=== PATIENT | male | born 1940 | race Caucasian/White ===

== ENCOUNTER → 2016-12-10 | Outpatient (CLI) | payer MEDICARE ==
[~2016-12-10] MED LIST: ALLO300T2 PO; ASPI-983 PO; ATOR20TA66; ATOR40TA70 PO; ATOR80TA76 PO; CHOL10007 PO; LISI-556 PO; NITR0.4T SL; Nitroglycerin SL; OMEG-160 PO; OMG1KC PO; PANT40TA3 PO; TICA90TA PO; UBID100C44 PO
--- OUTSIDE RECORDS SUMMARY | 2016-12-10 14:51 | XMS REPORT | Continuity of Care Document ---
Author Author [facility] Organization [facility] Address Unknown Phone Unavailable Care Team Providers [employer] Name Role Phone JESUS OCHOA DO PCP Insurance Providers Payer Name Policy Number Subscriber Name Relationship [facility] [id number] Luisito Agudelo 16 Self / Same As Patient Advance Directives Directive Response Recorded Date/Time Advance Directives Yes 06/13/16 9:15am Health Care Power of Registry Np No 06/13/16 9:15am Organ Donor No 06/13/16 9:15am Resuscitation Status Full Code 06/13/16 9:15am Chief Complaint and Reason for Visit Chief Complaint CHEST PAIN Reason for Visit Chest pain Hypertensive urgency ST segment changes on electrocardiogram Problems Active Problems Medical Problem Onset Date Status Chest pain Unknown Acute Hypertensive urgency Unknown Acute ST segment changes on electrocardiogram Unknown Acute Medications Current Home Medications Medication Dose Units Route Directions Days/Qty Instructions Start Date Allopurinol 300 Mg 90 06/13/16 Ticagrelor 90 Mg 90 Mg Oral Twice A Day 180 06/15/16 Atorvastatin Calcium 80 Mg 80 Mg Oral Bedtime 30 06/15/16 [place] 3 Polyunsat Fatty Acids 1,000 Mg 1,000 Mg Oral Twice A Day With Meals 100 06/15/16 [Nitroglycerin] 0.4 Mg 0.4 Mg Sublingual As Needed as needed for Chest Pain 30 06/15/16 Aspirin 81 Mg 81 Mg Oral Daily 90 06/15/16 Pantoprazole Sodium 40 Mg 40 Mg Oral Daily@0700 30 06/15/16 Past Home Medications Medication Directions Ordered Status Atorvastatin Calcium 20 Mg Tablet, 06/13/16 Discontinued Social History Social History Problem Response Recorded Date/Time Alcohol Use Occasionally Uses 06/13/2016 9:15am Recreational Drug Use No 06/13/2016 9:15am Recent Foreign Travel No 06/13/2016 9:15am Recent Infectious Disease Exposure No 06/13/2016 9:15am Hospitalization with Isolation Denies 06/15/2016 10:52am Smoking Status Former Smoker 06/13/2016 9:15am Type Used Cigarettes 06/15/2016 10:52am Recent Hopitalizations No 06/13/2016 9:15am Query Response Start Date Stop Date Smoking Status Former Smoker Hospital Discharge Instructions Patient Instructions Physician Instructions Follow Up/Plan Appointment with Dr Dominique's office in 1-2 hours CARDIAC CATH DISCHARGE INSTRUCTIONS *Hold Metformin for 48 hours post heart cath. ACTIVITY * Go Home directly and rest. * Limit activity of the leg (or wrist if it was used) for 7 days including aerobics, swimming, jogging, bicycling, etc. * Restrict stair-climbing for 7 days if possible, if not, climb up with your non-cath leg, then bring together on the same step. * Avoid lifting, pushing, pulling or excessive movement of the affected extremity for 7 days. * Customary sexual activity may be resumed after 2 days-use caution not to use a position that strains or causes pain to the affected extremity. * No driving for 24 hours. * NO SMOKING. * Avoid straining for bowel movements for 7 days. * Gentle walking on level ground is allowed. * Returning to work will depend on the type of procedure and the results. Your doctor will discuss this with you. CALL YOUR DOCTOR FOR ANY OF THE FOLLOWING: *If bleeding from the puncture site occurs- Apply gentle pressure to site with clean cloth and call your doctor or EMS. * If a knot or lump forms under the skin, increases in size, or causes pain. * If bruising appears to be worsening or moving further down your leg instead of disappearing. * Temperature above 101 F. CARE OF YOUR GROIN INCISION; * Bruising or purple discoloration of the skin near the puncture site is common. * You may shower only, no bathtub bathing for 5 days. Be careful to avoid slipping as your leg may feel stiff. * If a closure device was used on your femoral artery, please see the attached guide regarding care of the device and your leg. * REMOVE the dressing from your groin the next day after your procedure in the shower. CARE OF YOUR WRIST INCISION; * Bruising or purple discoloration of the skin near the puncture site is common. * You may shower. * DO NOT submerge wrist. * Remove dressing in 24 hours. Plan of Care Discharge Date 06/15/16 10:33am Disposition 01 HOME, SELF-CARE Instructions/Education Provided CARDIAC CATH DISCHARGE INSTRUC Prescriptions See Medication Section Additional Instructions/Education follow up appointment with dr dominique june 26 at 1:40 pm Care Plan and Goals See Discharge Instructions Section Functional Status Query Response Date Recorded Patient Orientation Person Place Time Situation June 15, 2016 10:52am Comprehension Ability Understands Concepts June 14, 2016 9:00pm Allergies, Adverse Reactions, Alerts Allergen Type Severity Reaction Status Last Updated Rosuvastatin Adverse Reaction Mild HOME MED=LIPITOR Active 06/13/16 Immunizations No immunization records. Vital Signs Acute Vital Signs Vital Response Date/Time Temperature (Fahrenheit) 98.6 degrees F (97.6 - 99.5) 06/15/2016 10:06am Temperature (Calculated Celsius) 36.06778 degrees C (36.4 - 37.5) 06/15/2016 8:00am Temperature Source Tympanic 06/15/2016 10:06am Pulse Rate (adult) 63 bpm (60 - 90) 06/15/2016 10:06am Respiratory Rate 16 bpm (12 - 24) 06/15/2016 10:06am O2 Sat by Pulse Oximetry 98 % (88 - 100) 06/15/2016 10:06am Blood Pressure 134/81 mm Hg 06/15/2016 10:06am Blood Pressure Mean 92 mm Hg 06/15/2016 8:00am Pain Numeric Pain Scale 0-No Pain 06/15/2016 10:06am Pain Intensity 0 06/13/2016 7:54am Height (Feet) 5 feet 06/13/2016 9:15am Height (Inches) 9.00 inches 06/13/2016 9:15am Height (Calculated Centimeters) 175.638704 cm 06/13/2016 9:15am Weight (Pounds) 198 pounds 06/15/2016 6:00am Weight (Ounces) 0.0 oz 06/13/2016 9:15am Weight (Calculated Grams) 76258.290 gm 06/15/2016 6:00am Weight (Calculated Kilograms) 89.331269 kilograms 06/15/2016 6:00am Calculated BMI 29.5 06/13/2016 9:15am Capillary Refill Capillary Refill Less Than 3 Seconds 06/14/2016 7:46pm Results Laboratory Results Test Name Result Units Flags Reference Collection Date/Time Result Date/ Time Comments White Blood Count 8.9 10^3/uL 4.3-11.0 06/15/2016 4:25am 06/15/2016 5: 03am Red Blood Count 4.03 10^6/uL L 4.35-5.85 06/15/2016 4:25am 06/15/2016 5: 03am Hemoglobin 12.5 G/DL L 13.3-17.7 06/15/2016 4:25am 06/15/2016 5:03am Hematocrit 36 % L 40-54 06/15/2016 4:25am 06/15/2016 5:03am Mean Corpuscular Volume 90 FL 80-99 06/15/2016 4:25am 06/15/2016 5: 03am Mean Corpuscular Hemoglobin 31 PG 25-34 06/15/2016 4:25am 06/15/2016 5: 03am Mean Corpuscular Hemoglobin Concent 35 G/DL 32-36 06/15/2016 4:25am 03/2016 5:03am Red Cell Distribution Width 13.8 % 10.0-14.5 06/15/2016 4:25am 2015 5:03am Platelet Count 181 10^3/uL 130-400 06/15/2016 4:25am 06/15/2016 5:03am Mean Platelet Volume 10.6 FL H 7.4-10.4 06/15/2016 4:25am 06/15/2016 5: 03am Neutrophils (%) (Auto) 59 % 42-75 06/13/2016 6:05am 06/13/2016 6:25am Lymphocytes (%) (Auto) 23 % 12-44 06/13/2016 6:05am 06/13/2016 6:25am Monocytes (%) (Auto) 11 % 0-12 06/13/2016 6:05am 06/13/2016 6:25am Eosinophils (%) (Auto) 6 % 0-10 06/13/2016 6:05am 06/13/2016 6:25am Basophils (%) (Auto) 1 % 0-10 06/13/2016 6:05am 06/13/2016 6:25am Neutrophils # (Auto) 5.6 X 10^3 1.8-7.8 06/13/2016 6:05am 06/13/2016 6: 25am Lymphocytes # (Auto) 2.2 X 10^3 1.0-4.0 06/13/2016 6:05am 06/13/2016 6: 25am Monocytes # (Auto) 1.1 X 10^3 H 0.0-1.0 06/13/2016 6:05am 06/13/2016 6: 25am Eosinophils # (Auto) 0.5 10^3/uL H 0.0-0.3 06/13/2016 6:05am 06/13/2016 6 :25am Basophils # (Auto) 0.1 10^3/uL 0.0-0.1 06/13/2016 6:05am 06/13/2016 6: 25am Prothrombin Time 12.5 SEC 12.2-14.7 06/13/2016 6:05am 06/13/2016 6: 27am INR Comment 1.0 0.8-1.4 06/13/2016 6:05am 06/13/2016 6:27am INTERPRETIVE DATA SUGGESTED THERAPEUTIC RANGE FOR INR'S: VENOUS THROMBOSIS, PULMONARY EMBOLISM, OR PREVENTION OF SYSTEMIC EMBOLISM (EG. IN ATRIAL FIBRILLATION): 2.0 - 3.0 MECHANICAL PROSTHETIC HEART VALVES: 2.5 - 3.5* *NOTE: INR'S UP TO 4.5 MAY BE NECESSARY IN SELECTED GROUPS OF HIGH RISK PATIENTS. [employer] CONSENSUS CONFERENCE ON ANTITHROMBOTIC THERAPY (2000). Activated Partial Thromboplast Time 31 SEC 24-35 06/13/2016 6:05am 01/2016 6:27am Sodium Level 140 MMOL/L 135-145 06/15/2016 4:25am 06/15/2016 5:22am Potassium Level 3.7 MMOL/L 3.6-5.0 06/15/2016 4:06/15/2016 5:22am Chloride Level 108 MMOL/L H 98-107 06/15/2016 4:06/15/2016 5:22am Carbon Dioxide Level 22 MMOL/L 21-32 06/15/2016 4:06/15/2016 5: 22am Anion Gap 10 MMOL/L 5-14 06/15/2016 4:06/15/2016 5:22am Blood Urea Nitrogen 18 MG/DL 7-18 06/15/2016 4:06/15/2016 5:22am Creatinine 1.07 MG/DL 0.60-1.30 06/15/2016 4:06/15/2016 5:22am BUN/Creatinine Ratio 17 06/15/2016 4:06/15/2016 5:22am Estimat Glomerular Filtration Rate > 60 06/15/2016 4:2015 5:22am GFR INTERPRETIVE DATA UNITS FOR ESTIMATED GFR (eGFR): mL/min/1.73 M2 REFERENCE RANGE FOR ESTIMATED GFR (eGFR) eGFR NORMAL eGFR >60 MODERATELY DECREASED eGFR 30-59 SEVERLY DECREASED eGFR 15-29 KIDNEY FAILURE <15 (OR DIALYSIS) Glucose Level 115 MG/DL H 70-105 06/15/2016 4:06/15/2016 5:22am Calcium Level 8.8 MG/DL 8.5-10.1 06/15/2016 4:06/15/2016 5:22am Magnesium Level 2.0 MG/DL 1.8-2.4 06/13/2016 6:06/13/2016 7:11am Total Bilirubin 0.6 MG/DL 0.1-1.0 06/13/2016 6:06/13/2016 7:11am Alkaline Phosphatase 76 U/L 40-136 06/13/2016 6:06/13/2016 7:11am Aspartate Amino Transf (AST/SGOT) 38 U/L H 5-34 06/13/2016 6:2015 7:11am Alanine Aminotransferase (ALT/SGPT) 25 U/L 0-55 06/13/2016 6:06/13 7:11am Troponin I 10.01 NG/ML CH <0.30 06/14/2016 4:15am 06/14/2016 5:15am RESULT CALLED TO AIDEN AT 0515. RESULTS READ BACK: YES. Troponin I 0.30 NG/ML <0.30 06/13/2016 6:05am 06/13/2016 7:11am RESULT CALLED TO KATERIN AT 0711. RESULTS READ BACK: YES. Myoglobin 236.0 NG/ML H 10.0-92.0 06/13/2016 6:05am 06/13/2016 7:11am Total Protein 7.1 G/DL 6.4-8.2 06/13/2016 6:05am 06/13/2016 7:11am Albumin 4.4 G/DL 3.2-4.5 06/13/2016 6:05am 06/13/2016 7:11am Triglycerides Level 113 MG/DL <150 06/14/2016 4:15am 06/14/2016 5:28am Cholesterol Level 134 MG/DL < 200 06/14/2016 4:15am 06/14/2016 5:28am HDL Cholesterol 39 MG/DL L 40-60 06/14/2016 4:15am 06/14/2016 5:28am LDL Cholesterol Direct 78 MG/DL 1-129 06/14/2016 4:15am 06/14/2016 5: 28am VLDL Cholesterol 23 MG/DL 5-40 06/14/2016 4:15am 06/14/2016 5:28am Procedures Procedure Status Date Provider(s) Tracing only of electrocardiogram Completed 06/13/16 BAILEY ABREU MD Tracing only of electrocardiogram Completed 06/13/16 BAILEY ABREU MD Tracing only of electrocardiogram Completed 06/13/16 GLADYS DOMINIQUE MD Tracing only of electrocardiogram Completed 06/13/16 GLADYS DOMINIQUE MD Color Doppler echocardiography Completed 06/14/16 GLADYS DOMINIQUE MD Encounters Encounter Location Arrival/Admit Date Discharge/Depart Date Attending Provider Discharged Inpatient [facility] 06/13/16 9:07am 10:33am GLADYS DOMINIQUE MD Recent Diagnosis Chest pain Hypertensive urgency ST segment changes on electrocardiogram
[2016-12-10 15:39] LABS: ALBUMIN 4.5 G/DL (3.2-4.5); BILIRUBIN,DIRECT 0.3 MG/DL (0.0-0.3); BILIRUBIN,INDIRECT 0.4 MG/DL; BILIRUBIN,TOTAL 0.7 MG/DL (0.1-1.0); CALCIUM 9.7 MG/DL (8.5-10.1); CREATININE SERUM 1.29 MG/DL (0.60-1.30); POTASSIUM 4.5 MMOL/L (3.6-5.0); TOTAL PROTEIN 6.9 G/DL (6.4-8.2)
== END ==
LOC: LAB 14:47
PROVIDERS: ATTEND Physician Assistant
DX: I25.10 Atherosclerotic heart disease of native coronary artery without angina pectoris (principal); I10 Essential (primary) hypertension; E78.2 Mixed hyperlipidemia
CPT/HCPCS: 36415; 80053; 80061; 80076

== ENCOUNTER → 2017-02-13 | Outpatient (CLI) | payer MEDICARE ==
[~2017-02-13] VITALS: Ht 175.3 cm; Wt 86.2 kg
[~2017-02-13] MED LIST changes: +CATHETER FLUSH 10 ML SYR IV PRN
[2017-02-13 13:11] VITALS: BP 142/75
--- NOTE | 2017-02-14 07:41 | STRESS TEST ---
PROCEDURE PHYSICIAN: GLADYS KNOWLES DATE OF PROCEDURE: 02/13/2017 EXERCISE MYOVIEW STRESS TEST REPORT: REFERRING PHYSICIAN: Dr. Khan. INDICATION: Coronary artery disease. BASELINE HEART RATE: 52 BASELINE BLOOD PRESSURE: 142/75 BASELINE EKG: Sinus rhythm with nondiagnostic changes. IN SUMMARY: The patient was injected with 10.64 mCi of technetium 99 Myoview and the resting images were obtained. Then the patient started exercising with a baseline heart rate, blood pressure and EKG mentioned above. At minute 7, heart rate was 129. The patient was injected with 30.5 mCi of technetium 99 Myoview. The patient was able to exercise for a total of 7 minutes and 50 seconds on standard Marshall protocol, achieving maximum heart rate of 142, which is 100% of maximum expected heart rate. With peak exercise level, EKG was showing [address] depression in 2, 3 and aVF, [address] depression in V4 and V5. Blood pressure was 198/90. During recovery, heart rate and blood pressure returned to baseline. Peak blood pressure was 215/82. The resting and stress images were reviewed and compared in the short axis, horizontal long axis, and vertical long axis views. The resting and stress images were reviewed and compared in the short axis, horizontal long axis, and vertical long axis views. Review of the images showed diaphragmatic attenuation with mild decreased uptake at the anteroapical segment and true apex and inferoapical segment of the left ventricle with mild reversibility. SSS is 3, SDS 3, TID value 0.98. On the gated images, the left ventricle appeared to be normal size with normal contractility. Calculated ejection fraction 66%. IN CONCLUSION: 1. Good exercise tolerance a total 7 minutes, 49 seconds on standard Marshall protocol, total of 10.1 METs, achieving 100% of maximum expected heart rate. 2. Severe hypertensive response to exercise. Returned to baseline during recovery. 3. [address] depression in 2, 3 and aVF, [address] depression in V4 and V5 with exercise, returned to baseline during recovery. 4. Diaphragmatic attenuation with mildly abnormal SPECT images suggestive of ischemia involving the anteroapical segment, true apex, and inferoapical segment of the left ventricle. 5. Normal left ventricular size with normal contractility. Calculated ejection fraction 66%. Job ID: [id number] Dictated Date: 02/13/2017 15:55:17 Steam Generating Powerplant Mechanic Date: 02/14/2017 07:37:27 / tbk
== END ==
LOC: CARD 11:56
PROVIDERS: ATTEND Physician Assistant
DX: I35.8 Other nonrheumatic aortic valve disorders (principal); I25.10 Atherosclerotic heart disease of native coronary artery without angina pectoris; E78.2 Mixed hyperlipidemia; I21.3 ST elevation (STEMI) myocardial infarction of unspecified site
CPT/HCPCS: 78452; 93017

== ENCOUNTER → 2017-02-13 | Outpatient (CLI) | payer MEDICARE ==
[~2017-02-13] MED LIST changes: -CATHETER FLUSH 10 ML SYR IV PRN
[2017-02-13 12:53] LABS: BASOPHILS # (AUTO) 0.1 10^3/uL (0.0-0.1); BASOPHILS % (AUTO) 1 % (0-10); EOSINOPHILS # (AUTO) 0.4 10^3/uL (0.0-0.3); EOSINOPHILS % (AUTO) 6 % (0-10); LYMPHOCYTES # (AUTO) 1.7 X 10^3 (1.0-4.0); LYMPHOCYTES % (AUTO) 26 % (12-44); MEAN CORPUSCULAR HEMOGLOBIN 31 PG (25-34); MEAN CORPUSCULAR HGB CONC 34 G/DL (32-36); MEAN CORPUSCULAR VOLUME 91 FL (80-99); MEAN PLATELET VOLUME 9.5 FL (7.4-10.4); MONOCYTES # (AUTO) 0.5 X 10^3 (0.0-1.0); MONOCYTES % (AUTO) 8 % (0-12); NEUTROPHILS # (AUTO) 3.8 X 10^3 (1.8-7.8); NEUTROPHILS % (AUTO) 59 % (42-75); PLATELET COUNT 244 10^3/uL (130-400); RED BLOOD COUNT 4.26 10^6/uL (4.35-5.85); RED CELL DISTRIBUTION WIDTH 14.2 % (10.0-14.5); WHITE BLOOD COUNT 6.4 10^3/uL (4.3-11.0)
[2017-02-13 13:12] LABS: ALBUMIN 4.1 G/DL (3.2-4.5); BILIRUBIN,TOTAL 0.7 MG/DL (0.1-1.0); CALCIUM 9.2 MG/DL (8.5-10.1); CREATININE SERUM 1.21 MG/DL (0.60-1.30); POTASSIUM 4.5 MMOL/L (3.6-5.0); TOTAL PROTEIN 6.5 G/DL (6.4-8.2); URIC ACID 5.5 MG/DL (2.6-7.2)
[2017-02-13 13:32] LABS: THYROID STIMULATING HORMONE 1.31 UIU/ML (0.35-4.94)
== END ==
LOC: LAB 11:53
PROVIDERS: ATTEND Family Medicine
DX: M10.9 Gout, unspecified (principal); R53.83 Other fatigue
CPT/HCPCS: 36415; 80053; 84443; 84550; 85025

== ENCOUNTER → 2017-08-20 | Outpatient (CLI) | payer MEDICARE ==
[2017-08-20 10:18] LABS: ALBUMIN 4.2 GM/DL (3.2-4.5); BILIRUBIN,TOTAL 0.8 MG/DL (0.1-1.0); CALCIUM 9.5 MG/DL (8.5-10.1); CREATININE SERUM 1.24 MG/DL (0.60-1.30); POTASSIUM 4.3 MMOL/L (3.6-5.0); TOTAL PROTEIN 7.2 GM/DL (6.4-8.2)
== END ==
LOC: LAB 09:41
PROVIDERS: ATTEND Physician Assistant
DX: I25.10 Atherosclerotic heart disease of native coronary artery without angina pectoris (principal); E78.2 Mixed hyperlipidemia; I10 Essential (primary) hypertension
CPT/HCPCS: 36415; 80053; 80061

== ENCOUNTER → 2018-08-21 | Outpatient (CLI) | payer MEDICARE ==
[2018-08-21 08:39] LABS: ALBUMIN 4.5 GM/DL (3.2-4.5); CALCIUM 9.9 MG/DL (8.5-10.1); CREATININE SERUM 1.29 MG/DL (0.60-1.30); POTASSIUM 4.3 MMOL/L (3.6-5.0); TOTAL PROTEIN 7.1 GM/DL (6.4-8.2)
== END ==
LOC: LAB 08:03
PROVIDERS: ATTEND Physician Assistant
DX: I25.10 Atherosclerotic heart disease of native coronary artery without angina pectoris (principal); E78.5 Hyperlipidemia, unspecified
CPT/HCPCS: 36415; 80053; 80061

== ENCOUNTER 2018-10-29 14:20 | Outpatient (CLI) | payer MEDICARE ==
[~2018-10-29] VITALS: Ht 175.3 cm; Wt 86.2 kg
[2018-10-29] MEDS ORDERED: ISOS30TA3 PO (14:24)
[2018-10-29] MEDS ORDERED: ATOR20TA66 PO (14:24)
== END 2018-10-29 14:30 | disposition home or self-care (01) ==
LOC: PREOP 14:20
PROVIDERS: ATTEND Internal Medicine
DX: Z01.818 Encounter for other preprocedural examination (principal)

== ENCOUNTER 2018-10-31 09:20 | Day surgery (SDC) | payer MEDICARE ==
--- NOTE | 2018-10-21 12:23 | HISTORY AND PHYSICAL ---
DATE OF SERVICE: COLONOSCOPY HISTORY AND PHYSICAL DATE OF ADMISSION: 10/31/2018. HISTORY OF PRESENT ILLNESS: The patient is an 78-year-old white male referred by Dr. Ramsey for surveillance colonoscopy. He has a past history of colon polyps and it has been 7 years since his last colonoscopy. This was reportedly done by Dr. Camara. He reports that he feels well. He denies any problems with bowel habit change, denying diarrhea or constipation. He has noted no bright red blood per rectum or melena. He has some occasional mild heartburn symptoms, but pretty much only happens now if he misses the dose of pantoprazole. He has no dysphagia. No history for Soler's esophagus. PAST MEDICAL HISTORY: Significant for hypertension, intermittent gout and hyperlipidemia as well as stable coronary artery disease. SOCIAL HISTORY: He is , retired, still very physically active for his age with no significant past drinking or smoking. FAMILY HISTORY: He is not aware of any family history for any GI tract malignancy including colon cancer. There is a family history for coronary artery disease and hypertension. MEDICATIONS ON ADMISSION: Include atorvastatin 20 mg daily, allopurinol 300 mg daily, baby aspirin 81 mg daily, pantoprazole 40 mg daily, fish oil 1200 mg capsule b.i.d., CoQ10 10 mg tablet daily, isosorbide mononitrate ER 30 mg daily and lisinopril 5 mg daily. PHYSICAL EXAMINATION: GENERAL: Reveals a pleasant white male appearing younger than his stated age. VITAL SIGNS: Blood pressure 110/70, heart rate 72 and regular. HEENT: Unremarkable. He has a Mallampati 2 oropharyngeal configuration. No exudate or erythema noted. NECK: Revealed no JVD, adenopathy or bruits. CHEST: Clear to auscultation. CARDIOVASCULAR: Reveals a regular rate and rhythm without murmur, S3 or S4. ABDOMEN: Soft, supple without mass, organomegaly or tenderness. EXTREMITIES: Reveal no cyanosis, clubbing or edema. ASSESSMENT AND PLAN: 1. The patient was set up for surveillance colonoscopy due to the past history of colon polyps. We did discuss the fact that considering his age, he has no evidence for significant neoplasia, may not be recommending future surveillance colonoscopy. Prep instructions were given and questions were answered. 2. Hypertension, under good control. 3. Hyperlipidemia. 4. Advised the patient to hold aspirin one week prior to colonoscopy that, I believe, was scheduled for 10/31. I thank you for the referral of this pleasant gentleman. Job ID: [id number] DocumentID: [id number] Dictated Date: 10/21/2018 11:57:40 Exploration Geologist Date: 10/21/2018 12:22:14 Dictated By: PURNIMA GE MD
[~2018-10-31] VITALS: Ht 175.3 cm; Wt 86.2 kg
[~2018-10-31 09:20] MED LIST changes: +ATOR20TA66 PO; +ISOS30TA3 PO
--- OUTSIDE RECORDS SUMMARY | 2018-10-31 09:29 | XMS REPORT | CCD ---
Author Author Kristin [facility] Organization [facility] Address [address] [place] [address] Phone Care Team Providers Care Animal Laboratory Technician Name Role Phone PP Unavailable CCM Unavailable Summary Purpose Interface Exchange Insurance Providers Payer name Policy type / Coverage type Covered democrat ID Effective Begin Date Effective End Date [employer] Commercial Insurance [id number] Unknown Unknown Family history Brother Diagnosis Age At Onset Alcoholism Unknown Cancer Unknown Mother Diagnosis Age At Onset Cancer Unknown Father Diagnosis Age At Onset Heart Attack Unknown Stroke Unknown Hyperlipidemia Unknown Alcoholism Unknown Social History Social History Element Codes Description Effective Dates Marital status Unknown Zuleima "Ade" Brandon 10/01/2017 Number of children Unknown 2 10/01/2017 Employment Unknown Retired 10/01/[address]: 8348310 Quit over 10 years ago Quit 1986 10/01/2017 Alcohol history Unknown pt chooses not to answer 10/01/2017 Allergies, Adverse Reactions, Alerts Substance Reaction Codes Entered Date Inactivated Date Status * NO KNOWN ENVIRONMENTAL ALLERGIES Unknown 10/01/2017 No Inactive Date Active * NO KNOWN FOOD ALLERGIES Unknown 10/01/2017 No Inactive Date Active [id number] REDUCTASE INHIBITORS Unknown 10/01/2017 No Inactive Date Active Past Medical History Illness Codes Condition Status Onset Date Resolved Date Essential (primary) hypertension ICD-9: 401.1 ICD-10: I10 Active 10/01/2017 Unknown Mixed hyperlipidemia ICD-9: 272.2 ICD-10: E78.2 Active 10/01/2017 Unknown Presbycusis, 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 Active 10/01/2018 Unknown Gastro-esophageal reflux disease without esophagitis ICD-9: 530.81 ICD-10: K21.9 Active 10/01/2017 Unknown 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 Active 10/01/2017 Unknown Problems Condition Codes Effective Dates Condition Status Essential (primary) hypertension ICD-9: 401.1 ICD-10: I10 10/01/2017 Active Mixed hyperlipidemia ICD-9: 272.2 ICD-10: E78.2 10/01/2017 Active Presbycusis, 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 10/01/2018 Active Gastro-esophageal reflux disease without esophagitis ICD-9: 530.81 ICD-10: K21.9 10/01/2017 Active 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 10/01/2017 Active Medications Medication Codes Instructions Start Date Stop Date Status Fill Instructions atorvastatin 20 mg tablet RxNorm: 589818 1 TABLET(S) PO QHS 09/19/2019 Active allopurinol 300 mg tablet RxNorm: 743332 1 TABLET(S) PO QD 05/07/2018 Inactive pantoprazole 40 mg tablet,delayed release RxNorm: 966207 1 Tablet(s) PO daily 10/01/2017 09/25/2018 Inactive isosorbide mononitrate ER 30 mg tablet,extended release 24 hr RxNorm: 412081 1 Tablet(s) PO daily 10/01/2017 09/25/2018 Inactive lisinopril 5 mg tablet RxNorm: 088002 1 Tablet(s) PO daily 09/25/2018 Inactive allopurinol 300 mg tablet RxNorm: 918603 1 Tablet(s) PO daily 10/01/2017 02/06/2018 Inactive atorvastatin 20 mg tablet RxNorm: 725851 1 Tablet(s) PO QHS 09/24/2018 Inactive nitroglycerin buccal RxNorm: 4917 buccal No Start Date Active aspirin 81 mg tablet RxNorm: 109834 1 Tablet(s) PO daily No Start Date Active Fish Oil 360 mg-1,200 mg capsule RxNorm: 195526 1 Capsule(s) PO BID No Start Date Active coenzyme Q10 10 mg tablet RxNorm: 897503 1 Tablet(s) PO daily No Start Date Active Vitamin D2 1,000 unit capsule RxNorm: 261827 1 Capsule(s) PO daily No Start Date Active atorvastatin 20 mg tablet RxNorm: 666571 1 Tablet(s) PO QHS No Start Date 09/30/2017 Inactive allopurinol 300 mg tablet RxNorm: 680397 1 Tablet(s) PO daily No Start Date 09/30/2017 Inactive isosorbide mononitrate ER 30 mg tablet,extended release 24 hr RxNorm: 814049 1 Tablet(s) PO daily No Start Date 2016 Inactive lisinopril 5 mg tablet RxNorm: 051989 1 Tablet(s) PO daily No Start Date 09/30/2017 Inactive Brilinta 90 mg tablet RxNorm: 7629982 1 Tablet(s) PO BID No Start Date 09/30/2017 Inactive pantoprazole 40 mg tablet,delayed release RxNorm: 815581 1 Tablet(s) PO daily No Start Date 09/30/2017 Inactive Medication Administered No Medication Administered data Immunizations Vaccine Codes Date Status Influenza CVX: 141 07/12/2017 completed Zoster CVX: 121 08/11/2015 completed Pneumococcal CVX: 33 05/11/2015 completed Assessments Condition Codes Effective Dates Presbycusis, 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3 ICD-9: 388.01 10/01/2018 Mixed hyperlipidemia ICD-10: E78.2 ICD-9: 272.2 10/01/2018 Essential (primary) hypertension ICD-10: I10 ICD-9: 401.1 10/01/2018 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 ICD-9: 728.6 10/01/2017 Gastro-esophageal reflux disease without esophagitis ICD-10 : K21.9 ICD-9: 530.81 10/01/2017 Reason For Visit Reason For Visit Effective Dates Notes hypertension 10/01/2018 hypertension 02/05/2018 hypertension 10/01/2017 left Results No Results data Review of Systems System Result Effective Dates Constitutional No recent illness 2017 Constitutional No chills 10/01/2018 Constitutional No fatigue 10/01/2018 Constitutional No fever 10/01/2018 Constitutional No insomnia 10/01/2018 Constitutional No malaise 10/01/2018 Eyes No vision change 10/01/2018 Ears/Nose/Throat/Neck No dental pain Ears/Nose/Throat/Neck No dizziness 2017 Ears/Nose/Throat/Neck No dysphagia 2017 Ears/Nose/Throat/Neck No headache 2017 Ears/Nose/Throat/Neck hearing loss 2017 Ears/Nose/Throat/Neck No nasal allergies 10/01/2018 Ears/Nose/Throat/Neck No sore throat Cardiovascular No chest pain/pressure Cardiovascular No dyspnea 10/01/2018 Cardiovascular No edema 10/01/2018 Cardiovascular No exercise intolerance Cardiovascular No fatigue 10/01/2018 Cardiovascular No near-syncope/dizziness 10/01/2018 Respiratory No chest tightness 2017 Respiratory No cough 10/01/2018 Respiratory No dyspnea 10/01/2018 Respiratory No pedal edema 10/01/2018 Gastrointestinal No abdominal pain 2017 Gastrointestinal No constipation 2017 Gastrointestinal No diarrhea 10/01/2018 Gastrointestinal No gastroesophageal reflux 10/01/2018 Gastrointestinal No nausea 10/01/2018 Gastrointestinal No vomiting 10/01/2018 Genitourinary/Nephrology No dysuria 10/01 Genitourinary/Nephrology No nocturia Genitourinary/Nephrology No urinary incontinence 10/01/2018 Musculoskeletal No stiffness 10/01/2018 Musculoskeletal No swelling 10/01/2018 Musculoskeletal No muscle weakness 2017 Musculoskeletal No myalgias 10/01/2018 Dermatologic No rash 10/01/2018 Dermatologic No sores 10/01/2018 Neurologic No dizziness 10/01/2018 Neurologic No headache 10/01/2018 Neurologic No neck pain 10/01/2018 Neurologic No syncope 10/01/2018 Psychiatric No anxiety 10/01/2018 Psychiatric No depression 10/01/2018 Constitutional No recent illness 2017 Constitutional No chills 02/05/2018 Constitutional No fever 02/05/2018 Eyes No vision change 02/05/2018 Cardiovascular No chest pain/pressure Cardiovascular No dyspnea 02/05/2018 Respiratory No cough 02/05/2018 Gastrointestinal No abdominal pain 2017 Gastrointestinal No constipation 2017 Gastrointestinal No diarrhea 02/05/2018 Gastrointestinal No nausea 02/05/2018 Gastrointestinal No vomiting 02/05/2018 Dermatologic No rash 02/05/2018 Constitutional No diaphoresis 02/05/2018 Ears/Nose/Throat/Neck No nasal allergies 02/05/2018 Ears/Nose/Throat/Neck No nasal discharge 02/05/2018 Respiratory No chest congestion 2017 Musculoskeletal No joint complaint 2017 Neurologic No alteration of consciousness 02/05/2018 Neurologic No mental status change 2017 Constitutional No recent illness 2016 Constitutional No chills 10/01/2017 Constitutional No fatigue 10/01/2017 Constitutional No fever 10/01/2017 Constitutional No insomnia 10/01/2017 Constitutional No malaise 10/01/2017 Eyes No vision change 10/01/2017 Ears/Nose/Throat/Neck No dental pain Ears/Nose/Throat/Neck No dizziness 2016 Ears/Nose/Throat/Neck No dysphagia 2016 Ears/Nose/Throat/Neck No headache 2016 Ears/Nose/Throat/Neck No hearing loss Ears/Nose/Throat/Neck No nasal allergies 10/01/2017 Ears/Nose/Throat/Neck No sore throat Ears/Nose/Throat/Neck No postnasal drip 10/01/2017 Ears/Nose/Throat/Neck No sinus congestion 10/01/2017 Cardiovascular No chest pain/pressure Cardiovascular No dyspnea 10/01/2017 Cardiovascular No edema 10/01/2017 Cardiovascular No exercise intolerance Cardiovascular No fatigue 10/01/2017 Cardiovascular No near-syncope/dizziness 10/01/2017 Respiratory No chest tightness 2016 Respiratory No cough 10/01/2017 Respiratory No dyspnea 10/01/2017 Respiratory No pedal edema 10/01/2017 Gastrointestinal No abdominal pain 2016 Gastrointestinal No constipation 2016 Gastrointestinal No diarrhea 10/01/2017 Gastrointestinal No gastroesophageal reflux 10/01/2017 Gastrointestinal No nausea 10/01/2017 Gastrointestinal No vomiting 10/01/2017 Genitourinary/Nephrology No dysuria 10/01 Genitourinary/Nephrology No nocturia Genitourinary/Nephrology No urinary incontinence 10/01/2017 Musculoskeletal No stiffness 10/01/2017 Musculoskeletal No swelling 10/01/2017 Musculoskeletal No muscle weakness 2016 Musculoskeletal No myalgias 10/01/2017 Dermatologic No rash 10/01/2017 Dermatologic No sores 10/01/2017 Neurologic No dizziness 10/01/2017 Neurologic No headache 10/01/2017 Neurologic No neck pain 10/01/2017 Neurologic No syncope 10/01/2017 Psychiatric No anxiety 10/01/2017 Psychiatric No depression 10/01/2017 Physical Exam Exam Name System Name Item Name Status Result Effective Dates Notes Full Exam - General 1994 Constitutional general appearance Development: well developed 10/01/2018 None Full Exam - General 1994 Constitutional general appearance Development: appears stated age 1110/01/2018 None Full Exam - General 1994 Constitutional general appearance Hygiene/Attention to Grooming: good hygiene 10/01/2018 None Full Exam - General 1994 Eyes conjunctiva /eyelids Overall: conjunctiva clear 10/01/2018 None Full Exam - General 1994 Eyes conjunctiva /eyelids Overall: cornea clear 10/01/2018 None Full Exam - General 1994 Eyes conjunctiva /eyelids Overall: eyelids normal 10/01/2018 None Full Exam - General 1994 Eyes pupils and irises Overall: pupils equal, round, reactive to light and accomodation 10/01/2018 None Full Exam - General 1994 Ears/Nose/Throat otoscopic exam Overall: external auditory canals clear 10/01/2018 None Full Exam - General 1994 Ears/Nose/Throat otoscopic exam Overall: tympanic membranes clear 10/01/2018 None Full Exam - General 1994 Ears/Nose/Throat lips/teeth/gingiva Overall: benign lips 10/01/2018 None Full Exam - General 1994 Ears/Nose/Throat lips/teeth/gingiva Overall: normal dentition 10/01/2018 None Full Exam - General 1994 Ears/Nose/Throat oral cavity/pharynx/larynx Overall: oral mucosa clear 10/01/2018 None Full Exam - General 1994 Ears/Nose/Throat oral cavity/pharynx/larynx Overall: oropharyngeal mucosa clear 10/01/2018 None Full Exam - General 1994 Ears/Nose/Throat oral cavity/pharynx/larynx Overall: hypopharynx benign 10/01/2018 None Full Exam - General 1994 Ears/Nose/Throat oral cavity/pharynx/larynx Overall: no masses 10/01/2018 None Full Exam - General 1994 Respiratory auscultation Overall: breath sounds clear bilaterally 10/01/2018 None Full Exam - General 1994 Respiratory respiratory effort/rhythm Overall: no retractions 10/01/2018 None Full Exam - General 1994 Respiratory respiratory effort/rhythm Overall: normal rate 10/01/2018 None Full Exam - General 1994 Cardiovascular inspection of carotid pulses Overall: strong, bilaterally equal, no bruits 10/01/2018 None Full Exam - General 1994 Cardiovascular extremities Overall: no clubbing 10/01/2018 None Full Exam - General 1994 Cardiovascular auscultation of heart Overall: regular rate 10/01/2018 None Full Exam - General 1994 Cardiovascular auscultation of heart Overall: normal heart sounds 10/01/2018 None Full Exam - General 1994 Abdomen abdominal exam Overall: no tenderness 10/01/2018 None Full Exam - General 1994 Abdomen abdominal exam Overall: normal bowel sounds 10/01/2018 None Full Exam - General 1994 Lymphatic neck nodes Overall: anterior cervical chain benign 10/01/2018 None Full Exam - General 1994 Lymphatic neck nodes Overall: posterior cervical chain benign 10/01/2018 None Full Exam - General 1994 Musculoskeletal upper extremity Inspection - carpals: nodule 10/01/2018 contracture on left hand 4th digit and possible carpal tunnel left hand + phalen and +tinnel sign at wrist on left Full Exam - General 1994 Musculoskeletal spine, ribs and pelvis Overall: spine benign 10/01/2018 None Full Exam - General 1994 Musculoskeletal spine, ribs and pelvis Overall: sacroiliac joint benign 10/01/2018 None Full Exam - General 1994 Musculoskeletal spine, ribs and pelvis Overall: good posture 10/01/2018 None Full Exam - General 1994 Musculoskeletal head and neck Overall: head atraumatic 10/01/2018 None Full Exam - General 1994 Musculoskeletal head and neck Overall: cervical spine benign 10/01/2018 None Full Exam - General 1994 Integument inspection of skin Overall: few scattered moles, no gross abnormalities 10/01/2018 None Full Exam - General 1994 Neurologic deep tendon reflexes Overall: deep tendon reflexes intact 10/01/2018 None Full Exam - General 1994 Neurologic cranial nerves Overall: crainial nerves 2 - 12 grossly intact 10/01/2018 None Full Exam - General 1994 Psychiatric orientation/consciousness Overall: oriented to person, place and time 10/01/2018 None Full Exam - General 1994 Psychiatric mood and affect Overall: normal mood and affect 10/01/2018 None Full Exam - General 1994 Constitutional general appearance Hygiene/Attention to Grooming: good hygiene 02/05/2018 None Full Exam - General 1994 Eyes conjunctiva /eyelids Overall: conjunctiva clear 02/05/2018 None Full Exam - General 1994 Eyes conjunctiva /eyelids Overall: cornea clear 02/05/2018 None Full Exam - General 1994 Eyes conjunctiva /eyelids Overall: eyelids normal 02/05/2018 None Full Exam - General 1994 Eyes pupils and irises Overall: pupils equal, round, reactive to light and accomodation 02/05/2018 None Full Exam - General 1994 Ears/Nose/Throat otoscopic exam Overall: external auditory canals clear 02/05/2018 None Full Exam - General 1994 Ears/Nose/Throat otoscopic exam Overall: tympanic membranes clear 02/05/2018 None Full Exam - General 1994 Ears/Nose/Throat lips/teeth/gingiva Overall: benign lips 02/05/2018 None Full Exam - General 1994 Ears/Nose/Throat oral cavity/pharynx/larynx Overall: oral mucosa clear 02/05/2018 None Full Exam - General 1994 Ears/Nose/Throat oral cavity/pharynx/larynx Overall: oropharyngeal mucosa clear 02/05/2018 None Full Exam - General 1994 Respiratory auscultation Overall: breath sounds clear bilaterally 02/05/2018 None Full Exam - General 1994 Respiratory respiratory effort/rhythm Overall: no retractions 02/05/2018 None Full Exam - General 1994 Respiratory respiratory effort/rhythm Overall: normal rate 02/05/2018 None Full Exam - General 1994 Cardiovascular extremities Overall: no clubbing 02/05/2018 None Full Exam - General 1994 Cardiovascular auscultation of heart Overall: regular rate 02/05/2018 None Full Exam - General 1994 Cardiovascular auscultation of heart Overall: normal heart sounds 02/05/2018 None Full Exam - General 1994 Musculoskeletal spine, ribs and pelvis Overall: good posture 02/05/2018 None Full Exam - General 1994 Musculoskeletal head and neck Overall: head atraumatic 02/05/2018 None Full Exam - General 1994 Neurologic cranial nerves Overall: crainial nerves 2 - 12 grossly intact 02/05/2018 None Full Exam - General 1994 Psychiatric orientation/consciousness Overall: oriented to person, place and time 02/05/2018 None Full Exam - General 1994 Psychiatric mood and affect Overall: normal mood and affect 02/05/2018 None Full Exam - General 1994 Constitutional general appearance Overall: well developed 02/05/2018 None Full Exam - General 1994 Constitutional general appearance Overall: in no acute distress 02/05/2018 None Full Exam - General 1994 Constitutional general appearance Overall: well nourished 02/05/2018 None Full Exam - General 1994 Abdomen abdominal exam Overall: normal bowel sounds 02/05/2018 None Full Exam - General 1994 Psychiatric appearance Overall: well-groomed, good eye contact 02/05/2018 None Full Exam - General 1994 Constitutional general appearance Development: well developed 10/01/2017 None Full Exam - General 1994 Constitutional general appearance Development: appears stated age 1110/01/2017 None Full Exam - General 1994 Constitutional general appearance Hygiene/Attention to Grooming: good hygiene 10/01/2017 None Full Exam - General 1994 Eyes conjunctiva /eyelids Overall: conjunctiva clear 10/01/2017 None Full Exam - General 1994 Eyes conjunctiva /eyelids Overall: cornea clear 10/01/2017 None Full Exam - General 1994 Eyes conjunctiva /eyelids Overall: eyelids normal 10/01/2017 None Full Exam - General 1994 Eyes pupils and irises Overall: pupils equal, round, reactive to light and accomodation 10/01/2017 None Full Exam - General 1994 Ears/Nose/Throat otoscopic exam Overall: external auditory canals clear 10/01/2017 None Full Exam - General 1994 Ears/Nose/Throat otoscopic exam Overall: tympanic membranes clear 10/01/2017 None Full Exam - General 1994 Ears/Nose/Throat lips/teeth/gingiva Overall: benign lips 10/01/2017 None Full Exam - General 1994 Ears/Nose/Throat lips/teeth/gingiva Overall: normal dentition 10/01/2017 None Full Exam - General 1994 Ears/Nose/Throat oral cavity/pharynx/larynx Overall: oral mucosa clear 10/01/2017 None Full Exam - General 1994 Ears/Nose/Throat oral cavity/pharynx/larynx Overall: oropharyngeal mucosa clear 10/01/2017 None Full Exam - General 1994 Ears/Nose/Throat oral cavity/pharynx/larynx Overall: hypopharynx benign 10/01/2017 None Full Exam - General 1994 Ears/Nose/Throat oral cavity/pharynx/larynx Overall: no masses 10/01/2017 None Full Exam - General 1994 Respiratory auscultation Overall: breath sounds clear bilaterally 10/01/2017 None Full Exam - General 1994 Respiratory respiratory effort/rhythm Overall: no retractions 10/01/2017 None Full Exam - General 1994 Respiratory respiratory effort/rhythm Overall: normal rate 10/01/2017 None Full Exam - General 1994 Cardiovascular extremities Overall: no clubbing 10/01/2017 None Full Exam - General 1994 Cardiovascular auscultation of heart Overall: regular rate 10/01/2017 None Full Exam - General 1994 Cardiovascular auscultation of heart Overall: normal heart sounds 10/01/2017 None Full Exam - General 1994 Abdomen abdominal exam Overall: no tenderness 10/01/2017 None Full Exam - General 1994 Abdomen abdominal exam Overall: normal bowel sounds 10/01/2017 None Full Exam - General 1994 Lymphatic neck nodes Overall: anterior cervical chain benign 10/01/2017 None Full Exam - General 1994 Lymphatic neck nodes Overall: posterior cervical chain benign 10/01/2017 None Full Exam - General 1994 Musculoskeletal spine, ribs and pelvis Overall: spine benign 10/01/2017 None Full Exam - General 1994 Musculoskeletal spine, ribs and pelvis Overall: sacroiliac joint benign 10/01/2017 None Full Exam - General 1994 Musculoskeletal spine, ribs and pelvis Overall: good posture 10/01/2017 None Full Exam - General 1994 Musculoskeletal head and neck Overall: head atraumatic 10/01/2017 None Full Exam - General 1994 Musculoskeletal head and neck Overall: cervical spine benign 10/01/2017 None Full Exam - General 1994 Integument inspection of skin Overall: few scattered moles, no gross abnormalities 10/01/2017 None Full Exam - General 1994 Neurologic deep tendon reflexes Overall: deep tendon reflexes intact 10/01/2017 None Full Exam - General 1994 Neurologic cranial nerves Overall: crainial nerves 2 - 12 grossly intact 10/01/2017 None Full Exam - General 1994 Psychiatric orientation/consciousness Overall: oriented to person, place and time 10/01/2017 None Full Exam - General 1994 Psychiatric mood and affect Overall: normal mood and affect 10/01/2017 None Full Exam - General 1994 Cardiovascular inspection of carotid pulses Overall: strong, bilaterally equal, no bruits 10/01/2017 None Full Exam - General 1994 Musculoskeletal upper extremity Inspection - carpals: nodule 10/01/2017 contracture on left hand 4th digit and possible carpal tunnel left hand + phalen and +tinnel sign at wrist on left Procedures No Procedures data Vital Signs Date Vital 10/01/2018 Blood Pressure 1: 112/68 Code : 8480-6 BMI: 27.3 Code : 04021-8 Heart Rate 1 : 61 bpm Height: 5'10" SpO2: 98% Weight: 190 lbs 02/05/2018 Blood Pressure 1: 122/72 Code : 8480-6 BMI: 26.5 Code : 62871-5 Heart Rate 1 : 80 bpm Height: 5'10" SpO2: 98% Weight: 185 lbs 10/01/2017 Blood Pressure 1: 146/80 Code : 8480-6 BMI: 27.4 Code : 15915-0 Heart Rate 1 : 50 bpm Height: 5'10" SpO2: 96% Weight: 191 lbs Functional Status No Functional Status data History of Present Illness Symptom Name Status Result Effective Date Notes hypertension Quality chronic 10/01/2018 None hypertension Onset and Resolution ongoing 10/01/2018 None hypertension Blood Pressure Values patient checking blood pressure at home - did not bring in readings 10/01/2018 -Checks occasionally hypertension Pertinent Findings dizziness 10/01/2018 -He did have when he had a sinus infection a few weeks ago hypertension Pertinent Findings Denies dyspnea 10/01/2018 None hypertension Pertinent Findings Denies edema 10/01/2018 None hyperlipidemia Significant Family History hyperlipidemia 10/01/2018 None hyperlipidemia Significant Family History cardiac disease 10/01/2018 None hypertension Quality primary hypertension 10/01/2018 None hypertension Onset of Symptom during adulthood 10/01/2018 None hypertension Alleviating Factors medication 10/01/2018 None hypertension Significant Family History cardiac disease 10/01/2018 None hypertension Significant Family History stroke 10/01/2018 None hyperlipidemia Onset and Resolution gradual in onset 10/01/2018 None hyperlipidemia Onset of Symptom during adulthood 10/01/2018 None hyperlipidemia Significant Medications statin 10/01/2018 None hyperlipidemia Alleviating Factors medication 10/01/2018 None hyperlipidemia Exacerbating Factors diet 10/01/2018 None hypertension Quality chronic 02/05/2018 None hypertension Quality stable 02/05/2018 None hypertension Onset and Resolution ongoing 02/05/2018 None hypertension Onset of Symptom during childhood 02/05/2018 None hypertension Blood Pressure Values patient checking blood pressure at home - did not bring in readings 02/05/2018 None hypertension Significant Family History heart disease 02/05/2018 None hypertension Significant Family History hypertension 02/05/2018 None hypertension Significant Family History cardiac disease 02/05/2018 None hypertension Triggers no known associated factors 02/05/2018 None hypertension Pertinent Findings Denies anxiety 02/05/2018 None hypertension Pertinent Findings Denies decreased energy 02/05/2018 None hypertension Pertinent Findings Denies dizziness 02/05/2018 None hypertension Pertinent Findings Denies dyspnea 02/05/2018 None hypertension Pertinent Findings Denies edema 02/05/2018 None hyperlipidemia Onset and Resolution ongoing 02/05/2018 None hyperlipidemia Onset of Symptom during childhood 02/05/2018 None hyperlipidemia Pertinent Findings Denies edema 02/05/2018 None hyperlipidemia Pertinent Findings Denies nausea 02/05/2018 None hyperlipidemia Pertinent Findings Denies obesity 02/05/2018 None hyperlipidemia Pertinent Findings Denies weight loss 02/05/2018 None hyperlipidemia Quality chronic 02/05/2018 None hyperlipidemia Quality stable 02/05/2018 None hyperlipidemia Significant Family History hyperlipidemia 02/05/2018 None hyperlipidemia Significant Family History cardiac disease 02/05/2018 None hypertension Quality chronic 10/01/2017 None hypertension Quality stable 10/01/2017 None hypertension Onset and Resolution ongoing 10/01/2017 None hypertension Onset of Symptom during childhood 10/01/2017 None hypertension Pertinent Findings Denies anxiety 10/01/2017 None hypertension Pertinent Findings Denies decreased energy 10/01/2017 None hypertension Pertinent Findings Denies dizziness 10/01/2017 None hypertension Pertinent Findings Denies dyspnea 10/01/2017 None hypertension Pertinent Findings Denies edema 10/01/2017 None hypertension Triggers no known associated factors 10/01/2017 None hypertension Significant Family History heart disease 10/01/2017 None hypertension Significant Family History hypertension 10/01/2017 None hypertension Significant Family History cardiac disease 10/01/2017 None hypertension Blood Pressure Values patient checking blood pressure at home - did not bring in readings 10/01/2017 None hyperlipidemia Onset and Resolution ongoing 10/01/2017 None hyperlipidemia Onset of Symptom during childhood 10/01/2017 None hyperlipidemia Significant Family History hyperlipidemia 10/01/2017 None hyperlipidemia Significant Family History cardiac disease 10/01/2017 None hyperlipidemia Quality chronic 10/01/2017 None hyperlipidemia Quality stable 10/01/2017 None hyperlipidemia Pertinent Findings Denies edema 10/01/2017 None hyperlipidemia Pertinent Findings Denies nausea 10/01/2017 None hyperlipidemia Pertinent Findings Denies obesity 10/01/2017 None hyperlipidemia Pertinent Findings Denies weight loss 10/01/2017 None gout Exacerbating Factors stress 10/01/2017 None gout Exacerbating Factors food: _ 10/01/2017 None gout Pertinent Findings Denies warmth 10/01/2017 None gout Pertinent Findings Denies swelling 10/01/2017 None gout Pertinent Findings Denies redness 10/01/2017 None gout Pertinent Findings Denies fever 10/01/2017 None hand pain Location on the left 10/01/2017 None hand pain Quality numbness 10/01/2017 None hand pain Quality acute 10/01/2017 None hand pain Quality chronic 10/01/2017 None hand pain Quality throbbing 10/01/2017 None hand pain Pertinent Findings Denies decreased range of motion 10/01/2017 None hand pain Pertinent Findings pain with movement 10/01/2017 None hand pain Pertinent Findings stiffness 10/01/2017 None hand pain Pertinent Findings Denies redness 10/01/2017 None hand pain Pertinent Findings Denies warmth 10/01/2017 None hand pain Pertinent Findings Denies tingling 10/01/2017 None hand pain Pertinent Findings weakness 10/01/2017 None Advance Directives No Advance Directive data Encounters Encounter Performer Location Codes Date (48729) 19878 EST. 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 Pt has been encouraged to exercise daily. The pt has been advised to call the office if there are any acute concerns about change in blood pressure readings at home. Hx of polyps - report is about 5 -6 polyps that had to be removed, I have recommended a referral to Dr. Aranda for colonoscopy - hx of polyps about 6 years ago - is due for repeat. Hyperlipidemia - pt has been counseled about appropriate diet, exercise, and need for low fat food choices. I have discussed the need for the patient to take medications as prescribed. If the patient has negative side effects from the medication, they are to CALL the office and not abruptly discontinue the medication without discussion with a practitioner in the office. We will check labs in 3-6 months for follow up on the patient's chronic medical problem and to assure normal liver response to medications. Hearing loss - I have recommended that pt needs to have hearing testing. 10/01/2018 Patient Education: Patient Medication Summary Completed 10/01/2018 Patient Education: Cholesterol Management Completed 10/01/2018 Appointment: Kristin Ramsey WPtel: [facility] (15 min) Moderate 08/06/2018 Visit Plan: Hypertension - well controlled - continue with current medications, continue with no added salt diet. Pt has been encouraged to exercise daily. The pt has been advised to call the office if there are any acute concerns about change in blood pressure readings at home. Hyperlipidemia - pt has been counseled about appropriate diet, exercise, and need for low fat food choices. I have discussed the need for the patient to take medications as prescribed. If the patient has negative side effects from the medication, they are to CALL the office and not abruptly discontinue the medication without discussion with a practitioner in the office. We will check labs in 3-6 months for follow up on the patient's chronic medical problem and to assure normal liver response to medications. 02/05/2018 Appointment: Martha Shah WPtel: [facility] (15 min) Moderate 02/05/2018 Patient Education: Patient Medication Summary Completed 02/05/2018 Visit Plan: Hypertension - well controlled - continue with current medications, continue with no added salt diet. Pt has been encouraged to exercise daily. The pt has been advised to call the office if there are any acute concerns about change in blood pressure readings at home. 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 Gomez RE - contracture on left hand 4th digit and possible carpal tunnel left hand - prefer appt at the Ortho clinic in [place] Hyperlipidemia - pt has been counseled about appropriate diet, exercise, and need for low fat food choices. I have discussed the need for the patient to take medications as prescribed. If the patient has negative side effects from the medication, they are to CALL the office and not abruptly discontinue the medication without discussion with a practitioner in the office. We will check labs in 3-6 months for follow up on the patient's chronic medical problem and to assure normal liver response to medications. Esophageal Reflux - the patient has been counseled against excessive intake of caffeine, spicy foods, peppermint , and cinnamon - all of which can exacerbate esophageal reflux. The patient is to take medications as prescribed and call the office if the symptoms are not improving. 10/01/2017 [facility]ment: [phone] [facility] Patient 10/01/2017 Patient Education: Patient Medication Summary Completed 10/01/2017 Care Plan: Referral Order SNOMED-CT : [id number] Pending 10/01/2017 Referral: External, Ordering Provider Referral Appointment Requested Instructions Comment . Hypertension - well controlled - continue with current medications, continue with no added salt diet. Pt has been encouraged to exercise daily. The pt has been advised to call the office if there are any acute concerns about change in blood pressure readings at home. Hyperlipidemia - pt has been counseled about appropriate diet, exercise, and need for low fat food choices. I have discussed the need for the patient to take medications as prescribed. If the patient has negative side effects from the medication, they are to CALL the office and not abruptly discontinue the medication without discussion with a practitioner in the office. We will check labs in 3-6 months for follow up on the patient's chronic medical problem and to assure normal liver response to medications. . Hypertension - well controlled - continue with current medications, continue with no added salt diet. Pt has been encouraged to exercise daily. The pt has been advised to call the office if there are any acute concerns about change in blood pressure readings at home. 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 Gomez RE - contracture on left hand 4th digit and possible carpal tunnel left hand - prefer appt at the [facility] in [place] Hyperlipidemia - pt has been counseled about appropriate diet, exercise, and need for low fat food choices. I have discussed the need for the patient to take medications as prescribed. If the patient has negative side effects from the medication, they are to CALL the office and not abruptly discontinue the medication without discussion with a practitioner in the office. We will check labs in 3-6 months for follow up on the patient's chronic medical problem and to assure normal liver response to medications. Esophageal Reflux - the patient has been counseled against excessive intake of caffeine, spicy foods, peppermint, and cinnamon - all of which can exacerbate esophageal reflux. The patient is to take medications as prescribed and call the office if the symptoms are not improving. . Hypertension - well controlled - continue with current medications, continue with no added salt diet. Pt has been encouraged to exercise daily. The pt has been advised to call the office if there are any acute concerns about change in blood pressure readings at home. Hx of polyps - report is about 5 -6 polyps that had to be removed, I have recommended a referral to Dr. Aranda for colonoscopy - hx of polyps about 6 years ago - is due for repeat. Hyperlipidemia - pt has been counseled about appropriate diet, exercise, and need for low fat food choices. I have discussed the need for the patient to take medications as prescribed. If the patient has negative side effects from the medication, they are to CALL the office and not abruptly discontinue the medication without discussion with a practitioner in the office. We will check labs in 3-6 months for follow up on the patient's chronic medical problem and to assure normal liver response to medications. Hearing loss - I have recommended that pt needs to have hearing testing.
--- OUTSIDE RECORDS SUMMARY | 2018-10-31 09:29 | XMS REPORT | Clinical Summary ---
Author Author [facility] Organization [facility] Address Unknown Phone Unavailable Care Team Providers Care Administrative Support Assoc Name Role Phone PCP Unavailable Allergies Not on File Current Medications Not on file Active Problems Not on file Social History Tobacco Use Types Packs/Day Years Used Date Never Assessed Sex Assigned at Date Recorded Not on file Last Filed Vital Signs Not on file Plan of Treatment Not on file Results Not on filefrom Last 3 Months
--- OUTSIDE RECORDS SUMMARY | 2018-10-31 09:30 | XMS REPORT | CCD ---
Author Author [facility] Organization [facility] Address [address] [place] [address] Phone Care Team Providers Care Case Resolution Specialist Name Role Phone PP Unavailable CCM Unavailable Summary Purpose Interface Exchange Insurance Providers Payer name Policy type / Coverage type Covered democrat ID Effective Begin Date Effective End Date [employer] Commercial Insurance [id number] Unknown Unknown Family history Brother Diagnosis Age [...] Unknown Retired 10/01/[address]: 5606947 Quit over 10 years ago Quit 1986 10/01/2017 Alcohol history Unknown pt chooses not to answer 10/01/2017 Allergies, Adverse Reactions, Alerts Substance Reaction Codes Entered Date Inactivated Date Status * NO KNOWN ENVIRONMENTAL ALLERGIES Unknown 10/01/2017 No Inactive Date Active * NO KNOWN FOOD ALLERGIES Unknown 10/01/2017 No Inactive Date Active [id number]-DAI REDUCTASE INHIBITORS Unknown 10/01/2017 No Inactive Date Active Past Medical History Illness Codes Condition Status Onset Date Resolved Date Essential (primary) hypertension ICD-9: 401.1 ICD-10: I10 Active 10/01/2017 Unknown Gastro-esophageal reflux disease without esophagitis ICD-9: 530.81 ICD-10: K21.9 Active 10/01/2017 Unknown Mixed hyperlipidemia ICD-9: 272.2 ICD-10: E78.2 Active 10/01/2017 Unknown 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 Active 10/01/2017 Unknown Problems Condition Codes Effective Dates Condition Status Essential (primary) hypertension ICD-9: 401.1 ICD-10: I10 10/01/2017 Active Gastro-esophageal reflux disease without esophagitis ICD-9: 530.81 ICD-10: K21.9 10/01/2017 Active Mixed hyperlipidemia ICD-9: 272.2 ICD-10: E78.2 10/01/2017 Active 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 10/01/2017 Active Medications Medication Codes Instructions Start Date Stop Date Status Fill Instructions atorvastatin 20 mg tablet RxNorm: 348632 1 TABLET(S) PO QHS 09/19/2019 Active allopurinol 300 mg tablet RxNorm: 952563 1 TABLET(S) PO QD 05/07/2018 Inactive pantoprazole 40 mg tablet,delayed release RxNorm: 892229 1 Tablet(s) PO daily 10/01/2017 09/25/2018 Inactive isosorbide mononitrate ER 30 mg tablet,extended release 24 hr RxNorm: 191598 1 Tablet(s) PO daily 10/01/2017 09/25/2018 Inactive lisinopril 5 mg tablet RxNorm: 296605 1 Tablet(s) PO daily 09/25/2018 Inactive allopurinol 300 mg tablet RxNorm: 065067 1 Tablet(s) PO daily 10/01/2017 02/06/2018 Inactive atorvastatin 20 mg tablet RxNorm: 411892 1 Tablet(s) PO QHS 09/24/2018 Inactive nitroglycerin buccal RxNorm: 4917 buccal No Start Date Active aspirin 81 mg tablet RxNorm: 568548 1 Tablet(s) PO daily No Start Date Active Fish Oil 360 mg-1,200 mg capsule RxNorm: 394557 1 Capsule(s) PO BID No Start Date Active coenzyme Q10 10 mg tablet RxNorm: 723616 1 Tablet(s) PO daily No Start Date Active Vitamin D2 1,000 unit capsule RxNorm: 269246 1 Capsule(s) PO daily No Start Date Active atorvastatin 20 mg tablet RxNorm: 661446 1 Tablet(s) PO QHS No Start Date 09/30/2017 Inactive allopurinol 300 mg tablet RxNorm: 661392 1 Tablet(s) PO daily No Start Date 09/30/2017 Inactive isosorbide mononitrate ER 30 mg tablet,extended release 24 hr RxNorm: 031801 1 Tablet(s) PO daily No Start Date 2016 Inactive lisinopril 5 mg tablet RxNorm: 893560 1 Tablet(s) PO daily No Start Date 09/30/2017 Inactive Brilinta 90 mg tablet RxNorm: 2245556 1 Tablet(s) PO BID No Start Date 09/30/2017 Inactive pantoprazole 40 mg tablet,delayed release RxNorm: 989258 1 Tablet(s) PO daily No Start Date 09/30/2017 Inactive Medication Administered No Medication Administered data Immunizations Vaccine Codes Date Status Influenza CVX: 141 07/12/2017 completed Zoster CVX: 121 08/11/2015 completed Pneumococcal CVX: 33 05/11/2015 completed Assessments Condition Codes Effective Dates Essential (primary) hypertension ICD-10: I10 ICD-9: 401.1 02/05/2018 Mixed hyperlipidemia ICD-10: E78.2 ICD-9: 272.2 02/05/2018 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 ICD-9: 728.6 10/01/2017 Gastro-esophageal reflux disease without esophagitis ICD-10 : K21.9 ICD-9: 530.81 10/01/2017 Reason For Visit Reason For Visit Effective Dates Notes hypertension 02/05/2018 hypertension 10/01/2017 left Results No [...] No Procedures data Vital Signs Date Vital 02/05/2018 Blood Pressure 1: 122/72 Code : 8480-6 BMI: 26.5 Code : 20477-1 Heart Rate 1 : 80 bpm Height: 5'10" SpO2: 98% Weight: 185 lbs 10/01/2017 Blood Pressure 1: 146/80 Code : 8480-6 BMI: 27.4 Code : 68833-7 Heart Rate 1 : 50 bpm Height: 5'10" SpO2: 96% Weight: 191 lbs Functional Status No Functional Status data History of Present Illness Symptom Name Status Result Effective Date Notes hypertension Quality chronic 02/05/2018 None hypertension Quality [...] data Encounters Encounter Performer Location Codes Date 15320 EST. 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 02/05/2018 Appointment: Martha Shah WPtel: [facility] (15 min) Moderate 02/05/2018 Patient Education: Patient [...] prefer appt at the Ortho clinic in [place] Hyperlipidemia - pt has been counseled about [...] not improving. 10/01/2017 Appointment: Kristin Ramsey WPtel: [facility] New Patient 10/01/2017 Patient Education: Patient Medication Summary Completed 10/01/2017 Care Plan: Referral Order SNOMED-CT : [id number] Pending 10/01/2017 Referral: External, Ordering Provider Referral [...] left hand - prefer appt at the [facility] in [place] Hyperlipidemia - pt has been counseled about [...]
[2018-10-31] MEDS ORDERED: D5 LR IV SOLUTION 1,000 ML IV STA (09:34)
[2018-10-31] MEDS ORDERED: fentaNYL INJECTION 100 MCG/2 ML AMP IVP ONE (09:45)
[2018-10-31] MEDS ORDERED: MIDAZOLAM 2 MG/2 ML (VERSED) VIAL IVP ONE (09:45)
[2018-10-31] MEDS ORDERED: LIDOCAINE JELLY 2% 6 ML SYRINGE MM PRN (09:45)
[2018-10-31] MEDS ORDERED: D5 LR IV SOLUTION 1,000 ML IV ONE (09:46)
[2018-10-31 10:01] VITALS: BP 131/83
[2018-10-31] MEDS ORDERED: MIDAZOLAM 2 MG/2 ML (VERSED) VIAL ONE ×2 (10:54)
[2018-10-31] MEDS ORDERED: fentaNYL INJECTION 100 MCG/2 ML AMP ONE (10:54)
[2018-10-31] MEDS ORDERED: LIDOCAINE JELLY 2% 6 ML SYRINGE ONE (10:54)
--- NOTE | 2018-10-31 11:07 | Pre-Op Note & Conscious Sedat ---
Pre-Operative Progress Note H&P Reviewed The H&P was reviewed, patient examined and no changes noted. Date H&P Reviewed: Oct 31, 2018 Time H&P Reviewed: 10:45 Conscious Sedation Pre-Proced ASA Score 2 For ASA 3 and 4: Consider anesthesia and medical clearance. Also, for patients with a history of failed moderate sedation consider anesthesia. Airway Lungs Heart ASA score ASA 1: a normal healthy patient ASA 2: a patient with a mild systemic disease (mid diabetes, controlled hypertension, obesity ASA 3: a patient with a severe systemic disease that limits activity (angina , COPD, prior Myocardial infarction) ASA 4: a patient with an incapacitating disease that is a constant threat to life (CHF, renal failure) ASA 5: a moribund patient not expected to survive 24 hrs. (ruptured aneurysm) ASA 6: a declared brain patient whose organs are being harvested. For emergent operations, add the letter E after the classification Mallampati Classification Grade 2 Sedation Plan Analgesia, Amnesia, Plan communicated to team members, Discussed options with patient/fam, Discussed risks with patient/fam The patient is an appropriate candidate to undergo the planned procedure, sedation, and anesthesia. The patient immediately re-assessed prior to indication. PURNIMA GE MD Oct 31, 2018 11:07
[2018-10-31 12:00] VITALS: BP 124/68
[2018-10-31 12:30] VITALS: BP 123/72
--- NOTE | 2018-10-31 21:33 | OPERATIVE REPORT ---
DATE OF SERVICE: COLONOSCOPY SUMMARY INDICATION FOR THE PROCEDURE: Colonoscopy was performed due to past history of colon polyps. The patient was placed in the left lateral decubitus position. Prior to undergoing colonoscopy, digital rectal evaluation was performed. Anal sphincter tone was normal and the perianal reflex was intact. Prostate is mildly enlarged, anodular and nontender to digital inspection. No abnormalities, no additional inspection of anal canal or distal rectal vault. The colonoscope was then inserted into the rectum and under direct visualization advanced to the cecum. The cecum was identified by identification of the ileocecal valve and cecal strap. Photographic documentation was obtained. The quality of prep was good and the patient tolerated the procedure well. FINDINGS: There was no evidence for internal or external hemorrhoids. The rectum was unremarkable. Several small sigmoid diverticula were present without evidence for diverticulitis. No other sigmoid abnormalities were noted. The descending colon, splenic flexure, transverse colon, ascending colon, hepatic flexure and cecum were unremarkable. ASSESSMENT: No evidence for neoplasia was identified on today's study. Digital rectal evaluation was compatible with benign prostatic hypertrophy. Mild diverticular disease confined to the sigmoid colon was present. Considering patient's age and medical comorbidities, I would not advocate future surveillance colonoscopy. Thank you for the referral of this pleasant gentleman. Job ID: [id number] DocumentID: [id number] Dictated Date: 10/31/2018 12:06:02 Director Of Training Date: 10/31/2018 21:32:35 Dictated By: PURNIMA GE MD
== END 2018-10-31 12:37 | disposition home or self-care (01) ==
LOC: ENDO 09:20
PROVIDERS: ATTEND Internal Medicine
DX: Z12.11 Encounter for screening for malignant neoplasm of colon (principal); Z86.010 Personal history of colon polyps; K57.30 Diverticulosis of large intestine without perforation or abscess without bleeding; I10 Essential (primary) hypertension; E78.5 Hyperlipidemia, unspecified; I25.10 Atherosclerotic heart disease of native coronary artery without angina pectoris; M10.9 Gout, unspecified; Z79.82 Long term (current) use of aspirin; Z79.899 Other long term (current) drug therapy

== ENCOUNTER → 2018-12-24 | Outpatient (CLI) | payer MEDICARE | LOC: CARD 10:36 | PROVIDERS: ATTEND Physician Assistant | DX: I25.10 Atherosclerotic heart disease of native coronary artery without angina pectoris (principal); E78.5 Hyperlipidemia, unspecified; R06.02 Shortness of breath; I08.1 Rheumatic disorders of both mitral and tricuspid valves | CPT/HCPCS: 93306 ==

== ENCOUNTER → 2018-12-29 | Outpatient (CLI) | payer MEDICARE ==
[~2018-12-29] VITALS: Ht 175.3 cm; Wt 85.7 kg
[~2018-12-29] MED LIST changes: -ALLO300T2 PO; -ASPI-983 PO; -ATOR20TA66; -ATOR20TA66 PO; -ATOR40TA70 PO; -ATOR80TA76 PO; +CATHETER FLUSH 10 ML SYR IV PRN; -CHOL10007 PO; -ISOS30TA3 PO; -LISI-556 PO; -NITR0.4T SL; -Nitroglycerin SL; -OMEG-160 PO; -OMG1KC PO; -PANT40TA3 PO; +REGADENOSON 0.4 MG/5 ML SYR (LEXISCAN) IV ONE; -TICA90TA PO; -UBID100C44 PO
[2018-12-29 09:31] VITALS: BP 146/83
[2018-12-29 09:33] VITALS: BP 133/67
--- NOTE | 2018-12-30 08:10 | STRESS TEST ---
DATE OF SERVICE: 12/29/2018 LEXISCAN MYOVIEW STRESS TEST REPORT REFERRING PHYSICIAN: Dr. Whitney Khan. INDICATION: Coronary artery disease. FINDINGS: Baseline heart rate is 47 and baseline blood pressure is 162/81. Baseline EKG is sinus rhythm with no ischemic changes. SUMMARY: In summary, the patient was injected with 10.83 mCi of technetium-99 Myoview and the resting images were obtained. Then, the patient received 0.4 mg of Lexiscan followed by 30.1 mCi of technetium-99 Myoview. Throughout the test, there were no EKG changes. The resting and stress images were reviewed and compared in the short axis, horizontal long axis and vertical long axis views. Review of the images showed good radiotracer uptake with no significant ischemia or infarction. SSS is 1, SDS 1 and TID value 1.07. On the gated images, the left ventricle appeared to be in normal size with normal contractility. Calculated ejection fraction is 68%. CONCLUSION: 1. The patient tolerated the Lexiscan well. 2. No ischemia or infarction on SPECT images. 3. Normal left ventricular size with normal contractility. Calculated ejection fraction is 68%. Job ID: [id number] DocumentID: [id number] Dictated Date: 12/30/2018 07:47:29 Ski Patrol Officer Date: 12/30/2018 08:09:37 Dictated By: GLADYS KNOWLES MD
== END ==
LOC: CARD 07:41
PROVIDERS: ATTEND Physician Assistant
DX: I35.8 Other nonrheumatic aortic valve disorders (principal); I25.10 Atherosclerotic heart disease of native coronary artery without angina pectoris; E78.5 Hyperlipidemia, unspecified; R06.02 Shortness of breath
CPT/HCPCS: 78452; 93017

== ENCOUNTER → 2019-08-27 | Outpatient (CLI) | payer MEDICARE ==
[~2019-08-27] MED LIST changes: +ALLO300T2 PO; +ASPI-983 PO; +ATOR20TA66; +ATOR20TA66 PO; +ATOR40TA70 PO; +ATOR80TA76 PO; -CATHETER FLUSH 10 ML SYR IV PRN; +CHOL10007 PO; +ISOS30TA3 PO; +LISI-556 PO; +NITR0.4T SL; +Nitroglycerin SL; +OMEG-160 PO; +OMG1KC PO; +PANT40TA3 PO; -REGADENOSON 0.4 MG/5 ML SYR (LEXISCAN) IV ONE; +TICA90TA PO; +UBID100C44 PO
[2019-08-27 10:40] LABS: BASOPHILS # (AUTO) 0.1 10^3/uL (0.0-0.1); BASOPHILS % (AUTO) 1 % (0-10); EOSINOPHILS # (AUTO) 0.4 10^3/uL (0.0-0.3); EOSINOPHILS % (AUTO) 6 % (0-10); HEMATOCRIT 42 % (40-54); HEMOGLOBIN 14.4 G/DL (13.3-17.7); LYMPHOCYTES # (AUTO) 1.7 X 10^3 (1.0-4.0); LYMPHOCYTES % (AUTO) 29 % (12-44); MEAN CORPUSCULAR HEMOGLOBIN 31 PG (25-34); MEAN CORPUSCULAR HGB CONC 34 G/DL (32-36); MEAN CORPUSCULAR VOLUME 92 FL (80-99); MEAN PLATELET VOLUME 10.4 FL (7.4-10.4); MONOCYTES # (AUTO) 0.7 X 10^3 (0.0-1.0); MONOCYTES % (AUTO) 12 % (0-12); NEUTROPHILS # (AUTO) 3.1 X 10^3 (1.8-7.8); NEUTROPHILS % (AUTO) 53 % (42-75); PLATELET COUNT 231 10^3/uL (130-400); RED CELL DISTRIBUTION WIDTH 14.1 % (10.0-14.5); WHITE BLOOD COUNT 5.9 10^3/uL (4.3-11.0)
[2019-08-27 10:59] LABS: ALBUMIN 4.4 GM/DL (3.2-4.5); BILIRUBIN,TOTAL 0.9 MG/DL (0.1-1.0); CALCIUM 9.3 MG/DL (8.5-10.1); CREATININE SERUM 1.16 MG/DL (0.60-1.30); POTASSIUM 4.7 MMOL/L (3.6-5.0)
== END ==
LOC: LAB 10:01
PROVIDERS: ATTEND Family Medicine
DX: Z12.5 Encounter for screening for malignant neoplasm of prostate (principal); E78.5 Hyperlipidemia, unspecified; I10 Essential (primary) hypertension
CPT/HCPCS: 36415; 80053; 80061; 84153; 84443; 85025

== ENCOUNTER 2019-12-02 06:34 | Day surgery (SDC) | payer MEDICARE ==
[2019-12-02] VITALS (12 sets, daily range): BP systolic 118–160; BP diastolic 71–84
[~2019-12-02] VITALS: Ht 176 cm; Wt 83.0 kg
[2019-12-02] MEDS ORDERED: NS IV 1000 ML 1,000 ML ONE (06:45)
[2019-12-02] MEDS ORDERED: LIDOCAINE 1% INJ 20 ML 20 ML VIAL ONE (06:45)
[2019-12-02] MEDS ORDERED: HEParin (CATH LAB) 2,000 ML IV ONE (06:45)
[2019-12-02] MEDS ORDERED: NS IV 1000 ML 1,000 ML IV SCH ×2 (06:45→09:47)
[2019-12-02 07:19] LABS: HEMOGLOBIN 14.4 G/DL (13.3-17.7); MEAN PLATELET VOLUME 10.2 FL (7.4-10.4); RED CELL DISTRIBUTION WIDTH 14.1 % (10.0-14.5); WHITE BLOOD COUNT 7.3 10^3/uL (4.3-11.0)
[2019-12-02 07:20] LABS: BILIRUBIN,URINE NEGATIVE (NEGATIVE); CLARITY,URINE CLEAR; COLOR,URINE YELLOW; GLUCOSE, URINE (UA) NEGATIVE (NEGATIVE); KETONES,URINE NEGATIVE (NEGATIVE); LEUKOCYTE ESTERASE ,URINE NEGATIVE (NEGATIVE); NITRITE,URINE NEGATIVE (NEGATIVE); PH,URINE 5.5 (5-9); PROTEIN,URINE NEGATIVE (NEGATIVE)
[2019-12-02 07:28] LABS: BACTERIA,URINE NEGATIVE /HPF; SQUAMOUS EPITHELIAL CELL,UR RARE /HPF
[2019-12-02 07:35] LABS: PROTHROMBIN TIME PATIENT 13.5 SEC (12.2-14.7)
[2019-12-02] MEDS ORDERED: LISI10TA2 PO (07:39)
[2019-12-02] MEDS ORDERED: CHOL200059 PO (07:41)
[2019-12-02 07:42] LABS: ALBUMIN 4.4 GM/DL (3.2-4.5); BILIRUBIN,TOTAL 0.9 MG/DL (0.1-1.0); CALCIUM 9.7 MG/DL (8.5-10.1); CREATININE SERUM 1.25 MG/DL (0.60-1.30)
--- NOTE | 2019-12-02 07:46 | Diagnostic Imaging Report ---
INDICATION: Preoperative evaluation prior to heart catheterization and possible angioplasty/stent. Chest pain, hypertension.. TECHNIQUE: Single view chest 7:31 AM. CORRELATION STUDY: 08/15/2016 FINDINGS: The heart size, mediastinal configuration and pulmonary vascularity are generally stable and within normal limits. The lungs are clear with no consolidating infiltrate. There is no significant effusion or pneumothorax. IMPRESSION: 1. Negative for acute abnormality of the chest. Dictated by: Dictated on workstation # [id number]
[2019-12-02] MEDS ORDERED: ACET-2650 PO (07:48)
--- NOTE | 2019-12-02 08:21 | NUR ---
SPOKE WITH THE PT (HE HAD HIS HOME MEDS) TO COMPLETE THE MED REC. PT WAS ABLE TO TELL ME HOW/WHEN HE TAKES EACH MEDICATION. THE FOLLOWING ARE FILL DATES FROM [facility] [employer]: 09-30-2019 ATORVASTATIN #90/90DS 10-26-2019 ISOSORBIDE #90/90DS 10-26-2019 PANTOPRAZOLE #90/90DS 10-26-2019 LISINOPRIL #90/90DS 10-26-2019 ALLOPURINOL # 90/90DS OTC MES: VIT D CO Q 10 FISH OIL ASPIRIN TYLENOL ARTHRITIS NITROGLYCERIN TABS WERE ON HIS MEDS REC FROM A PREVIOUS VISIT, HOWEVER THE PT SAYS HIS BOTTLE AT HOME IS FROM MULTIPLE YEARS AGO. HIS ASKED IF THEY WERE STILL GOOD, I ADVISED HER TO CHECK THE EXPIRATION DATE WHEN SHE COULD. PT SAID HE WAS INTERESTED IN GETTING A NEW PRESCRIPTION FOR IT- I TOLD HIM I WOULD SPEAK WITH THE NURSING STAFF ABOUT POSSIBLY HAVING ONE SENT TO HIS PHARMACY.
[2019-12-02] MEDS ORDERED: fentaNYL INJECTION 100 MCG/2 ML AMP ONE (08:56)
[2019-12-02] MEDS ORDERED: MIDAZOLAM 5 MG/5 ML (VERSED) VIAL ONE (08:56)
--- NOTE | 2019-12-02 09:13 | Cardiac Procedure Note-CS/ASA ---
Pre-Procedure Note Pre-Op Procedure Note H&P Reviewed The H&P was reviewed, patient examined and no changes noted. Date H&P Reviewed: Dec 02, 2019 Time H&P Reviewed: 09:13 Conscious Sedation Pre-Proced Time 09:13 ASA Score 3 For ASA 3 and 4: Consider anesthesia and medical clearance. Also, for patients with a history of failed moderate sedation consider anesthesia. Airway Lungs Heart ASA score ASA 1: a normal healthy patient ASA 2: a patient with a mild systemic disease (mid diabetes, controlled hypertension, obesity x ASA 3: a patient with a severe systemic disease that limits activity (angina, COPD, prior Myocardial infarction) ASA 4: a patient with an incapacitating disease that is a constant threat to life (CHF, renal failure) ASA 5: a moribund patient not expected to survive 24 hrs. (ruptured aneurysm) ASA 6: a declared brain- patient whose organs are being harvested. For emergent operations, add the letter E after the classification Mallampati Classification Grade 3 Sedation Plan Analgesia, Amnesia, Plan communicated to team members, Discussed options with patient/fam, Discussed risks with patient/fam The patient is an appropriate candidate to undergo the planned procedure, sedation, and anesthesia. The patient immediately re-assessed prior to indication. GLADYS KNOWLES MD Dec 02, 2019 09:13
--- NOTE | 2019-12-02 09:54 | Cardiac Cath Report ---
Cardiac Cath Report Physician (s)/Logging Equipment Operator (s) Physician GLADYS KNOWLES MD Pre-Procedure Diagnosis Pre-Procedure Diagnosis: coronary artery disease Post-Procedure Note Procedure Start Date: Dec 02, 2019 Name of Procedure: Left heart catheterization Findings/Procedure Note PROCEDURE NOTE: 79 years old gentleman with history of coronary artery disease, complex intervention of the right coronary artery, has been having accelerating angina, scheduled for cardiac catheterization. After explaining the procedure to the patient, all pros and cons were explained, all questions were answered. The patient signed the consent and then he was placed on the cardiac catheterization laboratory. Groin was prepped SL fashion local anesthesia was used. Sheath placed in the right femoral artery. Calvin left 4.5 catheter was used for the left system, multiple catheters were used to attempt access the right system, finally I reshaped JR catheter and was able to intubate the right coronary, angiogram done, advanced to the left ventricular cavity, pressure was measured, pullback was done At the end of the procedure the sheath was removed. Closure device FINDINGS: Hemodynamics LV 128/6, end-diastolic pressure of 6 Aorta 114/50, mean of 69 ANATOMY: Left Main s free of obstructive disease Left Anterior Descending has diffuse ectasia, 50 percent stenosis at the midportion, small vessel disease Left Circumflex as diffuse ectasia nonobstructive disease, small vessel disease Right Coronory Artery has multiple stent that are patent with slow flow, some collaterals from the left system LV Gram was not done CONCLUSION: 1. Patent stents in the right coronary artery and collaterals to the right from the left system, there is slow flow in the right system, small vessel disease. 2. Diffuse ectasia in the LAD and circumflex system, 50 percent stenosis in the mid LAD. 3. Normal left ventricular end-diastolic pressure DISCUSSION AND RECOMMENDATION: medical therapy is recommended Anesthesia Type: Conscious Sedation Estimated blood loss (mL): 25 ml Contrast Amount: 35 ml Total Radiation Dose: 580 mGy Post-Procedure Diagnosis Post-operative diagnosis: Coronary artery disease Hypertension Hyperlipidemia Chest pain GLADYS KNOWLES MD Dec 02, 2019 09:54
--- NOTE | 2019-12-02 09:55 | Discharge Inst-Post CATH ---
Discharge Inst-CATH/EP Problems Reviewed?: Yes Post Cardiac Cath/EP D/C Inst Follow Up/Plan Appointment with Dr Dominique in 2-4 weeks <b>CARDIAC CATH/EP PROCEDURE DISCHARGE INSTRUCTIONS</b> ACTIVITY * Go Home directly and rest. * Limit activity of the leg (or wrist if it was used) for 7 days including aerobics, swimming, jogging, bicycling, etc. * Restrict stair-climbing for 7 days if possible, if not, climb up with your non-cath leg, then bring together on the same step. * Avoid lifting, pushing, pulling or excessive movement of the affected extremity for 7 days. * Customary sexual activity may be resumed after 2 days-use caution not to use a position that strains or causes pain to the affected extremity. * No driving for 24 hours. * NO SMOKING. * Avoid straining for bowel movements for 7 days. * Gentle walking on level ground is allowed. * Returning to work will depend on the type of procedure and the results. Your doctor will discuss this with you. CALL YOUR DOCTOR FOR ANY OF THE FOLLOWING: *If bleeding from the puncture site occurs- Apply gentle pressure to site with clean cloth and call your doctor or EMS. * If a knot or lump forms under the skin, increases in size, or causes pain. * If bruising appears to be worsening or moving further down your leg instead of disappearing. * Temperature above 101 F. CARE OF YOUR GROIN INCISION; * Bruising or purple discoloration of the skin near the puncture site is common. * You may shower only, no bathtub bathing for 5 days. Be careful to avoid slipping as your leg may feel stiff. * If a closure device was used on your femoral artery, please see the attached guide regarding care of the device and your leg. * Leave dressing on FOR 24 hours. CARE OF YOUR WRIST INCISION; * Bruising or purple discoloration of the skin near the puncture site is common. * You may shower. * DO NOT submerge wrist. * Leave dressing on FOR 24 hours. GLADYS DOMINIQUE MD Dec 02, 2019 09:55
[2019-12-02] MEDS ORDERED: PATIENT MAY USE OWN MEDS, ALL PO SCH (10:00)
[2019-12-02] MEDS ORDERED: NITROGLYCERIN 0.4 MG SL TABS BTL 25'S SL ONE (13:15)
== END 2019-12-02 14:35 | disposition home or self-care (01) ==
LOC: CATH 06:34 → SDC 10:06 → CATH 14:35
PROVIDERS: ATTEND Internal Medicine Cardiovascular Disease
DX: I25.10 Atherosclerotic heart disease of native coronary artery without angina pectoris (principal); I25.2 Old myocardial infarction; I08.3 Combined rheumatic disorders of mitral, aortic and tricuspid valves; I65.23 Occlusion and stenosis of bilateral carotid arteries; I50.20 Unspecified systolic (congestive) heart failure; N18.9 Chronic kidney disease, unspecified; E78.5 Hyperlipidemia, unspecified; Z88.8 Allergy status to other drugs, medicaments and biological substances; Z79.899 Other long term (current) drug therapy; Z87.891 Personal history of nicotine dependence; Z79.82 Long term (current) use of aspirin; Z82.3 Family history of stroke; Z80.9 Family history of malignant neoplasm, unspecified; Z82.49 Family history of ischemic heart disease and other diseases of the circulatory system
CPT/HCPCS: 36415; 71045; 80053; 81000; 85027; 85610; 85730; 87081; 93005; 93458

== ENCOUNTER 2020-03-26 20:00 | Emergency (ER) | payer MEDICARE ==
[~2020-03-26 20:00] MED LIST changes: +ACET-2650 PO; +CHOL200059 PO; +LISI10TA2 PO
--- OUTSIDE RECORDS SUMMARY | 2020-03-26 20:06 | XMS REPORT | Encounter Summary ---
Author Author [facility] Vicky Tate, [place], [place], [facility] Organization [facility] Vicky Tate [place], [place], [facility] Address Unknown Phone Unavailable Care Team Providers Care Wash And Greaser Name Role Phone Jai eNlson DO PCP Reason for Visit * Reason Comments Annual Wellness Visit AWV (Medicare) Encounter Details Care Team Description Date Type Department Jai Nelson DO [address] [place] [address] Medicare annual wellness visit, subseque nt (Primary Dx); Mixed hyperlipidemia 12/29/2015 Office Visit [facility] Family [facility] [address] [place] [address] Social History Date Tobacco Use Types Packs/Day Years Used Former Smoker Smokeless Tobacco: Never Used Drinks/Week oz/Week Comments Alcohol Use occ Yes Sex Assigned at Date Recorded Not on file Industry Job Start Date Occupation Not on file Not on file Not on file Travel End Travel History Travel Start No recent travel history available. documented as of this encounter Last Filed Vital Signs Reading Time Taken Comments Vital Sign 142/78 12/29/2015 9:37 AM REGISTERED NURSING PROFESSOR Blood Pressure 56 12/29/2015 9:37 AM REGISTERED NURSING PROFESSOR Pulse 36.5 C (97.7 F) 12/29/2015 9:37 AM REGISTERED NURSING PROFESSOR Temperature 18 12/29/2015 9:37 AM REGISTERED NURSING PROFESSOR Respiratory Rate 95% 12/29/2015 9:37 AM REGISTERED NURSING PROFESSOR Oxygen Saturation - - Inhaled Oxygen Concentration 96.2 kg (212 lb) 12/29/2015 9:37 AM REGISTERED NURSING PROFESSOR Weight - - Height 30.42 11/02/2014 10:28 AM REGISTERED NURSING PROFESSOR Body Mass Index documented in this encounter Progress Notes * Jai Nelson, - 12/29/2015 9:42 AM REGISTERED NURSING PROFESSOR HKnown diagnosis of HTN.ISTORY OF PRESENT ILLNESS Luisito Taylor, a 75 y.o. male presents with a Chief Complaint of Annual [facility] Visit (Medicare) Subjective HPI Comments: This note is prepared by MARSHAL SANTIAGO LPN acting as CTC for DR. Eh estes.Patient presents in clinic today for AWV. Patient is in overall good health with no complaints at this time. Refills sent to pharmacy at this time. This nv dical record reflects the history of present illness as obtained by myself in di scussion with the patient. The history is provided by the patient. No speech and language clinician was used. REVIEW OF SYSTEMS Review of Systems Constitutional: Negative. Negative for fever, chills, appetite change and fatig ue. HENT: Negative for dental problem, ear pain, postnasal drip and trouble swallowi ng. Eyes: Negative for pain and visual disturbance. Respiratory: Negative for cough and shortness of breath. Cardiovascular: Negative for chest pain, palpitations and leg swelling. Gastrointestinal: Negative for nausea, vomiting, abdominal pain, diarrhea and co nstipation. Genitourinary: Negative for dysuria, frequency and difficulty urinating. Musculoskeletal: Negative for myalgias and neck pain. Skin: Negative for rash. Neurological: Negative for dizziness, weakness, light-headedness and headaches. Hematological: Does not bruise/bleed easily. Psychiatric/Behavioral: Negative for behavioral problems and confusion. The lena ent is not nervous/anxious. Objective PHYSICAL EXAM BP 142/78 mmHg | Pulse 56 | Temp(Src) 97.7 F (36.5 C) (Oral) | Resp 18 | Wt 96.163 kg (212 lb) | SpO2 95% Physical Exam Constitutional: He is oriented to person, place, and time. He appears well-devel oped and well-nourished. No distress. HENT: Head: Normocephalic and atraumatic. Right Ear: External ear normal. Left Ear: External ear normal. Mouth/Throat: Oropharynx is clear and moist. No oropharyngeal exudate. Eyes: Conjunctivae and EOM are normal. Pupils are equal, round, and reactive to light. Right eye exhibits no discharge. Left eye exhibits no discharge. No scler al icterus. Neck: Normal range of motion. Neck supple. No JVD present. No tracheal deviation present. No thyromegaly present. Cardiovascular: Normal rate, regular rhythm, normal heart sounds and intact dist al pulses. Exam reveals no gallop and no friction rub. No murmur heard. Pulmonary/Chest: Effort normal and breath sounds normal. No stridor. No respirat ory distress. He has no wheezes. He has no rales. He exhibits no tenderness. Abdominal: Soft. Bowel sounds are normal. He exhibits no distension and no mass. There is no tenderness. There is no rebound and no guarding. Musculoskeletal: Normal range of motion. He exhibits no edema or tenderness. Lymphadenopathy: He has no cervical adenopathy. Neurological: He is alert and oriented to person, place, and time. He has normal reflexes. No cranial nerve deficit. He exhibits normal muscle tone. Coordination normal. Skin: Skin is warm and dry. No rash noted. He is not diaphoretic. No erythema. N o pallor. Psychiatric: He has a normal mood and affect. His behavior is normal. Judgment a nd thought content normal. Nursing note and vitals reviewed. Assessment MEDICARE ANNUAL WELLNESS Luisito Taylor is a 75 y.o. male here today for his Annual Wellness Visit ([facility]) HEALTH RISK ASSESSMENT He has completed his Health Risk Assessment. I have reviewed this with the [facility] ent. See scanned copy in chart. Areas of self-identified risk are addressed bel ow. In general, the patient feels they are in excellent physical health. MEDICAL RECORD UPDATE Past Medical History Diagnosis Date Hyperlipidemia Past Surgical History Procedure Laterality Date Hx rotator cuff repair right No family history on file. Current medications and allergies were reviewed and updated in computerized [facility] ent record. E*[facility] #[id number] - [place], [place] - [address] E*[facility] - [place], [place] - [address] E*[employer] [employer] [employer], [place] - [address] Care Providers: Patient Care Team: Jai Nelson DO as PCP - General No Patient Care Coordination Note on file. DEMENTIA SCREENING patient does not report concerns regarding cognitive or behavioral issues. Cogn itive ability was also observed and assessed throughout the exam and a MMS was n ot felt to be indicated. Mini-Mental Status Exam DEPRESSION SCREENING (QM) PHQ2: Positive: PHQ-2 score > 2 or PHQ-9 score > 9 PHQ-2 Total: 0 (12/29/15 0900) His depression screen was normal EXAMINATION BP 142/78 mmHg | Pulse 56 | Temp(Src) 97.7 F (36.5 C) (Oral) | Resp 18 | Wt 96.163 kg (212 lb) | SpO2 95% Blood Pressure POC BP Readings from Last 3 Encounters: 12/29/15 142/78 11/02/14 120/70 08/13/13 126/76 Known diagnosis of HTN. BMI POC Body mass index is 30.42 kg/(m^2). Normal BMI ranges: 18-64 yrs: 18.5 to 25 65 yrs and older: 23 to 30 BMI within normal limits Visual Acuity Corrected: L 20/20 R 20/20 Nursing Visual Acuity Documentation: Hearing screen Degree of hearing loss: normal FUNCTIONAL ABILITY AND SAFETY Pain Assessment Are you having pain right now? No Abuse screen/ and home safety evaluation Negative Fall Risk(QM) He has had no falls in the past year. Social Support/[place]: Patient resides with spouse in independent living. Activities of Daily Living: Requires assistance with no ADLs Adult Nutritional Screen No nutritional concerns Tobacco Use(QM) reports that he has quit smoking. He has never used smokeless tobacco. He is not a tobacco user. Alcohol Use reports that he drinks alcohol. Drug Use reports that he does not use illicit drugs. Exercise/Other Exercise: rarely END OF LIFE PLANNING Patient's End of life planning was discussed and questions answered. He has no advanced directive, not interested in further information. Current doc uments reviewed / provided as applicable. I have no objection to the patient's s tated End of Life planning. Preventative Care Guidelines Written Screening Schedule for the next 5-10 years developed and provided to mervat ann. Preventive Care Recommendations for AVERAGE Risk Adult Males Recommended Measure Frequency Strength Annual Exam / Wellness Yearly Abdominal Aortic Aneurysm All males 65-75 with ANY smoking history B Lipid Screening All males >35 with additional cardiovascular risk factor / frequently suggested as every 5 years A Colon Cancer screening Colonoscopy every 10 years or Fecal Occult Blood testing yearly A Immunizations Influenza yearly Pneumococcal once after 65 Zostavax once after age 60 B Diabetes screening Screening recommended adults with BP >135/80 frequency is indeterminate B Blood Pressure screening Yearly A There are no preventive care reminders to display for this patient. Orders / Referrals / Counseling and follow-up Based upon these findings and review of any previous Wellness Visit recommendati ons the following treatment plan was recommended and discussed with the patient. No previously unaddressed health risks were detected. Recommended continuing cu rrent level of support, with repeat assessment in 1 year or sooner as needed. Orders Placed This Encounter CBC WITH DIFFERENTIAL COMPREHENSIVE METABOLIC PANEL (Chemistry) LIPID PANEL cholecalciferol, Vitamin D3, (VITAMIN D3) 1,000 unit Capsule atorvastatin (LIPITOR) 20 mg tablet allopurinol (ZYLOPRIM) 300 mg tablet coenzyme Q10 (CO Q-10) 100 mg Capsule Education and counseling provided: Age appropriate based on today's review and evaluation Mr. Taylor voiced understanding and agreement with the treatment plan. He under stands the importance of taking his medications and keeping follow-up appointmen ts. All questions were answered. [id number]-[id number] will be provided to trang cortez upon check-out. ASSESSMENT and PLAN: ICD-9-CM ICD-10-CM 1. Medicare annual wellness visit, subsequent V70.0 Z00.00 2. Mixed hyperlipidemia 272.2 E78.2 CBC WITH DIFFERENTIAL COMPREHENSIVE METABOLIC PANEL LIPID PANEL Follow up in clinic in 1 year. STERED NURSING PROFESSOR documented in this encounter Plan of Treatment Not on filedocumented as of this encounter Results * LIPID PANEL (12/29/2015 10:16 AM REGISTERED NURSING PROFESSOR) CHOLESTEROL 189 <200 mg/dL [facility] [place] TRIGLYCERIDE 149 <150 mg/dL [facility] [place] HDL 52 40 - 59 mg/dL [facility] [place] LDL CALCULATED 107 (H) <100 mg/dL [facility] [place] NON-HDL 137 (H) <130 mg/dL [facility] CHOLESTEROL [facility] [place] Specimen Blood Narrative Performed At TOTAL CHOLESTEROL mg/dL [facility] Desirable <200 SERVICES - [place] Borderline high 200-239 High >=240 TRIGLYCERIDES mg/dL Normal <150 Borderline high 150-199 High 200-499 Very high >=500 HDL CHOLESTEROL mg/dL Low <40 Normal 40-59 Desirable >=60 LDL CHOLESTEROL mg/dL Optimal <100 Low risk 100-129 Borderline high 130-159 High 160-189 Very high >=190 NON HDL CHOLESTEROL mg/dL Optimal <130 Near Optimal 130-159 Borderline High 160-189 High 190-219 Very high >=220 Based on AHA/NCEP Guidelines Performing Organization Address City/State/Zipcode Ph one Number [facility] CLIA # [id number] [place] [id number] - [place] 100 [facility]ATORY SERVICES CLIA # [id number] [place] [phone] - [place] 100 [facility] * COMPREHENSIVE METABOLIC PANEL (12/29/2015 10:16 AM REGISTERED NURSING PROFESSOR) [facility] SODIUM 142 136 - 145 mmol/L [facility] [place] POTASSIUM 4.8 3.5 - 5.1 mmol/L [facility] [place] CHLORIDE 102 98 - 107 mmol/L [facility] [place] CO2 24 22 - 29 mmol/L [facility] [place] CALCIUM 9.8 8.8 - 10.2 mg/dL [facility] [place] BUN 18 8 - 23 mg/dL [facility] [place] CREATININE 1.29 (H) 0.67 - 1.17 mg/dL [facility] Comment: LABORATORY The GFR result is not SERVICES - clinically significant on [place] patients <18 or >70 years of age. GLUCOSE 100 80 - 115 mg/dL [facility] [place] TOTAL PROTEIN 7.6 6.4 - 8.3 g/dL [facility] [place] ALBUMIN 4.6 4.0 - 4.9 g/dL [facility] [place] BILIRUBIN TOTAL 0.6 <=1.2 mg/dL [facility] [place] ALKALINE 84 40 - 129 U/L [facility] PHOSPHATASE [facility] - [place] AST 26 0 - 40 U/L [facility] [place] ALT 19 0 - 41 U/L [facility] [place] GFR 54 mL/min/1.73 sq meter [facility] Comment: LABORATORY eGFR has not been validated SERVICES - for use in the elderly (> 70 [place] years of age), women, patients with serious co-morbid conditions, or persons with extremes of body size or muscle mass and should also be interpreted with caution in patients with acute kidney failure, dialysis dependent patients, patients reporting exceptional dietary intake (e.g. vegetarian diet, high protein diets, creatine supplementation), and patients with severe liver disease. Based on National Kidney Disease Education Program If patient is , please refer to the GFR result. GFR, >60 mL/min/1.73 sq meter [facility] - [place] ANION GAP 16 (H) 4 - 13 mmol/L [facility] - [place] Specimen Blood Performing Organization Address City/State/Zipcode Ph one Number [facility] CLIA # [id number] [place] [id number] - [place] [address] [facility] SERVICES CLIA # [id number] SHERRI Almendarez [phone] - [place] 100 [facility] * CBC WITH DIFFERENTIAL (12/29/2015 10:16 AM REGISTERED NURSING PROFESSOR) [facility] WBC 7.4 4.0 - 11.0 K/uL [facility] [place] RBC 4.96 4.70 - 6.00 M/uL [facility] [place] HEMOGLOBIN 14.9 13.5 - 18.0 g/dL [facility] [place] HEMATOCRIT 45.6 42.0 - 52.0 % [facility] [place] MCV 91.9 78.0 - 100.0 fL [facility] [place] MCH 30.0 27.0 - 34.0 pg [facility] [place] MCHC 32.7 31.0 - 37.0 g/dL [facility] [place] RDW 13.9 12.0 - 15.0 % [facility] [place] RDW-STDEV 46.1 37.1 - 48.7 fL [facility] [place] PLATELETS 207 150 - 450 K/uL [facility] [place] MPV 11.0 9.3 - 12.4 fL [facility] [place] NEUTROPHILS 49 31 - 76 % [facility] [place] LYMPHOCYTES 33 24 - 44 % [facility] [place] MONOCYTES 10 2 - 11 % [facility] [place] EOSINOPHILS 7 (H) 0 - 6 % [facility] [place] BASOPHILS 1 0 - 2 % [facility] [place] NEUTROPHIL 3.63 1.80 - 7.70 K/uL [facility] [place] LYMPHOCYTE 2.44 1.00 - 4.80 K/uL [facility] [place] MONOCYTE 0.75 0.10 - 1.30 K/uL [facility] [place] EOSINOPHIL 0.49 0.00 - 0.70 K/uL [facility] [place] BASOPHILS 0.10 0.00 - 0.20 K/uL [facility] [place] IMMATURE 0 % [facility] [place] IMMATURE 0.02 K/uL [facility] ABSOLUTE [facility] - [place] Specimen Blood Performing Organization Address City/State/Zipcode Ph one Number [facility] CLIA # [id number] [place] [address] - [place] [address] [facility] [place] [facility] CLIA # [id number] SHERRI Almendarez [phone] - [place] 100 [facility] documented in this encounter Visit Diagnoses Diagnosis Medicare annual wellness visit, subsequ ent - Primary Routine general medical examination at a health care facility Mixed hyperlipidemia documented in this encounter Additional Health Concerns Assessment Noted Time A Hypertension Plan of Care has been documented for t choco patient 01/01/2016 8:28 PM REGISTERED NURSING PROFESSOR documented as of this encounter"
--- OUTSIDE RECORDS SUMMARY | 2020-03-26 20:06 | XMS REPORT | Encounter Summary ---
Author Author [facility], [place], [facility] Organization [facility] [place], [place], [facility] Address Unknown Phone Unavailable Care Team Providers Care Maintenance Tech Name Role Phone Jai Nelson DO PCP Reason for Visit * Reason Comments Other Encounter Details Care Team Description Date Type Department Jai Nelson DO [address] [place] [address] Other 09/08/2015 Telephone [facility] [address] [place] [address] Social History Date Tobacco Use Types Packs/Day Years Used Former Smoker Smokeless Tobacco: Never Used Drinks/Week oz/Week Comments Alcohol Use occ Yes Sex Assigned at Date Recorded Not on file Industry Job Start Date Occupation Not on file Not on file Not on file Travel End Travel History Travel Start No recent travel history available. documented as of this encounter Miscellaneous Notes * Telephone Encounter - Ashleigh Madrigal - 09/08/2015 12:38 PM CDT Called to let you know pt got the flu shot today. They have been trying to fax but fax is busy. documented in this encounter Plan of Treatment Not on filedocumented as of this encounter Visit Diagnoses Not on filedocumented in this encounter Additional Health Concerns Assessment Noted Time A Hypertension Plan of Care has been documented for t he patient 11/02/2014 11:31 AM PATTERN AND CHAIN MAKER documented as of this encounter
--- OUTSIDE RECORDS SUMMARY | 2020-03-26 20:06 | XMS REPORT | Clinical Summary ---
Author Author [facility], [place], [place], [facility] Organization [facility], [place], [place], [place], [facility] Address Unknown Phone Unavailable Care Team Providers Care Forensics Analyst Name Role Phone PCP Unavailable Allergies Comments Active Allergy Reactions Severity Noted Date Pravastatin Hives 10/10/2011 Medications End Date Status Medication Sig Dispensed Refills Start Date Active aspirin (WILDER) 81 mg Take by 0 Oral TabIndications: mouth. Gout, Other and unspecified hyperlipidemia, Screening for cancer Active cholecalciferol, Vitamin Take 1,000 0 D3, (VITAMIN D3) 1,000 Units by unit Capsule mouth daily. Active coenzyme Q10 (CO Q-10) Take 1 30 Capsule 0 100 mg Capsule Capsule (100 6 mg) by mouth daily. Active allopurinol (ZYLOPRIM) TAKE 1 TABLET 90 Tablet 0 0 300 mg tablet BY MOUTH 7 DAILY Active atorvastatin (LIPITOR) 20 TAKE 1 TABLET 90 Tablet 0 06/18/201 mg tablet BY MOUTH 7 EVERY DAY Active Problems Problem Noted Date Gout 05/24/2011 Mixed hyperlipidemia 05/24/2011 Immunizations Name Administration Dates Next Due Influenza Vaccine 09/08/2015, 09/08/2015, Influenza Vaccine Split 11/02/2014, 08/13/2013, 3+ Yrs IM Pneumococcal 08/13/2013 Polysaccharide Vaccine 23-Valent IM TDAP Vaccine > 7 YO IM 07/30/2012 Zoster Vaccine Live SQ 09/08/2015 Family History Relation Name Status Comments Father Mother Social History Date Tobacco Use Types Packs/Day Years Used Former Smoker Smokeless Tobacco: Never Used Drinks/Week oz/Week Comments Alcohol Use occ Yes Sex Assigned at Date Recorded Not on file Industry Job Start Date Occupation Not on file Not on file Not on file Travel End Travel History Travel Start No recent travel history available. Last Filed Vital Signs Reading Time Taken Comments Vital Sign 142/78 12/29/2015 9:37 AM DOCUMENT MANAGEMENT CONSULTANT Blood Pressure 56 12/29/2015 9:37 AM DOCUMENT MANAGEMENT CONSULTANT Pulse 36.5 C (97.7 F) 12/29/2015 9:37 AM DOCUMENT MANAGEMENT CONSULTANT Temperature 18 12/29/2015 9:37 AM DOCUMENT MANAGEMENT CONSULTANT Respiratory Rate 95% 12/29/2015 9:37 AM DOCUMENT MANAGEMENT CONSULTANT Oxygen Saturation - - Inhaled Oxygen Concentration 96.2 kg (212 lb) 12/29/2015 9:37 AM DOCUMENT MANAGEMENT CONSULTANT Weight 177.8 cm (5' 10") 11/02/2014 10:28 AM DOCUMENT MANAGEMENT CONSULTANT Height 30.42 11/02/2014 10:28 AM DOCUMENT MANAGEMENT CONSULTANT Body Mass Index Plan of Treatment Health Maintenance Due Date Last Done Comments ZOSTER VACCINE (2 of 3) 11/03/2015 09/08/2015 INFLUENZA VACCINE 06/11/2019 09/08/2015, 014 (Previously completed), 11/02/2014, Additional history exists PNEUMOCOCCAL VACCINE 65+ Completed 12/29/2015 (P reviously completed), YEARS 08/13/2013 Results Not on filefrom Last 3 Months Advance Directives For more information, please contact: [phone] Patient Buckle Frame Shaper Explanation Type Date Recorded Advance Directive 07/30/2012 7:44 AM POA Advance Directive Living Will
--- OUTSIDE RECORDS SUMMARY | 2020-03-26 20:06 | XMS REPORT | Encounter Summary ---
Author Author [facility] [place], [place], [facility] Organization [facility] RamseyErickson, [place], [facility] Address Unknown Phone Unavailable Care Team Providers Care Executive Director Of Marketing Name Role Phone Jai Nelson DO PCP Reason for Visit * Reason Comments Medication Refill Encounter Details Care Team Description Date Type Department Jai Nelson DO [address] [place] [address] 02/06/2017 Refill [facility] Family Medicine [facility] [address] [place] [phone] Social History Date Tobacco Use Types Packs/Day Years Used Former Smoker Smokeless Tobacco: Never Used Drinks/Week oz/Week Comments Alcohol Use occ Yes Sex Assigned at Date Recorded Not on file Industry Job Start Date Occupation Not on file Not on file Not on file Travel End Travel History Travel Start No recent travel history available. documented as of this encounter Plan of Treatment Not on filedocumented as of this encounter Visit Diagnoses Not on filedocumented in this encounter Additional Health Concerns Assessment Noted Time A Hypertension Plan of Care has been documented for t choco patient 01/01/2016 8:28 PM TEST DESIGNER documented as of this encounter
--- OUTSIDE RECORDS SUMMARY | 2020-03-26 20:06 | XMS REPORT | Encounter Summary ---
Author Author [facility] [place], [place], [facility] Organization [facility], [place], [facility] Address Unknown Phone Unavailable Care Team Providers Care Fire Alarm Inspector Name Role Phone Jai Nelson DO PCP Reason for Visit * Reason Comments Medication Refill Encounter Details Care Team Description Date Type Department Jai Nelson DO [address] [place] [address] 05/21/2016 Refill [facility] Family Medicine [facility] [address] [place] [phone] Social History Date Tobacco Use Types [...] for t choco patient 01/01/2016 8:28 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
--- OUTSIDE RECORDS SUMMARY | 2020-03-26 20:06 | XMS REPORT | Encounter Summary ---
Author Author [facility] [place], [place], [facility] Organization [facility] [place], [place], [facility] Address Unknown Phone Unavailable Care Team Providers Care Engine Testing Supervisor Name Role Phone Jai Nelson DO PCP Reason for Visit * Reason Comments Medication Refill Encounter Details Care Team Description Date Type Department Jai Nelson DO [address] [place] [address] 05/07/2017 Refill [facility] Family Medicine [facility] [address] [place] [phone] Social History Date Tobacco Use Types [...] for t choco patient 01/01/2016 8:28 PM CITY PLANNER documented as of this encounter
--- OUTSIDE RECORDS SUMMARY | 2020-03-26 20:06 | XMS REPORT | Encounter Summary ---
Author Author [facility] Vicky [place], [place], [place], [facility] Organization [facility] Vicky TatePrisca, [place], [facility] Address Unknown Phone Unavailable Care Team Providers Care Ocean Clam Boat Captain Name Role Phone Jai Nelson DO PCP Encounter Details Care Team Description Date Type Department Jai Nelson, [address] [place] [address] Other and unspecified hyperlipidemia (Pr imary Dx) 04/01/2014 Orders Only [facility] Primar y Care [address] [address] Social History Date Tobacco Use Types Packs/Day [...] of this encounter Results * LIPID PANEL (04/01/2014 12:25 PM CDT) CHOLESTEROL 179 25 - 200 mg/dL [facility] [place] TRIGLYCERIDE 138 0 - 150 mg/dL [facility] [place] HDL 48 >=40 mg/dL [facility] [place] LDL CALCULATED 103 (H) 0 - 100 mg/dL [facility] [place] Specimen Blood Narrative Performed At TOTAL CHOLESTEROL mg/dL [facility] Desirable <200 SERVICES - [place] Borderline high 200-239 High >=240 TRIGLYCERIDES mg/dL Normal <150 Borderline high 150-199 High 200-499 Very high >=500 HDL CHOLESTEROL mg/dL Low <40 Normal 40-60 Desirable >60 LDL CHOLESTEROL mg/dL Optimal <100 Low risk 100-129 Borderline high 130-159 High 160-189 Very high >=190 Based on AHA/NCEP Guidelines Performing Organization Address City/[facility] Ph one Number [facility] CLIA # [id number] SHERRI Almendarez [phone] - [place] 100 [facility] LABORATORY SERVICES CLIA # [id number] SHERRI Almendarez [phone] - [place] [address] [facility] * COMPREHENSIVE METABOLIC PANEL (04/01/2014 12:25 PM CDT) [facility] Signature SODIUM 141 136 - 145 mmol/L [facility] [place] POTASSIUM 5.1 3.5 - 5.1 mmol/L [facility] [place] CHLORIDE 107 98 - 111 mmol/L [facility] [place] CO2 30 22 - 31 mmol/L [facility] [place] CALCIUM 9.7 8.3 - 10.3 mg/dL [facility] [place] BUN 17 7 - 21 mg/dL [facility] [place] CREATININE 1.17 0.61 - 1.24 mg/dL [facility] [place] GLUCOSE 99 80 - 115 mg/dL [facility] [place] TOTAL PROTEIN 7.2 5.6 - 8.0 g/dL [facility] [place] ALBUMIN 4.2 3.3 - 4.8 g/dL [facility] [place] BILIRUBIN TOTAL 0.5 0.2 - 1.3 mg/dL [facility] [place] ALKALINE 61 38 - 126 U/L [facility] [place] AST 31 15 - 46 U/L [facility] [place] ALT 21 11 - 66 U/L [facility] [place] GFR >60 mL/min/1.73 sq meter [facility] Comment: LABORATORY The GFR result is not SERVICES - clinically significant on [place] patients <18 or >70 years of age. GFR, >60 mL/min/1.73 sq meter [facility] LITHUANIAN [facility] [place] Specimen Blood Performing Organization Address City/[facility] Ph one Number [facility] CLIA # [id number] SHERRI Almendarez [phone] - [place] 100 [facility]ATORY SERVICES CLIA # [id number] SHERRI Almendarez [phone] - [place] [address] [facility] documented in this encounter Visit Diagnoses Diagnosis Other and unspecified hyperlipidemia - Primary documented in this encounter
--- OUTSIDE RECORDS SUMMARY | 2020-03-26 20:06 | XMS REPORT | Encounter Summary ---
Author Author [facility] [place], [place], [facility] Organization [facility] [place], [place], [facility] Address Unknown Phone Unavailable Care Team Providers Care Clothing Trades Workers Name Role Phone Jai Nelson DO PCP Reason for Visit * Reason Comments Medication Refill Encounter Details Care Team Description Date Type Department Jai Nelson, [address] [place] [address] 04/18/2014 Refill [facility] Primar y Care [address] [address] Social History Date Tobacco Use [...]
--- OUTSIDE RECORDS SUMMARY | 2020-03-26 20:06 | XMS REPORT | Encounter Summary ---
Author Author [facility] Vicky Tate, [place], [place], [facility] Organization [facility] Vicky Tate [place], [place], [facility] Address Unknown Phone Unavailable Care Team Providers Care Certified Medical Coder Name Role Phone Jai Nelson DO PCP Reason for Visit * Reason Comments Annual Wellness Visit (Medicare) Medication Refill Encounter Details Care Team Description Date Type Department Jai Nelson, [address] [place] [address] Need for prophylactic vaccination and in oculation against influenza (Primary Dx); Other and unspecified hyperlipidemia; Gout; Special screening for malignant neoplasm of prostate; Medicare annual wellness visit, initial 11/02/2014 Office Visit [facility] Family [facility] [place] [address] [place] [address] Social History Date Tobacco Use [...] Signs Reading Time Taken Comments Vital Sign 120/70 11/02/2014 10:28 AM ASSISTANT PRODUCTION MANAGER Blood Pressure 66 11/02/2014 10:28 AM ASSISTANT PRODUCTION MANAGER Pulse 36.8 C (98.3 F) 11/02/2014 10:28 AM ASSISTANT PRODUCTION MANAGER Temperature 18 11/02/2014 10:28 AM ASSISTANT PRODUCTION MANAGER Respiratory Rate 98% 11/02/2014 10:28 AM ASSISTANT PRODUCTION MANAGER Oxygen Saturation - - Inhaled Oxygen Concentration 94.3 kg (208 lb) 11/02/2014 10:28 AM ASSISTANT PRODUCTION MANAGER Weight 177.8 cm (5' 10") 11/02/2014 10:28 AM ASSISTANT PRODUCTION MANAGER Height 29.84 11/02/2014 10:28 AM ASSISTANT PRODUCTION MANAGER Body Mass Index documented in this encounter Progress Notes * Sheila Sorenson, RN - 11/02/2014 11:03 AM ASSISTANT PRODUCTION MANAGER HISTORY OF PRESENT ILLNESS Luisito Taylor, a 74 y.o. male. HPI REVIEW OF SYSTEMS Review of Systems PHYSICAL EXAM BP 120/70 | Pulse 66 | Temp(Src) 98.3 F (36.8 C) (Oral) | Resp 18 | Ht 5' 10 " (1.778 m) | Wt 208 lb (94.348 kg) | BMI 29.84 kg/m2 | SpO2 98% Physical Exam MEDICARE ANNUAL WELLNESS Luisito Taylor is a 74 y.o. male here today for his Annual Wellness Visit ([facility]) and Medication Refill HEALTH RISK ASSESSMENT He has completed his Health Risk Assessment. I have reviewed this with the psychiatric ent. See scanned copy in chart. Areas of self-identified risk are addressed bel ow. In general, the patient feels they are in good physical health. MEDICAL RECORD UPDATE I have reviewed the patient's medical, surgical, family and social history and u pdated the electronic patient record. Current medications and allergies were reviewed and updated in computerized lena ent record. [facility] #[id number] - [place], [place] - [address] - [place], [place] - [address] [facility] Care Providers: Patient Care Team: Jai Nelson [...] > 2 or PHQ-9 score > 9 His depression screen was normal EXAMINATION BP 120/70 | Pulse 66 | Temp(Src) 98.3 F (36.8 C) (Oral) | Resp 18 | Ht 5' 10 " (1.778 m) | Wt 208 lb (94.348 kg) | BMI 29.84 kg/m2 | SpO2 98% Blood Pressure POC BP Readings from Last 3 Encounters: 12/23/14 120/70 08/13/13 126/76 07/30/12 130/78 Pre-hypertensive BP reading systolic between 120 to 139 or diastolic between 80 to 89 and no diagnosis of hypertension. Patient instructed to recheck blood pr essure within one year; discussed lifestyle changes including weight loss, reduc ing sodium intake, and increasing physical activity for blood pressure control. BMI POC Body mass index is 29.84 kg/(m^2). Normal BMI ranges: 18-64 yrs: 18.5 to 25 65 yrs and older: 23 to 30 BMI within normal limits Visual Acuity Corrected: L 20/25 R 20/25 Nursing Visual Acuity Documentation: Hearing screen Degree of hearing loss: moderate FUNCTIONAL ABILITY AND SAFETY Pain Assessment Are you having pain right now? No Abuse screen/ and home safety evaluation Negative Fall Risk(QM) He has had only one fall without injury in the past year. Social Support/[place]: Patient resides with spouse in independent living. Activities of Daily Living: Requires assistance with no ADLs Adult Nutritional Screen No nutritional concerns Tobacco Use(QM) reports that he has quit smoking. He has never used smokeless tobacco. He is not a tobacco user. Alcohol Use Occasionally Exercise/Other Exercise: never END OF LIFE PLANNING Patient's End of life planning was discussed and questions answered. He has an advanced directive. A copy has been provided. Current documents revie wed. Current documents reviewed / provided as applicable. I have no objection to the patient's stated End of Life planning. Preventative Care Guidelines [...] indeterminate B Blood Pressure screening Yearly A No health maintenance topics applied. Orders / Referrals / Counseling and follow-up Based upon these findings and review of any previous Wellness Visit recommendati ons the following treatment plan was recommended and discussed with the patient. No previously unaddressed health risks were detected. Recommended continuing cu rrent level of support, with repeat assessment in 1 year or sooner as needed. Orders Placed This Encounter INFLUENZA VACCINE SPLIT 3+YEARS IM (ADULT) Education and counseling provided: Age appropriate based on today's review and evaluation Mr. Taylor voiced understanding and agreement with the treatment plan. He under stands the importance of taking his medications and keeping follow-up appointmen ts. All questions were answered. Yrgvc-[id number] will be provided to trang nt upon check-out. ASSESSMENT and PLAN: ICD-9-CM ICD-10-CM 1. Need for prophylactic vaccination and inoculation against influenza V04.81 Z2 3 INFLUENZA VACCINE SPLIT 3+YRS IM 2. Other and unspecified hyperlipidemia 272.4 E78.5 LIPID PANEL CBC WITH DIFFERENTIAL COMPREHENSIVE METABOLIC PANEL 3. Gout 274.9 M10.9 4. Special screening for malignant neoplasm of prostate V76.44 Z12.5 PSA MEDICAR E SCREEN 5. Medicare annual wellness visit, initial V70.0 Z00.00 STANT PRODUCTION MANAGER * Jai Nelson, DO - 11/02/2014 10:39 AM ASSISTANT PRODUCTION MANAGER HISTORY OF PRESENT ILLNESS Luisito Taylor, a 74 y.o. male. HPI Comments: Pt here for annual wellness, needs to do labs, wants to try Lipito r instead of crestor, This medical record reflects the history of present illnes s as obtained by myself in discussion with the patient. The history is provided by the patient. No package sealer was used. Medication Refill Pertinent negatives include no chest pain, no abdominal pain, no headaches and n o shortness of breath. REVIEW OF SYSTEMS Review of Systems Constitutional: Negative for fever, chills, appetite change and fatigue. HENT: Negative for dental problem, ear pain, postnasal drip and trouble swallowi ng. Eyes: Negative for pain and visual disturbance. Respiratory: Negative for cough, shortness of breath and wheezing. Cardiovascular: Negative for chest pain, palpitations and leg swelling. Gastrointestinal: Negative for nausea, vomiting, abdominal pain, diarrhea and co nstipation. Genitourinary: Negative for dysuria, frequency and difficulty urinating. Musculoskeletal: Negative for back pain, gait problem, myalgias and neck pain. Skin: Negative for rash. Neurological: Negative for dizziness, weakness, light-headedness and headaches. Hematological: Does not bruise/bleed easily. Psychiatric/Behavioral: Negative for behavioral problems and confusion. The lena ent is not nervous/anxious. All other systems reviewed and are negative. PHYSICAL EXAM BP 120/70 | Pulse 66 | Temp(Src) 98.3 F (36.8 C) (Oral) | Resp 18 | Ht 5' 10 " (1.778 m) | Wt 208 lb (94.348 kg) | BMI 29.84 kg/m2 | SpO2 98% Physical Exam Nursing note and vitals reviewed. Constitutional: He is oriented to person, place, [...] range of motion. He exhibits no edema and no tenderness. Lymphadenopathy: He has no cervical adenopathy. [...] normal. Judgment a nd thought content normal. ASSESSMENT and PLAN: ICD-9-CM ICD-10-CM 1. Need for prophylactic vaccination and inoculation against influenza V04.81 Z2 3 INFLUENZA VACCINE SPLIT 3+YRS IM 2. Other and unspecified hyperlipidemia 272.4 E78.5 3. Gout 274.9 M10.9 4. Special screening for malignant neoplasm of prostate V76.44 Z12.5 STANT PRODUCTION MANAGER documented in this encounter Plan of Treatment Not on filedocumented as of this encounter Results * PSA MEDICARE SCREEN (11/02/2014 11:49 AM ASSISTANT PRODUCTION MANAGER) PSA 0.9 0.0 - 4.0 ng/mL [facility] [place] Specimen Blood Narrative Performed At The testing method is an immuno enzymat ic assay manufactured by [employer] and performed on the Person[employer] [id number]. It is bas ed on the cua[employer]ea [facility] [place] Standardization. Values obtained usin g different assay methods or standardizations may not correlate and cannot be used interchangeably. Methods using the World [employer] Organization (WHO ) standardization yield answers approximately 22% lower than the [employer] [facility] method. Performing Organization Address City/State/Zipcode Ph one Number [facility] CLIA # [id number] [place] [address] - [place] [address] [facility] LABORATORY SERVICES CLIA # [id number] [place], [place] [address] - [place] [address] [facility] * COMPREHENSIVE METABOLIC PANEL (11/02/2014 11:49 AM ASSISTANT PRODUCTION MANAGER) SODIUM 140 136 - 145 mmol/L [facility] - [place] POTASSIUM 5.3 (H) 3.5 - 5.1 mmol/L [facility] - [place] CHLORIDE 103 98 - 111 mmol/L [facility] - [place] CO2 29 22 - 31 mmol/L [facility] - [place] CALCIUM 9.9 8.3 - 10.3 mg/dL [facility] - [place] BUN 16 7 - 21 mg/dL [facility] - [place] CREATININE 1.25 (H) 0.61 - 1.24 mg/dL [facility] Comment: LABORATORY The GFR result is not SERVICES - clinically significant on [place] patients <18 or >70 years of age. GLUCOSE 111 80 - 115 mg/dL [facility] - [place] TOTAL PROTEIN 7.4 5.6 - 8.0 g/dL [facility] - [place] ALBUMIN 4.4 3.3 - 4.8 g/dL [facility] - [place] BILIRUBIN TOTAL 0.8 0.2 - 1.3 mg/dL [facility] - [place] ALKALINE 75 38 - 126 U/L [facility] PHOSPHATASE LAB[facility]ATORY SERVICES - [place] AST 28 15 - 46 U/L [facility] - [place] ALT 20 11 - 66 U/L [facility] - [place] GFR 56 mL/min/1.73 sq meter [facility] Comment: LABORATORY eGFR has not been validated [...] GFR result. GFR, >60 mL/min/1.73 sq meter [facility] - [place] ANION GAP 8 4 - 13 mmol/L [facility] Specimen Blood Performing Organization Address City/State/[facility] Ph one Number [facility] SERVICES CLIA # [id number] [place] [address] - [place] [address] [facility] LABORATORY SERVICES CLIA # [id number] [place] [address] - [place] [address] [facility] * CBC WITH DIFFERENTIAL (11/02/2014 11:49 AM ASSISTANT PRODUCTION MANAGER) WBC 9.1 4.0 - 11.0 K/uL [facility] - [place] RBC 4.82 4.70 - 6.00 M/uL [facility] - [place] HEMOGLOBIN 15.4 13.5 - 18.0 g/dL [facility] - [place] HEMATOCRIT 43.4 42.0 - 52.0 % [facility] - [place] MCV 90.0 78.0 - 100.0 fL [facility] - [place] MCH 32.0 27.0 - 34.0 pg [facility] - [place] MCHC 35.5 31.0 - 37.0 g/dL [facility] - [place] RDW 13.6 12.0 - 15.0 % [facility] [place] RDW-STDEV 43.9 37.1 - 48.7 fL [facility] - [place] PLATELETS 143 (L) 150 - 450 K/uL [facility] - [place] MPV 11.8 9.3 - 12.4 fL [facility] - [place] NEUTROPHILS 61 31 - 76 % [facility] [place] LYMPHOCYTES 23 (L) 24 - 44 % [facility] - [place] MONOCYTES 9 2 - 11 % [facility] [place] EOSINOPHILS 6 0 - 6 % [facility] [place] BASOPHILS 1 0 - 2 % [facility] [place] NEUTROPHIL 5.49 1.80 - 7.70 K/uL [facility] [place] LYMPHOCYTE 2.11 1.00 - 4.80 K/uL [facility] [place] MONOCYTE 0.84 0.10 - 1.30 K/uL [facility] [place] EOSINOPHIL 0.50 0.00 - 0.70 K/uL [facility] [place] BASOPHILS 0.08 0.00 - 0.20 K/uL [facility] [place] IMMATURE 0 % [facility] - [place] IMMATURE 0.03 K/uL [facility] LABORATORY ABSOLUTE SERVICES - [place] Specimen Blood Performing Organization Address City/State/Zipcoor Ph one Number [facility] CLIA # [id number] [place] [address] - [place] [address] [facility] LABORATORY SERVICES CLIA # [id number] [place] [address] - [place] [address] [facility] * LIPID PANEL (11/02/2014 11:49 AM ASSISTANT PRODUCTION MANAGER) CHOLESTEROL 170 25 - 200 mg/dL [facility] [place] TRIGLYCERIDE 120 0 - 150 mg/dL [facility] - [place] HDL 53 >=40 mg/dL [facility] - [place] LDL CALCULATED 93 0 - 100 mg/dL [facility] - [place] NON-HDL 117 mg/dL [facility] CHOLESTEROL LAB[facility]ATORY SERVICES - [place] Specimen Blood Narrative Performed At TOTAL CHOLESTEROL mg/dL [facility] LABORATORY Desirable <200 SERVICES - [place] Borderline high 200-239 High >=240 TRIGLYCERIDES mg/dL Normal <150 Borderline high 150-199 High 200-499 Very high >=500 HDL CHOLESTEROL mg/dL Low <40 Normal 40-60 Desirable >60 LDL CHOLESTEROL mg/dL Optimal <100 Low risk 100-129 Borderline high 130-159 High 160-189 Very high >=190 NON HDL CHOLESTEROL mg/dL Desirable <130 Borderline high 130-159 High 160-189 Very high >=190 Based on AHA/NCEP Guidelines Performing Organization Address City/State/Zipcode Ph one Number [facility] CLIA # [id number] [place] [address] - [place] [address] [facility] LABORATORY SERVICES CLIA # [id number] [place] [address] - [place] [address] [facility] documented in this encounter Visit Diagnoses Diagnosis Need for prophylactic vaccination and i noculation against influenza - Primary Other and unspecified hyperlipidemia Gout Gout, unspecified Special screening for malignant neoplas m of prostate Medicare annual wellness visit, initial Routine general medical examination at a health care facility documented in this encounter Additional Health Concerns Assessment Noted Time A Hypertension Plan of Care has been documented for t choco patient 11/02/2014 11:31 AM ASSISTANT PRODUCTION MANAGER documented as of this encounter
--- OUTSIDE RECORDS SUMMARY | 2020-03-26 20:06 | XMS REPORT | Encounter Summary ---
[facility] [place] [place], [facility] Organization [facility] [place], [place], [facility] Address Unknown Phone Unavailable Care Team Providers Care Photographer Motion Picture Name Role Phone Jai Nelson DO PCP Reason for Visit * Reason Comments Medication Refill Encounter Details Care Team Description Date Type Department Jai Nelson, [address] [place] [address] 10/28/2013 Refill [facility] Primar y Care [address] [address] Social History Date Tobacco Use [...]
--- OUTSIDE RECORDS SUMMARY | 2020-03-26 20:06 | XMS REPORT | Encounter Summary ---
Author Author [facility], [place], [facility] Organization [facility], [place], [facility] Address Unknown Phone Unavailable Care Team Providers Care Power Technician Name Role Phone Jai Nelson DO PCP Reason for Visit * Reason Comments Medication Refill Encounter Details Care Team Description Date Type Department Jai Nelson DO [address] [place] [address] 06/18/2017 Refill [facility] Family Medicine [facility] [address] [place] [address] Social History Date Tobacco Use Types [...] for t choco patient 01/01/2016 8:28 PM TRAIN ANNOUNCER documented as of this encounter
--- OUTSIDE RECORDS SUMMARY | 2020-03-26 20:06 | XMS REPORT | Encounter Summary ---
Author Author [facility] Organization [facility] Address Unknown Phone Unavailable Care Team Providers Care Graduate Assistant Athletic Trainer Name Role Phone PCP Unavailable Encounter Details Care Team Description Date Type [place] [address] [place] [address] [phone] 08/10/1998 [facility] al Encounter [address] [place] [address] Social History Date Tobacco Use Types Packs/Day Years Used Never Assessed Sex Assigned at Date Recorded Not on file Industry Job Start Date Occupation Not on file Not on file Not on file Travel End Travel History Travel Start No recent travel history available. documented as of this encounter Plan of Treatment Not on filedocumented as of this encounter Procedures Comments Procedure Name Priority Date/Time Associated Diag nosis PSA DIAGNOSTIC Routine 08/10/1998 9:47 PM CDT DIFFERENTIAL Routine 08/10/1998 9:47 PM CDT URIC ACID Routine 08/10/1998 9:47 PM CDT TOTAL THYROXINE Routine 08/10/1998 9:47 PM CDT PROTEIN TOTAL SERUM Routine 08/10/1998 9:47 PM CDT PHOSPHORUS Routine 08/10/1998 9:47 PM CDT LIPID PANEL Routine 08/10/1998 9:47 PM CDT LACTATE DEHYDROGENASE Routine 08/10/1998 9:47 PM CDT IRON Routine 08/10/1998 9:47 PM CDT GAMMA GLUTAMYL Routine 08/10/1998 TRANSFERASE 9:47 PM CDT COMPLETE BLOOD COUNT Routine 08/10/1998 9:47 PM CDT CHOLESTEROL Routine 08/10/1998 9:47 PM CDT CALCIUM Routine 08/10/1998 9:47 PM CDT BILIRUBIN TOTAL Routine 08/10/1998 9:47 PM CDT BASIC METABOLIC PANEL Routine 08/10/1998 9:47 PM CDT ASPARTATE Routine 08/10/1998 AMINOTRANSFERASE 9:47 PM CDT ALKALINE PHOSPHATASE Routine 08/10/1998 9:47 PM CDT ALBUMIN Routine 08/10/1998 9:47 PM CDT ALANINE AMINOTRANSFERASE Routine 08/10/1998 9:47 PM CDT documented in this encounter Results * Lipid Panel (08/10/1998 9:47 PM CDT) Cholesterol 238 (H) <200 MG/DL [facility]QUEST Triglycerides 123 <200 MG/DL SUN[facility] HDL Cholesterol 46 >35 MG/DL [facility] LDL Cholesterol 167 (H) 0 - 130 MG/DL [facility] Cholesterol/HDL 5.2 (H) <4.5 SUNQUEST Ratio Hours 0 SUNQUEST Postprandial Specimen Blood Performing Organization Address [facility] one Number SLRL [address] [place], [place] [address] SUNQUEST * Alkaline Phosphatase (08/10/1998 9:47 PM CDT) Alkaline 76 40 - 125 IU/L [facility] Phosphatase Specimen Blood Performing Organization Address [facility] Ph one Number SLRL [address] [place], [place] [address] SUNQUEST * Alanine Aminotransferase (08/10/1998 9:47 PM CDT) Alanine 26 20 - 60 IU/L SUNQUEST Aminotransferas e Specimen Blood Performing Organization Address [facility] Ph one Number SLRL [address] [place], [place] [address] SUNQUEST * Complete Blood Count (08/10/1998 9:47 PM CDT) Pathologist [facility] WBC 7.9 4.0 - 11.0 TH/UL SUNQUEST RBC 4.67 4.31 - 5.84 MIL/UL [facility] Hemoglobin 14.4 13.0 - 17.0 G/DL [facility] Hematocrit 43 40 - 50 % [facility] MCV 91 80 - 99 FL SUNQUEST MCH 31 27 - 34 PG SUNQUEST MCHC 34 32 - 36 % [facility]QUEST RDW 13.1 <14.5 % [facility]QUEST Platelet Count 248 140 - 400 TH/UL SUNQUEST Specimen Blood Performing Organization Address [facility] one Number SLRL [address] [place] [address] 11 SUNQUEST * Gamma Glutamyl Transferase (08/10/1998 9:47 PM CDT) [facility] Gamma Glutamyl 30 15 - 80 IU/L SUNQUEST Transferase Specimen Blood Performing Organization Address [facility] one Number SLRL [address] [place] [address] 11 SUNQUEST * Iron (08/10/1998 9:47 PM CDT) [facility] Iron 72 50 - 150 UG/DL SUNQUEST Specimen Blood Performing Organization Address [facility] one Number SLRL [address] [place] [address] 11 SUNQUEST * DIFFERENTIAL (08/10/1998 9:47 PM CDT) [facility] % Neutrophils 53 45 - 78 % SUNQUEST %Lymphocytes 31 15 - 47 % SUNQUEST %Monocytes 10 0 - 12 % SUNQUEST %Eosinophils 4 0 - 7 % SUNQUEST %Basophils 1 0 - 2 % SUNQUEST # Granulocytes 4.2 1.7 - 6.8 TH/UL SUNQUEST # Lymphocytes 2.4 1.0 - 3.3 TH/UL SUNQUEST # Monocytes 0.8 0.2 - 0.9 TH/UL SUNQUEST # Eosinophils 0.3 0.0 - 0.4 TH/UL SUNQUEST # Basophils 0.1 0.0 - 0.2 TH/UL SUNQUEST Specimen Blood Performing Organization Address [facility] one Number SLRL [address] [place] [address] 11 SUNQUEST * Total Thyroxine (08/10/1998 9:47 PM CDT) Total Thyroxine 7.2 4.5 - 12.4 UG/DL SUNQUEST Specimen Blood Performing Organization Address [facility] one Number SLRL [address] [place] [address] 11 SUNQUEST * Basic Metabolic Panel (08/10/1998 9:47 PM CDT) Sodium 137 134 - 144 MEQ/L SUNQUEST Potassium 4.1 3.6 - 5.0 MEQ/L SUNQUEST Chloride 102 98 - 107 MEQ/L SUNQUEST Carbon Dioxide 23 23 - 32 MEQ/L SUNQUEST Anion Gap 12 3 - 15 SUNQUEST Creatinine 1.2 0.5 - 1.5 MG/DL SUNQUEST Blood Urea 16 5 - 20 MG/DL SUNQUEST Nitrogen Glucose 90 65 - 110 MG/DL SUNQUEST Specimen Blood Performing Organization Address [facility] one Number [facility]RL [address] [place] [address] 11 SUNQUEST * Calcium (08/10/1998 9:47 PM CDT) Calcium 9.4 8.8 - 10.5 MG/DL SUNQUEST Specimen Blood Performing Organization Address [facility] one Number [facility]RL [address] [place] [address] 11 SUNQUEST * Phosphorus (08/10/1998 9:47 PM CDT) Phosphorus 3.4 2.5 - 4.5 MG/DL SUNQUEST Specimen Blood Performing Organization Address [facility] one Number [facility]RL [address] [place] [address] 11 SUNQUEST * Cholesterol (08/10/1998 9:47 PM CDT) Cholesterol 238 (H) <200 MG/DL SUNQUEST Specimen Blood Performing Organization Address [facility] one Number SLRL [address] [place] [address] 11 SUNQUEST * Protein Total Serum (08/10/1998 9:47 PM CDT) Protein Total 7.1 6.5 - 8.2 G/DL SUNQUEST Serum Specimen Blood Performing Organization Address [facility] one Number [facility]RL [address] [place] [address] 11 SUNQUEST * Uric Acid (08/10/1998 9:47 PM CDT) Uric Acid 6.2 2.5 - 7.8 MG/DL SUNQUEST Specimen Blood Performing Organization Address [facility] one Number SLRL [address] [place], [place] [address] SUNQUEST * Aspartate Aminotransferase (08/10/1998 9:47 PM CDT) Aspartate 40 20 - 50 IU/L SUNQUEST Aminotransferas e Specimen Blood Performing Organization Address [facility] one Number [facility]RL [address] [place], [place] [address] SUNQUEST * Albumin (08/10/1998 9:47 PM CDT) Albumin 4.3 3.6 - 4.6 G/DL SUNQUEST Specimen Blood Performing Organization Address [facility] one Number [facility]RL [address] [place] [address] SUNQUEST * Bilirubin Total (08/10/1998 9:47 PM CDT) Bilirubin Total 0.7 0.2 - 1.2 MG/DL SUNQUEST Specimen Blood Performing Organization Address [facility] one Number SLRL [address] [place] [address] SUNQUEST * PSA DIAGNOSTIC (08/10/1998 9:47 PM CDT) PSA Diagnostic 0.7 0.0 - 4.0 NG/ML SUNQUEST Specimen Blood Performing Organization Address [facility] one Number SLRL [address] [place] [address] SUNQUEST * Lactate Dehydrogenase (08/10/1998 9:47 PM CDT) Lactate 570 300 - 600 IU/L SUNQUEST Dehydrogenase Specimen Blood Performing Organization Address [facility] one Number [address]RL [address] [place] [address] SUNQUEST documented in this encounter Visit Diagnoses Not on filedocumented in this encounter
--- OUTSIDE RECORDS SUMMARY | 2020-03-26 20:06 | XMS REPORT | Clinical Summary ---
Author Author [facility] Organization [facility] Address Unknown Phone Unavailable Care Team Providers Care Code Official Name Role Phone PCP Unavailable Allergies Not on File Medications Not on file Active Problems Not on file Social History Date Tobacco Use Types Packs/Day Years Used Never Assessed Sex Assigned at Date Recorded Not on file Industry Job Start Date Occupation Not on file Not on file Not on file Travel End Travel History Travel Start No recent travel history available. Last Filed Vital Signs Not on file Plan of Treatment Not on file Results Not on filefrom Last 3 Months
--- OUTSIDE RECORDS SUMMARY | 2020-03-26 20:06 | XMS REPORT | Encounter Summary ---
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
--- OUTSIDE RECORDS SUMMARY | 2020-03-26 20:06 | XMS REPORT | Encounter Summary ---
Author Author [facility] Address Unknown Phone Unavailable Care Team Providers Care Ironworker Foreman Name Role Phone PCP Unavailable Encounter Details Care Team Description Date Type [place] [address] [place] [address] [phone] [facility] [address] [place], [place] [id number] Social History Date Tobacco Use Types Packs/Day [...] Procedure Name Priority Date/Time Associated Diag nosis LIPID PANEL Routine 05/09/1999 5:23 PM CDT ASPARTATE Routine 05/09/1999 AMINOTRANSFERASE 5:23 PM CDT documented in this encounter Results * Lipid Panel (05/09/1999 5:23 PM CDT) Cholesterol 236 (H) <200 MG/DL [facility]QUEST Triglycerides 161 <200 MG/DL SUNQUEST HDL Cholesterol 45 >35 MG/DL SUNQUEST LDL Cholesterol 159 (H) 0 - 130 MG/DL SUNQUEST Cholesterol/HDL 5.2 (H) <4.5 SUNQUEST Ratio Specimen Blood Performing Organization Address [facility] Ph one Number SLRL [address] [place], [place] [address] SUNQUEST * Aspartate Aminotransferase (05/09/1999 5:23 PM CDT) Aspartate 31 20 - 50 IU/L SUNQUEST Aminotransferas e Specimen Blood Performing Organization Address [facility] Ph one Number SLRL [address] [place], [place] [address] SUNQUEST documented in this encounter Visit Diagnoses Not on filedocumented in this encounter
--- OUTSIDE RECORDS SUMMARY | 2020-03-26 20:06 | XMS REPORT | Encounter Summary ---
Author Author [facility] [place], [place], [facility] Organization [facility] [place], [place], [facility] Address Unknown Phone Unavailable Care Team Providers Care Supervisory Training Specialist Name Role Phone Jai Nelson DO PCP Reason for Visit * Reason Comments Medication Refill Encounter Details Care Team Description Date Type Department Jai Nelson DO [address] [place] [address] 11/08/2015 Refill [facility] Family Medicine [facility] [address] [place] [address] Social History Date Tobacco Use Types [...] for t choco patient 11/02/2014 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
--- OUTSIDE RECORDS SUMMARY | 2020-03-26 20:06 | XMS REPORT | Encounter Summary ---
Author Author [facility] [place], [place], [facility] Organization [facility] [place], [place], 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
--- OUTSIDE RECORDS SUMMARY | 2020-03-26 20:07 | XMS REPORT | Encounter Summary ---
Author Author [facility] [place], [place], [facility] Organization [facility] [place], [place], [facility] Address Unknown Phone Unavailable Care Team Providers Care Air Defense Artillery Officer Name Role Phone Jai Nelson DO PCP Reason for Visit * Reason Comments Medication Refill Encounter Details Care Team Description Date Type Department Jai Nelson, [address] [place] [address] 11/26/2011 Refill [facility] Primar y Care [address] [address] Social History Date Tobacco Use [...]
--- OUTSIDE RECORDS SUMMARY | 2020-03-26 20:07 | XMS REPORT | Encounter Summary ---
Author Author [facility], [place], [facility] Organization [facility] [place], [place], [facility] Address Unknown Phone Unavailable Care Team Providers Care Retail Cashier Name Role Phone Jai Nelson DO PCP Reason for Visit * Reason Comments Medication Refill Encounter Details Care Team Description Date Type Department Jai Nelson, [address] [place] [address] 07/25/2013 Refill [facility] Primar y Care [address] [address] Social History Date Tobacco Use [...]
--- OUTSIDE RECORDS SUMMARY | 2020-03-26 20:07 | XMS REPORT | Encounter Summary ---
Author Author [facility] [place], [place], [facility] Organization [facility] [place], [place], [facility] Address Unknown Phone Unavailable Care Team Providers Care Can Handler Name Role Phone Jai Nelson DO PCP Reason for Visit * Reason Comments Medication Refill Encounter Details Care Team Description Date Type Department Jai Nelson, [address] [place] [address] 05/22/2012 Refill [facility] Primar y Care [address] [address] Social History Date Tobacco Use [...]
--- OUTSIDE RECORDS SUMMARY | 2020-03-26 20:07 | XMS REPORT | Encounter Summary ---
Author Author [facility], [place], [facility] Organization [facility] [place], [place], [facility] Address Unknown Phone Unavailable Care Team Providers Care Ruby Developer Name Role Phone Jai Nelson DO PCP Reason for Visit * Reason Comments Medication Refill Encounter Details Care Team Description Date Type Department Jai Nelson, [address] [place] [address] 01/22/2013 Refill [facility] Primar y Care [address] [address] Social History Date Tobacco Use [...]
--- OUTSIDE RECORDS SUMMARY | 2020-03-26 20:07 | XMS REPORT | Encounter Summary ---
Author Author [facility], [facility] Organization [facility] [place], [place], [facility] Address Unknown Phone Unavailable Care Team Providers Care Fabric Normalizer Name Role Phone Jai Nelson DO PCP Encounter Details Care Team Description Date Type Department Mel Durham MD (John) [address] [address] [place] [address] 07/10/2011 Abstract [facility] [address] [place] [address] Social History Date Tobacco Use Types Packs/Day [...]
--- OUTSIDE RECORDS SUMMARY | 2020-03-26 20:07 | XMS REPORT | Encounter Summary ---
Author Author [facility], [place], [facility] Organization [facility] [place], [place], [facility] Address Unknown Phone Unavailable Care Team Providers Care Guidance Secretary Name Role Phone Jai Nelson DO PCP Reason for Visit * Reason Comments Medication Refill Encounter Details Care Team Description Date Type Department Jai Nelson, [address] [place] [address] 08/18/2012 Refill [facility] Primar y Care [address] [address] Social History Date Tobacco Use [...]
--- OUTSIDE RECORDS SUMMARY | 2020-03-26 20:07 | XMS REPORT | Encounter Summary ---
Author Author [facility] [place], [place], [place], [facility] Organization [facility], [place], [place], [facility] Address Unknown Phone Unavailable Care Team Providers Care Boarder Steam Name Role Phone Jai Nelson DO PCP Reason for Visit * Reason Comments Procedure mole left shoulder Encounter Details Care Team Description Date Type Department Jai Nelson DO [address] [place] [address] Suspicious nevus (Primary Dx) 10/16/[address] [facility] Primar y Care [address] [address] Social History Date Tobacco Use [...] Signs Reading Time Taken Comments Vital Sign 138/80 10/16/2011 2:19 PM WATER JET LOOM FIXER Blood Pressure 76 10/16/2011 2:19 PM WATER JET LOOM FIXER Pulse - - Temperature 16 10/16/2011 2:19 PM WATER JET LOOM FIXER Respiratory Rate - - Oxygen Saturation - - Inhaled Oxygen Concentration 96.2 kg (212 lb) 10/16/2011 2:19 PM WATER JET LOOM FIXER Weight - - Height 30.42 10/10/2011 7:55 AM WATER JET LOOM FIXER Body Mass Index documented in this encounter Progress Notes * Jai Nelson, - 10/16/2011 4:51 PM WATER JET LOOM FIXER SUBJECTIVE: Luisito Taylor is a 71 y.o. male who presents for lesion removal. We have discu ssed this procedure, including option of not performing surgery, technique of castaneda rgery and potential for scarring at an earlier visit. OBJECTIVE: Patient appears well. BP 138/80 | Pulse 76 | Resp 16 | Wt 212 lb (96.163 kg) Skin: left shoulder ASSESSMENT: suspicious lesion PROCEDURE: After informed consent was obtained, using chlorohexidine for cleansing and Lido lorena (XYLOCAINE) 0.5% with Epinephrine 1:100,000 for anesthetic, with sterile t echnique, shave biopsy was performed. Antibiotic dressing is applied, and wound care instructions provided. Be alert for any signs of cutaneous infection. The procedure was well tolerated without complications. Follow up: the specimen is l abeled and sent to pathology for evaluation. . R JET LOOM FIXER * Paulino Hong - 10/16/2011 2:20 PM WATER JET LOOM FIXER Pt here For procedure, mole left shoulder. R JET LOOM FIXER documented in this encounter Plan of Treatment Order Schedule Name Type Priority Associated Diag noses Ordered: 10/16/2011 BIOPSY SKIN LESION Procedures Routine Suspicious nevus documented as of this encounter Visit Diagnoses Diagnosis Suspicious nevus - Primary Benign neoplasm of skin, site unspecifi ed documented in this encounter"
--- OUTSIDE RECORDS SUMMARY | 2020-03-26 20:07 | XMS REPORT | Encounter Summary ---
Author Author [facility] Vicky Tate, [place], [place], [facility] Organization [facility] [place], [facility] Address Unknown Phone Unavailable Care Team Providers Care Varnish Maker Name Role Phone Jai Nelson DO PCP Reason for Visit * Reason Comments Follow Up needs labs done Medication Refill Encounter Details Care Team Description Date Type Department Jai Nelson, DO [address] [place] [address] Need for prophylactic vaccination with c ombined ukwnfveknt-wcwsdnx-kirwnnmbr (DTP) vaccine (Primary Dx); Other and unspecified hyperlipidemia; Need for prophylactic vaccination and inoculation against influenza 07/30/2012 Office Visit [place] [address] [place] [address] Social History Date Tobacco Use Types [...] Signs Reading Time Taken Comments Vital Sign 130/78 07/30/2012 7:55 AM CDT Blood Pressure 52 07/30/2012 7:55 AM CDT Pulse - - Temperature 16 07/30/2012 7:55 AM CDT Respiratory Rate 95% 07/30/2012 7:55 AM CDT Oxygen Saturation - - Inhaled Oxygen Concentration 98 kg (216 lb) 07/30/2012 7:55 AM CDT Weight 177.8 cm (5' 10") 07/30/2012 7:55 AM CDT Height 30.99 07/30/2012 7:55 AM CDT Body Mass Index documented in this encounter Progress Notes * Jai Nelson Luis, DO - 07/30/2012 10:18 AM CDT HISTORY OF PRESENT ILLNESS Luisito Taylor, a 72 y.o. male. Medication Refill This is a chronic problem. The current episode started more than 1 week ago. The problem has not changed since onset.Pertinent negatives include no chest pain, no abdominal pain, no headaches and no shortness of breath. The symptoms are agg ravated by nothing. The symptoms are relieved by medications. REVIEW OF SYSTEMS Review of Systems Constitutional: Negative for fever, chills, appetite change and fatigue. HENT: Negative for ear pain, trouble swallowing, neck pain, dental problem and p ostnasal drip. Eyes: Negative for pain and visual disturbance. Respiratory: Negative for cough, shortness of breath and wheezing. Cardiovascular: Negative for chest pain, palpitations and leg swelling. Gastrointestinal: Negative for nausea, vomiting, abdominal pain, diarrhea and co nstipation. Genitourinary: Negative for dysuria, frequency and difficulty urinating. Musculoskeletal: Negative for myalgias, back pain and gait problem. Skin: Negative for rash. Neurological: Negative for dizziness, weakness, light-headedness and headaches. Hematological: Does not bruise/bleed easily. Psychiatric/Behavioral: Negative for behavioral problems and confusion. The lena ent is not nervous/anxious. All other systems reviewed and are negative. PHYSICAL EXAM BP 130/78 | Pulse 52 | Resp 16 | Ht 5' 10" (1.778 m) | Wt 216 lb (97.977 kg) | B OK 30.99 kg/m2 | SpO2 95% Physical Exam Nursing note and vitals reviewed. [...] nd thought content normal. ASSESSMENT and PLAN: 1. Vaccin for DTP (V06.1) TDAP VACCINE >7 YO IM, TDAP VACCINE >7 YO IM 2. Other and unspecified hyperlipidemia (272.4) COMPREHENSIVE METABOLIC PANEL, LIPID PANEL, CBC WITH DIFFERENTIAL 3. Need for prophylactic vaccination and inoculation against influenza (V04.81) INFLUENZA VACCINE SPLIT 3+YRS IM * Paulino Hong MT - 07/30/2012 8:06 AM CDT Pt here for follow up and lab results. Also med refill. documented in this encounter Miscellaneous Notes * Patient Instructions - Paulino Hong MT - 07/30/2012 8:06 AM CDT Thai | Welsh [facility] Patient Instructions Hyperlipidemia: After Your Visit Your Care Instructions Hyperlipidemia is too much fat in your blood. The body has several kinds of fat, including cholesterol and triglycerides. Your body needs fat for many things, s uch as making new cells. But too much fat in your blood increases your chances o f having a heart attack or stroke. You may be able to lower your cholesterol and triglycerides with a heart-healthy diet, exercise, and if needed, medicine. Your doctor may want you to try lifest yle changes first to see whether they lower the fat in your blood. You may need to take medicine if lifestyle changes do not lower the fat in your blood enough. Follow-up care is a galarza part of your treatment and safety. Be sure to make and g o to all appointments, and call your doctor if you are having problems. Its a lso a good idea to know your test results and keep a list of the medicines you t reynaldo. How can you care for yourself at home? Take your medicines Take your medicines exactly as prescribed. Call your doctor if you think you are having a problem with your medicine. If you take medicine to lower your cholesterol, go to follow-up visits. You w ill need to have blood tests. Do not take large doses of niacin, which is a B vitamin, while taking medicin e called statins. It may increase the chance of muscle pain and liver problems. Talk to your doctor about avoiding grapefruit juice if you are taking statins . Grapefruit juice can raise the level of this medicine in your blood. This coul d increase side effects. Eat more fruits, vegetables, and fiber Fruits and vegetables have lots of nutrients that help protect against heart disease, and they have littleif anyfat. Try to eat at least five servings a day. Dark green, deep orange, or yellow fruits and vegetables are healthy amin sandi. Keep carrots, celery, and other veggies handy for snacks. Buy fruit that is i n season and store it where you can see it so that you will be tempted to eat it . Cook dishes that have a lot of veggies in them, such as stir-fries and soups. Foods high in fiber may reduce your cholesterol and provide important vitamin s and minerals. High-fiber foods include whole-grain cereals and breads, oatmeal , beans, brown rice, citrus fruits, and apples. Buy whole-grain breads and cereals instead of white bread and pastries. Limit saturated fat Read food labels and try to avoid saturated fat and trans fat. They increase your risk of heart disease. Use olive or canola oil when you cook. Try cholesterol-lowering spreads, such as Benecol or Take Control. Bake, broil, grill, or steam foods instead of frying them. Limit the amount of high-fat meats you eat, including hot dogs and sausages. Cut out all visible fat when you prepare meat. Eat fish, skinless poultry, and soy products such as tofu instead of high-fat meats. Soybeans may be especially good for your heart. Eat at least two servings of fish a week. Certain fish, such as salmon, contain omega-3 fatty acids, which may help reduce your risk of heart attack. Choose low-fat or fat-free milk and dairy products. Get exercise, limit alcohol, and quit smoking Get more exercise. Work with your doctor to set up an exercise program. Even if you can do only a small amount, exercise will help you get stronger, have mor e energy, and manage your weight and your stress. Walking is an easy way to get exercise. Gradually increase the amount you walk every day. Aim for at least 30 minutes on most days of the week. You also may want to swim, bike, or do other a ctivities. Limit alcohol to no more than 2 drinks a day for men and 1 drink a day for wo men. Do not smoke. If you need help quitting, talk to your doctor about stop-smoki ng programs and medicines. These can increase your chances of quitting for good. When should you call for help? Call 911 anytime you think you may need emergency care. For example, call if: You have symptoms of a heart attack. These may include: Chest pain or pressure, or a strange feeling in the chest. Sweating. Shortness of breath. Nausea or vomiting. Pain, pressure, or a strange feeling in the back, neck, jaw, or upper belly o r in one or both shoulders or arms. Lightheadedness or sudden weakness. A fast or irregular heartbeat. After you call 911, the booth operator may tell you to chew 1 adult-strength or 2 to 4 low-dose aspirin. Wait for an ambulance. Do not try to drive yourself. You have signs of a stroke. These may include: Sudden numbness, paralysis, or weakness in your face, arm, or leg, especially on only one side of your body. New problems with walking or balance. Sudden vision changes. Drooling or slurred speech. New problems speaking or understanding simple statements, or feeling confused . A sudden, severe headache that is different from past headaches. You passed out (lost consciousness). Call your doctor now or seek immediate medical care if: You have muscle pain or weakness. Watch closely for changes in your health, and be sure to contact your doctor if: You are very tired. You have an upset stomach, gas, constipation, or belly pain or cramps. Where can you learn more? Go to www.[email or web address] in the Health Information search box Enter C406 in the search box to learn more about "Hyperlipidemia: After Your Vis it." [id number] [employer]. Care instructions adapted under license b y [employer]. [employer] disclaims any warranty or liability for your use of this informat ion. This information is not intended to represent the ethical and confucianist bel iefs of [facility]. This care instruction is for use with your licensed healthcare pr [facility]. If you have questions about a medical condition or this instruction, always ask your healthcare professional. [employer] disclaims any warranty or liability for your use of this information. Content Version: 9.4.71958; Last Revised: August 23, 2011 documented in this encounter Plan of Treatment Not on filedocumented as of this encounter Results * CBC WITH DIFFERENTIAL (07/30/2012 8:53 AM CDT) WBC 7.3 4.0 - 11.0 K/uL [facility] [place] RBC 4.75 4.70 - 6.00 M/uL [facility] - [place] HEMOGLOBIN 14.5 13.5 - 18.0 g/dL [facility] [place] HEMATOCRIT 42.6 42.0 - 52.0 % [facility] [place] MCV 89.7 78.0 - 100.0 fL [facility] [place] MCH 30.5 27.0 - 34.0 pg [facility] [place] MCHC 34.0 31.0 - 37.0 g/dL [facility] [place] RDW 13.8 12.0 - 15.0 % [facility] [place] RDW-STDEV 44.3 37.1 - 48.7 fL [facility] [place] PLATELETS 121 (L) 150 - 450 K/uL [facility] [place] MPV 11.9 9.3 - 12.4 fL [facility] [place] NEUTROPHILS 51 31 - 76 % [facility] [place] LYMPHOCYTES 33 24 - 44 % [facility] [place] MONOCYTES 10 2 - 11 % [facility] [place] EOSINOPHILS 6 0 - 6 % [facility] [place] BASOPHILS 1 0 - 2 % [facility] [place] NEUTROPHIL 3.68 1.80 - 7.70 K/uL [facility] [place] LYMPHOCYTE 2.36 1.00 - 4.80 K/uL [facility] [place] MONOCYTE 0.74 0.10 - 1.30 K/uL [facility] [place] EOSINOPHIL 0.42 0.00 - 0.70 K/uL [facility] [place] BASOPHILS 0.05 0.00 - 0.20 K/uL [facility] [place] Specimen Blood specimen (specimen) Performing Organization Address City/State/Zipcode Ph one Number [facility] CLIA # [id number] [place] [address] - [place] [address] [facility] CLIA # [id number] [place] [address] - [place] [address] [facility] * LIPID PANEL (07/30/2012 8:53 AM CDT) CHOLESTEROL 154 25 - 200 mg/dL [facility] [place] TRIGLYCERIDE 123 0 - 150 mg/dL [facility] [place] HDL 54 >=40 mg/dL [facility] [place] LDL CALCULATED 75 0 - 100 mg/dL [facility] [place] Specimen Blood specimen (specimen) Narrative Performed At TOTAL CHOLESTEROL mg/dL [facility] Desirable <200 [facility] - [place] Borderline high 200-239 High >=240 TRIGLYCERIDES mg/dL Normal <150 Borderline high 150-199 High 200-499 Very high >=500 HDL CHOLESTEROL mg/dL Low <40 Normal 40-60 Desirable >60 LDL CHOLESTEROL mg/dL Optimal <100 Low risk 100-129 Borderline high 130-159 High 160-189 Very high >=190 Based on AHA/NCEP Guidelines Performing Organization Address City/State/[facility] Ph one Number [facility] CLIA # [id number] [place] [id number] - [place] [address] [facility] CLIA # [id number] [place] [address] - [place] [address] [facility] * COMPREHENSIVE METABOLIC PANEL (07/30/2012 8:53 AM CDT) SODIUM 138 136 - 145 mmol/L [facility] [place] POTASSIUM 4.6 3.5 - 5.1 mmol/L [facility] [place] CHLORIDE 104 98 - 111 mmol/L [facility] [place] CO2 28 22 - 31 mmol/L [facility] [place] CALCIUM 9.3 8.3 - 10.3 mg/dL [facility] [place] BUN 16 7 - 21 mg/dL [facility] [place] CREATININE 1.23 0.61 - 1.24 mg/dL [facility] [place] GLUCOSE 104 80 - 115 mg/dL [facility] [place] TOTAL PROTEIN 7.0 5.6 - 8.0 g/dL [facility] [place] ALBUMIN 4.3 3.3 - 4.8 g/dL [facility] [place] BILIRUBIN TOTAL 0.7 0.2 - 1.3 mg/dL [facility] [place] ALKALINE 51 38 - 126 U/L [facility]OSPHAT[facility] [place] AST 32 15 - 46 U/L [facility] [place] ALT 21 11 - 66 U/L [facility] [place] GFR 58 (L) >=60 mL/min/1.73 sq [facility] [place] GFR, 70 >=60 mL/min/1.73 sq [facility] [place] Specimen Blood specimen (specimen) Narrative Performed At eGFR has not been validated for use in the elderly (> 70 years of age), [facility] women, patients with serious co-morbid conditions, or persons with extremes of SERVICES - [place] body size or muscle mass and should als o be interpreted with caution in patients with acute kidney failure, dialysis dep endant patients, patients reporting exceptional dietary intake (e.g. vegeta kori diet, high protein diets, creatine supplementation), and patients with sev ere liver disease. Based on National Kidney Disease Educat ion Program Performing Organization Address City/State/Zipcode Ph one Number [facility] CLIA # [id number] [place] [id number] - [place] [address] [facility] CLIA # [id number] [place] [phone] - [place] [address] documented in this encounter Visit Diagnoses Diagnosis Need for prophylactic vaccination with combined iemmjkedvq-kejvbgg-hgjzykpkh (DTP) vaccine - Primary Other and unspecified hyperlipidemia Need for prophylactic vaccination and i noculation against influenza documented in this encounter
--- OUTSIDE RECORDS SUMMARY | 2020-03-26 20:07 | XMS REPORT | Encounter Summary ---
Author Author [facility] [place], [place], [place], [facility] Organization [facility] [place], [place], [facility] Address Unknown Phone Unavailable Care Team Providers Care Concrete Mason Name Role Phone Jai Nelson DO PCP Reason for Visit * Reason Comments Follow Up yearly Ringing in Ear Encounter Details Care Team Description Date Type Department Jai Nelson, DO [address] [place] [address] Other and unspecified hyperlipidemia (Pr imary Dx); Need for prophylactic vaccination and inoculation against influenza; Need for prophylactic vaccination against Streptococcus pneumoniae (pneumococcus); Special screening for malignant neoplasm of prostate 08/13/2013 Office Visit [place] [address] [place] [address] Social History Date Tobacco Use Types [...] Signs Reading Time Taken Comments Vital Sign 126/76 08/13/2013 1:00 PM CDT Blood Pressure 55 08/13/2013 1:00 PM CDT Pulse - - Temperature 18 08/13/2013 1:00 PM CDT Respiratory Rate 95% 08/13/2013 1:00 PM CDT Oxygen Saturation - - Inhaled Oxygen Concentration 93.4 kg (206 lb) 08/13/2013 1:00 PM CDT Weight 177.8 cm (5' 10") 08/13/2013 1:00 PM CDT Height 29.56 08/13/2013 1:00 PM CDT Body Mass Index documented in this encounter Progress Notes * Jai Nelson Luis, DO - 08/13/2013 1:53 PM CDT HISTORY OF PRESENT ILLNESS Luisito Taylor, a 73 y.o. male. HPI Comments: He presents for routine exam. He is feeling well. He began having muscle pain and stopped his crestor ~ 3 months ago and the pain resolved. He has not resumed med yet and desires to see how labs look. He has had some tinnitis and is taking otc med which he feels helps. His hearing is diminished and he may need to consider hearing aids. REVIEW OF SYSTEMS Review of Systems Constitutional: Negative for fever, chills, appetite change and fatigue. HENT: Positive for tinnitus. Negative for ear pain, trouble swallowing, neck antonio n, dental problem and postnasal drip. Eyes: Negative for pain and visual [...] reviewed and are negative. PHYSICAL EXAM BP 126/76 | Pulse 55 | Resp 18 | Ht 5' 10" (1.778 m) | Wt 206 lb (93.441 kg) | B NV 29.56 kg/m2 | SpO2 95% Physical Exam Nursing [...] nd thought content normal. ASSESSMENT and PLAN: (V04.81) Need for prophylactic vaccination and inoculation against influenza - P barbara: INFLUENZA VACCINE SPLIT 3+YRS IM (V03.82) Need for prophylactic vaccination against Streptococcus pneumoniae (pne umococcus) - Plan: PNEUMOCOCCAL POLYSACCHARIDE VACC 23 VALENT (272.4) Other and unspecified hyperlipidemia - Plan: COMPREHENSIVE METABOLIC SANDOVAL EL, LIPID PANEL, CBC WITH DIFFERENTIAL (V76.44) Special screening for malignant neoplasm of prostate - Plan: PSA MEDICA RE SCREEN * Paulino Hong CMA - 08/13/2013 1:11 PM CDT Pt here for follow up, needs to do labs, needs prostrate screening. documented in this encounter Plan of Treatment Not on filedocumented as of this encounter Results * PSA MEDICARE SCREEN (08/13/2013 2:23 PM CDT) PSA 1.0 0.0 - 4.0 ng/mL [facility] [place] Specimen Blood specimen (specimen) Narrative Performed At The testing method is an immuno enzymat ic assay manufactured by [employer] and performed on the [employer] Trevor [id number]. It is bas ed on the [facility] [place] Standardization. Values obtained usin g different assay methods or standardizations may not correlate and cannot be used interchangeably. Methods using the World Brenton Organization (WHO ) standardization yield answers approximately 22% lower than the [facility] method. Performing Organization Address City/State/Zipcode Ph one Number [facility] CLIA # [id number] [place] [address] - [place] 100 [facility] CLIA # [id number] [place] [address] - [place] 28[address] [facility] * CBC WITH DIFFERENTIAL (08/13/2013 2:23 PM CDT) WBC 7.7 4.0 - 11.0 K/uL [facility] [place] RBC 4.77 4.70 - 6.00 M/uL [facility] [place] HEMOGLOBIN 15.0 13.5 - 18.0 g/dL [facility] [place] HEMATOCRIT 42.8 42.0 - 52.0 % [facility] [place] MCV 89.7 78.0 - 100.0 fL [facility] [place] MCH 31.4 27.0 - 34.0 pg [facility] [place] MCHC 35.0 31.0 - 37.0 g/dL [facility] [place] RDW 13.1 12.0 - 15.0 % [facility] [place] RDW-STDEV 42.1 37.1 - 48.7 fL [facility] [place] PLATELETS 147 (L) 150 - 450 K/uL [facility] [place] MPV 11.7 9.3 - 12.4 fL [facility] [place] NEUTROPHILS 55 31 - 76 % [facility] [place] LYMPHOCYTES 30 24 - 44 % [facility] [place] MONOCYTES 10 2 - 11 % [facility] [place] EOSINOPHILS 5 0 - 6 % [facility] [place] BASOPHILS 1 0 - 2 % [facility] [place] NEUTROPHIL 4.23 1.80 - 7.70 K/uL [facility] [place] LYMPHOCYTE 2.29 1.00 - 4.80 K/uL [facility] [place] MONOCYTE 0.78 0.10 - 1.30 K/uL [facility] [place] EOSINOPHIL 0.36 0.00 - 0.70 K/uL [facility] [place] BASOPHILS 0.04 0.00 - 0.20 K/uL [facility] [place] Specimen Blood specimen (specimen) Performing Organization Address [facility] Ph one Number [facility] CLIA # [id number] [place] [address] - [place] 100 [facility] CLIA # [id number] [place] [address] - [place] [address] [facility] * LIPID PANEL (08/13/2013 2:23 PM CDT) CHOLESTEROL 274 (H) 25 - 200 mg/dL [facility] [place] TRIGLYCERIDE 139 0 - 150 mg/dL [facility] [place] HDL 50 >=40 mg/dL [facility] [place] LDL CALCULATED 196 (H) 0 - 100 mg/dL [facility] [place] Specimen Blood specimen (specimen) Narrative Performed At TOTAL CHOLESTEROL mg/dL [facility] Desirable <200 SERVICES - [place] Borderline high 200-239 High >=240 TRIGLYCERIDES mg/dL Normal <150 Borderline high 150-199 High 200-499 Very high >=500 HDL CHOLESTEROL mg/dL Low <40 Normal 40-60 Desirable >60 LDL CHOLESTEROL mg/dL Optimal <100 Low risk 100-129 Borderline high 130-159 High 160-189 Very high >=190 Based on AHA/NCEP Guidelines Performing Organization Address City/[facility] Ph one Number [facility] CLIA # [id number] [place] [address] - [place] 100 [facility] CLIA # [id number] [place] [address] - [place] [address] [facility] * COMPREHENSIVE METABOLIC PANEL (08/13/2013 2:23 PM CDT) [facility] SODIUM 140 136 - 145 mmol/L [facility] [place] POTASSIUM 4.9 3.5 - 5.1 mmol/L [facility] [place] CHLORIDE 104 98 - 111 mmol/L [facility] [place] CO2 29 22 - 31 mmol/L [facility] [place] CALCIUM 9.7 8.3 - 10.3 mg/dL [facility] [place] BUN 18 7 - 21 mg/dL [facility] [place] CREATININE 1.16 0.61 - 1.24 mg/dL [facility] [place] GLUCOSE 100 80 - 115 mg/dL [facility] [place] TOTAL PROTEIN 7.4 5.6 - 8.0 g/dL [facility] [place] ALBUMIN 4.4 3.3 - 4.8 g/dL [facility] [place] BILIRUBIN TOTAL 0.8 0.2 - 1.3 mg/dL [facility] [place] ALKALINE 55 38 - 126 U/L [facility] [place] AST 33 15 - 46 U/L [facility] [place] ALT 18 11 - 66 U/L [facility] [place] GFR 61 >=60 mL/min/1.73 sq [facility] Comment: meter LABORATORY eGFR has not been validated SERVICES - for use in the elderly (> 70 [place] years of age), women, patients with serious co-morbid conditions, or persons with extremes of body size or muscle mass and should also be interpreted with caution in patients with acute kidney failure, dialysis dependant patients, patients reporting exceptional dietary intake (e.g. vegetarian diet, high protein diets, creatine supplementation), and patients with severe liver disease. Based on National Kidney Disease Education Program GFR, 74 >=60 mL/min/1.73 sq [facility] Comment: meter LABORATORY eGFR has not been validated SERVICES - for use in the elderly (> 70 [place] years of age), women, patients with serious co-morbid conditions, or persons with extremes of body size or muscle mass and should also be interpreted with caution in patients with acute kidney failure, dialysis dependant patients, patients reporting exceptional dietary intake (e.g. vegetarian diet, high protein diets, creatine supplementation), and patients with severe liver disease. Based on National Kidney Disease Education Program Specimen Blood specimen (specimen) Performing Organization Address City/State/Zipcode Ph one Number [facility] CLIA # [id number] [place] [address] - [place] 100 [facility] CLIA # [id number] [place] [address] - [place] [address] [facility] [place] documented in this encounter Visit Diagnoses Diagnosis Other and unspecified hyperlipidemia - Primary Need for prophylactic vaccination and i noculation against influenza Need for prophylactic vaccination again st Streptococcus pneumoniae (pneumococcus) Need for prophylactic vaccination again st streptococcus pneumoniae (pneumococcus) Special screening for malignant neoplas m of prostate documented in this encounter
--- OUTSIDE RECORDS SUMMARY | 2020-03-26 20:07 | XMS REPORT | Encounter Summary ---
Author Author [facility] [place], [place], [facility] Organization [facility] [place], [place], [facility] Address Unknown Phone Unavailable Care Team Providers Care Personnel Psychologist Name Role Phone Jai Nelson DO PCP Encounter Details Care Team Description Date Type Department Jai Nelson DO [address] [place] [address] 04/01/2012 Abstract [facility] Primar y Care [address] [address] Social History Date Tobacco Use [...]
--- OUTSIDE RECORDS SUMMARY | 2020-03-26 20:07 | XMS REPORT | Encounter Summary ---
Author Author [facility], [place], [place], [facility] Organization [facility], [place], [facility] Address Unknown Phone Unavailable Care Team Providers Care Tarp Repairer Name Role Phone Jai Nelson DO PCP Reason for Visit * Reason Comments Other Encounter Details Care Team Description Date Type Department Jai Nelson DO [address] [place] [address] Other 05/19/2012 Telephone [facility] Primar y Care [address] [address] Social History Date Tobacco Use [...] encounter Miscellaneous Notes * Telephone Encounter - Mya Saravia - 05/19/2012 11:49 AM CDT Spoke with patient not do for lab until aug and pt was given refills * Telephone Encounter - Monica Sands - 05/19/2012 11:01 AM CDT Patient is wanting to get Labs done before he comes in for an appointment with Keysha Bradley. Could you please put in lab orders. He would like to come later this wil cueva documented in this encounter Plan of Treatment Not on filedocumented as of this encounter Visit Diagnoses Not on filedocumented in this encounter
--- OUTSIDE RECORDS SUMMARY | 2020-03-26 20:07 | XMS REPORT | Encounter Summary ---
Author Author [facility] [place], [place], [facility] Organization [facility] [place], [place], [facility] Address Unknown Phone Unavailable Care Team Providers Care Weight Shifter Name Role Phone Jai Nelson DO PCP Encounter Details Care Team Description Date Type Department Jai Nelson DO [address] [place] [address] 08/14/2013 Abstract [facility] Primar y Care [address] [address] Social History Date Tobacco Use [...]
--- OUTSIDE RECORDS SUMMARY | 2020-03-26 20:07 | XMS REPORT | Encounter Summary ---
Author Author [facility] [place], [place], [facility] Organization [facility] [place], [place], [facility] Address Unknown Phone Unavailable Care Team Providers Care Financial Center Manager Name Role Phone Jai Nelson DO PCP Reason for Visit * Reason Comments Medication Refill Encounter Details Care Team Description Date Type Department Jai Nelson, [address] [place] [address] 08/31/2011 Refill [facility] Primar y Care [address] [address] Social History Date Tobacco Use [...]
--- OUTSIDE RECORDS SUMMARY | 2020-03-26 20:07 | XMS REPORT | Encounter Summary ---
Author Author [facility] [place], [place], [facility] Organization [facility] [place], [place], [facility] Address Unknown Phone Unavailable Care Team Providers Care Dentistry Professor Name Role Phone Jai Nelson DO PCP Reason for Visit * Reason Comments Medication Refill Encounter Details Care Team Description Date Type Department Jai Nelson, [address] [place] [address] 08/24/2013 Refill [facility] Primar y Care [address] [address] Social History Date Tobacco Use [...]
--- OUTSIDE RECORDS SUMMARY | 2020-03-26 20:07 | XMS REPORT | Encounter Summary ---
Author Author [facility], [place], [place], [facility] Organization [facility] [place], [place], [facility] Address Unknown Phone Unavailable Care Team Providers Care Service Employee Name Role Phone Jai Nelson DO PCP Reason for Visit * Reason Comments Follow Up medicine Encounter Details Care Team Description Date Type Department Jai Nelson DO [address] [place] [address] Other and unspecified hyperlipidemia (Pr imary Dx) 10/10/2011 Office Visit [facility] Primar y Care [address] [address] Social History Date Tobacco Use [...] Signs Reading Time Taken Comments Vital Sign 148/80 10/10/2011 7:55 AM SUB ACUTE CARE NURSE Blood Pressure 76 10/10/2011 7:55 AM SUB ACUTE CARE NURSE Pulse - - Temperature 16 10/10/2011 7:55 AM SUB ACUTE CARE NURSE Respiratory Rate - - Oxygen Saturation - - Inhaled Oxygen Concentration 96.2 kg (212 lb) 10/10/2011 7:55 AM SUB ACUTE CARE NURSE Weight 177.8 cm (5' 10") 10/10/2011 7:55 AM SUB ACUTE CARE NURSE Height 30.42 10/10/2011 7:55 AM SUB ACUTE CARE NURSE Body Mass Index documented in this encounter Progress Notes * Jai Nelson, - 10/10/2011 8:15 AM SUB ACUTE CARE NURSE HISTORY OF PRESENT ILLNESS Luisito L Brandon, a 71 y.o. male. Results This is a recurrent problem. The current episode started more than 1 week ago. T he problem occurs constantly. The problem has not changed since onset.Pertinent negatives include no chest pain, no abdominal pain, no headaches and no shortnes s of breath. The symptoms are aggravated by nothing. The symptoms are relieved b y medications. REVIEW OF SYSTEMS Review of Systems [...] reviewed and are negative. PHYSICAL EXAM BP 148/80 | Pulse 76 | Resp 16 | Ht 5' 10" (1.778 m) | Wt 212 lb (96.163 kg) | B [place] 30.42 kg/m2 Physical Exam Nursing note and vitals reviewed. [...] He exhibits no distension and no mass. No tenderness. He has no rebound and no guarding. Musculoskeletal: Normal [...] nd thought content normal. ASSESSMENT and PLAN: No diagnosis found. ACUTE CARE NURSE * Paulino Hong - 10/10/2011 7:59 AM SUB ACUTE CARE NURSE Pt here for follow up, ACUTE CARE NURSE documented in this encounter Plan of Treatment Not on filedocumented as of this encounter Visit Diagnoses Diagnosis Other and unspecified hyperlipidemia - Primary documented in this encounter
--- OUTSIDE RECORDS SUMMARY | 2020-03-26 20:07 | XMS REPORT | Encounter Summary ---
Author Author [facility], [place], [place], [place], [facility] Organization [facility], [place], [place], [facility] Address Unknown Phone Unavailable Care Team Providers Care Volunteer Services Supervisor Name Role Phone Jai Nelson DO PCP Reason for Visit * Reason Comments Question Encounter Details Care Team Description Date Type Department Marilee Tabor, RN Question 08/28/2011 Telephone [facility] [address] [place] [address] [place] [address] Social History Date Tobacco Use Types [...] encounter Miscellaneous Notes * Telephone Encounter - Marilee Tabor RN - 08/28/2011 1:33 PM CDT Notified he can come in for lab at his convince documented in this encounter Plan of Treatment Not on filedocumented as of this encounter Visit Diagnoses Diagnosis Screening for inborn errors of metaboli sm Screening for other inborn errors of me tabolism documented in this encounter
--- OUTSIDE RECORDS SUMMARY | 2020-03-26 20:07 | XMS REPORT | Encounter Summary ---
Author Author [facility], [place], [place], [place], [facility] Organization [facility], [place], [place], [facility] Address Unknown Phone Unavailable Care Team Providers Care Entrepreneurship Program Director Name Role Phone Jai Nelson DO PCP Reason for Visit * Reason Comments Question Encounter Details Care Team Description Date Type Department Marilee Tabor, RN Question 08/27/2011 Telephone [facility] [address] [place] [address] [place] [address] Social History Date Tobacco [...] Telephone Encounter - Marilee Tabor RN - 08/27/2011 3:25 PM CDT phoned he need to come in for blood work what would you like to order for h im ? documented in this encounter Plan of Treatment Not on filedocumented as of this encounter Visit Diagnoses Not on filedocumented in this encounter
--- OUTSIDE RECORDS SUMMARY | 2020-03-26 20:07 | XMS REPORT | Encounter Summary ---
Author Author [facility], [place], [place], [place], [facility] Organization [facility], [place], [place], [facility] Address Unknown Phone Unavailable Care Team Providers Care Bridge Carpenter Name Role Phone Jai Nelson DO PCP Reason for Visit * Reason Comments Results called pt with normal path results Encounter Details Care Team Description Date Type Department Jai Nelson, DO [address] [place] [address] Results (called pt with normal path resu lts) 10/19/2011 Telephone [facility] Primar y Care [address] [address] Social History Date Tobacco Use [...]
--- OUTSIDE RECORDS SUMMARY | 2020-03-26 20:07 | XMS REPORT | Encounter Summary ---
Author Author [facility] [place], [place], [place], [place] Organization [facility], [place], [place], [place], [facility] Address Unknown Phone Unavailable Care Team Providers Care Overlock Elastic Attacher Name Role Phone Jai Nelson Luis DO PCP Reason for Visit * Reason Comments Labs Only Encounter Details Care Team Description Date Type Department Screening for inborn errors of metabolism (Primary Dx); Screening for inborn errors of metabolism 08/30/2011 Nurse Only [facility] [address] [place], [facility] [address] [place] [address] Social History Date Tobacco Use Types [...] Name Priority Date/Time Associated Diag nosis PSA Routine 08/30/2011 Screening for i nborn 11:00 AM CDT errors of metabolism LIPID PANEL Routine 08/30/2011 Screening for i nborn 11:00 AM CDT errors of metabolism COMPREHENSIVE METABOLIC Routine 08/30/2011 Screen ing for inborn PANEL 11:00 AM CDT errors of metabolis m documented in this encounter Results * LIPID PANEL (08/30/2011 11:00 AM CDT) CHOLESTEROL 273 (H) 25 - 200 mg/dL [facility] TRIGLYCERIDE 189 (H) 0 - 150 mg/dL [facility] HDL 50 >=40 mg/dL [facility] LDL CALCULATED 185 (H) <=100 mg/dL [facility] Specimen Blood specimen (specimen) Performing Organization Address [facility] one [facility] SERVICES CLIA # [id number] [place] [address] - [place] 100 [facility] CLIA # [id number] [place] [id number] [place] [address] * PSA (08/30/2011 11:00 AM CDT) PSA 1.2 0.0 - 4.0 ng/mL [facility] Specimen Blood specimen (specimen) Narrative Performed At The testing method is an immuno enzymat ic assay manufactured by [employer] [facility]. and performed on the [employer] [id number]. It is bas ed on the [facility] Standardization. Values obtained usin g different assay methods or standardizations may not correlate and cannot be used interchangeably. Methods using the World Brenton Organization (WHO ) standardization yield answers approximately 22% lower than the [facility] method. Performing Organization Address [facility] Ph one [facility] SERVICES CLIA # [id number] [place] [address] - [place] 100 [facility] CLIA # [id number] [place], [place] [id number] [place] [address] * COMPREHENSIVE METABOLIC PANEL (08/30/2011 11:00 AM CDT) SODIUM 137 136 - 145 mmol/L [facility] POTASSIUM 4.8 3.5 - 5.1 mmol/L [facility] CHLORIDE 101 98 - 111 mmol/L [facility] CO2 28 22 - 31 mmol/L [facility] CALCIUM 9.6 8.3 - 10.3 mg/dL [facility] BUN 15 7 - 21 mg/dL [facility] CREATININE 1.23 0.61 - 1.24 mg/dL [facility] GLUCOSE 97 80 - 115 mg/dL [facility] TOTAL PROTEIN 7.4 5.6 - 8.0 g/dL [facility] ALBUMIN 4.3 3.3 - 4.8 g/dL [facility] BILIRUBIN TOTAL 0.6 0.2 - 1.3 mg/dL [facility] ALKALINE 71 38 - 126 U/L [facility] AST 27 15 - 46 U/L [facility] ALT 17 11 - 66 U/L [facility] GFR 58 (L) >=60 mL/min/1.73 sq [place] [facility] GFR, 70 >=60 mL/min/1.73 sq [facility] Specimen Blood specimen (specimen) Performing Organization Address City/State/Zipcode Ph one Number [facility] CLIA # [id number] [place] [address] [place] 100 [facility] CLIA # [id number] [place] [address] [facility] [address] [facility] [place] documented in this encounter Visit Diagnoses Diagnosis Screening for inborn errors of metaboli sm - Primary Screening for other inborn errors of me tabolism documented in this encounter
--- OUTSIDE RECORDS SUMMARY | 2020-03-26 20:07 | XMS REPORT | Encounter Summary ---
Author Author [facility] [place], [place], [facility] Organization [facility] [place], [place], [facility] Address Unknown Phone Unavailable Care Team Providers Care Ski Lift Mechanic Name Role Phone Jai Nelson DO PCP Reason for Visit * Reason Comments Medication Refill Encounter Details Care Team Description Date Type Department Jai Nelson, [address] [place] [address] 10/15/2011 Refill [facility] Primar y Care [address] [address] Social History Date Tobacco Use [...]
--- OUTSIDE RECORDS SUMMARY | 2020-03-26 20:07 | XMS REPORT | Encounter Summary ---
Author Author [facility], [place], [place], [place], [facility] Organization [facility] [employer], [place], [place], [facility] Address Unknown Phone Unavailable Care Team Providers Care Dairy Chemist Name Role Phone Jai Nelson DO PCP Encounter Details Care Team Description Date Type Department Jai Nelson DO [address] [place] [address] Suspicious nevus 10/16/2011 [facility] Central Encounter Processing [place] [address] [place] [address] Social History Date Tobacco Use Types Packs/Day Years Used Former Smoker Smokeless Tobacco: Never Used Drinks/Week oz/Week Comments Alcohol Use occ Yes Sex Assigned at Date Recorded Not on file Industry Job Start Date Occupation Not on file Not on file Not on file Travel End Travel History Travel Start No recent travel history available. documented as of this encounter Medications at Time of Discharge Start Date End Date Medication Sig Dispensed Refills aspirin (WILDER) 81 mg Take by 0 Oral TabIndications: mouth. Gout, Other and unspecified hyperlipidemia, Screening for cancer 10/15/2011 11/26/2011 rosuvastatin (CRESTOR) 10 Take 1 Tab by 30 Tab 6 mg Oral tablet mouth daily at bedtime. 08/31/2011 12/29/2015 coenzyme Q10 (CO Q-10) Take 1 Cap by 30 Cap 0 100 mg Oral Cap mouth daily. 12/29/2015 0mega-3 fatty Take 1,000 mg 0 acids-vitamin E (FISH by mouth OIL) 1,000 mg Oral daily. CapIndications: Gout, Other and unspecified hyperlipidemia, Screening for cancer 05/24/2011 05/19/2012 allopurinol (ZYLOPRIM) Take 1 Tab by 90 Tab 3 300 mg Oral tablet mouth daily. documented as of this encounter Plan of Treatment Not on filedocumented as of this encounter Procedures Comments Procedure Name Priority Date/Time Associated Diag nosis PATHOLOGY Routine 10/16/2011 5:11 AM RECORD CENTER COORDINATOR documented in this encounter Results * PATHOLOGY (10/16/2011 5:11 AM RECORD CENTER COORDINATOR) PATHOLOGY/[facility] REPORT [facility] Anatomic Pathology Dept [address] [facility] [address] Patient: LUISITO AGUDELO Accn No: [id number] , [id number] Collected: 10/16/2011 5:11:00 AM All cases except those with a "DP" prefix are performed by pathologists from [facility]. Case type DP is performed by Dr. Gordo Geronimo, [facility], [facility], [address] [address], [address], [place] [address] (CLIA #[id number]) (Ph. [phone]). SURGICAL PATHOLOGY FINAL REPORT Diagnosis A. Skin, left shoulder, shave biopsy - seborrheic keratosis. Oniel Montemayor MD (Electronically signed by) Verified: 10/19/11 DPD/TKB Clinical Information Suspicious nevus Specimen Source A Skin, LEFT SHOULDER Microscopic Description Microscopic examination was performed. Gross Description Part A. Received in a container of formalin labelled "Brandon - left shoulder" is a freire shave biopsy of skin measuring 0.4 x 0.4 x 0.1 cm. The surgical margin is marked with blue ink. The specimen is trisected and submitted entirely in A1. PCR/CEP Specimen Performing Organization Address City/State/Zipcode Ph one Number [facility] CLIA# [id number] [place] [facility] [address] [address] [facility] documented in this encounter Visit Diagnoses Not on filedocumented in this encounter
--- OUTSIDE RECORDS SUMMARY | 2020-03-26 20:08 | XMS REPORT | Encounter Summary ---
Author Author [facility] [place], [place], [facility] Organization [facility] [place], [place], [facility] Address Unknown Phone Unavailable Care Team Providers Care Film Processing Supervisor Name Role Phone Jai Nelson DO PCP Encounter Details Care Team Description Date Type Department Jai Nelson DO [address] [place] [address] Mixed Hyperlipidemia (Primary Dx); Gout, Unspecified 04/19/2010 Outpatient [facility] Historical [address] [place] [address] Social History Date Tobacco Use Types Packs/Day Years Used Never Assessed Sex Assigned at Date Recorded Not on file Industry Job Start Date Occupation Not on file Not on file Not on file Travel End Travel History Travel Start No recent travel history available. documented as of this encounter Plan of Treatment Not on filedocumented as of this encounter Visit Diagnoses Diagnosis Mixed hyperlipidemia - Primary Gout, unspecified documented in this encounter
--- OUTSIDE RECORDS SUMMARY | 2020-03-26 20:08 | XMS REPORT | Encounter Summary ---
Author Author [facility] [place], [place], [facility] Organization [facility] [place], [place], [facility] Address Unknown Phone Unavailable Care Team Providers Care Stud Beef Cattle Farmer Name Role Phone Jai Nelson DO PCP Reason for Visit * Reason Comments Medication Refill Encounter Details Care Team Description Date Type Department Jai Nelson, [address] [place] [address] 04/17/2011 Refill [facility] Primar y Care [address] [address] Social History Date Tobacco [...]
--- OUTSIDE RECORDS SUMMARY | 2020-03-26 20:08 | XMS REPORT | Encounter Summary ---
Author Author [facility] Vicky Tate [place], [place], [facility] Organization [facility] Vicky [place], [place], [facility] Address Unknown Phone Unavailable Care Team Providers Care Media Coordinator Name Role Phone Omar Jai Smith DO PCP Reason for Visit * Reason Comments Advice Only called & talked to , pt . has broke out with a rash and they think it is the pravachol he just started. Advisedd not to take it over the weekend & they will call me back on Saturday. Encounter Details Care Team Description Date Type Department Jai Nelson, DO [address] [place] [address] Advice Only (called & talked to , pt . has broke out with a rash and they think it is the pravachol he just started. Advisedd not to take it over the weekend & they will call me back on Saturday.) 06/15/[address] [address] Social History Date Tobacco Use [...] encounter Miscellaneous Notes * Telephone Encounter - Paulino Haro - 06/15/2011 9:31 AM CDT Message copied by PAULINO HARO on SatJun 15, 2011 9:31 AM ------ Message from: CARL NAVARRO Created: SatJun 15, 2011 7:57 AM Pt has had a rash since started lovastatin please call #[phone] documented in this encounter Plan of Treatment Not on filedocumented as of this encounter Visit Diagnoses Not on filedocumented in this encounter
--- OUTSIDE RECORDS SUMMARY | 2020-03-26 20:08 | XMS REPORT | Encounter Summary ---
Author Author [facility] [place], [place], [facility] Organization [facility] [place], [place], [facility] Address Unknown Phone Unavailable Care Team Providers Care Topology Professor Name Role Phone Jai Nelson DO PCP Reason for Visit * Reason Comments Medication Refill Encounter Details Care Team Description Date Type Department Jai Nelson, [address] [place] [address] 04/17/2011 Refill [facility] Primar y Care [address] [address] Social History Date Tobacco Use [...]
--- OUTSIDE RECORDS SUMMARY | 2020-03-26 20:08 | XMS REPORT | Encounter Summary ---
Author Author [facility] Vicky [place], [place], [facility] Organization [facility] Vicky Tate [place], [place], [facility] Address Unknown Phone Unavailable Care Team Providers Care Pca Name Role Phone Jai Nelson Luis DO PCP Reason for Referral * Outpatient Services (Routine) Referred By Contact Referred To Contact Status Reason Specialty Diagnoses / Procedures Mel Durham MD (John) [address] [place] [address] [place] [address] [facility] [address] [place] [address] Closed Gastroenterology Diagnoses Special screening for malignant neoplasms, colon P rocedures ENDOSCOPY, COLON, SCREENING Encounter Details Care Team Description Date Type Department Mel Durham MD (John) [address] [place] [address] [place] [address] Special screening for malignant neoplasm s, colon (Primary Dx) 06/01/2011 Abstract [facility] Gastroenterology-Medical Bldg [address] [facility] [place] [address] Social History Date Tobacco Use Types [...] as of this encounter Plan of Treatment Order Schedule Name Type Priority Associated Diag noses Ordered: 06/01/2011 ENDOSCOPY, COLON, GI Routine Special scre ening for SCREENING malignant neoplasms, colon documented as of this encounter Visit Diagnoses Diagnosis Special screening for malignant neoplas ms, colon - Primary documented in this encounter
--- OUTSIDE RECORDS SUMMARY | 2020-03-26 20:08 | XMS REPORT | Encounter Summary ---
Author Author [facility] [place], [facility] Organization [facility], [place], [facility] Address Unknown Phone Unavailable Care Team Providers Care Theatrical Scenic Designer Name Role Phone Jai Nelson DO PCP Encounter Details Care Team Description Date Type Department Jai Nelson, [address] [place] [address] Other and Unspecified Hyperlipidemia (Pr imary Dx) 03/02/2008 Inpatient [facility] Laboratory Se rvices Historical [place] [address] [place] [address] Social History Date Tobacco Use Types Packs/Day [...]
--- OUTSIDE RECORDS SUMMARY | 2020-03-26 20:08 | XMS REPORT | Encounter Summary ---
Author Author [facility] Vicky [place], [place], [place], [facility] Organization [facility], Vicky Tate [place], [place], [facility] Address Unknown Phone Unavailable Care Team Providers Care Job Service Specialist Name Role Phone Jai Nelson DO PCP Encounter Details Care Team Description Date Type Department Gout; Other and unspecified hyperlipidemia; Screening for cancer 05/24/2011 Nurse Only [facility] Labora tory and Imaging Services-S [address], [facility] [address] [address] Social History Date [...] Priority Date/Time Associated Diag nosis PSA Routine 05/24/2011 Gout 9:04 AM CDT Other and unspecified hyperlipidemia Screening for cancer LIPID PANEL Routine 05/24/2011 Gout 9:04 AM CDT Other and unspecified hyperlipidemia Screening for cancer COMPREHENSIVE METABOLIC Routine 05/24/2011 Gout PANEL 9:04 AM CDT Other and unspecifi ed hyperlipidemia Screening for cancer documented in this encounter Results * PSA (05/24/2011 9:04 AM CDT) PSA 1.0 0.0 - 4.0 ng/mL [facility] Specimen Blood specimen (specimen) Narrative Performed At The testing method is an immuno enzymat ic assay manufactured by [employer] [facility] [employer] and performed on the nWay YC4889. It is bas ed on the [facility] Standardization. Values obtained usin g different assay methods or standardizations may not correlate and cannot be used interchangeably. Methods using the World [employer] (WHO ) standardization yield answers approximately 22% lower than the [facility] method. Performing Organization Address [facility] Ph one Formerly [facility] LABORATORY SERVICES CLIA # [id number] [place] [address] - [place] [address] [facility] CLIA # [id number] [place], [place] [address] [place] [address] * LIPID PANEL (05/24/2011 9:04 AM CDT) CHOLESTEROL 292 (H) 25 - 200 mg/dL [facility] TRIGLYCERIDE 148 0 - 150 mg/dL [facility] HDL 54.2 >=40 mg/dL [facility] LDL CALCULATED 208 (H) <=100 mg/dL [facility] Specimen Blood specimen (specimen) Performing Organization Address [facility] [place] one Formerly [facility] LABORATORY SERVICES CLIA # [id number] [place] [address] - [place] [address] [facility] CLIA # [id number] [place] [address] * COMPREHENSIVE METABOLIC PANEL (05/24/2011 9:04 AM CDT) SODIUM 140 136 - 145 mmol/L [facility] POTASSIUM 4.4 3.5 - 5.1 mmol/L [facility] CHLORIDE 106 98 - 111 mmol/L [facility] CO2 31 22 - 31 mmol/L [facility] CALCIUM 9.9 8.3 - 10.3 mg/dL [facility] BUN 17 7 - 21 mg/dL [facility] CREATININE 1.22 0.61 - 1.24 mg/dL [facility] GLUCOSE 102 80 - 115 mg/dL [facility] TOTAL PROTEIN 7.2 5.6 - 8.0 g/dL [facility] ALBUMIN 4.3 3.3 - 4.8 g/dL [facility] BILIRUBIN TOTAL 0.5 0.2 - 1.3 mg/dL [facility] ALKALINE 58 38 - 126 U/L [facility] AST 31 15 - 46 U/L [facility] ALT 22 11 - 66 U/L [facility] GFR 58 (L) >=60 mL/min/1.73 sq [facility] GFR, 71 >=60 mL/min/1.73 sq [facility] FILIPINO [facility] Specimen Blood specimen (specimen) Performing Organization Address City/State/Zipcode Ph one Number [facility] LABORATORY SERVICES CLIA # [id number] [place] [address] - [place] [address] [facility] CLIA # [id number] [place] [address] [facility] [address] [facility] [place] documented in this encounter Visit Diagnoses Diagnosis Gout Gout, unspecified Other and unspecified hyperlipidemia Screening for cancer Screening for unspecified malignant anson plasm documented in this encounter
--- OUTSIDE RECORDS SUMMARY | 2020-03-26 20:08 | XMS REPORT | Encounter Summary ---
Author Author [facility] [place], [facility] Organization [facility], [place], [facility] Address Unknown Phone Unavailable Care Team Providers Care Manager Company Name Role Phone Omar Jai Luis DO PCP Encounter Details Care Team Description Date Type Department Kraig Gonsalez MD [address] [place] [address] SURGERY FOLLOWUP, UNSPEC (Primary Dx) 11/03/2002 Outpatient [facility] [place] [facility] [address] [place] [address] Social History Date Tobacco Use Types Packs/Day Years Used Never Assessed Sex Assigned at Date Recorded Not on file Industry Job Start Date Occupation Not on file Not on file Not on file Travel End Travel History Travel Start No recent travel history available. documented as of this encounter Plan of Treatment Not on filedocumented as of this encounter Visit Diagnoses Diagnosis Follow-up examination, following unspec ified surgery - Primary documented in this encounter
--- OUTSIDE RECORDS SUMMARY | 2020-03-26 20:08 | XMS REPORT | Encounter Summary ---
Author Author [facility] [place], [place], [place], [facility] Organization [facility], [place], [place], [facility] Address Unknown Phone Unavailable Care Team Providers Care Grid Maker Name Role Phone Jai Nelson DO PCP Reason for Visit * Reason Comments Rash Encounter Details Care Team Description Date Type Department Jai Nelson DO [address] [place] [address] Other and unspecified hyperlipidemia; Allergic reaction to drug 06/20/2011 Office Visit [facility] Primar y [address] [address] Social History Date Tobacco Use [...] Signs Reading Time Taken Comments Vital Sign 136/78 06/20/2011 12:15 PM CDT Blood Pressure 78 06/20/2011 12:15 PM CDT Pulse - - Temperature 18 06/20/2011 12:15 PM CDT Respiratory Rate - - Oxygen Saturation - - Inhaled Oxygen Concentration 93.9 kg (207 lb) 06/20/2011 12:15 PM CDT Weight - - Height 29.7 05/24/2011 9:12 AM CDT Body Mass Index documented in this encounter Progress Notes * Jai Nelson, - 06/20/2011 12:19 PM CDT Pt. Complained of rash, has had since he started the pravastatin, still has rash . Pt. Has concerns. HISTORY OF PRESENT ILLNESS Luisito Taylor, a 70 y.o. male. HPI He developed a maculopapular rash shortly after starting pravachol. It has since improved remarkably after stopping me approx one week ago. REVIEW OF SYSTEMS Review of Systems Constitutional: [...] reviewed and are negative. PHYSICAL EXAM BP 136/78 | Pulse 78 | Resp 18 | Wt 207 lb (93.895 kg) Physical Exam Nursing note and vitals reviewed. Constitutional: He is oriented to person, place, and time. He appears well-devel oped and well-nourished. No distress. HENT: Head: Normocephalic and atraumatic. Right Ear: External ear normal. Left Ear: External ear normal. Mouth/Throat: Oropharynx is clear and moist. No oropharyngeal exudate. Eyes: Conjunctivae and extraocular motions are normal. Pupils are equal, round, and reactive to light. Right eye exhibits no discharge. Left eye exhibits no dis charge. No scleral icterus. Neck: Normal range of motion. Neck [...] nd thought content normal. ASSESSMENT and PLAN: Encounter Diagnoses 1. Other and unspecified hyperlipidemia (272.4) 2. Allergic reaction to drug (995.27M) documented in this encounter Plan of Treatment Not on filedocumented as of this encounter Visit Diagnoses Diagnosis Other and unspecified hyperlipidemia Allergic reaction to drug Other drug allergy documented in this encounter"
--- OUTSIDE RECORDS SUMMARY | 2020-03-26 20:08 | XMS REPORT | Encounter Summary ---
Author Author [facility], Vicky Tate, [place], [place], [facility] [place] [facility] Organization [facility], Vicky Tate [place], [place], [facility] Address Unknown Phone Unavailable Care Team Providers Care Traveling Electrician Name Role Phone Shruti Barbour DO PCP Reason for Visit * Reason Comments Results Encounter Details Care Team Description Date Type Department Barbara Christy RN Results 06/01/2011 Telephone [facility] [address] [place] [address] [place] [address] Social History Date Tobacco [...] encounter Miscellaneous Notes * Telephone Encounter - Barbara Christy RN - 06/01/2011 9:49 AM CDT Went over lab results . He is to start pravachol 40 mg one tab hs This was ordered * Telephone Encounter - Barbara Christy RN - 06/01/2011 9:47 AM CDT Message copied by BARBARA CHRISTY on SatJun 01, 2011 9:47 AM ------ Message from: SHRUTI BARBOUR Created: SatMay 31, 2011 4:53 PM Needs to start pravachol 40 mg every hs. Have liver function drawn in one m ont (non fasting). Have chemistry and lipids drawn in 3 months before appt with me. ----- Message ----- From: [facility] Sent: 05/24/2011 3:26 PM To: Shruti Barbour DO * Telephone Encounter - Barbara Christy, RN - 06/01/2011 9:43 AM CDT Message copied by BARBARA CHRISTY on SatJun 01, 2011 9:43 AM ------ Message from: SHRUTI BARBOUR Created: [facility] May 31, 2011 4:53 PM Needs to start pravachol 40 mg every hs. Have liver function drawn in one m ont (non fasting). Have chemistry and lipids drawn in 3 months before appt with me. ----- Message ----- From: [facility] Sent: 05/24/2011 3:26 PM To: Shruti Barbour DO documented in this encounter Plan of Treatment Not on filedocumented as of this encounter Visit Diagnoses Not on filedocumented in this encounter
--- OUTSIDE RECORDS SUMMARY | 2020-03-26 20:08 | XMS REPORT | Encounter Summary ---
Author Author [facility] [place], [place], [place], [facility] Organization [facility] Vicky TateEricks[place], [place], [facility] Address Unknown Phone Unavailable Care Team Providers Care Rv Body Mechanic Name Role Phone Jai Nelson DO PCP Reason for Referral * Outpatient Services (Routine) Referred By Contact Referred To Contact Status Reason Specialty Diagnoses / Procedures aJi Nelson DO [address] [place] [address] alexis [facility] Gastroenterology [address] [address] Closed Gastroenterology Diagnoses Screening for cancer Reason for Visit * Reason Comments Follow Up Encounter Details Care Team Description Date Type Department Jai Nelson DO [address] [place] [address] Gout; Other and unspecified hyperlipidemia; Screening for cancer 05/24/2011 Office Visit [address] [address] Social History Date Tobacco Use [...] Signs Reading Time Taken Comments Vital Sign 140/76 05/24/2011 9:12 AM CDT Blood Pressure 78 05/24/2011 9:12 AM CDT Pulse - - Temperature 20 05/24/2011 9:12 AM CDT Respiratory Rate - - Oxygen Saturation - - Inhaled Oxygen Concentration 96.2 kg (212 lb) 05/24/2011 9:12 AM CDT Weight 177.8 cm (5' 10") 05/24/2011 9:12 AM CDT Height 30.42 05/24/2011 9:12 AM CDT Body Mass Index documented in this encounter Progress Notes * Jai Nelson, DO - 05/24/2011 9:19 AM CDT Pt. Here for follow up. Going to have right shoulder surgery with Dr. Jason farias n a couple of weeks. HISTORY OF PRESENT ILLNESS Luisito Taylor, a 70 y.o. male. Medication Refill This is a chronic problem. The current episode started more than 1 week ago. The problem occurs constantly. The problem has not changed since onset. Pertinent n egatives include no chest pain, no abdominal pain, no headaches and no shortness of breath. Nothing aggravates the symptoms. The symptoms are relieved by medica tions. REVIEW OF SYSTEMS Review of Systems Constitutional: Negative for fever, chills, weight loss and malaise/fatigue. HENT: Negative for congestion, sore throat and neck pain. Eyes: Negative for blurred vision and double vision. Respiratory: Negative for cough, hemoptysis, shortness of breath and wheezing. Cardiovascular: Negative for chest pain, palpitations and leg swelling. Gastrointestinal: Negative for heartburn, nausea, vomiting, abdominal pain, diar dara, constipation, blood in stool and melena. Genitourinary: Negative for dysuria, urgency, frequency and hematuria. Musculoskeletal: Negative for myalgias and back pain. Skin: Negative for rash. Neurological: Negative for dizziness, focal weakness, weakness and headaches. Endo/Heme/Allergies: Negative for environmental allergies. Does not bruise/bleed easily. Psychiatric/Behavioral: Negative for depression and memory loss. The patient is not nervous/anxious and does not have insomnia. PHYSICAL EXAM BP 140/76 | Pulse 78 | Resp 20 | Ht 5' 10" (1.778 m) | Wt 212 lb (96.163 kg) | B HI 30.42 kg/m2 Physical Exam Nursing note and [...] normal. ASSESSMENT and PLAN: Encounter Diagnoses 1. Gout (274.9H) aspirin (WILDER) 81 mg Oral Tab, 0mega-3 fatty acids-vitamin E (FISH OIL) 1,000 mg Oral Cap, CALCIUM CARBONATE/VITAMIN D3 (CALCIUM + D ORAL), C OMPREHENSIVE METABOLIC PANEL, LIPID PANEL, PSA 2. Other and unspecified hyperlipidemia (272.4) aspirin (WILDER) 81 mg Oral Tab, 0mega-3 fatty acids-vitamin E (FISH OIL) 1,000 mg Oral Cap, CALCIUM CARBONATE/V ITAMIN D3 (CALCIUM + D ORAL), COMPREHENSIVE METABOLIC PANEL, LIPID PANEL, PSA 3. Screening for cancer (V76.9B) aspirin (WILDER) 81 mg Oral Tab, 0mega-3 fatty acids-vitamin E (FISH OIL) 1,000 mg Oral Cap, CALCIUM CARBONATE/VITAMIN D3 (CALC IUM + D ORAL), COMPREHENSIVE METABOLIC PANEL, LIPID PANEL, PSA, AMB REFERRAL TO GASTROENTEROLOGY documented in this encounter Plan of Treatment Order Schedule Name Type Priority Associated Diag noses Ordered: 05/24/2011 AMB REFERRAL TO Outpatient Routine Screening for cancer GASTROENTEROLOGY Referral documented as of this encounter Results * PSA (05/24/2011 9:04 AM CDT) PSA 1.0 0.0 - 4.0 ng/mL [facility] Specimen Blood specimen (specimen) Narrative Performed At The testing method is an immuno enzymat ic assay manufactured by [employer] [facility]. and performed on the Verical XE9650. It is bas ed on the [facility] Standardization. Values obtained usin g different assay methods or standardizations may not correlate and cannot be used interchangeably. Methods using the World [employer] (WHO ) standardization yield answers approximately 22% lower than the [facility] method. Performing Organization Address City/[facility] Ph one [facility] CLIA # [id number] [place] [address] - [place] [address] [facility] CLIA # [id number] [place] [phone] [facility] [address] [facility] * LIPID PANEL (05/24/2011 9:04 AM CDT) CHOLESTEROL 292 (H) 25 - 200 mg/dL [facility] TRIGLYCERIDE 148 0 - 150 mg/dL [facility] HDL 54.2 >=40 mg/dL [facility] LDL CALCULATED 208 (H) <=100 mg/dL [facility] Specimen Blood specimen (specimen) Performing Organization Address City/State/Zipcode Ph one [facility] CLIA # [id number] [place] [address] - [place] [address] [facility] CLIA # [id number] [place]mendarez [phone] * COMPREHENSIVE METABOLIC PANEL (05/24/2011 9:04 AM CDT) SODIUM 140 136 - 145 mmol/L [facility] POTASSIUM 4.4 3.5 - 5.1 mmol/L [facility] CHLORIDE 106 98 - 111 mmol/L [facility] CO2 31 22 - 31 mmol/L [facility] CALCIUM 9.9 8.3 - 10.3 mg/dL [facility] BUN 17 7 - 21 mg/dL [facility] CREATININE 1.22 0.61 - 1.24 mg/dL [facility] GLUCOSE 102 80 - 115 mg/dL [facility] TOTAL PROTEIN 7.2 5.6 - 8.0 g/dL [facility] ALBUMIN 4.3 3.3 - 4.8 g/dL [facility] BILIRUBIN TOTAL 0.5 0.2 - 1.3 mg/dL [facility] ALKALINE 58 38 - 126 U/L [facility] AST 31 15 - 46 U/L [facility] ALT 22 11 - 66 U/L [facility] GFR 58 (L) >=60 mL/min/1.73 sq [facility] GFR, 71 >=60 mL/min/1.73 sq [facility] Specimen Blood specimen (specimen) Performing Organization Address City/State/Zipcode Ph one Number [facility] CLIA # [id number] [place] [phone] - [place] [address] [facility] CLIA # [id number] [place]mend[place] [address] documented in this encounter Visit Diagnoses Diagnosis Gout Gout, unspecified Other and unspecified hyperlipidemia Screening for cancer Screening for unspecified malignant anson plasm documented in this encounter
--- OUTSIDE RECORDS SUMMARY | 2020-03-26 20:08 | XMS REPORT | Encounter Summary ---
Author [facility] [place] [place], [facility] Organization [facility] [place], [place], [facility] Address Unknown Phone Unavailable Care Team Providers Care Epic Professional Name Role Phone Jai Nelson DO PCP Encounter Details Care Team Description Date Type Department Jai Nelson DO [address] [place] [address] 08/24/2009 Inpatient [facility] Laboratory Se rvices Historical [place] [address] [place] [phone] Social History Date Tobacco Use Types Packs/Day [...]
--- OUTSIDE RECORDS SUMMARY | 2020-03-26 20:08 | XMS REPORT | Encounter Summary ---
Author Author [facility] [place], [facility] Organization [facility] [place], [place], [facility] Address Unknown Phone Unavailable Care Team Providers Care Records Management Associate Name Role Phone Jai Nelson DO PCP Encounter Details Care Team Description Date Type Department 02/12/2007 Inpatient Historical Social History Date Tobacco Use Types Packs/Day [...]
--- OUTSIDE RECORDS SUMMARY | 2020-03-26 20:08 | XMS REPORT | Encounter Summary ---
Author Author [facility] [place] Organization [facility] OlgaErickson [place], [place], [facility] Address Unknown Phone Unavailable Care Team Providers Care Cob Sawyer Name Role Phone Jai Nelson DO PCP Encounter Details Care Team Description Date Type Department Jai Nelson, [address] [place] [address] Other and Unspecified Hyperlipidemia (Pr imary Dx) 03/22/2009 Inpatient [facility] Laboratory Se rvices Historical [place] [address] [place] [address] Social History Date Tobacco Use [...]
--- OUTSIDE RECORDS SUMMARY | 2020-03-26 20:08 | XMS REPORT | Encounter Summary ---
Author Author [facility] [email or web address] [place], [facility] Organization [email or web address], [place], [facility] Address Unknown Phone Unavailable Care Team Providers Care Executive Receptionist Name Role Phone Jai Nelson DO PCP Encounter Details Care Team Description Date Type Department 02/28/2006 Inpatient Historical Social History Date Tobacco Use [...]
--- OUTSIDE RECORDS SUMMARY | 2020-03-26 20:08 | XMS REPORT | Encounter Summary ---
Author Author [facility] [place], [facility] Organization [facility] Address Unknown Phone Unavailable Care Team Providers Care Drop Hammer Mechanic Name Role Phone Omar Jai Luis DO PCP Encounter Details Care Team Description Date Type Department Ramone Franklin MD [address] [place] [address] [place] [address] BENIGN ROJAS SKIN EAR (Primary Dx) 10/27/2002 Outpatient [facility] Central Historical [address] [place] [phone] Social History Date Tobacco Use Types Packs/Day Years Used Never Assessed Sex Assigned at Date Recorded Not on file Industry Job Start Date Occupation Not on file Not on file Not on file Travel End Travel History Travel Start No recent travel history available. 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
--- OUTSIDE RECORDS SUMMARY | 2020-03-26 20:08 | XMS REPORT | Encounter Summary ---
Author Author [facility] [place], [place], [facility] Organization [facility] [place], [place], [facility] Address Unknown Phone Unavailable Care Team Providers Care Drum Sander Offbearer Name Role Phone Jai Nelson DO PCP Encounter Details Care Team Description Date Type Department Jai Nelson DO [address] [place] [address] Mixed Hyperlipidemia (Primary Dx) 04/13/[address] [facility] Laboratory Se rvices Historical [place] [address] [place] [address] Social History Date Tobacco Use [...] Visit Diagnoses Diagnosis Mixed hyperlipidemia - Primary documented in this encounter
--- OUTSIDE RECORDS SUMMARY | 2020-03-26 20:08 | XMS REPORT | Encounter Summary ---
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 [place] [address] Social History Date Tobacco Use Types Packs/Day Years Used Never Assessed Sex Assigned at Date Recorded Not on file Industry Job Start Date Occupation Not on file Not on file Not on file Travel End Travel History Travel Start No recent travel history available. 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
--- OUTSIDE RECORDS SUMMARY | 2020-03-26 20:09 | XMS REPORT | CCD ---
Author Author Luisito Ramsey Organization Kristin Ramsey MD, [facility] Address [address] [place] [address] Phone Care Team Providers Care Radio Repair Teacher Name Role Phone PP Unavailable CCM Unavailable Summary Purpose Interface Exchange Insurance Providers Payer name Policy type / Coverage type Covered green party ID Effective Begin Date Effective End Date [employer] Commercial Insurance [id number] Unknown Unknown Family history Brother Diagnosis Age At Onset Alcoholism Unknown Cancer Unknown Mother Diagnosis Age At Onset Cancer Unknown Father Diagnosis Age At Onset Heart Attack Unknown Stroke Unknown Hyperlipidemia Unknown Alcoholism Unknown Social History Social History Element Codes Description Effective Dates Alcohol history SNOMED CT: 442398139 Never drinks alcohol 06/18/2019 Marital status Unknown M arried Zuleima "Ade" Brandon 10/01/2017 Number of children Unknown 2 10/01/2017 Employment Unknown Retir ed 10/01/[address]: 0224085 Quit over 10 years ago Quit 1986 10/01/2017 Allergies, Adverse Reactions, Alerts Substance Reaction Codes Entered Date Inactivated Date Status * NO KNOWN ENVIRONME NTAL ALLERGIES Unknown 10/01/2017 No Inactive Date Active * NO KNOWN FOOD KRISTI RGIES Unknown 10/01/2017 No Inactive Date Active [id number]-[id number] REDU CTASE INHIBITORS Unknown 06/18/2019 No Inactive Date Active Past Medical History Illness Codes Condition Status Onset Date Resolved Date Encounter for genera l adult medical examination without abnormal findings ICD-9: V70.0 ICD-10: Z00.00 Active 06/18/2019 Unknown Encounter for immuni zation ICD-9: V05.9 ICD-10: Z23 Active 06/18/2019 Unknown Essential (primary) hypertension ICD-9: 401.1 ICD-10: I10 Active 10/01/2017 Unknown Mixed hyperlipidemia ICD-9: 272.2 ICD-10: E78.2 Active 10/01/2017 Unknown Presbycusis, 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 Active 10/01/2018 Unknown Gastro-esophageal re flux disease without esophagitis ICD-9: 530.81 ICD-10: K21.9 Active 10/01/2017 Unknown 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 Active 10/01/2017 Unknown Problems Condition Codes Effectiv e Dates Condition Status Encounter for genera l adult medical examination without abnormal findings ICD-9: V70.0 ICD-10: Z00.00 06/18/2019 Active Encounter for immuni zation ICD-9: V05.9 ICD-10: Z23 06/18/2019 Active Essential (primary) hypertension ICD-9: 401.1 ICD-10: I10 10/01/2017 Active Mixed hyperlipidemia ICD-9: 272.2 ICD-10: E78.2 10/01/2017 Active Presbycusis, 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 10/01/2018 Active Gastro-esophageal re flux disease without esophagitis ICD-9: 530.81 ICD-10: K21.9 10/01/2017 Active 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 10/01/2017 Active Medications Medication Codes Instruc tions Start Date Stop Date Sta tus Fill Instructions pantoprazole 40 mg t ablet,delayed release RxNorm: 420891 1 TABLET(S) PO DAILY 07/28/2019 07/21/2020 Ac tive atorvastatin 20 mg t ablet RxNorm: 595790 1 TABLET(S) PO QHS 07/28/2019 07/21/2020 Active allopurinol 300 mg t ablet RxNorm: 758992 TABLET(S) 1 TABLET(S) PO QD 02/03/2019 01/28/2020 Ac tive lisinopril 5 mg tablet RxNorm: 712031 1 TABLET(S) PO DAILY 11/10/2018 08/06/2019 Active isosorbide mononitra te ER 30 mg tablet,extended release 24 hr RxNorm: 619755 1 TABLET(S) PO DAILY 11/07/2018 08/03/2019 Active pantoprazole 40 mg t ablet,delayed release RxNorm: 292592 1 TABLET(S) PO DAILY 11/07/2018 07/27/2019 In active allopurinol 300 mg t ablet RxNorm: 168203 Tablet(s) 1 TABLET(S) PO QD 11/07/2018 02/02/2019 In active atorvastatin 20 mg t ablet RxNorm: 396611 1 TABLET(S) PO QHS 09/25/2018 07/27/2019 Inactive allopurinol 300 mg t ablet RxNorm: 850979 1 TABLET(S) PO QD 02/07/2018 05/07/2018 Inactive pantoprazole 40 mg t ablet,delayed release RxNorm: 289748 1 Tablet(s) PO daily 10/01/2017 09/25/2018 In active allopurinol 300 mg t ablet RxNorm: 044333 1 Tablet(s) PO daily 10/01/2017 02/06/2018 Inactive atorvastatin 20 mg t ablet RxNorm: 886207 1 Tablet(s) PO QHS 10/01/2017 09/24/2018 Inactive isosorbide mononitra te ER 30 mg tablet,extended release 24 hr RxNorm: 652909 1 Tablet(s) PO daily 10/01/2017 09/25/2018 Inactive lisinopril 5 mg tablet RxNorm: 766696 1 Tablet(s) PO daily 10/01/2017 09/25/2018 Inactive nitroglycerin buccal RxNorm: 4917 buccal No Start Date Active aspirin 81 mg tablet RxNorm: 383412 1 Tablet(s) PO daily No Start Date Active Fish Oil 360 mg-1,20 0 mg capsule RxNorm: 860839 1 Capsule(s) PO BID No Start Date Active coenzyme Q10 10 mg t ablet RxNorm: 181344 1 Tablet(s) PO daily No Start Date Active Vitamin D2 1,000 uni t capsule RxNorm: 254261 1 Capsule(s) PO daily No Start Date Active atorvastatin 20 mg t ablet RxNorm: 752576 1 Tablet(s) PO QHS No Start Date 09/30/2017 Inactive allopurinol 300 mg t ablet RxNorm: 362089 1 Tablet(s) PO daily No Start Date 09/30/2017 Inactive isosorbide mononitra te ER 30 mg tablet,extended release 24 hr RxNorm: 244919 1 Tablet(s) PO daily No Start Date 09/30/2017 Inactive lisinopril 5 mg tablet RxNorm: 756442 1 Tablet(s) PO daily No Start Date 09/30/2017 Inactive Brilinta 90 mg tablet RxNorm: 8631134 1 Tablet(s) PO BID No Start Date 09/30/2017 Inactive pantoprazole 40 mg t ablet,delayed release RxNorm: 472133 1 Tablet(s) PO daily No Start Date 09/30/2017 Inactive Medication Administered No Medication Administered data Immunizations Vaccine Codes Date Status Pneumococcal (Adult) CVX: 133 06/18/2019 completed Tetanus, Diptheria, Pertussis CVX: 09 02/03/2019 completed Tetanus/Diptheria CVX: 09 02/03/2019 completed Influenza CVX: 141 07/12 completed Zoster CVX: 121 08/11/20 15 completed Pneumococcal CVX: 33 11/2014 completed Assessments Condition Codes Effectiv e Dates Encounter for general adult medical exam ination without abnormal findings ICD-10: Z00.00 ICD-9: V70.0 06/18/2019 Encounter for immunization ICD-10: Z 23 ICD-9: V05.9 06/18/2019 Essential (primary) hypertension ICD -10: I10 ICD-9: 401.1 03/30/2019 Mixed hyperlipidemia ICD-10: E78.2 ICD-9: 272.2 03/30/2019 Presbycusis, 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 3 ICD-9: 388.01 10/01/2018 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 ICD-9: 728.6 10/01/2017 Gastro-esophageal reflux disease without esophagitis ICD-10: K21.9 ICD-9: 530.81 10/01/2017 Reason For Visit Reason For Visit Effective Dates Notes Annual Medicare Wellness Exam 06/18/2019 hypertension 03/30/2019 hypertension 10/01/2018 hypertension 02/05/2018 hypertension 10/01/2017 left Results No Results data Review of Systems System Result Effective Dates Constitutional No recent illness 06/18/2019 Constitutional No chills 06/18/2019 Constitutional No fatigue 06/18/2019 Constitutional No fever 06/18/2019 Constitutional No insomnia 06/18/2019 Constitutional No malaise 06/18/2019 Eyes No vision change Ears/Nose/Throat/Neck No dental pain 06/18/2019 Ears/Nose/Throat/Neck No dizziness 06/18/2019 Ears/Nose/Throat/Neck No dysphagia 06/18/2019 Ears/Nose/Throat/Neck No headache 06/18/2019 Ears/Nose/Throat/Neck hearing loss 06/18/2019 Ears/Nose/Throat/Neck No nasal allergies 06/18/2019 Ears/Nose/Throat/Neck No sore throat 06/18/2019 Cardiovascular No chest pain/pressure 06/18/2019 Cardiovascular No dyspnea 06/18/2019 Cardiovascular No edema 06/18/2019 Cardiovascular No exercise intolerance 06/18/2019 Cardiovascular No fatigue 06/18/2019 Cardiovascular No near-syncope/dizziness 06/18/2019 Respiratory No chest tightness 06/18/2019 Respiratory No cough 06/2019 Respiratory No dyspnea 0 06/18/2019 Respiratory No pedal edema 06/18/2019 Gastrointestinal No abdominal pain 06/18/2019 Gastrointestinal No constipation 06/18/2019 Gastrointestinal No diarrhea 06/18/2019 Gastrointestinal No gastroesophageal reflu x 06/18/2019 Gastrointestinal No nausea 06/18/2019 Gastrointestinal No vomiting 06/18/2019 Genitourinary/Nephrology No dysuria 06/18/2019 Genitourinary/Nephrology No nocturia 06/18/2019 Genitourinary/Nephrology No urinary incontinence 06/18/2019 Musculoskeletal No stiffness 06/18/2019 Musculoskeletal No swelling 06/18/2019 Musculoskeletal No muscle weakness 06/18/2019 Musculoskeletal No myalgias 06/18/2019 Dermatologic No rash 06/2019 Dermatologic No sores Neurologic No dizziness 06/18/2019 Neurologic No headache 0 06/18/2019 Neurologic No neck pain 06/18/2019 Neurologic No syncope Psychiatric No anxiety 0 06/18/2019 Psychiatric No depression 06/18/2019 Constitutional No recent illness 03/30/2019 Constitutional No chills 03/30/2019 Constitutional No fatigue 03/30/2019 Constitutional No fever 03/30/2019 Constitutional No insomnia 03/30/2019 Constitutional No malaise 03/30/2019 Eyes No vision change Ears/Nose/Throat/Neck No dental pain 03/30/2019 Ears/Nose/Throat/Neck No dizziness 03/30/2019 Ears/Nose/Throat/Neck No dysphagia 03/30/2019 Ears/Nose/Throat/Neck No headache 03/30/2019 Ears/Nose/Throat/Neck hearing loss 03/30/2019 Ears/Nose/Throat/Neck No nasal allergies 03/30/2019 Ears/Nose/Throat/Neck No sore throat 03/30/2019 Cardiovascular No chest pain/pressure 03/30/2019 Cardiovascular No dyspnea 03/30/2019 Cardiovascular No edema 03/30/2019 Cardiovascular No exercise intolerance 03/30/2019 Cardiovascular No fatigue 03/30/2019 Cardiovascular No near-syncope/dizziness 03/30/2019 Respiratory No chest tightness 03/30/2019 Respiratory No cough Respiratory No dyspnea 0 03/30/2019 Respiratory No pedal edema 03/30/2019 Gastrointestinal No abdominal pain 03/30/2019 Gastrointestinal No constipation 03/30/2019 Gastrointestinal No diarrhea 03/30/2019 Gastrointestinal No gastroesophageal reflu x 03/30/2019 Gastrointestinal No nausea 03/30/2019 Gastrointestinal No vomiting 03/30/2019 Genitourinary/Nephrology No dysuria 03/30/2019 Genitourinary/Nephrology No nocturia 03/30/2019 Genitourinary/Nephrology No urinary incontinence 03/30/2019 Musculoskeletal No stiffness 03/30/2019 Musculoskeletal No swelling 03/30/2019 Musculoskeletal No muscle weakness 03/30/2019 Musculoskeletal No myalgias 03/30/2019 Dermatologic No rash Dermatologic No sores Neurologic No dizziness 03/30/2019 Neurologic No headache 0 03/30/2019 Neurologic No neck pain 03/30/2019 Neurologic No syncope Psychiatric No anxiety 0 03/30/2019 Psychiatric No depression 03/30/2019 Constitutional No recent illness 10/01/2018 Constitutional No chills 10/01/2018 Constitutional No fatigue 10/01/2018 Constitutional No fever 10/01/2018 Constitutional No insomnia 10/01/2018 Constitutional No malaise 10/01/2018 Eyes No vision change Ears/Nose/Throat/Neck No dental pain 10/01/2018 Ears/Nose/Throat/Neck No dizziness 10/01/2018 Ears/Nose/Throat/Neck No dysphagia 10/01/2018 Ears/Nose/Throat/Neck No headache 10/01/2018 Ears/Nose/Throat/Neck hearing loss 10/01/2018 Ears/Nose/Throat/Neck No nasal allergies 10/01/2018 Ears/Nose/Throat/Neck No sore throat 10/01/2018 Cardiovascular No chest pain/pressure 10/01/2018 Cardiovascular No dyspnea 10/01/2018 Cardiovascular No edema 10/01/2018 Cardiovascular No exercise intolerance 10/01/2018 Cardiovascular No fatigue 10/01/2018 Cardiovascular No near-syncope/dizziness 10/01/2018 Respiratory No chest tightness 10/01/2018 Respiratory No cough Respiratory No dyspnea 1 12/01/2017 Respiratory No pedal edema 10/01/2018 Gastrointestinal No abdominal pain 10/01/2018 Gastrointestinal No constipation 10/01/2018 Gastrointestinal No diarrhea 10/01/2018 Gastrointestinal No gastroesophageal reflu x 10/01/2018 Gastrointestinal No nausea 10/01/2018 Gastrointestinal No vomiting 10/01/2018 Genitourinary/Nephrology No dysuria 10/01/2018 Genitourinary/Nephrology No nocturia 10/01/2018 Genitourinary/Nephrology No urinary incontinence 10/01/2018 Musculoskeletal No stiffness 10/01/2018 Musculoskeletal No swelling 10/01/2018 Musculoskeletal No muscle weakness 10/01/2018 Musculoskeletal No myalgias 10/01/2018 Dermatologic No rash Dermatologic No sores Neurologic No dizziness 10/01/2018 Neurologic No headache 1 12/01/2017 Neurologic No neck pain 10/01/2018 Neurologic No syncope Psychiatric No anxiety 1 12/01/2017 Psychiatric No depression 10/01/2018 Constitutional No recent illness 02/05/2018 Constitutional No chills 02/05/2018 Constitutional No fever 02/05/2018 Eyes No vision change Cardiovascular No chest pain/pressure 02/05/2018 Cardiovascular No dyspnea 02/05/2018 Respiratory No cough Gastrointestinal No abdominal pain 02/05/2018 Gastrointestinal No constipation 02/05/2018 Gastrointestinal No diarrhea 02/05/2018 Gastrointestinal No nausea 02/05/2018 Gastrointestinal No vomiting 02/05/2018 Dermatologic No rash Constitutional No diaphoresis 02/05/2018 Ears/Nose/Throat/Neck No nasal allergies 02/05/2018 Ears/Nose/Throat/Neck No nasal discharge 02/05/2018 Respiratory No chest congestion 02/05/2018 Musculoskeletal No joint complaint 02/05/2018 Neurologic No alteration of consciousness 02/05/2018 Neurologic No mental status change 02/05/2018 Constitutional No recent illness 10/01/2017 Constitutional No chills 10/01/2017 Constitutional No fatigue 10/01/2017 Constitutional No fever 10/01/2017 Constitutional No insomnia 10/01/2017 Constitutional No malaise 10/01/2017 Eyes No vision change Ears/Nose/Throat/Neck No dental pain 10/01/2017 Ears/Nose/Throat/Neck No dizziness 10/01/2017 Ears/Nose/Throat/Neck No dysphagia 10/01/2017 Ears/Nose/Throat/Neck No headache 10/01/2017 Ears/Nose/Throat/Neck No hearing loss 10/01/2017 Ears/Nose/Throat/Neck No nasal allergies 10/01/2017 Ears/Nose/Throat/Neck No sore throat 10/01/2017 Ears/Nose/Throat/Neck No postnasal drip 10/01/2017 Ears/Nose/Throat/Neck No sinus congestion 10/01/2017 Cardiovascular No chest pain/pressure 10/01/2017 Cardiovascular No dyspnea 10/01/2017 Cardiovascular No edema 10/01/2017 Cardiovascular No exercise intolerance 10/01/2017 Cardiovascular No fatigue 10/01/2017 Cardiovascular No near-syncope/dizziness 10/01/2017 Respiratory No chest tightness 10/01/2017 Respiratory No cough Respiratory No dyspnea 1 12/01/2016 Respiratory No pedal edema 10/01/2017 Gastrointestinal No abdominal pain 10/01/2017 Gastrointestinal No constipation 10/01/2017 Gastrointestinal No diarrhea 10/01/2017 Gastrointestinal No gastroesophageal reflu x 10/01/2017 Gastrointestinal No nausea 10/01/2017 Gastrointestinal No vomiting 10/01/2017 Genitourinary/Nephrology No dysuria 10/01/2017 Genitourinary/Nephrology No nocturia 10/01/2017 Genitourinary/Nephrology No urinary incontinence 10/01/2017 Musculoskeletal No stiffness 10/01/2017 Musculoskeletal No swelling 10/01/2017 Musculoskeletal No muscle weakness 10/01/2017 Musculoskeletal No myalgias 10/01/2017 Dermatologic No rash Dermatologic No sores Neurologic No dizziness 10/01/2017 Neurologic No headache 1 12/01/2016 Neurologic No neck pain 10/01/2017 Neurologic No syncope Psychiatric No anxiety 1 12/01/2016 Psychiatric No depression 10/01/2017 Physical Exam Exam Name System Name It em Name Status Result Effective Dates Notes Full Exam - General 1994 Constitutional general appearance Development: well developed 06/18/2019 None Full Exam - General 1994 Constitutional general appearance Development: appears stated age 0806/18/2019 None Full Exam - General 1994 Constitutional general appearance Hygiene/Attention to Grooming: good hygiene 06/18/2019 None Full Exam - General 1994 Eyes conjunctiva/eyelids Overall: conjunctiva clear 06/18/2019 None Full Exam - General 1994 Eyes conjunctiva/eyelids Overall: cornea clear 06/18/2019 None Full Exam - General 1994 Eyes conjunctiva/eyelids Overall: eyelids normal 06/18/2019 None Full Exam - General 1994 Eyes pupils and irises Overall: pupils equal, round, reactive to light and accomodation 06/18/2019 None Full Exam - General 1994 Ears/Nose/Throat otoscopic exam Overall: external auditory canals clear 06/18/2019 None Full Exam - General 1994 Ears/Nose/Throat otoscopic exam Overall: tympanic membranes clear 06/18/2019 None Full Exam - General 1994 Ears/Nose/Throat lips/teeth/gingiva Overall: benign lips 06/18/2019 None Full Exam - General 1994 Ears/Nose/Throat lips/teeth/gingiva Overall: normal dentition 06/18/2019 None Full Exam - General 1994 Ears/Nose/Throat oral cavity/pharynx/larynx Overall: oral mucosa clear 06/18/2019 None Full Exam - General 1994 Ears/Nose/Throat oral cavity/pharynx/larynx Overall: oropharyngeal mucosa clear 06/18/2019 None Full Exam - General 1994 Ears/Nose/Throat oral cavity/pharynx/larynx Overall: hypopharynx benign 06/18/2019 None Full Exam - General 1994 Ears/Nose/Throat oral cavity/pharynx/larynx Overall: no masses 06/18/2019 None Full Exam - General 1994 Respiratory auscultation Overall: breath sounds clear bilaterally 06/18/2019 None Full Exam - General 1994 Respiratory respiratory effort/rhythm Overall: no retractions 06/18/2019 None Full Exam - General 1994 Respiratory respiratory effort/rhythm Overall: normal rate 06/18/2019 None Full Exam - General 1994 Cardiovascular inspection of carotid pulses Overall: strong, bilaterally equal, no bruits 06/18/2019 None Full Exam - General 1994 Cardiovascular extremities Overall: no clubbing 06/18/2019 None Full Exam - General 1994 Cardiovascular auscultation of heart Overall: regular rate 06/18/2019 None Full Exam - General 1994 Cardiovascular auscultation of heart Overall: normal heart sounds 06/18/2019 None Full Exam - General 1994 Abdomen abdominal exam Overall: no tenderness 06/18/2019 None Full Exam - General 1994 Abdomen abdominal exam Overall: normal bowel sounds 06/18/2019 None Full Exam - General 1994 Musculoskeletal spine, ribs and pelvis Overall: spine benign 06/18/2019 None Full Exam - General 1994 Musculoskeletal spine, ribs and pelvis Overall: sacroiliac joint benign 06/18/2019 None Full Exam - General 1994 Musculoskeletal spine, ribs and pelvis Overall: good posture 06/18/2019 None Full Exam - General 1994 Musculoskeletal head and neck Overall: head atraumatic 06/18/2019 None Full Exam - General 1994 Musculoskeletal head and neck Overall: cervical spine benign 06/18/2019 None Full Exam - General 1994 Neurologic deep tendon reflexes Overall: deep tendon reflexes intact 06/18/2019 None Full Exam - General 1994 Neurologic cranial nerves Overall: crainial nerves 2 - 12 grossly intact 06/18/2019 None Full Exam - General 1994 Psychiatric orientation/consciousness Overall: oriented to person, place and time 06/18/2019 None Full Exam - General 1994 Psychiatric mood and affect Overall: normal mood and affect 06/18/2019 None Full Exam - General 1994 Constitutional general appearance Development: well developed 03/30/2019 None Full Exam - General 1994 Constitutional general appearance Development: appears stated age 0503/30/2019 None Full Exam - General 1994 Constitutional general appearance Hygiene/Attention to Grooming: good hygiene 03/30/2019 None Full Exam - General 1994 Eyes conjunctiva/eyelids Overall: conjunctiva clear 03/30/2019 None Full Exam - General 1994 Eyes conjunctiva/eyelids Overall: cornea clear 03/30/2019 None Full Exam - General 1994 Eyes conjunctiva/eyelids Overall: eyelids normal 03/30/2019 None Full Exam - General 1994 Eyes pupils and irises Overall: pupils equal, round, reactive to light and accomodation 03/30/2019 None Full Exam - General 1994 Ears/Nose/Throat otoscopic exam Overall: external auditory canals clear 03/30/2019 None Full Exam - General 1994 Ears/Nose/Throat otoscopic exam Overall: tympanic membranes clear 03/30/2019 None Full Exam - General 1994 Ears/Nose/Throat lips/teeth/gingiva Overall: benign lips 03/30/2019 None Full Exam - General 1994 Ears/Nose/Throat lips/teeth/gingiva Overall: normal dentition 03/30/2019 None Full Exam - General 1994 Ears/Nose/Throat oral cavity/pharynx/larynx Overall: oral mucosa clear 03/30/2019 None Full Exam - General 1994 Ears/Nose/Throat oral cavity/pharynx/larynx Overall: oropharyngeal mucosa clear 03/30/2019 None Full Exam - General 1994 Ears/Nose/Throat oral cavity/pharynx/larynx Overall: hypopharynx benign 03/30/2019 None Full Exam - General 1994 Ears/Nose/Throat oral cavity/pharynx/larynx Overall: no masses 03/30/2019 None Full Exam - General 1994 Respiratory auscultation Overall: breath sounds clear bilaterally 03/30/2019 None Full Exam - General 1994 Respiratory respiratory effort/rhythm Overall: no retractions 03/30/2019 None Full Exam - General 1994 Respiratory respiratory effort/rhythm Overall: normal rate 03/30/2019 None Full Exam - General 1994 Cardiovascular inspection of carotid pulses Overall: strong, bilaterally equal, no bruits 03/30/2019 None Full Exam - General 1994 Cardiovascular extremities Overall: no clubbing 03/30/2019 None Full Exam - General 1994 Cardiovascular auscultation of heart Overall: regular rate 03/30/2019 None Full Exam - General 1994 Cardiovascular auscultation of heart Overall: normal heart sounds 03/30/2019 None Full Exam - General 1994 Abdomen abdominal exam Overall: no tenderness 03/30/2019 None Full Exam - General 1994 Abdomen abdominal exam Overall: normal bowel sounds 03/30/2019 None Full Exam - General 1994 Musculoskeletal spine, ribs and pelvis Overall: spine benign 03/30/2019 None Full Exam - General 1994 Musculoskeletal spine, ribs and pelvis Overall: sacroiliac joint benign 03/30/2019 None Full Exam - General 1994 Musculoskeletal spine, ribs and pelvis Overall: good posture 03/30/2019 None Full Exam - General 1994 Musculoskeletal head and neck Overall: head atraumatic 03/30/2019 None Full Exam - General 1994 Musculoskeletal head and neck Overall: cervical spine benign 03/30/2019 None Full Exam - General 1994 Neurologic deep tendon reflexes Overall: deep tendon reflexes intact 03/30/2019 None Full Exam - General 1994 Neurologic cranial nerves Overall: crainial nerves 2 - 12 grossly intact 03/30/2019 None Full Exam - General 1994 Psychiatric orientation/consciousness Overall: oriented to person, place and time 03/30/2019 None Full Exam - General 1994 Psychiatric mood and affect Overall: normal mood and affect 03/30/2019 None Full Exam - General 1994 Constitutional general appearance Development: well developed 10/01/2018 None Full Exam - General 1994 Constitutional general appearance Development: appears stated age 1110/01/2018 None Full Exam - General 1994 Constitutional general appearance Hygiene/Attention to Grooming: good hygiene 10/01/2018 None Full Exam - General 1994 Eyes conjunctiva/eyelids Overall: conjunctiva clear 10/01/2018 None Full Exam - General 1994 Eyes conjunctiva/eyelids Overall: cornea clear 10/01/2018 None Full Exam - General 1994 Eyes conjunctiva/eyelids Overall: eyelids normal 10/01/2018 None Full Exam [...] None Full Exam - General 1994 Eyes conjunctiva/eyelids Overall: conjunctiva clear 02/05/2018 None Full Exam - General 1994 Eyes conjunctiva/eyelids Overall: cornea clear 02/05/2018 None Full Exam - General 1994 Eyes conjunctiva/eyelids Overall: eyelids normal 02/05/2018 None Full Exam [...] None Full Exam - General 1994 Eyes conjunctiva/eyelids Overall: conjunctiva clear 10/01/2017 None Full Exam - General 1994 Eyes conjunctiva/eyelids Overall: cornea clear 10/01/2017 None Full Exam - General 1994 Eyes conjunctiva/eyelids Overall: eyelids normal 10/01/2017 None Full Exam [...] +tinnel sign at wrist on left Procedures Procedure Codes Date PPPS, SUBSEQ VISIT CPT- 4: G0439 06/18/2019 ADMIN PNEUMOCOCCAL V ACCINE SNOMED CT: 82869150 CPT-4: G0009 06/18/2019 PNEUMOCOCCAL VACC [address]: 84395884 CPT-4: 19139 06/18/2019 Vital Signs Date Vital 06/18/2019 Blood Pressure 1: 116/68 Code: 8480-6 BMI: 27.1 Code: 92819-1 Heart Rate 1: 58 bpm Height: 5'10" SpO2: 96% Waist Measure (cm): 97 cm Weight: 189 lbs 03/30/2019 Blood Pressure 1: 140/78 Code: 8480-6 BMI: 26.6 Code: 96277-6 Heart Rate 1: 51 bpm Height: 5'10" SpO2: 98% Weight: 185 lbs 3 oz 10/01/2018 Blood Pressure 1: 112/68 Code: 8480-6 BMI: 27.3 Code: 57925-2 Heart Rate 1: 61 bpm Height: 5'10" SpO2: 98% Weight: 190 lbs 02/05/2018 Blood Pressure 1: 122/72 Code: 8480-6 BMI: 26.5 Code: 47423-1 Heart Rate 1: 80 bpm Height: 5'10" SpO2: 98% Weight: 185 lbs 10/01/2017 Blood Pressure 1: 146/80 Code: 8480-6 BMI: 27.4 Code: 84972-1 Heart Rate 1: 50 bpm Height: 5'10" SpO2: 96% Weight: 191 lbs Functional Status No Functional Status data History of Present Illness Symptom Name Status Resu lt Effective Date Notes Describe Your Health v zelalem good 06/18/2019 None Alcohol Use does not d rink any alcohol 06/18/2019 None Aspirin Use yes 06/18/2019 None Blood Glucose (self reported) don't know 06/18/2019 None Blood Pressure (self reported) low / normal (120/80) 06/18/2019 None Cholesterol (self reported) desireable (below 200) 06/18/2019 "with medication" Hemaglobin A-1C (self reported) don't know 06/18/2019 None Hemaglobin A-1C (self reported) never checked 06/18/2019 None Depression (last 6 months) almost never 06/18/2019 None Depression or Hopelessness almost never 06/18/2019 None Exercise Habits does n ot exercise 06/18/2019 -works outside all the ti me though Handling Stress usuall y felicity effectively 06/18/2019 None Interaction with Friends no 06/18/2019 None Hours of Sleep 6-7 06/18/2019 None Interests & Pleasure a lmost never 06/18/2019 None Life Satisfaction very satisfied 06/18/2019 None Motor Vehicle Safety a lways fastens seat belt: yes 06/18/2019 None Motor Vehicle Safety d binh after drinking: no 06/18/2019 None Motor Vehicle Safety r ides with someone who has been drinking: no 06/18/2019 None Smoking and Tobacco Use non smoker 06/18/2019 None Social & Emotional Support usually 06/18/2019 None Stress almost never 06/18/2019 None Sun Exposure protects skin when outdoors: yes 06/18/2019 None Nutrition servings of fried food / high fat foods per day: 0-1 06/18/2019 None Nutrition servings of high fiber / whole grain per day: 2 06/18/2019 None Nutrition servings of vegetables / fruit per day: 0-1 06/18/2019 None Quality chronic 03/30/2019 None Quality primary hypert ension 03/30/2019 None Onset and Resolution o ngoing 03/30/2019 None Onset of Symptom durin g adulthood 03/30/2019 None Blood Pressure Values patient checking blood pressure at home - did not bring in readings 03/30/2019 -Checks occasionally Significant Family History stroke 03/30/2019 None Significant Family History cardiac disease 03/30/2019 None Alleviating Factors me dication 03/30/2019 None Pertinent Findings Den ies dizziness 03/30/2019 None Pertinent Findings Den ies dyspnea 03/30/2019 None Pertinent Findings Den ies edema 03/30/2019 None Onset and Resolution g radual in onset 03/30/2019 None Onset of Symptom durin g adulthood 03/30/2019 None Significant Medications statin 03/30/2019 None Alleviating Factors me dication 03/30/2019 None Exacerbating Factors d iet 03/30/2019 None Significant Family History hyperlipidemia 03/30/2019 None Significant Family History cardiac disease 03/30/2019 None hypertension Quality chr onic 10/01/2018 None hypertension Onset and Resolution ongoing [...] History cardiac disease 10/01/2018 None hypertension Quality natacha ayala hypertension 10/01/2018 None hypertension Onset of Symptom [...] Exacerbating Factors diet 10/01/2018 None hypertension Quality chr onic 02/05/2018 None hypertension Quality sta ble 02/05/2018 None hypertension Onset and Resolution ongoing [...] Denies weight loss 02/05/2018 None hyperlipidemia Quality c hronic 02/05/2018 None hyperlipidemia Quality s table 02/05/2018 None hyperlipidemia Significant Family History hyperlipidemia 02/05/2018 None hyperlipidemia Significant Family History cardiac disease 02/05/2018 None hypertension Quality chr onic 10/01/2017 None hypertension Quality sta ble 10/01/2017 None hypertension Onset and Resolution ongoing [...] History cardiac disease 10/01/2017 None hyperlipidemia Quality c hronic 10/01/2017 None hyperlipidemia Quality s table 10/01/2017 None hyperlipidemia Pertinent Findings Denies edema [...] fever 10/01/2017 None hand pain Location on th e left 10/01/2017 None hand pain Quality numbne ss 10/01/2017 None hand pain Quality acute 10/01/2017 None hand pain Quality chronic 10/01/2017 None hand pain Quality throbb ing 10/01/2017 None hand pain Pertinent Findings Denies [...] No Advance Directive data Encounters Encounter Performer Loca tion Codes Date ([id number]) 47247 EST. P ATIENT, LEVEL IV Diagnosis: Essential (primary) hypertension[ICD10: I10] Diagnosis: Mixed hyperlipidemia[ICD10: E78.2] [facility] CPT- 4: 46629 03/30/2019 ([id number]) 64775 EST. 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 CPT-4: 08605 10/01/2018 [id number] EST. PATIENT, LEVEL IV Diagnosis: Essential (primary) hypertension[ICD10: I10] Diagnosis: Mixed hyperlipidemia[ICD10: E78.2] Martha Ramsey MD, 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 CPT-4: 50483 10/01/2017 Plan of Care Planned Activity Notes C odes Status Date Visit Plan: Medicare Exam - today w e discussed the patients past history, immunizations, preventative exams/evaluations - colonoscopy, fecal occult blood testing, routine labs for renal function, glucose, cholesterol, osteoporosis evaluations, cardiovascular testing and cancer screenings. We have also discussed mental health and the signs/symptoms of depression. The patient was advised of home safety evaluations and the need to make sure that as the aging process continues, we need to be aware of different ways to make the home a safer place to reside. The patient has also been counseled that exercise is necessary - and of utmost importance as we age to help decrease fall risk and to maintain independence in the home. Today we discussed the need for the patient to create paperwork for Advanced directives as well as for the patient to provide this office with a copy of her DOPA paperwork for health care surrogate. HTN-controlled -no changes CAD-risk for PAD-sees Dr Dominique for cardiology management Screening for CKD -labs ordered Spirometry not done -patient no longer smokes and is asymptomatic 06/18/2019 [phone] [phone] [facility] - Annual Wellness Visit 06/18/2019 Patient Education: Patient Medication Summary Completed 06/18/2019 Visit Plan: Hypertension - well con trolled - continue with current medications, continue with [...] to assure normal liver response to medications. 03/30/2019 Appointment: [phone] (15 min) Moderate 03/30/2019 Patient Education: Patient Medication Summary Completed 03/30/2019 Patient Education: Cholesterol Management Completed 03/30/2019 Visit Plan: Hypertension - well con trolled - continue with current medications, continue with [...] pt needs to have hearing testing. 10/01/2018 Appointment: Kristin Ramsey WPtel: [phone] [facility] (15 min) Moderate 10/01/2018 Patient Education: Patient Medication Summary Completed 10/01/2018 Patient Education: Cholesterol Management Completed 10/01/2018 Appointment: Kristin Ramsey WPtel: [phone] [facility] (15 min) Moderate 08/06/2018 Visit Plan: Hypertension - well con trolled - continue with current medications, continue with [...] to medications. 02/05/2018 Appointment: Martha Shah WPtel: [phone] [facility] (15 min) Moderate 02/05/2018 Patient Education: Patient Medication Summary Completed 02/05/2018 Visit Plan: Hypertension - well con trolled - continue with current medications, continue with [...] prefer appt at the Ortho clinic in [place] Hyperlipidemia - pt has been counseled about [...] the symptoms are not improving. 10/01/2017 Appointment: BraulioKristin [facility]el[facility] [phone] [facility] New Patient 10/01/2017 Patient Education: Patient Medication Summary Completed 10/01/2017 Care Plan: Referral Order SNOMED-CT : [id number] Pending 10/01/2017 Referral: External, Ordering Provider Referral Appointment Requested Instructions Comment . Hypertension - wel l controlled - continue with current medications, continue [...] assure normal liver response to medications. . Medicare Exam - to day we discussed the patients past history, immunizations, preventative exams/evaluations - colonoscopy, fecal occult blood testing, routine labs for renal function, glucose, cholesterol, osteoporosis evaluations, cardiovascular testing and cancer screenings. We have also discussed mental health and the signs/symptoms of depression. The patient was advised of home safety evaluations and the need to make sure that as the aging process continues, we need to be aware of different ways to make the home a safer place to reside. The patient has also been counseled that exercise is necessary - and of utmost importance as we age to help decrease fall risk and to maintain independence in the home. Today we discussed the need for the patient to create paperwork for Advanced directives as well as for the patient to provide this office with a copy of her DOPA paperwork for health care surrogate. HTN-controlled -no changes CAD-risk for PAD-sees Dr Dominique for cardiology management Screening for CKD -labs ordered Spirometry not done -patient no longer smokes and is asymptomatic . Hypertension - wel l controlled - continue with current medications, continue [...] liver response to medications. . Hypertension - wel l controlled - continue with current medications, continue [...] left hand - prefer appt at the [facility] in [place] Hyperlipidemia - pt has been counseled about [...] symptoms are not improving. . Hypertension - wel l controlled - continue with current medications, continue [...]
--- OUTSIDE RECORDS SUMMARY | 2020-03-26 20:09 | XMS REPORT | CCD ---
Author Author Luisito Ramsey Organization Kristin Ramsey MD, 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 Name Role Phone PP Unavailable CCM Unavailable Summary Purpose Interface Exchange Insurance Providers Payer name Policy type / Coverage type Covered democrat ID Effective Begin Date Effective End Date [employer] Commercial Insurance [id number] Unknown Unknown Family history Brother Diagnosis Age At Onset Alcoholism Unknown Cancer Unknown Mother Diagnosis Age At Onset Cancer Unknown Father Diagnosis Age At Onset Heart Attack Unknown Stroke Unknown Hyperlipidemia Unknown Alcoholism Unknown Social History Social History Element Codes Description Effective Dates Alcohol history SNOMED CT: 008369256 Never drinks alcohol 06/18/2019 Marital status Unknown M arried Zuleima "Ade" Brandon 10/01/2017 Number of children Unknown 2 10/01/2017 Employment Unknown Retir ed 10/01/[address]: 7455779 Quit over 10 years ago Quit 1986 10/01/2017 Allergies, Adverse Reactions, Alerts Substance Reaction Codes Entered Date Inactivated Date Status * NO KNOWN ENVIRONME NTAL ALLERGIES Unknown 10/01/2017 No Inactive Date Active * NO KNOWN FOOD KRISTI RGIES Unknown 10/01/2017 No Inactive Date Active GEEKGDA-SCG-MLO REDU CTASE INHIBITORS Unknown 06/18/2019 No Inactive [...] pantoprazole 40 mg t ablet,delayed release RxNorm: 525586 1 TABLET(S) PO DAILY 07/28/2019 07/21/2020 Ac tive atorvastatin 20 mg t ablet RxNorm: 673830 1 TABLET(S) PO QHS 07/28/2019 07/21/2020 Active isosorbide mononitra te ER 30 mg tablet,extended release 24 hr RxNorm: 526280 1 TABLET(S) PO DAILY 07/28/2019 07/21/2020 Active allopurinol 300 mg t ablet RxNorm: 673302 TABLET(S) 1 TABLET(S) PO QD 02/03/2019 01/28/2020 Ac tive lisinopril 5 mg tablet RxNorm: 513258 1 TABLET(S) PO DAILY 11/10/2018 08/06/2019 Active pantoprazole 40 mg t ablet,delayed release RxNorm: 812678 1 TABLET(S) PO DAILY 11/07/2018 07/27/2019 In active allopurinol 300 mg t ablet RxNorm: 897142 Tablet(s) 1 TABLET(S) PO QD 11/07/2018 02/02/2019 In active isosorbide mononitra te ER 30 mg tablet,extended release 24 hr RxNorm: 025631 1 TABLET(S) PO DAILY 11/07/2018 07/27/2019 Inactive atorvastatin 20 mg t ablet RxNorm: 157897 1 TABLET(S) PO QHS 09/25/2018 07/27/2019 Inactive allopurinol 300 mg t ablet RxNorm: 385730 1 TABLET(S) PO QD 02/07/2018 05/07/2018 Inactive pantoprazole 40 mg t ablet,delayed release RxNorm: 445608 1 Tablet(s) PO daily 10/01/2017 09/25/2018 In active allopurinol 300 mg t ablet RxNorm: 710396 1 Tablet(s) PO daily 10/01/2017 02/06/2018 Inactive atorvastatin 20 mg t ablet RxNorm: 188546 1 Tablet(s) PO QHS 10/01/2017 09/24/2018 Inactive isosorbide mononitra te ER 30 mg tablet,extended release 24 hr RxNorm: 364154 1 Tablet(s) PO daily 10/01/2017 09/25/2018 Inactive lisinopril 5 mg tablet RxNorm: 441820 1 Tablet(s) PO daily 10/01/2017 09/25/2018 Inactive nitroglycerin buccal RxNorm: 4917 buccal No Start Date Active aspirin 81 mg tablet RxNorm: 216726 1 Tablet(s) PO daily No Start Date Active Fish Oil 360 mg-1,20 0 mg capsule RxNorm: 426390 1 Capsule(s) PO BID No Start Date Active coenzyme Q10 10 mg t ablet RxNorm: 151171 1 Tablet(s) PO daily No Start Date Active Vitamin D2 1,000 uni t capsule RxNorm: 842147 1 Capsule(s) PO daily No Start Date Active atorvastatin 20 mg t ablet RxNorm: 605986 1 Tablet(s) PO QHS No Start Date 09/30/2017 Inactive allopurinol 300 mg t ablet RxNorm: 643964 1 Tablet(s) PO daily No Start Date 09/30/2017 Inactive isosorbide mononitra te ER 30 mg tablet,extended release 24 hr RxNorm: 691299 1 Tablet(s) PO daily No Start Date 09/30/2017 Inactive lisinopril 5 mg tablet RxNorm: 101487 1 Tablet(s) PO daily No Start Date 09/30/2017 Inactive Brilinta 90 mg tablet RxNorm: 5689858 1 Tablet(s) PO BID No Start Date 09/30/2017 Inactive pantoprazole 40 mg t ablet,delayed release RxNorm: 951167 1 Tablet(s) PO daily No Start Date [...] 06/18/2019 ADMIN PNEUMOCOCCAL V ACCINE SNOMED CT: 66812311 CPT-4: G0009 06/18/2019 PNEUMOCOCCAL VACC [address]: 35456890 CPT-4: 89079 06/18/2019 Vital Signs Date Vital 06/18/2019 Blood Pressure 1: 116/68 Code: 8480-6 BMI: 27.1 Code: 47642-6 Heart Rate 1: 58 bpm Height: 5'10" SpO2: 96% Waist Measure (cm): 97 cm Weight: 189 lbs 03/30/2019 Blood Pressure 1: 140/78 Code: 8480-6 BMI: 26.6 Code: 27264-7 Heart Rate 1: 51 bpm Height: 5'10" SpO2: 98% Weight: 185 lbs 3 oz 10/01/2018 Blood Pressure 1: 112/68 Code: 8480-6 BMI: 27.3 Code: 10218-7 Heart Rate 1: 61 bpm Height: 5'10" SpO2: 98% Weight: 190 lbs 02/05/2018 Blood Pressure 1: 122/72 Code: 8480-6 BMI: 26.5 Code: 06481-4 Heart Rate 1: 80 bpm Height: 5'10" SpO2: 98% Weight: 185 lbs 10/01/2017 Blood Pressure 1: 146/80 Code: 8480-6 BMI: 27.4 Code: 33291-8 Heart Rate 1: 50 bpm Height: 5'10" [...] Encounters Encounter Performer Loca tion Codes Date ([id number]) 64280 EST. P ATIENT, LEVEL IV Diagnosis: Essential (primary) hypertension[ICD10: I10] Diagnosis: Mixed hyperlipidemia[ICD10: E78.2] Kristin Ramsey MD, [facility] CPT- 4: 10742 03/30/2019 ([id number]) 52945 EST. 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 CPT-4: 23287 10/01/2018 [id number] EST. PATIENT, LEVEL IV Diagnosis: Essential (primary) hypertension[ICD10: I10] Diagnosis: Mixed hyperlipidemia[ICD10: E78.2] Martha Ramsey MD, 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 03/30/2019 Appointment: Krist[phone] [facility] (15 min) Moderate 03/30/2019 Patient Education: Patient [...] hearing testing. 10/01/2018 Appointment: Kristin Ramsey WPtel: [facility] (15 min) Moderate 10/01/2018 Patient Education: Patient Medication Summary Completed 10/01/2018 Patient Education: Cholesterol Management Completed 10/01/2018 Appointment: Kristin Ramsey WPtel: [facility] (15 min) Moderate 08/06/2018 Visit Plan: Hypertension [...] medications. 02/05/2018 Appointment: Martha Shah WPtel: [phone] [facility] (15 min) Moderate 02/05/2018 Patient Education: Patient [...] prefer appt at the Ortho clinic in [place] Hyperlipidemia - pt has been counseled about [...] not improving. 10/01/2017 Appointment: Krist[facility] Ramsey [facility]Ptel[phone] [facility] New Patient 10/01/2017 Patient Education: Patient Medication Summary Completed 10/01/2017 Care Plan: Referral Order SNOMED-CT : [id number] Pending 10/01/2017 Referral: External, Ordering Provider Referral [...] prefer appt at the Ortho clinic in [place] Hyperlipidemia - pt has been counseled about [...]
--- OUTSIDE RECORDS SUMMARY | 2020-03-26 20:10 | XMS REPORT | CCD ---
Author Author Luisito Ramsey Organization Kristin Ramsey MD, [facility] Address [address] [place] [address] Phone Care Team Providers Care Home Worker Name Role Phone PP Unavailable CCM Unavailable Summary Purpose Interface Exchange Insurance Providers Payer name Policy type / Coverage type Covered alliance party ID Effective Begin Date Effective End Date [employer] Commercial Insurance [id number] Unknown Unknown Family history Brother Diagnosis Age At Onset Alcoholism Unknown Cancer Unknown Mother Diagnosis Age At Onset Cancer Unknown Father Diagnosis Age At Onset Heart Attack Unknown Stroke Unknown Hyperlipidemia Unknown Alcoholism Unknown Social History Social History Element Codes Description Effective Dates Alcohol history SNOMED CT: 270649459 Never drinks alcohol 06/18/2019 Marital status Unknown M arried Zuleima "Ade" Brandon 10/01/2017 Number of children Unknown 2 10/01/2017 Employment Unknown Retir ed 10/01/[address]: 2134858 Quit over 10 years ago Quit 1986 10/01/2017 Allergies, Adverse Reactions, Alerts Substance Reaction Codes Entered Date Inactivated Date Status * NO KNOWN ENVIRONME NTAL ALLERGIES Unknown 10/01/2017 No Inactive Date Active * NO KNOWN FOOD KRISTI RGIES Unknown 10/01/2017 No Inactive Date Active [id number] REDU CTASE INHIBITORS Unknown 06/18/2019 No Inactive Date Active Past Medical History Illness Codes Condition Status Onset Date Resolved Date Encounter for genera l adult medical examination without abnormal findings ICD-9: V70.0 ICD-10: Z00.00 Active 06/18/2019 Unknown Essential (primary) hypertension ICD-9: [...] findings ICD-9: V70.0 ICD-10: Z00.00 06/18/2019 Active Essential (primary) hypertension ICD-9: 401.1 ICD-10: I10 10/01/2017 Active Mixed hyperlipidemia ICD-9: 272.2 ICD-10: E78.2 10/01/2017 Active Presbycusis, 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 10/01/2018 Active Gastro-esophageal re flux disease without esophagitis ICD-9: 530.81 ICD-10: K21.9 10/01/2017 Active 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 10/01/2017 Active Medications Medication Codes Instruc tions Start Date Stop Date Sta tus Fill Instructions allopurinol 300 mg t ablet RxNorm: 311743 TABLET(S) 1 TABLET(S) PO QD 02/03/2019 01/28/2020 Ac tive lisinopril 5 mg tablet RxNorm: 489711 1 TABLET(S) PO DAILY 11/10/2018 08/06/2019 Active pantoprazole 40 mg t ablet,delayed release RxNorm: 424851 1 TABLET(S) PO DAILY 11/07/2018 08/03/2019 Ac tive isosorbide mononitra te ER 30 mg tablet,extended release 24 hr RxNorm: 712343 1 TABLET(S) PO DAILY 11/07/2018 08/03/2019 Active allopurinol 300 mg t ablet RxNorm: 782292 Tablet(s) 1 TABLET(S) PO QD 11/07/2018 02/02/2019 In active atorvastatin 20 mg t ablet RxNorm: 621564 1 TABLET(S) PO QHS 09/25/2018 09/19/2019 Active allopurinol 300 mg t ablet RxNorm: 916507 1 TABLET(S) PO QD 02/07/2018 05/07/2018 Inactive pantoprazole 40 mg t ablet,delayed release RxNorm: 052457 1 Tablet(s) PO daily 10/01/2017 09/25/2018 In active allopurinol 300 mg t ablet RxNorm: 926083 1 Tablet(s) PO daily 10/01/2017 02/06/2018 Inactive atorvastatin 20 mg t ablet RxNorm: 765021 1 Tablet(s) PO QHS 10/01/2017 09/24/2018 Inactive isosorbide mononitra te ER 30 mg tablet,extended release 24 hr RxNorm: 311697 1 Tablet(s) PO daily 10/01/2017 09/25/2018 Inactive lisinopril 5 mg tablet RxNorm: 012637 1 Tablet(s) PO daily 10/01/2017 09/25/2018 Inactive nitroglycerin buccal RxNorm: 4917 buccal No Start Date Active aspirin 81 mg tablet RxNorm: 787462 1 Tablet(s) PO daily No Start Date Active Fish Oil 360 mg-1,20 0 mg capsule RxNorm: 184266 1 Capsule(s) PO BID No Start Date Active coenzyme Q10 10 mg t ablet RxNorm: 774152 1 Tablet(s) PO daily No Start Date Active Vitamin D2 1,000 uni t capsule RxNorm: 138183 1 Capsule(s) PO daily No Start Date Active atorvastatin 20 mg t ablet RxNorm: 761643 1 Tablet(s) PO QHS No Start Date 09/30/2017 Inactive allopurinol 300 mg t ablet RxNorm: 195597 1 Tablet(s) PO daily No Start Date 09/30/2017 Inactive isosorbide mononitra te ER 30 mg tablet,extended release 24 hr RxNorm: 667095 1 Tablet(s) PO daily No Start Date 09/30/2017 Inactive lisinopril 5 mg tablet RxNorm: 536285 1 Tablet(s) PO daily No Start Date 09/30/2017 Inactive Brilinta 90 mg tablet RxNorm: 4378992 1 Tablet(s) PO BID No Start Date 09/30/2017 Inactive pantoprazole 40 mg t ablet,delayed release RxNorm: 817384 1 Tablet(s) PO daily No Start Date 09/30/2017 Inactive Medication Administered No Medication Administered data Immunizations Vaccine Codes Date Status Tetanus, Diptheria, Pertussis CVX: 113 02/03/2019 completed Tetanus/Diptheria CVX: 113 02/03/2019 completed Influenza CVX: 141 07/12 completed Zoster CVX: 121 08/11/20 15 completed Pneumococcal CVX: 33 11/2014 completed Assessments Condition Codes Effectiv e Dates Encounter for general adult medical exam ination without abnormal findings ICD-10: Z00.00 ICD-9: V70.0 06/18/2019 Essential (primary) hypertension ICD -10: I10 [...] PPPS, SUBSEQ VISIT CPT- 4: G0439 06/18/2019 Vital Signs Date Vital 06/18/2019 Blood Pressure 1: 116/68 Code: 8480-6 BMI: 27.1 Code: 90623-7 Heart Rate 1: 58 bpm Height: 5'10" SpO2: 96% Waist Measure (cm): 97 cm Weight: 189 lbs 03/30/2019 Blood Pressure 1: 140/78 Code: 8480-6 BMI: 26.6 Code: 16073-3 Heart Rate 1: 51 bpm Height: 5'10" SpO2: 98% Weight: 185 lbs 3 oz 10/01/2018 Blood Pressure 1: 112/68 Code: 8480-6 BMI: 27.3 Code: 58740-2 Heart Rate 1: 61 bpm Height: 5'10" SpO2: 98% Weight: 190 lbs 02/05/2018 Blood Pressure 1: 122/72 Code: 8480-6 BMI: 26.5 Code: 94435-9 Heart Rate 1: 80 bpm Height: 5'10" SpO2: 98% Weight: 185 lbs 10/01/2017 Blood Pressure 1: 146/80 Code: 8480-6 BMI: 27.4 Code: 13358-4 Heart Rate 1: 50 bpm Height: 5'10" [...] Encounters Encounter Performer Loca tion Codes Date ([id number]) [id number] EST. P ATIENT, LEVEL IV Diagnosis: Essential (primary) hypertension[ICD10: I10] Diagnosis: Mixed hyperlipidemia[ICD10: E78.2] [facility] CPT- 4: 66614 03/30/2019 ([id number]) [id number] EST. P ATIENT, LEVEL IV Diagnosis: Essential (primary) hypertension[ICD10: I10] Diagnosis: Mixed hyperlipidemia[ICD10: E78.2] Diagnosis: Presbycusis, bilateral[ICD10: H91.13] [facility] CPT-4: 94502 10/01/2018 [id number] EST. 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 03/30/2019 Appointment: Kristin Ramsey WPtel: [address] [place], [place] [address] (15 min) Moderate 03/30/2019 Patient Education: Patient [...] hearing testing. 10/01/2018 Appointment: Kristin Ramsey [facility] ([facility] min) Moderate 10/01/2018 Patient Education: Patient Medication Summary Completed 10/01/2018 Patient Education: Cholesterol Management Completed 10/01/2018 Appointment: Kristin Ramsey WPtel[facility] (15 min) Moderate 08/06/2018 Visit Plan: Hypertension [...] medications. 02/05/2018 [facility]ment[facility] [phone] [facility] (15 min) Moderate 02/05/2018 Patient Education: Patient [...] prefer appt at the Ortho clinic in [place] Hyperlipidemia - pt has been counseled about [...] 10/01/2017 Care Plan: Referral Order SNOMED-CT : [id number] Pending 10/01/2017 Referral: External, Ordering Provider Referral [...] hand - prefer appt at the Orth[facility] in [place] Hyperlipidemia - pt has been counseled about [...]
--- OUTSIDE RECORDS SUMMARY | 2020-03-26 20:10 | XMS REPORT | CCD ---
Author Author Luisito Ramsey Organization Kristin Ramsey MD, [facility] Address [address] [place] [address] Phone Care Team Providers Care Link Trainer Mechanic Name Role Phone PP Unavailable CCM Unavailable Summary Purpose Interface Exchange Insurance Providers Payer name Policy type / Coverage type Covered green party ID Effective Begin Date Effective End Date [employer] Commercial Insurance [id number] Unknown Unknown Family history Brother Diagnosis Age At Onset Alcoholism Unknown Cancer Unknown Mother Diagnosis Age At Onset Cancer Unknown Father Diagnosis Age At Onset Heart Attack Unknown Stroke Unknown Hyperlipidemia Unknown Alcoholism Unknown Social History Social History Element Codes Description Effective Dates Alcohol history SNOMED CT: 672898849 Never drinks alcohol 06/18/2019 Marital status Unknown M arried Zuleima "Ade" Brandon 10/01/2017 Number of children Unknown 2 10/01/2017 Employment Unknown Retir ed 10/01/[address]: 1053435 Quit over 10 years ago Quit 1986 10/01/2017 Allergies, Adverse Reactions, Alerts Substance Reaction Codes Entered Date Inactivated Date Status * NO KNOWN ENVIRONME NTAL ALLERGIES Unknown 10/01/2017 No Inactive Date Active * NO KNOWN FOOD KRISTI RGIES Unknown 10/01/2017 No Inactive Date Active [id number] REDU CTASE INHIBITORS Unknown 06/18/2019 No Inactive [...] Instructions allopurinol 300 mg t ablet RxNorm: 678081 TABLET(S) 1 TABLET(S) PO QD 02/03/2019 01/28/2020 Ac tive lisinopril 5 mg tablet RxNorm: 025139 1 TABLET(S) PO DAILY 11/10/2018 08/06/2019 Active pantoprazole 40 mg t ablet,delayed release RxNorm: 808654 1 TABLET(S) PO DAILY 11/07/2018 08/03/2019 Ac tive isosorbide mononitra te ER 30 mg tablet,extended release 24 hr RxNorm: 605061 1 TABLET(S) PO DAILY 11/07/2018 08/03/2019 Active allopurinol 300 mg t ablet RxNorm: 025182 Tablet(s) 1 TABLET(S) PO QD 11/07/2018 02/02/2019 In active atorvastatin 20 mg t ablet RxNorm: 583581 1 TABLET(S) PO QHS 09/25/2018 09/19/2019 Active allopurinol 300 mg t ablet RxNorm: 795659 1 TABLET(S) PO QD 02/07/2018 05/07/2018 Inactive pantoprazole 40 mg t ablet,delayed release RxNorm: 432893 1 Tablet(s) PO daily 10/01/2017 09/25/2018 In active allopurinol 300 mg t ablet RxNorm: 296273 1 Tablet(s) PO daily 10/01/2017 02/06/2018 Inactive atorvastatin 20 mg t ablet RxNorm: 540385 1 Tablet(s) PO QHS 10/01/2017 09/24/2018 Inactive isosorbide mononitra te ER 30 mg tablet,extended release 24 hr RxNorm: 780491 1 Tablet(s) PO daily 10/01/2017 09/25/2018 Inactive lisinopril 5 mg tablet RxNorm: 699710 1 Tablet(s) PO daily 10/01/2017 09/25/2018 Inactive nitroglycerin buccal RxNorm: 4917 buccal No Start Date Active aspirin 81 mg tablet RxNorm: 041381 1 Tablet(s) PO daily No Start Date Active Fish Oil 360 mg-1,20 0 mg capsule RxNorm: 021814 1 Capsule(s) PO BID No Start Date Active coenzyme Q10 10 mg t ablet RxNorm: 715752 1 Tablet(s) PO daily No Start Date Active Vitamin D2 1,000 uni t capsule RxNorm: 323355 1 Capsule(s) PO daily No Start Date Active atorvastatin 20 mg t ablet RxNorm: 936018 1 Tablet(s) PO QHS No Start Date 09/30/2017 Inactive allopurinol 300 mg t ablet RxNorm: 438146 1 Tablet(s) PO daily No Start Date 09/30/2017 Inactive isosorbide mononitra te ER 30 mg tablet,extended release 24 hr RxNorm: 217922 1 Tablet(s) PO daily No Start Date 09/30/2017 Inactive lisinopril 5 mg tablet RxNorm: 031265 1 Tablet(s) PO daily No Start Date 09/30/2017 Inactive Brilinta 90 mg tablet RxNorm: 9841171 1 Tablet(s) PO BID No Start Date 09/30/2017 Inactive pantoprazole 40 mg t ablet,delayed release RxNorm: 836471 1 Tablet(s) PO daily No Start Date [...] clear 06/18/2019 None Full Exam - General 1995 Ears/Nose/Throat otoscopic exam Overall: tympanic membranes clear 06/18/2019 None Full Exam - General 1994 Ears/Nose/Throat lips/teeth/gingiva Overall: benign lips 06/18/2019 None Full Exam - General 1994 Ears/Nose/Throat lips/teeth/gingiva Overall: normal dentition 06/18/2019 None Full Exam - General 1994 Ears/Nose/Throat oral cavity/pharynx/larynx Overall: oral mucosa clear 06/18/2019 None Full Exam - General 1995 Ears/Nose/Throat oral cavity/pharynx/larynx Overall: oropharyngeal mucosa clear 06/18/2019 None Full Exam - General 1995 Ears/Nose/Throat oral cavity/pharynx/larynx Overall: hypopharynx benign 06/18/2019 [...] 06/18/2019 ADMIN PNEUMOCOCCAL V ACCINE SNOMED CT: 32958193 CPT-4: G0009 06/18/2019 PNEUMOCOCCAL VACC [address]: 15490617 CPT-4: 20821 06/18/2019 Vital Signs Date Vital 06/18/2019 Blood Pressure 1: 116/68 Code: 8480-6 BMI: 27.1 Code: 27009-1 Heart Rate 1: 58 bpm Height: 5'10" SpO2: 96% Waist Measure (cm): 97 cm Weight: 189 lbs 03/30/2019 Blood Pressure 1: 140/78 Code: 8480-6 BMI: 26.6 Code: 42560-1 Heart Rate 1: 51 bpm Height: 5'10" SpO2: 98% Weight: 185 lbs 3 oz 10/01/2018 Blood Pressure 1: 112/68 Code: 8480-6 BMI: 27.3 Code: 88786-5 Heart Rate 1: 61 bpm Height: 5'10" SpO2: 98% Weight: 190 lbs 02/05/2018 Blood Pressure 1: 122/72 Code: 8480-6 BMI: 26.5 Code: 40091-4 Heart Rate 1: 80 bpm Height: 5'10" SpO2: 98% Weight: 185 lbs 10/01/2017 Blood Pressure 1: 146/80 Code: 8480-6 BMI: 27.4 Code: 44408-0 Heart Rate 1: 50 bpm Height: 5'10" [...] Encounters Encounter Performer Loca tion Codes Date ([id number]) [id number] EST. P ATIENT, LEVEL IV Diagnosis: Essential (primary) hypertension[ICD10: I10] Diagnosis: Mixed hyperlipidemia[ICD10: E78.2] [facility] CPT- 4: 18189 03/30/2019 ([id number]) [id number] EST. P ATIENT, LEVEL IV Diagnosis: Essential (primary) hypertension[ICD10: I10] Diagnosis: Mixed hyperlipidemia[ICD10: E78.2] Diagnosis: Presbycusis, bilateral[ICD10: H91.13] [facility] CPT-4: 16963 10/01/2018 [id number] EST. 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 03/30/2019 Appointment: Kristin Ramsey WPtel: [address] [facility] (15 min) Moderate 03/30/2019 Patient Education: Patient [...] hearing testing. 10/01/2018 Appointment: Kristin Ramsey WPtel: [address] [facility] (15 min) Moderate 10/01/2018 Patient Education: Patient Medication Summary Completed 10/01/2018 Patient Education: Cholesterol Management Completed 10/01/2018 Appointment: Kristin Ramsey WPtel: [address] [facility] [place] (15 min) Moderate 08/06/2018 Visit Plan: Hypertension [...] to medications. 02/05/2018 Appointment: Martha Shah WPtel: [address] [facility] (15 min) Moderate 02/05/2018 Patient Education: Patient [...] prefer appt at the Ortho clinic in [place] Hyperlipidemia - pt has been counseled about [...] not improving. 10/01/2017 Appointment: Kristin Ramsey WPtel: [address] [facility] New Patient 10/01/2017 Patient Education: Patient Medication Summary Completed 10/01/2017 Care Plan: Referral Order SNOMED-CT : [id number] Pending 10/01/2017 Referral: External, Ordering Provider Referral [...] prefer appt at the Ortho clinic in [place] Hyperlipidemia - pt has been counseled about [...]
--- OUTSIDE RECORDS SUMMARY | 2020-03-26 20:10 | XMS REPORT | CCD ---
Author Author Luisito Ramsey Organization Kristin Ramsey MD, [facility] Address [address] [place] [address] Phone Care Team Providers Care Resource Conservation Manager Name Role Phone PP Unavailable CCM Unavailable Summary Purpose Interface Exchange Insurance Providers Payer name Policy type / Coverage type Covered alliance party ID Effective Begin Date Effective End Date [employer]TRA Commercial Insurance [id number] Unknown Unknown Family history Brother Diagnosis Age At Onset Alcoholism Unknown Cancer Unknown Mother Diagnosis Age At Onset Cancer Unknown Father Diagnosis Age At Onset Heart Attack Unknown Stroke Unknown Hyperlipidemia Unknown Alcoholism Unknown Social History Social History Element Codes Description Effective Dates Marital status Unknown M arried Zuleima "Ade" Brandon 10/01/2017 Number of children Unknown 2 10/01/2017 Employment Unknown Retir ed 10/01/[address]: 9160857 Quit over 10 years ago Quit 1986 10/01/2017 Alcohol history Unknown pt chooses not to answer 10/01/2017 Allergies, Adverse Reactions, Alerts Substance Reaction Codes Entered Date Inactivated Date Status * NO KNOWN ENVIRONME NTAL ALLERGIES Unknown 10/01/2017 No Inactive Date Active * NO KNOWN FOOD KRISTI RGIES Unknown 10/01/2017 No Inactive Date Active [id number] REDU CTASE INHIBITORS Unknown 10/01/2017 No Inactive Date Active [...] Condition Codes Effectiv e Dates Condition Status Essential (primary) hypertension ICD-9: [...] Instructions allopurinol 300 mg t ablet RxNorm: 456786 TABLET(S) 1 TABLET(S) PO QD 02/03/2019 01/28/2020 Ac tive lisinopril 5 mg tablet RxNorm: 293094 1 TABLET(S) PO DAILY 11/10/2018 08/06/2019 Active pantoprazole 40 mg t ablet,delayed release RxNorm: 954506 1 TABLET(S) PO DAILY 11/07/2018 08/03/2019 Ac tive isosorbide mononitra te ER 30 mg tablet,extended release 24 hr RxNorm: 760913 1 TABLET(S) PO DAILY 11/07/2018 08/03/2019 Active allopurinol 300 mg t ablet RxNorm: 885400 Tablet(s) 1 TABLET(S) PO QD 11/07/2018 02/02/2019 In active atorvastatin 20 mg t ablet RxNorm: 779351 1 TABLET(S) PO QHS 09/25/2018 09/19/2019 Active allopurinol 300 mg t ablet RxNorm: 028527 1 TABLET(S) PO QD 02/07/2018 05/07/2018 Inactive pantoprazole 40 mg t ablet,delayed release RxNorm: 064805 1 Tablet(s) PO daily 10/01/2017 09/25/2018 In active allopurinol 300 mg t ablet RxNorm: 128253 1 Tablet(s) PO daily 10/01/2017 02/06/2018 Inactive atorvastatin 20 mg t ablet RxNorm: 224631 1 Tablet(s) PO QHS 10/01/2017 09/24/2018 Inactive isosorbide mononitra te ER 30 mg tablet,extended release 24 hr RxNorm: 495587 1 Tablet(s) PO daily 10/01/2017 09/25/2018 Inactive lisinopril 5 mg tablet RxNorm: 462340 1 Tablet(s) PO daily 10/01/2017 09/25/2018 Inactive nitroglycerin buccal RxNorm: 4917 buccal No Start Date Active aspirin 81 mg tablet RxNorm: 537019 1 Tablet(s) PO daily No Start Date Active Fish Oil 360 mg-1,20 0 mg capsule RxNorm: 739235 1 Capsule(s) PO BID No Start Date Active coenzyme Q10 10 mg t ablet RxNorm: 375300 1 Tablet(s) PO daily No Start Date Active Vitamin D2 1,000 uni t capsule RxNorm: 996706 1 Capsule(s) PO daily No Start Date Active atorvastatin 20 mg t ablet RxNorm: 129965 1 Tablet(s) PO QHS No Start Date 09/30/2017 Inactive allopurinol 300 mg t ablet RxNorm: 786127 1 Tablet(s) PO daily No Start Date 09/30/2017 Inactive isosorbide mononitra te ER 30 mg tablet,extended release 24 hr RxNorm: 480748 1 Tablet(s) PO daily No Start Date 09/30/2017 Inactive lisinopril 5 mg tablet RxNorm: 646919 1 Tablet(s) PO daily No Start Date 09/30/2017 Inactive Brilinta 90 mg tablet RxNorm: 7354992 1 Tablet(s) PO BID No Start Date 09/30/2017 Inactive pantoprazole 40 mg t ablet,delayed release RxNorm: 531041 1 Tablet(s) PO daily No Start Date 09/30/2017 Inactive Medication Administered No Medication Administered data Immunizations Vaccine Codes Date Status Tetanus, Diptheria, Pertussis CVX: 113 02/03/2019 completed Tetanus/Diptheria CVX: 113 02/03/2019 completed Influenza CVX: 141 07/12 completed Zoster CVX: 121 08/11/20 15 completed Pneumococcal CVX: 33 11/2014 completed Assessments Condition Codes Effectiv e Dates Essential (primary) hypertension ICD -10: I10 ICD-9: 401.1 03/30/2019 Mixed hyperlipidemia ICD-10: E78.2 ICD-9: 272.2 03/30/2019 Presbycusis, 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 3 ICD-9: 388.01 10/01/2018 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 ICD-9: 728.6 10/01/2017 Gastro-esophageal reflux disease without esophagitis ICD-10: K21.9 ICD-9: 530.81 10/01/2017 Reason For Visit Reason For Visit Effective Dates Notes hypertension 03/30/2019 hypertension 10/01/2018 hypertension 02/05/2018 hypertension 10/01/2017 left Results No Results data Review of Systems System Result Effective Dates Constitutional No recent illness 03/30/2019 Constitutional No [...] No Procedures data Vital Signs Date Vital 03/30/2019 Blood Pressure 1: 140/78 Code: 8480-6 BMI: 26.6 Code: 09606-2 Heart Rate 1: 51 bpm Height: 5'10" SpO2: 98% Weight: 185 lbs 3 oz 10/01/2018 Blood Pressure 1: 112/68 Code: 8480-6 BMI: 27.3 Code: 01447-9 Heart Rate 1: 61 bpm Height: 5'10" SpO2: 98% Weight: 190 lbs 02/05/2018 Blood Pressure 1: 122/72 Code: 8480-6 BMI: 26.5 Code: 10700-1 Heart Rate 1: 80 bpm Height: 5'10" SpO2: 98% Weight: 185 lbs 10/01/2017 Blood Pressure 1: 146/80 Code: 8480-6 BMI: 27.4 Code: 61475-0 Heart Rate 1: 50 bpm Height: 5'10" SpO2: 96% Weight: 191 lbs Functional Status No Functional Status data History of Present Illness Symptom Name Status Resu lt Effective Date Notes Quality chronic 03/30/2019 None Quality primary hypert [...] Encounters Encounter Performer Loca tion Codes Date ([id number]) [id number] EST. P ATIENT, LEVEL IV Diagnosis: Essential (primary) hypertension[ICD10: I10] Diagnosis: Mixed hyperlipidemia[ICD10: E78.2] [facility] CPT- 4: 85309 03/30/2019 ([id number]) [id number] EST. P ATIENT, LEVEL IV Diagnosis: Essential (primary) hypertension[ICD10: I10] Diagnosis: Mixed hyperlipidemia[ICD10: E78.2] Diagnosis: Presbycusis, bilateral[ICD10: H91.13] Kristin Ramsey MD, [facility] CPT-4: 08290 10/01/2018 [id number] EST. 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 03/30/2019 Appointment: Kristin Ramsey WPtel: [address] [place], [place] [address] (15 min) Moderate 03/30/2019 Patient Education: Patient [...] testing. 10/01/2018 [facility]ment[facility] (15 min) Moderate 10/01/2018 Patient Education: Patient Medication Summary Completed 10/01/2018 Patient Education: Cholesterol Management Completed 10/01/2018 Appointment: Kristin Ramsey [facility]el[facility] [facility] [place] (15 min) Moderate 08/06/2018 Visit Plan: [...] medications. 02/05/2018 Appointment: [facility] [place] (15 min) Moderate 02/05/2018 Patient Education: Patient Medication Summary Completed 02/05/2018 Visit Plan: Hypertension - well yenny clifton - continue with current medications, continue with [...] prefer appt at the Ortho clinic in [place] Hyperlipidemia - pt has been counseled about [...] not improving. 10/01/2017 Appointment: Kristin Ramsey WPtel: [address] [place] [address] New Patient 10/01/2017 Patient Education: Patient Medication Summary Completed 10/01/2017 Care Plan: Referral Order SNOMED-CT : [id number] Pending 10/01/2017 Referral: External, Ordering Provider Referral [...] prefer appt at the Ortho clinic in [place] Hyperlipidemia - pt has been counseled about [...]
--- OUTSIDE RECORDS SUMMARY | 2020-03-26 20:11 | XMS REPORT | CCD ---
Author Author Luisito Ramsey Organization Kristin Ramsey MD, [facility] Address [address] [place] [address] Phone Care Team Providers Care K 9 Police Officer Name Role Phone PP Unavailable CCM Unavailable Summary Purpose Interface Exchange Insurance Providers Payer name Policy type / Coverage type Covered constitution party ID Effective Begin Date Effective End Date [employer] Commercial Insurance [id number] Unknown Unknown Family history Brother Diagnosis Age [...] Retir ed 10/01/[address]: 2765307 Quit over 10 years ago Quit 1986 10/01/2017 Alcohol history Unknown pt chooses not to answer 10/01/2017 Allergies, Adverse Reactions, Alerts Substance Reaction Codes Entered Date Inactivated Date Status * NO KNOWN ENVIRONME NTAL ALLERGIES Unknown 10/01/2017 No Inactive Date Active * NO KNOWN FOOD KRISTI RGIES Unknown 10/01/2017 No Inactive Date Active [id number]-[id number]-QGT REDU CTASE INHIBITORS Unknown 10/01/2017 No Inactive [...] Date Stop Date Sta tus Fill Instructions lisinopril 5 mg tablet RxNorm: 036622 1 TABLET(S) PO DAILY 11/10/2018 08/06/2019 Active pantoprazole 40 mg t ablet,delayed release RxNorm: 153969 1 TABLET(S) PO DAILY 11/07/2018 08/03/2019 Ac tive allopurinol 300 mg t ablet RxNorm: 907236 Tablet(s) 1 TABLET(S) PO QD 11/07/2018 02/04/2019 Ac tive isosorbide mononitra te ER 30 mg tablet,extended release 24 hr RxNorm: 828425 1 TABLET(S) PO DAILY 11/07/2018 08/03/2019 Active atorvastatin 20 mg t ablet RxNorm: 720316 1 TABLET(S) PO QHS 09/25/2018 09/19/2019 Active allopurinol 300 mg t ablet RxNorm: 001616 1 TABLET(S) PO QD 02/07/2018 05/07/2018 Inactive pantoprazole 40 mg t ablet,delayed release RxNorm: 590048 1 Tablet(s) PO daily 10/01/2017 09/25/2018 In active allopurinol 300 mg t ablet RxNorm: 591027 1 Tablet(s) PO daily 10/01/2017 02/06/2018 Inactive atorvastatin 20 mg t ablet RxNorm: 528752 1 Tablet(s) PO QHS 10/01/2017 09/24/2018 Inactive isosorbide mononitra te ER 30 mg tablet,extended release 24 hr RxNorm: 497412 1 Tablet(s) PO daily 10/01/2017 09/25/2018 Inactive lisinopril 5 mg tablet RxNorm: 819748 1 Tablet(s) PO daily 10/01/2017 09/25/2018 Inactive nitroglycerin buccal RxNorm: 4917 buccal No Start Date Active aspirin 81 mg tablet RxNorm: 344656 1 Tablet(s) PO daily No Start Date Active Fish Oil 360 mg-1,20 0 mg capsule RxNorm: 069049 1 Capsule(s) PO BID No Start Date Active coenzyme Q10 10 mg t ablet RxNorm: 406846 1 Tablet(s) PO daily No Start Date Active Vitamin D2 1,000 uni t capsule RxNorm: 424952 1 Capsule(s) PO daily No Start Date Active atorvastatin 20 mg t ablet RxNorm: 204741 1 Tablet(s) PO QHS No Start Date 09/30/2017 Inactive allopurinol 300 mg t ablet RxNorm: 002548 1 Tablet(s) PO daily No Start Date 09/30/2017 Inactive isosorbide mononitra te ER 30 mg tablet,extended release 24 hr RxNorm: 637186 1 Tablet(s) PO daily No Start Date 09/30/2017 Inactive lisinopril 5 mg tablet RxNorm: 830096 1 Tablet(s) PO daily No Start Date 09/30/2017 Inactive Brilinta 90 mg tablet RxNorm: 1838387 1 Tablet(s) PO BID No Start Date 09/30/2017 Inactive pantoprazole 40 mg t ablet,delayed release RxNorm: 771112 1 Tablet(s) PO daily No Start Date 09/30/2017 Inactive Medication Administered No Medication Administered data Immunizations Vaccine Codes Date Status Influenza CVX: 141 07/12 completed Zoster CVX: 121 08/11/20 15 completed Pneumococcal CVX: 33 11/2014 completed Assessments Condition Codes Effectiv e Dates Presbycusis, 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 3 ICD-9: 388.01 10/01/2018 Mixed hyperlipidemia ICD-10: E78.2 ICD-9: 272.2 10/01/2018 Essential (primary) hypertension ICD -10: I10 ICD-9: 401.1 10/01/2018 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 ICD-9: 728.6 10/01/2017 Gastro-esophageal reflux disease without esophagitis ICD-10: K21.9 ICD-9: 530.81 10/01/2017 Reason For Visit Reason For Visit Effective Dates Notes hypertension 10/01/2018 hypertension 02/05/2018 hypertension 10/01/2017 left Results No Results data Review of Systems System Result Effective Dates Constitutional No recent illness 10/01/2018 Constitutional No [...] Date Vital 10/01/2018 Blood Pressure 1: 112/68 Code: 8480-6 BMI: 27.3 Code: 34104-1 Heart Rate 1: 61 bpm Height: 5'10" SpO2: 98% Weight: 190 lbs 02/05/2018 Blood Pressure 1: 122/72 Code: 8480-6 BMI: 26.5 Code: 11586-7 Heart Rate 1: 80 bpm Height: 5'10" SpO2: 98% Weight: 185 lbs 10/01/2017 Blood Pressure 1: 146/80 Code: 8480-6 BMI: 27.4 Code: 58883-7 Heart Rate 1: 50 bpm Height: 5'10" SpO2: 96% Weight: 191 lbs Functional Status No Functional Status data History of Present Illness Symptom Name Status Resu lt Effective Date Notes hypertension Quality chr onic 10/01/2018 None hypertension [...] Encounters Encounter Performer Loca tion Codes Date 10865 EST. P ATIENT, LEVEL IV Diagnosis: Essential (primary) hypertension[ICD10: I10] Diagnosis: Mixed hyperlipidemia[ICD10: E78.2] Diagnosis: Presbycusis, bilateral[ICD10: H91.13] [facility] CPT-4: 25677 10/01/2018 26722 EST. PATIENT, LEVEL IV Diagnosis: Essential (primary) hypertension[ICD10: I10] Diagnosis: Mixed hyperlipidemia[ICD10: E78.2] [facility] CPT-4: 78343 02/05/2018 ([id number]) OFFICE VISI T, NEW - LEVEL 4 Diagnosis: Essential (primary) hypertension[ICD10: I10] Diagnosis: Mixed hyperlipidemia[ICD10: E78.2] Diagnosis: Gastro-esophageal reflux disease without esophagitis[ICD10: K21.9] Diagnosis: Palmar fascial fibromatosis [Dupuytren][ICD10: M72.0] [facility] CPT-4: 57004 10/01/2017 Plan of Care Planned Activity Notes [...] hearing testing. 10/01/2018 Appointment: Krist[facility] Ramsey [facility] (15 min) Moderate 10/01/2018 Patient Education: Patient Medication Summary Completed 10/01/2018 Patient Education: Cholesterol Management Completed 10/01/2018 Appointment: Krist[facility] Ramsey [facility] [phone] [facility] [place] (15 min) Moderate 08/06/2018 Visit Plan: [...] medications. 02/05/2018 [facility]ment[facility] (15 min) Moderate 02/05/2018 Patient Education: Patient [...] prefer appt at the Ortho clinic in [place] Hyperlipidemia - pt has been counseled about [...] improving. 10/01/2017 Appointment: Kristin Ramsey [facility] [address] [facility] New Patient 10/01/2017 Patient Education: Patient Medication Summary Completed 10/01/2017 Care Plan: Referral Order SNOMED-CT : [id number] Pending 10/01/2017 Referral: External, Ordering Provider Referral [...] left hand - prefer appt at the [facility] in [place] Hyperlipidemia - pt has been counseled about [...]
--- OUTSIDE RECORDS SUMMARY | 2020-03-26 20:11 | XMS REPORT | CCD ---
Author Author Luisito Ramsey Organization Kristin Ramsey MD, [facility] Address [address] [place] [address] Phone Care Team Providers Care Operational Trainer Name Role Phone PP Unavailable CCM Unavailable Summary Purpose Interface Exchange Insurance Providers Payer name Policy type / Coverage type Covered republican ID Effective Begin Date Effective End Date [employer] Commercial Insurance [id number] Unknown Unknown Family history Brother Diagnosis Age [...] Retir ed 10/01/[address]: 9998832 Quit over 10 years ago Quit 1986 10/01/2017 Alcohol history Unknown pt chooses not to answer 10/01/2017 Allergies, Adverse Reactions, Alerts Substance Reaction Codes Entered Date Inactivated Date Status * NO KNOWN ENVIRONME NTAL ALLERGIES Unknown 10/01/2017 No Inactive Date Active * NO KNOWN FOOD KRISTI RGIES Unknown 10/01/2017 No Inactive Date Active KLCXPIU-ELZ-ALA REDU CTASE INHIBITORS Unknown 10/01/2017 No Inactive [...] pantoprazole 40 mg t ablet,delayed release RxNorm: 520944 1 TABLET(S) PO DAILY 11/07/2018 08/03/2019 Ac tive allopurinol 300 mg t ablet RxNorm: 868103 Tablet(s) 1 TABLET(S) PO QD 11/07/2018 02/04/2019 Ac tive isosorbide mononitra te ER 30 mg tablet,extended release 24 hr RxNorm: 651476 1 TABLET(S) PO DAILY 11/07/2018 08/03/2019 Active atorvastatin 20 mg t ablet RxNorm: 427274 1 TABLET(S) PO QHS 09/25/2018 09/19/2019 Active allopurinol 300 mg t ablet RxNorm: 931297 1 TABLET(S) PO QD 02/07/2018 05/07/2018 Inactive lisinopril 5 mg tablet RxNorm: 318125 1 Tablet(s) PO daily 10/01/2017 09/25/2018 Inactive pantoprazole 40 mg t ablet,delayed release RxNorm: 620795 1 Tablet(s) PO daily 10/01/2017 09/25/2018 In active allopurinol 300 mg t ablet RxNorm: 104955 1 Tablet(s) PO daily 10/01/2017 02/06/2018 Inactive atorvastatin 20 mg t ablet RxNorm: 181870 1 Tablet(s) PO QHS 10/01/2017 09/24/2018 Inactive isosorbide mononitra te ER 30 mg tablet,extended release 24 hr RxNorm: 414680 1 Tablet(s) PO daily 10/01/2017 09/25/2018 Inactive nitroglycerin buccal RxNorm: 4917 buccal No Start Date Active aspirin 81 mg tablet RxNorm: 229879 1 Tablet(s) PO daily No Start Date Active Fish Oil 360 mg-1,20 0 mg capsule RxNorm: 608568 1 Capsule(s) PO BID No Start Date Active coenzyme Q10 10 mg t ablet RxNorm: 124459 1 Tablet(s) PO daily No Start Date Active Vitamin D2 1,000 uni t capsule RxNorm: 063477 1 Capsule(s) PO daily No Start Date Active atorvastatin 20 mg t ablet RxNorm: 447739 1 Tablet(s) PO QHS No Start Date 09/30/2017 Inactive allopurinol 300 mg t ablet RxNorm: 347102 1 Tablet(s) PO daily No Start Date 09/30/2017 Inactive isosorbide mononitra te ER 30 mg tablet,extended release 24 hr RxNorm: 952382 1 Tablet(s) PO daily No Start Date 09/30/2017 Inactive lisinopril 5 mg tablet RxNorm: 421002 1 Tablet(s) PO daily No Start Date 09/30/2017 Inactive Brilinta 90 mg tablet RxNorm: 6217583 1 Tablet(s) PO BID No Start Date 09/30/2017 Inactive pantoprazole 40 mg t ablet,delayed release RxNorm: 855286 1 Tablet(s) PO daily No Start Date [...] 1: 112/68 Code: 8480-6 BMI: 27.3 Code: 59108-4 Heart Rate 1: 61 bpm Height: 5'10" SpO2: 98% Weight: 190 lbs 02/05/2018 Blood Pressure 1: 122/72 Code: 8480-6 BMI: 26.5 Code: 01350-3 Heart Rate 1: 80 bpm Height: 5'10" SpO2: 98% Weight: 185 lbs 10/01/2017 Blood Pressure 1: 146/80 Code: 8480-6 BMI: 27.4 Code: 34777-3 Heart Rate 1: 50 bpm Height: 5'10" [...] Encounters Encounter Performer Loca tion Codes Date ( 85830 EST. P ATIENT, LEVEL IV Diagnosis: Essential (primary) hypertension[ICD10: I10] Diagnosis: Mixed hyperlipidemia[ICD10: E78.2] Diagnosis: Presbycusis, bilateral[ICD10: H91.13] [facility] CPT-4: 41179 10/01/2018 79320 EST. PATIENT, LEVEL IV Diagnosis: Essential (primary) hypertension[ICD10: I10] Diagnosis: Mixed hyperlipidemia[ICD10: E78.2] [facility] CPT-4: 88951 02/05/2018 ([id number]) OFFICE VISI T, NEW - LEVEL 4 Diagnosis: Essential (primary) hypertension[ICD10: I10] Diagnosis: Mixed hyperlipidemia[ICD10: E78.2] Diagnosis: Gastro-esophageal reflux disease without esophagitis[ICD10: K21.9] Diagnosis: Palmar fascial fibromatosis [Dupuytren][ICD10: M72.0] Kristin Ramsey MD[facility] CPT-4: 11266 10/01/2017 Plan of Care Planned Activity Notes [...] hearing testing. 10/01/2018 Appointment: Kristin Ramsey WPtel[facility] (15 min) Moderate 10/01/2018 Patient Education: Patient Medication Summary Completed 10/01/2018 Patient Education: Cholesterol Management Completed 10/01/2018 Appointment: Kristin Ramsey WPtel: [facility] (15 min) Moderate 08/06/2018 Visit Plan: [...] medications. 02/05/2018 Appointment: [facility] Shah [facility] [phone] [facility] (15 min) Moderate 02/05/2018 Patient Education: Patient [...] prefer appt at the Ortho clinic in [place] Hyperlipidemia - pt has been counseled about [...] improving. 10/01/2017 Appointment: Kristin Ramsey [facility]el[facility] [phone] [facility] [place] New Patient 10/01/2017 Patient Education: Patient Medication Summary Completed 10/01/2017 Care Plan: Referral Order SNOMED-CT : [id number] Pending 10/01/2017 Referral: External, Ordering Provider Referral [...] left hand - prefer appt at the [facility] clinic in [place] Hyperlipidemia - pt has been counseled about [...]
--- OUTSIDE RECORDS SUMMARY | 2020-03-26 20:11 | XMS REPORT | CCD ---
Author Author Luisito Ramsey Organization Kristin Ramsey MD, [facility] Address [address] [place] [address] Phone Care Team Providers Care Lead Technician Name Role Phone PP Unavailable CCM Unavailable Summary Purpose Interface Exchange Insurance Providers Payer name Policy type / Coverage type Covered democrat ID Effective Begin Date Effective End Date [employer] Commercial Insurance [id number] Unknown Unknown Family history Brother Diagnosis Age [...] Retir ed 10/01/[address]: 1727410 Quit over 10 years ago Quit 1986 10/01/2017 Alcohol history Unknown pt chooses not to answer 10/01/2017 Allergies, Adverse Reactions, Alerts Substance Reaction Codes Entered Date Inactivated Date Status * NO KNOWN ENVIRONME NTAL ALLERGIES Unknown 10/01/2017 No Inactive Date Active * NO KNOWN FOOD KRISTI RGIES Unknown 10/01/2017 No Inactive Date Active WUBXVHP-HPT-NMR REDU CTASE INHIBITORS Unknown 10/01/2017 No Inactive [...] Instructions allopurinol 300 mg t ablet RxNorm: 200175 TABLET(S) 1 TABLET(S) PO QD 02/03/2019 01/28/2020 Ac tive lisinopril 5 mg tablet RxNorm: 139116 1 TABLET(S) PO DAILY 11/10/2018 08/06/2019 Active pantoprazole 40 mg t ablet,delayed release RxNorm: 065142 1 TABLET(S) PO DAILY 11/07/2018 08/03/2019 Ac tive isosorbide mononitra te ER 30 mg tablet,extended release 24 hr RxNorm: 680380 1 TABLET(S) PO DAILY 11/07/2018 08/03/2019 Active allopurinol 300 mg t ablet RxNorm: 628199 Tablet(s) 1 TABLET(S) PO QD 11/07/2018 02/02/2019 In active atorvastatin 20 mg t ablet RxNorm: 839958 1 TABLET(S) PO QHS 09/25/2018 09/19/2019 Active allopurinol 300 mg t ablet RxNorm: 449240 1 TABLET(S) PO QD 02/07/2018 05/07/2018 Inactive pantoprazole 40 mg t ablet,delayed release RxNorm: 720028 1 Tablet(s) PO daily 10/01/2017 09/25/2018 In active allopurinol 300 mg t ablet RxNorm: 652182 1 Tablet(s) PO daily 10/01/2017 02/06/2018 Inactive atorvastatin 20 mg t ablet RxNorm: 194285 1 Tablet(s) PO QHS 10/01/2017 09/24/2018 Inactive isosorbide mononitra te ER 30 mg tablet,extended release 24 hr RxNorm: 361239 1 Tablet(s) PO daily 10/01/2017 09/25/2018 Inactive lisinopril 5 mg tablet RxNorm: 065733 1 Tablet(s) PO daily 10/01/2017 09/25/2018 Inactive nitroglycerin buccal RxNorm: 4917 buccal No Start Date Active aspirin 81 mg tablet RxNorm: 498014 1 Tablet(s) PO daily No Start Date Active Fish Oil 360 mg-1,20 0 mg capsule RxNorm: 021184 1 Capsule(s) PO BID No Start Date Active coenzyme Q10 10 mg t ablet RxNorm: 974875 1 Tablet(s) PO daily No Start Date Active Vitamin D2 1,000 uni t capsule RxNorm: 848668 1 Capsule(s) PO daily No Start Date Active atorvastatin 20 mg t ablet RxNorm: 952219 1 Tablet(s) PO QHS No Start Date 09/30/2017 Inactive allopurinol 300 mg t ablet RxNorm: 270241 1 Tablet(s) PO daily No Start Date 09/30/2017 Inactive isosorbide mononitra te ER 30 mg tablet,extended release 24 hr RxNorm: 267311 1 Tablet(s) PO daily No Start Date 09/30/2017 Inactive lisinopril 5 mg tablet RxNorm: 973359 1 Tablet(s) PO daily No Start Date 09/30/2017 Inactive Brilinta 90 mg tablet RxNorm: 5853040 1 Tablet(s) PO BID No Start Date 09/30/2017 Inactive pantoprazole 40 mg t ablet,delayed release RxNorm: 011851 1 Tablet(s) PO daily No Start Date [...] 1: 112/68 Code: 8480-6 BMI: 27.3 Code: 99844-0 Heart Rate 1: 61 bpm Height: 5'10" SpO2: 98% Weight: 190 lbs 02/05/2018 Blood Pressure 1: 122/72 Code: 8480-6 BMI: 26.5 Code: 42488-0 Heart Rate 1: 80 bpm Height: 5'10" SpO2: 98% Weight: 185 lbs 10/01/2017 Blood Pressure 1: 146/80 Code: 8480-6 BMI: 27.4 Code: 50614-9 Heart Rate 1: 50 bpm Height: 5'10" [...] Encounters Encounter Performer Loca tion Codes Date ([id number]) 71702 EST. P ATIENT, LEVEL IV Diagnosis: Essential (primary) hypertension[ICD10: I10] Diagnosis: Mixed hyperlipidemia[ICD10: E78.2] Diagnosis: Presbycusis, bilateral[ICD10: H91.13] Kristin Ramsey MD, [facility] CPT-4: 25863 10/01/2018 86258 EST. PATIENT, LEVEL IV Diagnosis: Essential (primary) hypertension[ICD10: I10] Diagnosis: Mixed hyperlipidemia[ICD10: E78.2] Martha Ramsey MD, [facility] CPT-4: 01764 02/05/2018 ([id number]) OFFICE [facility] - LEVEL 4 Diagnosis: Essential (primary) hypertension[ICD10: I10] Diagnosis: Mixed hyperlipidemia[ICD10: E78.2] Diagnosis: Gastro-esophageal reflux disease without esophagitis[ICD10: K21.9] Diagnosis: Palmar fascial fibromatosis [Dupuytren][ICD10: M72.0] Kristin Ramsey MD, [facility] CPT-4: 17510 10/01/2017 Plan of Care Planned Activity Notes [...] hearing testing. 10/01/2018 Appointment: Kristin Ramsey WPtel: [facility] (15 min) Moderate 10/01/2018 Patient Education: Patient Medication Summary Completed 10/01/2018 Patient Education: Cholesterol Management Completed 10/01/2018 Appointment: Kristin Ramsey WPtel: [facility] (15 min) Moderate 08/06/2018 Visit Plan: Hypertension [...] medications. 02/05/2018 Appointment: Martha Shah WPtel: [address] [facility] (15 min) Moderate 02/05/2018 Patient Education: Patient [...] prefer appt at the Ortho clinic in [place] Hyperlipidemia - pt has been counseled about [...] not improving. 10/01/2017 Appointment: Kristin Ramsey WPtel: [address] [facility] New Patient 10/01/2017 Patient Education: Patient Medication Summary Completed 10/01/2017 Care Plan: Referral Order SNOMED-CT : [id number] Pending 10/01/2017 Referral: External, Ordering Provider Referral [...] left hand - prefer appt at the [facility] in [place] Hyperlipidemia - pt has been counseled about [...]
--- OUTSIDE RECORDS SUMMARY | 2020-03-26 20:12 | XMS REPORT | CCD ---
Author Author Luisito Ramsey Organization Kristin Ramsey MD, [facility] Address [address] [place] [address] Phone Care Team Providers Care Discharge Door Operator Name Role Phone PP Unavailable CCM Unavailable Summary Purpose Interface Exchange Insurance Providers Payer name Policy type / Coverage type Covered republican ID Effective Begin Date Effective End Date [employer] Commercial Insurance [id number] Unknown Unknown Family history Brother Diagnosis Age [...] Retir ed 10/01/[address]: 5601312 Quit over 10 years ago Quit 1986 10/01/2017 Alcohol history Unknown pt chooses not to answer 10/01/2017 Allergies, Adverse Reactions, Alerts Substance Reaction Codes Entered Date Inactivated Date Status * NO KNOWN ENVIRONME NTAL ALLERGIES Unknown 10/01/2017 No Inactive Date Active * NO KNOWN FOOD KRISTI RGIES Unknown 10/01/2017 No Inactive Date Active [id number] REDU CTASE INHIBITORS Unknown 10/01/2017 No Inactive [...] Instructions allopurinol 300 mg t ablet RxNorm: 047624 Tablet(s) 1 TABLET(S) PO QD 11/07/2018 02/04/2019 Ac tive isosorbide mononitra te ER 30 mg tablet,extended release 24 hr RxNorm: 483965 1 TABLET(S) PO DAILY 11/07/2018 08/03/2019 Active atorvastatin 20 mg t ablet RxNorm: 145647 1 TABLET(S) PO QHS 09/25/2018 09/19/2019 Active allopurinol 300 mg t ablet RxNorm: 933573 1 TABLET(S) PO QD 02/07/2018 05/07/2018 Inactive pantoprazole 40 mg t ablet,delayed release RxNorm: 344885 1 Tablet(s) PO daily 10/01/2017 09/25/2018 In active lisinopril 5 mg tablet RxNorm: 360149 1 Tablet(s) PO daily 10/01/2017 09/25/2018 Inactive allopurinol 300 mg t ablet RxNorm: 661516 1 Tablet(s) PO daily 10/01/2017 02/06/2018 Inactive atorvastatin 20 mg t ablet RxNorm: 633988 1 Tablet(s) PO QHS 10/01/2017 09/24/2018 Inactive isosorbide mononitra te ER 30 mg tablet,extended release 24 hr RxNorm: 088100 1 Tablet(s) PO daily 10/01/2017 09/25/2018 Inactive nitroglycerin buccal RxNorm: 4917 buccal No Start Date Active aspirin 81 mg tablet RxNorm: 804132 1 Tablet(s) PO daily No Start Date Active Fish Oil 360 mg-1,20 0 mg capsule RxNorm: 001898 1 Capsule(s) PO BID No Start Date Active coenzyme Q10 10 mg t ablet RxNorm: 473152 1 Tablet(s) PO daily No Start Date Active Vitamin D2 1,000 uni t capsule RxNorm: 961315 1 Capsule(s) PO daily No Start Date Active atorvastatin 20 mg t ablet RxNorm: 659767 1 Tablet(s) PO QHS No Start Date 09/30/2017 Inactive allopurinol 300 mg t ablet RxNorm: 578554 1 Tablet(s) PO daily No Start Date 09/30/2017 Inactive isosorbide mononitra te ER 30 mg tablet,extended release 24 hr RxNorm: 545373 1 Tablet(s) PO daily No Start Date 09/30/2017 Inactive lisinopril 5 mg tablet RxNorm: 863707 1 Tablet(s) PO daily No Start Date 09/30/2017 Inactive Brilinta 90 mg tablet RxNorm: 1780431 1 Tablet(s) PO BID No Start Date 09/30/2017 Inactive pantoprazole 40 mg t ablet,delayed release RxNorm: 637012 1 Tablet(s) PO daily No Start Date 09/30/2017 Inactive Medication Administered No Medication Administered data Immunizations Vaccine Codes Date Status Influenza CVX: 141 07/12 completed Zoster CVX: 121 08/11/20 15 completed Pneumococcal CVX: 33 11/2014 completed Assessments Condition Codes Effectiv e Dates Essential (primary) hypertension ICD -10: I10 ICD-9: 401.1 10/01/2018 Mixed hyperlipidemia ICD-10: E78.2 ICD-9: 272.2 10/01/2018 Presbycusis, 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 3 ICD-9: 388.01 10/01/2018 Gastro-esophageal reflux disease without esophagitis ICD-10: K21.9 ICD-9: 530.81 10/01/2017 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 P ATIENT, LEVEL IV Diagnosis: Essential (primary) hypertension[ICD10: I10] Diagnosis: Mixed hyperlipidemia[ICD10: E78.2] Diagnosis: Presbycusis, bilateral[ICD10: H91.13] Kristin Ramsey MD, [facility] CPT-4: 65088 10/01/2018 [id number] EST. PATIENT, LEVEL IV Diagnosis: Essential (primary) hypertension[ICD10: I10] Diagnosis: Mixed hyperlipidemia[ICD10: E78.2] Martha Ramsey MD, [facility] CPT-4: 89672 02/05/2018 ([id number]) OFFICE VISI T, NEW - LEVEL 4 Diagnosis: Essential (primary) hypertension[ICD10: I10] Diagnosis: Mixed hyperlipidemia[ICD10: E78.2] Diagnosis: Gastro-esophageal reflux disease without esophagitis[ICD10: K21.9] Diagnosis: Palmar fascial fibromatosis [Dupuytren][ICD10: M72.0] Kristin Ramsey MD, C CPT-4: 73159 10/01/2017 Plan of Care Planned Activity Notes C odes Status Date Visit Plan: Hypertension - well con lavernlled - continue with current medications, continue with [...] testing. 10/01/2018 [facility] [phone] [facility] [place] ([facility] min) Moderate 10/01/2018 Patient Education: Patient Medication Summary Completed 10/01/2018 Patient Education: Cholesterol Management Completed 10/01/2018 [facility]: [facility] [phone] [facility] [place] (15 min) Moderate 08/06/2018 Visit Plan: Hypertension - well con alfredoed - continue with current medications, continue with [...] medications. 02/05/2018 [facility]ment: [facility] [phone] [facility] (15 min) Moderate 02/05/2018 Patient Education: Patient [...] prefer appt at the [facility] in [place] Hyperlipidemia - pt has been counseled about [...] improving. 10/01/2017 [facility]: [facility] [phone] [facility] New Patient 10/01/2017 Patient Education: Patient Medication Summary Completed 10/01/2017 Care Plan: Referral Order SNOMED-CT : [id number] Pending 10/01/2017 Referral: External, Ordering Provider Referral [...] left hand - prefer appt at the [facility] in [place] Hyperlipidemia - pt has been counseled about [...]
[2020-03-26 20:13] LABS: BASOPHILS # (AUTO) 0.1 10^3/uL (0.0-0.1); BASOPHILS % (AUTO) 1 % (0-10); EOSINOPHILS # (AUTO) 0.6 10^3/uL (0.0-0.3); EOSINOPHILS % (AUTO) 7 % (0-10); HEMATOCRIT 42 % (40-54); HEMOGLOBIN 14.5 G/DL (13.3-17.7); LYMPHOCYTES # (AUTO) 2.7 X 10^3 (1.0-4.0); LYMPHOCYTES % (AUTO) 32 % (12-44); MEAN CORPUSCULAR HEMOGLOBIN 32 PG (25-34); MEAN CORPUSCULAR HGB CONC 35 G/DL (32-36); MEAN CORPUSCULAR VOLUME 91 FL (80-99); MEAN PLATELET VOLUME 9.8 FL (7.4-10.4); MONOCYTES # (AUTO) 0.9 X 10^3 (0.0-1.0); MONOCYTES % (AUTO) 10 % (0-12); NEUTROPHILS # (AUTO) 4.3 X 10^3 (1.8-7.8); NEUTROPHILS % (AUTO) 50 % (42-75); PLATELET COUNT 257 10^3/uL (130-400); RED CELL DISTRIBUTION WIDTH 14.5 % (10.0-14.5); WHITE BLOOD COUNT 8.5 10^3/uL (4.3-11.0)
--- NOTE | 2020-03-26 20:13 | ED Neurological Problem ---
General Stated Complaint: R SIDE NUMBNESS Source: patient Exam Limitations: no limitations History of Present Illness Date Seen by Provider: March 26, 2020 Time Seen by Provider: 20:09 Initial Comments To ER with sudden onset right-sided facial numbness. His began about 1.5 hours ago while at home. He states that his teeth felt as if he didn't dentist, he co uldn't feel anything on the right side of his forehead and on his scalp. Stop that his neck. There were no symptoms involving the arms and fingers or toes. No troubles with dizziness no gait no speech difficulties. His symptoms have almost completely resolved at this time, he states when he bites down quickly his teeth still feel a little unusual. Timing/Duration: 1-3 hours Severity: moderate Allergies and Home Medications Allergies Coded Allergies: rosuvastatin (Verified Adverse Reaction, Mild, HOME MED = LIPITOR, 06/13/16) Myalgia Home Medications Acetaminophen 650 Mg Tablet.er, 1,300 MG PO Q8H PRN for PAIN-MILD (1-4), (Reported) Allopurinol 300 Mg Tablet, 300 MG PO DAILY, (Reported) Aspirin 81 Mg Tablet.dr, 81 MG PO DAILY, (Reported) Atorvastatin Calcium 20 Mg Tablet, 20 MG PO HS, (Reported) Cholecalciferol (Vitamin D3) 2,000 Unit Tablet, 2,000 UNIT PO DAILY, (Reported) Isosorbide Mononitrate 30 Mg Tab.er.24h, 30 MG PO DAILY, (Reported) Lisinopril 10 Mg Tablet, 10 MG PO DAILY, (Reported) [place]-3/Dha/Epa/Fish Oil 1 Each Capsule, 1,000 MG PO DAILY, (Reported) Pantoprazole Sodium 40 Mg Tablet.dr, 40 MG PO DAILY, (Reported) Ubidecarenone 100 Mg Capsule, 100 MG PO DAILY, (Reported) Patient Home Medication List Home Medication List Reviewed: Yes Review of Systems Review of Systems Constitutional: see HPI Eyes: No Symptoms Reported Ears, Nose, Mouth, Throat: no symptoms reported Respiratory: no symptoms reported Cardiovascular: no symptoms reported Genitourinary: no symptoms reported Musculoskeletal: no symptoms reported Skin: no symptoms reported Psychiatric/Neurological: See HPI Endocrine: No Symptoms Reported Hematologic/Lymphatic: No Symptoms Reported Past Wrudgph-Ffufzq-Hnlfyy Hx Patient Social History Alcohol Beverage of Choice: Beer Type Used: Cigarettes Former Smoker, Quit: Jun 13, 1985 Recent Hopitalizations: No Immunizations Up To Date Tetanus Booster (TDap): Unknown Date of Pneumonia Vaccine: Aug 13, 2015 Date of Influenza Vaccine: Aug 11, 2018 Seasonal Allergies Seasonal Allergies: Yes Past Medical History Coronary Stent, Ear Surgery, Eye Surgery Respiratory: No Currently Using CPAP: No Currently Using BIPAP: No Cardiac: Yes (stents x4) Coronary Artery Disease, Heart Attack, High Cholesterol, Hypertension Neurological: No Reproductive Disorders: No Genitourinary: No Gastrointestinal: Yes Gastroesophageal Reflux, Polyps Arthritis, Gout Cancer: No Blood Disorders: No Family Medical History Cancer, Stroke Physical Exam Vital Signs Capillary Refill : Height, Weight, BMI Height: 5'9.00" Weight: 189lbs. 0.0oz. 85.319769sm; 26.79 BMI Method:Stated General Appearance: WD/WN, no apparent distress HEENT: PERRL/EOMI, normal ENT inspection Neck: non-tender, full range of motion Respiratory: no respiratory distress, no accessory muscle use Gastrointestinal: normal bowel sounds, soft Extremities: normal range of motion Neurologic/Psychiatric: alert, normal mood/affect, oriented x 3 Crainal Nerves: normal hearing, normal speech, PERRL Skin: normal color, warm/dry Progress/Results/Core Measures Results/Orders Lab Results Laboratory Tests Test 03/26/20 20:05 03/26/20 20:08 Range/Units White Blood Count 8.5 4.3-11.0 10^3/uL Red Blood Count 4.58 4.35-5.85 10^6/uL Hemoglobin 14.5 13.3-17.7 G/DL Hematocrit 42 40-54 % Mean Corpuscular Volume 91 80-99 FL Mean Corpuscular Hemoglobin 32 25-34 PG Mean Corpuscular Hemoglobin Concent 35 32-36 G/DL Red Cell Distribution Width 14.5 10.0-14.5 % Platelet Count 257 130-400 10^3/uL Mean Platelet Volume 9.8 7.4-10.4 FL Neutrophils (%) (Auto) 50 42-75 % Lymphocytes (%) (Auto) 32 12-44 % Monocytes (%) (Auto) 10 0-12 % Eosinophils (%) (Auto) 7 0-10 % Basophils (%) (Auto) 1 0-10 % Neutrophils # (Auto) 4.3 1.8-7.8 X 10^3 Lymphocytes # (Auto) 2.7 1.0-4.0 X 10^3 Monocytes # (Auto) 0.9 0.0-1.0 X 10^3 Eosinophils # (Auto) 0.6 H 0.0-0.3 10^3/uL Basophils # (Auto) 0.1 0.0-0.1 10^3/uL Prothrombin Time 13.0 12.2-14.7 SEC INR Comment 0.9 0.8-1.4 Sodium Level 143 135-145 MMOL/L Potassium Level 4.1 3.6-5.0 MMOL/L Chloride Level 109 H 98-107 MMOL/L Carbon Dioxide Level 21 21-32 MMOL/L Anion Gap 13 5-14 MMOL/L Blood Urea Nitrogen 22 H 7-18 MG/DL Creatinine 1.39 H 0.60-1.30 MG/DL Estimat Glomerular Filtration Rate 49 BUN/Creatinine Ratio 16 Glucose Level 151 H 70-105 MG/DL Calcium Level 9.1 8.5-10.1 MG/DL Corrected Calcium 8.8 8.5-10.1 MG/DL Total Bilirubin 0.4 0.1-1.0 MG/DL Aspartate Amino Transf (AST/SGOT) 26 5-34 U/L Alanine Aminotransferase (ALT/SGPT) 15 0-55 U/L Alkaline Phosphatase 83 40-136 U/L Total Protein 7.1 6.4-8.2 GM/DL Albumin 4.4 3.2-4.5 GM/DL Glucometer 137 H 70-110 MG/DL My Orders Orders - J CARLOS JIN APRN Ct Head Wo (03/26/20 20:06) Cbc With Automated Diff (03/26/20 20:06) Comprehensive Metabolic Panel (03/26/20 20:06) Protime With Inr (03/26/20 20:06) Departure Communication (Admissions) 2046-CT was unremarkable. Labs unremarkable. Impression Primary Impression: Seventh cranial nerve disorder Disposition: HOME, SELF-CARE Condition: Stable Departure-Patient Inst. Decision time for Depature: 21:11 Referrals: STEPHANIE RUCKER MD (PCP/Family) Primary Care Physician Patient Instructions: Shetty's Palsy (DC) Add. Discharge Instructions: Return to ER for any concerns 2. Follow-up with Dr. [place] 3. Copy Copies To 1: STEPHANIE RUCKER MD, PETER J APRN March 26, 2020 20:13
--- OUTSIDE RECORDS SUMMARY | 2020-03-26 20:13 | XMS REPORT | Continuity of Care Document ---
Author Organization Unknown Address Unknown Phone Unavailable Allergies Active Description Code Type Severity Reaction Onset Reported/Identified Relationship to Patient Clinical Status Yes rosuvastatin [id number] Drug Allergy Mild HOME MED = LIPI 06/13/2016 Yes rosuvastatin [id number] Drug Allergy Mild N/A 06/13/2016 Yes No Known Drug Allergies [id number] Drug Allergy Unknown N/A 06/13/2016 Medications There is no data. Problems Date Dx Coded Attending Type Code Diagnosis Diagnosed By 06/14/2016 GLADYS KNOWLES MD, Ot E78. 0 PURE HYPERCHOLESTEROLEMIA 06/14/2016 LGADYS KNOWLES MD Ot I12. 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 10 ATHSCL HEART DISEASE OF [place] CORONARY 06/14/2016 GLADYS KNOWLES MD Ot I47. 2 VENTRICULAR TACHYCARDIA 06/14/2016 GLADYS KNOWLES MD Ot I49. 5 SICK SINUS SYNDROME 06/14/2016 GLADYS KNOWLES MD Ot I77. 1 STRICTURE OF ARTERY 06/14/2016 GLADYS KNOWLES MD Ot M10. 9 GOUT, UNSPECIFIED 06/14/2016 GLADYS KNOWLES MD Ot N18. 9 CHRONIC KIDNEY DISEASE, UNSPECIFIED 06/14/2016 GLADYS KNOWLES MD Ot T81.10XA POSTPROCEDURAL SHOCK UNSPECIFIED, INITIA 06/14/2016 GLADYS KNOWLES MD Ot Z87.891 PERSONAL HISTORY OF NICOTINE DEPENDENCE 06/15/2016 GLADYS KNOWLES MD Ot E78. 0 PURE HYPERCHOLESTEROLEMIA 06/15/2016 GLADYS KNOWLES MD Ot I12. 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 10 ATHSCL HEART DISEASE OF [place] CORONARY 06/15/2016 GLADYS KNOWLES MD Ot I47. 2 VENTRICULAR TACHYCARDIA 06/15/2016 GLADYS KNOWLES MD Ot I49. 5 SICK SINUS SYNDROME 06/15/2016 GLADYS KNOWLES MD Ot I77. 1 STRICTURE OF ARTERY 06/15/2016 GLADYS KNOWLES MD Ot M10. 9 GOUT, UNSPECIFIED 06/15/2016 GLADYS KNOWLES MD Ot N18. 9 CHRONIC KIDNEY DISEASE, UNSPECIFIED 06/15/2016 GLADYS KNOWLES MD Ot T81.10XA POSTPROCEDURAL SHOCK UNSPECIFIED, INITIA 06/15/2016 GLADYS KNOWLES MD Ot Z87.891 PERSONAL HISTORY OF NICOTINE DEPENDENCE 06/15/2016 GLADYS KNOWLES MD Ot E78. 0 PURE HYPERCHOLESTEROLEMIA 06/15/2016 GLADYS KNOWLES MD Ot I12. 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 10 ATHSCL HEART DISEASE OF [place] CORONARY 06/15/2016 GLADYS KNOWLES MD Ot I47. 2 VENTRICULAR TACHYCARDIA 06/15/2016 GLADYS KNOWLES MD Ot I49. 5 SICK SINUS SYNDROME 06/15/2016 GLADYS KNOWLES MD Ot I77. 1 STRICTURE OF ARTERY 06/15/2016 GLADYS KNOWLES MD Ot M10. 9 GOUT, UNSPECIFIED 06/15/2016 GLADYS KNOWLES MD Ot N18. 9 CHRONIC KIDNEY DISEASE, UNSPECIFIED 06/15/2016 GLADYS KNOWLES MD Ot T81.10XA POSTPROCEDURAL SHOCK UNSPECIFIED, INITIA 06/15/2016 GLADYS KNOWLES MD Ot Z87.891 PERSONAL HISTORY OF NICOTINE DEPENDENCE 06/15/2016 GLADYS KNOWLES MD Ot E78. 0 PURE HYPERCHOLESTEROLEMIA 06/15/2016 GLADYS KNOWLES MD Ot E78. 5 HYPERLIPIDEMIA, UNSPECIFIED 06/15/2016 GLADYS KNOWLES MD Ot I12. 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 10 ATHSCL HEART DISEASE OF [place] CORONARY 06/15/2016 GLADYS KNOWLES MD Ot I47. 2 VENTRICULAR TACHYCARDIA 06/15/2016 GLADYS KNOWLES MD, Ot I49. 5 SICK SINUS SYNDROME 06/15/2016 GLADYS KNOWLES MD Ot I77. 1 STRICTURE OF ARTERY 06/15/2016 GLADYS KNOWLES MD Ot M10. 9 GOUT, UNSPECIFIED 06/15/2016 GLADYS KNOWLES MD Ot N18. 9 CHRONIC KIDNEY DISEASE, UNSPECIFIED 06/15/2016 GLADYS KNOWLES MD, Ot T81.10XA POSTPROCEDURAL SHOCK UNSPECIFIED, INITIA 06/15/2016 GLADYS KNOWLES MD Ot Z87.891 PERSONAL HISTORY OF NICOTINE DEPENDENCE 07/07/2016 KEITH CHAPA MD Ot I97.610 POSTPROC HEMOR/HEMTOM OF A CIRC SYS ORG 07/09/2016 KEITH CHAPA MD Ot I97.610 POSTPROC HEMOR/HEMTOM OF A CIRC SYS ORG 08/15/2016 GLADYS KNOWLES MD, Ot I25. 2 OLD MYOCARDIAL INFARCTION 08/15/2016 GLADYS KNOWLES MD Ot Z48.812 ENCNTR FOR SURGICAL AFTCR FOLLOWING SURG 08/15/2016 GLADYS KNOWLES MD Ot Z95. 5 PRESENCE OF CORONARY ANGIOPLASTY IMPLANT 08/15/2016 GLADYS KNOWLES MD, Ot E78. 5 HYPERLIPIDEMIA, UNSPECIFIED 08/15/2016 GLADYS KNOWLES MD Ot I12. 9 HYPERTENSIVE CHRONIC KIDNEY DISEASE W ST 08/15/2016 GLADYS KNOWLES MD Ot I25. 10 ATHSCL HEART DISEASE OF [place] CORONARY 08/15/2016 GLADYS KNOWLES MD, Ot I25. 2 OLD MYOCARDIAL INFARCTION 08/15/2016 GLADYS KNOWLES MD Ot I25. 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 8 OTHER NONRHEUMATIC AORTIC VALVE DISORDER 08/15/2016 GLADYS KNOWLES MD Ot I49. 5 SICK SINUS SYNDROME 08/15/2016 GLADYS KNOWLES MD Ot I50. 22 CHRONIC SYSTOLIC (CONGESTIVE) HEART FAIL 08/15/2016 GLADYS KNOWLES MD, Ot N18. 9 CHRONIC KIDNEY DISEASE, UNSPECIFIED 08/15/2016 GLADYS KNOWLES MD Ot Z79.899 OTHER SALES REPRESENTATIVE PRINTING PAPER (CURRENT) DRUG THERAPY 08/15/2016 GLADYS KNOWLES MD Ot Z87.891 PERSONAL HISTORY OF NICOTINE DEPENDENCE 08/15/2016 GLADYS KNOWLES MD Ot Z95. 5 PRESENCE OF CORONARY ANGIOPLASTY IMPLANT 09/11/2016 GLADYS KNOWLES MD Ot E78. 5 HYPERLIPIDEMIA, UNSPECIFIED 09/11/2016 GLADYS KNOWLES MD Ot I12. 9 HYPERTENSIVE CHRONIC KIDNEY DISEASE W ST 09/11/2016 GLADYS KNOWLES MD Ot I25. 10 ATHSCL HEART DISEASE OF [place] CORONARY 09/11/2016 GLADYS KNOWLES MD Ot I25. 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 8 OTHER NONRHEUMATIC AORTIC VALVE DISORDER 09/11/2016 GLADYS KNOWLES MD Ot I49. 5 SICK SINUS SYNDROME 09/11/2016 GLADYS KNOWLES MD Ot I50. 22 CHRONIC SYSTOLIC (CONGESTIVE) HEART FAIL 09/11/2016 GLADYS KNOWLES MD Ot N18. 9 CHRONIC KIDNEY DISEASE, UNSPECIFIED 09/11/2016 GLADYS KNOWLES MD Ot Z79.899 OTHER LONG-TERM (CURRENT) DRUG THERAPY 09/11/2016 GLADYS KNOWLES MD Ot Z87.891 PERSONAL HISTORY OF NICOTINE DEPENDENCE 09/11/2016 GLADYS KNOWLES MD Ot Z95. 5 PRESENCE OF CORONARY ANGIOPLASTY IMPLANT 09/13/2016 GLADYS KNOWLES MD Ot E78. 5 HYPERLIPIDEMIA, UNSPECIFIED 09/13/2016 GLADYS KNOWLES MD Ot I12. 9 HYPERTENSIVE CHRONIC KIDNEY DISEASE W ST 09/13/2016 GLADYS KNOWLES MD Ot I25. 10 ATHSCL HEART DISEASE OF [place] CORONARY 09/13/2016 GLADYS KNOWLES MD Ot I25. 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 8 OTHER NONRHEUMATIC AORTIC VALVE DISORDER 09/13/2016 GLADYS KNOWLES MD Ot I49. 5 SICK SINUS SYNDROME 09/13/2016 GLADYS KNOWLES MD Ot I50. 22 CHRONIC SYSTOLIC (CONGESTIVE) HEART FAIL 09/13/2016 GLADYS KNOWLES MD Ot N18. 9 CHRONIC KIDNEY DISEASE, UNSPECIFIED 09/13/2016 GLADYS KNOWLES MD Ot Z79.899 OTHER SALES REPRESENTATIVE PRINTING PAPER (CURRENT) DRUG THERAPY 09/13/2016 GLADYS KNOWLES MD Ot Z87.891 PERSONAL HISTORY OF NICOTINE DEPENDENCE 09/13/2016 GLADYS KNOWLES MD Ot Z95. 5 PRESENCE OF CORONARY ANGIOPLASTY IMPLANT 10/21/2016 GLADYS KNOWLES MD Ot I25. 2 OLD MYOCARDIAL INFARCTION 10/21/2016 GLADYS KNOWLES MD Ot Z48.812 ENCNTR FOR SURGICAL AFTCR FOLLOWING SURG 10/21/2016 GLADYS KNOWLES MD Ot Z95. 5 PRESENCE OF CORONARY ANGIOPLASTY IMPLANT 10/22/2016 GLADYS KNOWLES MD Ot I25. 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 5 PRESENCE OF CORONARY ANGIOPLASTY IMPLANT 10/27/2016 GLADYS KNOWLES MD Ot I25. 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 5 PRESENCE OF CORONARY ANGIOPLASTY IMPLANT 12/11/2016 BELINDA RAZA Ot E78.2 MIXED HYPERLIPIDEMIA 12/11/2016 BELINDA RAZA Ot I10 ESSENTIAL (PRIMARY) HYPERTENSION 12/11/2016 BELINDA RAZA Ot I25.10 ATHSCL HEART DISEASE OF [place] CORONARY 12/14/2016 BELINDA RAZA Ot E78.2 MIXED HYPERLIPIDEMIA 12/14/2016 BELINDA RAZA Ot I10 ESSENTIAL (PRIMARY) HYPERTENSION 12/14/2016 BELINDA RAZA Ot I25.10 ATHSCL HEART DISEASE OF [place] CORONARY 01/25/2017 GLADYS KNOWLES MD Ot I25. 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 5 PRESENCE OF CORONARY ANGIOPLASTY IMPLANT 01/25/2017 BELINDA RAZA Ot E78.2 MIXED HYPERLIPIDEMIA 01/25/2017 BELINDA RAZA Ot I10 ESSENTIAL (PRIMARY) HYPERTENSION 01/25/2017 BELINDA RAZA Ot I25.10 ATHSCL HEART DISEASE OF [place] CORONARY 02/05/2017 BELINDA RAZA Ot E78.2 MIXED HYPERLIPIDEMIA 02/05/2017 BELINDA RAZA Ot I10 ESSENTIAL (PRIMARY) HYPERTENSION 02/05/2017 BELINDA RAZA Ot I25.10 ATHSCL HEART DISEASE OF [place] CORONARY 02/13/2017 ORENDER DO, WHITNEY S Ot E03.9 HYPOTHYROIDISM, UNSPECIFIED 02/13/2017 ORENDER DO, WHITNEY S Ot E03.9 HYPOTHYROIDISM, UNSPECIFIED 02/13/2017 ORENDER DO, WHITNEY S Ot E03.9 HYPOTHYROIDISM, UNSPECIFIED 02/14/2017 ORENDER DO, WHITNEY S Ot M10.9 GOUT, UNSPECIFIED 02/14/2017 ORENDER DO, WHITNEY S Ot R53.83 OTHER FATIGUE 02/22/2017 ORENDER DO, WHITNEY S Ot M10.9 GOUT, UNSPECIFIED 02/22/2017 ORENDER DO, WHITNEY S Ot R53.83 OTHER FATIGUE 03/08/2017 BELINDA RAZA Ot E78.2 MIXED HYPERLIPIDEMIA 03/08/2017 [address]IN[address] RAZA Ot I21.3 [address] ELEVATION (STEMI) MYOCARDIAL INFARCTI 03/08/2017 BELINDA RAZA Ot I25.10 ATHSCL HEART DISEASE OF [place] CORONARY 03/08/2017 BELINDA RAZA Ot I35.8 OTHER NONRHEUMATIC AORTIC VALVE DISORDER 05/27/2017 GLADYS KNOWLES MD Ot I25. 2 OLD MYOCARDIAL INFARCTION 05/27/2017 GLADYS KNOWLES MD Ot Z48.812 ENCNTR FOR SURGICAL AFTCR FOLLOWING SURG 05/27/2017 GLADYS KNOWLES MD Ot Z95. 5 PRESENCE OF CORONARY ANGIOPLASTY IMPLANT 07/20/2017 GLADYS KNOWLES MD Ot I25. 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 5 PRESENCE OF CORONARY ANGIOPLASTY IMPLANT 08/02/2017 BELINDA RAZA Ot E78.2 MIXED HYPERLIPIDEMIA 08/02/2017 BELINDA RAZA Ot I10 ESSENTIAL (PRIMARY) HYPERTENSION 08/02/2017 BELINDA RAZA Ot I25.10 ATHSCL HEART DISEASE OF [place] CORONARY 08/05/2017 BELINDA RAZA Ot E78.2 MIXED HYPERLIPIDEMIA 08/05/2017 BELINDA RAZA Ot I10 ESSENTIAL (PRIMARY) HYPERTENSION 08/05/2017 BELINDA RAZA Ot I25.10 ATHSCL HEART DISEASE OF [place] CORONARY 08/17/2017 SAMMI TOBIN, KEITH Chopra Ot I97.610 POSTPROC HEMOR/HEMTOM OF A CIRC SYS ORG 08/21/2017 BELINDA RAZA Ot E78.2 MIXED HYPERLIPIDEMIA 08/21/2017 BELINDA RAZA Ot I10 ESSENTIAL (PRIMARY) HYPERTENSION 08/21/2017 BELINDA RAZA Ot I25.10 ATHSCL HEART DISEASE OF [place] CORONARY 08/30/2017 BELINDA RAZA Ot E78.2 MIXED HYPERLIPIDEMIA 08/30/2017 BELINDA RAZA Ot I10 ESSENTIAL (PRIMARY) HYPERTENSION 08/30/2017 BELINDA RAZA Ot I25.10 ATHSCL HEART DISEASE OF [place] CORONARY 01/11/2018 BELINDA RAZA Ot E78.2 MIXED HYPERLIPIDEMIA 01/11/2018 BELINDA RAZA Ot I10 ESSENTIAL (PRIMARY) HYPERTENSION 01/11/2018 EDMONDS-JAYSON PA, BELINDA K Ot I25.10 ATHSCL HEART DISEASE OF [place] CORONARY 08/25/2018 GIOVANNA PIÑA, BELINDA K Ot E78.5 HYPERLIPIDEMIA, UNSPECIFIED 08/25/2018 GIOVANNA PIÑA, BELINDA K Ot I25.10 ATHSCL HEART DISEASE OF [place] CORONARY 09/03/2018 GIOVANNA PIÑA, BELINDA K Ot E78.5 HYPERLIPIDEMIA, UNSPECIFIED 09/03/2018 GIOVANNA PIÑA, BELINDA K Ot I25.10 ATHSCL HEART DISEASE OF [place] CORONARY 10/29/2018 PURNIMA GE MD Ot Z01.818 ENCOUNTER FOR OTHER PREPROCEDURAL EXAMIN 10/31/2018 PURNIMA GE MD, Ot E78. 5 HYPERLIPIDEMIA, UNSPECIFIED 10/31/2018 PURNIMA GE MD Ot I10 ESSENTIAL (PRIMARY) HYPERTENSION 10/31/2018 PURNIMA GE MD Ot I25. 10 ATHSCL HEART DISEASE OF [place] CORONARY 10/31/2018 PURNIMA GE MD Ot K57. 30 DVRTCLOS OF LG INT W/O PERFORATION OR AB 10/31/2018 PURNIMA GE MD Ot M10. 9 GOUT, UNSPECIFIED 10/31/2018 PURNIMA GE MD Ot Z12. 11 ENCOUNTER FOR SCREENING FOR MALIGNANT NE 10/31/2018 PURNIMA GE MD Ot Z79. 82 LONG-TERM (CURRENT) USE OF ASPIRIN 10/31/2018 PURNIMA GE MD Ot Z79.899 OTHER SALES REPRESENTATIVE PRINTING PAPER (CURRENT) DRUG THERAPY 10/31/2018 PURNIMA GE MD Ot Z86.010 PERSONAL HISTORY OF COLONIC POLYPS 11/06/2018 PURNIMA GE MD Ot E78. 5 HYPERLIPIDEMIA, UNSPECIFIED 11/06/2018 PURNIMA GE MD Ot I10 ESSENTIAL (PRIMARY) HYPERTENSION 11/06/2018 PURNIMA GE MD Ot I25. 10 ATHSCL HEART DISEASE OF [place] CORONARY 11/06/2018 PURNIMA GE MD Ot K57. 30 DVRTCLOS OF LG INT W/O PERFORATION OR AB 11/06/2018 PURNIMA GE MD Ot M10. 9 GOUT, UNSPECIFIED 11/06/2018 PURNIMA GE MD Ot Z12. 11 ENCOUNTER FOR SCREENING FOR MALIGNANT NE 11/06/2018 PURNIMA GE MD Ot Z79. 82 SALES REPRESENTATIVE PRINTING PAPER (CURRENT) USE OF ASPIRIN 11/06/2018 PURNIMA GE MD Ot Z79.899 OTHER LONG-TERM (CURRENT) DRUG THERAPY 11/06/2018 PURNIMA GE MD Ot Z86.010 PERSONAL HISTORY OF COLONIC POLYPS 11/07/2018 PURNIMA GE MD, Ot E78. 5 HYPERLIPIDEMIA, UNSPECIFIED 11/07/2018 PURNIMA GE MD Ot I10 ESSENTIAL (PRIMARY) HYPERTENSION 11/07/2018 PURNIMA GE MD Ot I25. 10 ATHSCL HEART DISEASE OF [place] CORONARY 11/07/2018 PURNIMA GE MD Ot K57. 30 DVRTCLOS OF LG INT W/O PERFORATION OR AB 11/07/2018 PURNIMA GE MD, Ot M10. 9 GOUT, UNSPECIFIED 11/07/2018 PURNIMA GE MD Ot Z12. 11 ENCOUNTER FOR SCREENING FOR MALIGNANT NE 11/07/2018 PURNIMA GE MD Ot Z79. 82 SALES REPRESENTATIVE PRINTING PAPER (CURRENT) USE OF ASPIRIN 11/07/2018 PURNIMA GE MD Ot Z79.899 OTHER LONG-TERM (CURRENT) DRUG THERAPY 11/07/2018 PURNIMA GE MD, Ot Z86.010 PERSONAL HISTORY OF COLONIC POLYPS 12/31/2018 BELINDA RAZA Ot E78.5 HYPERLIPIDEMIA, UNSPECIFIED 12/31/2018 BELINDA RAZA Ot I25.10 ATHSCL HEART DISEASE OF [place] CORONARY 12/31/2018 BELINDA RAZA Ot I35.8 OTHER NONRHEUMATIC AORTIC VALVE DISORDER 12/31/2018 BELINDA RAZA Ot R06.02 SHORTNESS OF BREATH 01/02/2019 BELINDA RAZA Ot E78.5 HYPERLIPIDEMIA, UNSPECIFIED 01/02/2019 BELINDA RAZA Ot I08.1 RHEUMATIC DISORDERS OF BOTH [place] AND T 01/02/2019 BELINDA RAZA Ot I25.10 ATHSCL HEART DISEASE OF [place] CORONARY 01/02/2019 BELINDA RAZA Ot R06.02 SHORTNESS OF BREATH 01/23/2019 BELINDA RAZA Ot E78.5 HYPERLIPIDEMIA, UNSPECIFIED 01/23/2019 BELINDA RAZA Ot I25.10 ATHSCL HEART DISEASE OF [place] CORONARY 01/23/2019 BELINDA RAZA Ot I35.8 OTHER NONRHEUMATIC AORTIC VALVE DISORDER 01/23/2019 BELINDA RAZA Ot R06.02 SHORTNESS OF BREATH 08/27/2019 BENSON TOBIN, GLADYS Ventura Ot I25. 2 OLD MYOCARDIAL INFARCTION 08/27/2019 GLADYS KNOWLES MD Ot Z48.812 ENCNTR FOR SURGICAL AFTCR FOLLOWING SURG 08/27/2019 BENSON TOBIN, GLADYS Ventura Ot Z95. 5 PRESENCE OF CORONARY ANGIOPLASTY IMPLANT 08/27/2019 BELINDA RAZA Ot E78.2 MIXED HYPERLIPIDEMIA 08/27/2019 BELINDA RAZA Ot I10 ESSENTIAL (PRIMARY) HYPERTENSION 08/27/2019 BELINDA RAZA Ot I25.10 ATHSCL HEART DISEASE OF [place] CORONARY 08/27/2019 BELINDA RAZA Ot E78.2 MIXED HYPERLIPIDEMIA 08/27/2019 BELINDA RAZA Ot I21.3 ST ELEVATION (STEMI) MYOCARDIAL INFARCTI 08/27/2019 BELINDA RAZA Ot I25.10 ATHSCL HEART DISEASE OF [place] CORONARY 08/27/2019 BELINDA RAZA Ot I35.8 OTHER NONRHEUMATIC AORTIC VALVE DISORDER 08/27/2019 DON DOANAWHITNEY S Ot M10.9 GOUT, UNSPECIFIED 08/27/2019 KATIE KHAN DOQUELINE S Ot R53.83 OTHER FATIGUE 08/27/2019 BELINDA RAZA Ot E78.2 MIXED HYPERLIPIDEMIA 08/27/2019 BELINDA RAZA Ot I10 ESSENTIAL (PRIMARY) HYPERTENSION 08/27/2019 BELINDA RAZA Ot I25.10 ATHSCL HEART DISEASE OF [place] CORONARY 08/27/2019 BELINDA RAZA Ot E78.5 HYPERLIPIDEMIA, UNSPECIFIED 08/27/2019 BELINDA RAZA Ot I25.10 ATHSCL HEART DISEASE OF [place] CORONARY 08/27/2019 BELINDA RAZA Ot E78.5 HYPERLIPIDEMIA, UNSPECIFIED 08/27/2019 BELINDA RAZA Ot I08.1 RHEUMATIC DISORDERS OF BOTH [place] AND T 08/27/2019 BELINDA RAZA Ot I25.10 ATHSCL HEART DISEASE OF [place] CORONARY 08/27/2019 BELINDA RAZA Ot R06.02 SHORTNESS OF BREATH 08/27/2019 BELINDA RAZA Ot E78.5 HYPERLIPIDEMIA, UNSPECIFIED 08/27/2019 BELINDA RAZA Ot I25.10 ATHSCL HEART DISEASE OF [place] CORONARY 08/27/2019 BELINDA RAZA Ot I35.8 OTHER NONRHEUMATIC AORTIC VALVE DISORDER 08/27/2019 BELINDA RAZA Ot R06.02 SHORTNESS OF BREATH 11/27/2019 BENSON TOBIN, GLADYS Ventura Ot I25. 2 OLD MYOCARDIAL INFARCTION 11/27/2019 BENSON TOBIN, GLADYS Ventura Ot Z48.812 ENCNTR FOR SURGICAL AFTCR FOLLOWING SURG 11/27/2019 BENSON TOBIN, GLADYS Ventura Ot Z95. 5 PRESENCE OF CORONARY ANGIOPLASTY IMPLANT 11/27/2019 BELINDA RAZA Ot E78.2 MIXED HYPERLIPIDEMIA 11/27/2019 BELINDA RAZA Ot I10 ESSENTIAL (PRIMARY) HYPERTENSION 11/27/2019 BELINDA RAZA Ot I25.10 ATHSCL HEART DISEASE OF [place] CORONARY 11/27/2019 BELINDA RAZA Ot E78.2 MIXED HYPERLIPIDEMIA 11/27/2019 BELINDA RAZA Ot I21.3 ST ELEVATION (STEMI) MYOCARDIAL INFARCTI 11/27/2019 BELINDA RAZA Ot I25.10 ATHSCL HEART DISEASE OF [place] CORONARY 11/27/2019 BELINDA RAZA Ot I35.8 OTHER NONRHEUMATIC AORTIC VALVE DISORDER 11/27/2019 ORENDER DO, WHITNEY S Ot M10.9 GOUT, UNSPECIFIED 11/27/2019 DARBYNDKATIE ROBLES DOQUELINE S Ot R53.83 OTHER FATIGUE 11/27/2019 EDMONDS-JAYSON PA, BELINDA K Ot E78.2 MIXED HYPERLIPIDEMIA 11/27/2019 [facility] PA, BELINDA K Ot I10 ESSENTIAL (PRIMARY) HYPERTENSION 11/27/2019 [facility] PA, BELINDA K Ot I25.10 ATHSCL HEART DISEASE OF [place] CORONARY 11/27/2019 [facility] PA, BELINDA K Ot E78.5 HYPERLIPIDEMIA, UNSPECIFIED 11/27/2019 [facility] PA, BELINDA K Ot I25.10 ATHSCL HEART DISEASE OF [place] CORONARY 11/27/2019 [facility] PA, BELINDA K Ot E78.5 HYPERLIPIDEMIA, UNSPECIFIED 11/27/2019 [facility] PA, BELINDA K Ot I08.1 RHEUMATIC DISORDERS OF BOTH [place] AND T 11/27/2019 [facility] WNAG, BELINDA K Ot I25.10 ATHSCL HEART DISEASE OF [place] CORONARY 11/27/2019 [facility] PA, BELINDA Sanchez Ot R06.02 SHORTNESS OF BREATH 11/27/2019 [facility] WANG, BELINDA K Ot E78.5 HYPERLIPIDEMIA, UNSPECIFIED 11/27/2019 [facility] PA, BELINDA K Ot I25.10 ATHSCL HEART DISEASE OF [place] CORONARY 11/27/2019 [facility] WANG, BELINDA Sanchez Ot I35.8 OTHER NONRHEUMATIC AORTIC VALVE DISORDER 11/27/2019 [facility] WANG, BELINDA K Ot R06.02 SHORTNESS OF BREATH 11/27/2019 CHAIM TOBIN, STEPHANIE Johnston Ot E78.5 HYPERLIPIDEMIA, UNSPECIFIED 11/27/2019 CHAIM TOBIN, STEPHANIE Johnston Ot I1 0 ESSENTIAL (PRIMARY) HYPERTENSION 11/27/2019 STEPHANIE RUCKER MD Ot Z12.5 ENCOUNTER FOR SCREENING FOR MALIGNANT NE 12/02/2019 GLADYS KNOWLES MD Ot E78. 5 HYPERLIPIDEMIA, UNSPECIFIED 12/02/2019 GLADYS KNOWLES MD Ot I08. 3 COMB RHEUMATIC DISORD OF MITRAL, AORTIC 12/02/2019 GLADYS KNOWLES MD Ot I25. 10 ATHSCL HEART DISEASE OF [place] CORONARY 12/02/2019 GLADSY KNOWLES MD Ot I25. 2 OLD MYOCARDIAL INFARCTION 12/02/2019 BENSON TOBIN, GLADYS Ventura Ot I50. 20 UNSPECIFIED SYSTOLIC (CONGESTIVE) HEART 12/02/2019 BENSON MD, BASHAR J Ot I65. 23 OCCLUSION AND STENOSIS OF BILATERAL REED 12/02/2019 GLADYS KNOWLES MD Ot N18. 9 CHRONIC KIDNEY DISEASE, UNSPECIFIED 12/02/2019 GLADYS KNOWLES MD Ot Z79. 82 LONG-TERM (CURRENT) USE OF ASPIRIN 12/02/2019 GLADYS KNOWLES MD Ot Z79.899 OTHER SALES REPRESENTATIVE PRINTING PAPER (CURRENT) DRUG THERAPY 12/02/2019 GLADYS KNOWLES MD Ot Z80. 9 FAMILY HISTORY OF MALIGNANT NEOPLASM, UN 12/02/2019 GLADYS KNOWLES MD Ot Z82. 3 FAMILY HISTORY OF STROKE 12/02/2019 GLADYS KNOWLES MD Ot Z82. 49 FAMILY HX OF ISCHEM HEART DIS AND OTH DI 12/02/2019 GLADYS KNOWLES MD Ot Z87.891 PERSONAL HISTORY OF NICOTINE DEPENDENCE 12/02/2019 GLADYS KNOWLES MD Ot Z88. 8 ALLERGY STATUS TO [facility]MEDS/BIOL SUB 12/04/2019 GLADYS KNOWLES MD Ot E78. 5 HYPERLIPIDEMIA, UNSPECIFIED 12/04/2019 GLADYS KNOWLES MD Ot I08. 3 COMB RHEUMATIC DISORD OF MITRAL, AORTIC 12/04/2019 GLADYS KNOWLES MD Ot I25. 10 ATHSCL HEART DISEASE OF [place] CORONARY 12/04/2019 GLADYS KNOWLES MD Ot I25. 2 OLD MYOCARDIAL INFARCTION 12/04/2019 GLADYS KNOWLES MD Ot I50. 20 UNSPECIFIED SYSTOLIC (CONGESTIVE) HEART 12/04/2019 GLADYS KNOWLES MD Ot I65. 23 OCCLUSION AND STENOSIS OF BILATERAL REED 12/04/2019 GLADYS KNOWLES MD Ot N18. 9 CHRONIC KIDNEY DISEASE, UNSPECIFIED 12/04/2019 GLADYS KNOWLES MD Ot Z79. 82 SALES REPRESENTATIVE [employer]ING [employer]APER (CURRENT) USE OF ASPIRIN 12/04/2019 GLADYS KNOWLES MD Ot Z79.899 OTHER SALES REPRESENTATIVE PRINTING PAPER (CURRENT) DRUG THERAPY 12/04/2019 GLADYS KNOWLES MD Ot Z80. 9 FAMILY HISTORY OF MALIGNANT NEOPLASM, UN 12/04/2019 GLADYS KNOWLES MD Ot Z82. 3 FAMILY HISTORY OF STROKE 12/04/2019 GLADYS KNOWLES MD Ot Z82. 49 FAMILY HX OF ISCHEM HEART DIS AND OTH DI 12/04/2019 GLADYS KNOWLES MD Ot Z87.891 PERSONAL HISTORY OF NICOTINE DEPENDENCE 12/04/2019 GLADYS KNOWLES MD, Ot Z88. 8 ALLERGY STATUS TO OTH DRUG/MEDS/BIOL SUB 12/08/2019 GLADYS KNOWLES MD Ot E78. 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 10 ATHSCL HEART DISEASE OF [place] CORONARY 12/08/2019 GLADYS KNOWLES MD, Ot I25. 2 OLD MYOCARDIAL INFARCTION 12/08/2019 GLADYS KNOWLES MD, Ot I50. 20 UNSPECIFIED SYSTOLIC (CONGESTIVE) HEART 12/08/2019 GLADYS KNOWLES MD, Ot I65. 23 OCCLUSION AND STENOSIS OF BILATERAL REED 12/08/2019 GLADYS KNOWLES MD Ot N18. 9 CHRONIC KIDNEY DISEASE, UNSPECIFIED 12/08/2019 GLADYS KNOWLES MD, Ot Z79. 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 9 FAMILY HISTORY OF MALIGNANT NEOPLASM, UN 12/08/2019 GLADYS KNOWLES MD, Ot Z82. 3 FAMILY HISTORY OF STROKE 12/08/2019 GLADYS KNOWLES MD, Ot Z82. 49 FAMILY HX OF ISCHEM HEART DIS AND OTH DI 12/08/2019 GLADYS KNOWLES MD, Ot Z87.891 PERSONAL HISTORY OF NICOTINE DEPENDENCE 12/08/2019 GLADYS KNOWLES MD, Ot Z88. 8 ALLERGY STATUS TO OT DRUG/MEDS/BIOL SUB Procedures Code Description Performed By [place] formed [place] [id number] DI LATION OF 3 COR ART WITH DRUG-ELUT INT 06/13/2016 [id number] 06/13/2016 [id number] 06/13/2016 [id number] FL UOROSCOPY OF MULT COR ART USING L OSM 06/13/2016 Results Test Result Range Complete blood count (CBC) with automate d white blood cell (WBC) differential - 06/13/16 06:05 Blood leukocytes automated count (number/volume) 9.5 10*3/uL 4.3-11.0 Blood erythrocytes automated count (number/volume) 4.83 10*6/uL 4.35-5.85 Venous blood hemoglobin measurement (mass/volume) 14.7 g/dL 13.3-17.7 Blood hematocrit (volume fraction) 43 % 40-54 Automated erythrocyte mean corpuscular volume 89 [ foz_us] 80-99 Automated erythrocyte mean corpuscular h emoglobin (mass per erythrocyte) 30 pg 25-34 Automated erythrocyte mean corpuscular h emoglobin concentration measurement (mass/volume) 34 g/dL 32-36 Automated erythrocyte distribution width ratio 14. 5 % 10.0- 14.5 Automated blood platelet count (count/volume) 232 10*3/uL 130-400 Automated blood platelet mean volume measurement 10.8 [foz_us] 7.4-10.4 Automated blood neutrophils/100 leukocytes 59 % 42-75 Automated blood lymphocytes/100 leukocytes 23 % 12-44 Blood monocytes/100 leukocytes 11 % 0-12 Automated blood eosinophils/100 leukocytes 6 % 0-10 Automated blood basophils/100 leukocytes 1 % 0-10 Blood neutrophils automated count (number/volume) 5.6 10*3 1.8-7.8 Blood lymphocytes automated count (number/volume) 2.2 10*3 1.0-4.0 Blood monocytes automated count (number/volume) 1. 1 10*3 0.0-1.0 Automated eosinophil count 0.5 10*3/uL 0 .0-0.3 Automated blood basophil count (count/volume) 0.1 10*3/uL 0.0-0.1 PT panel in platelet poor plasma by coag ulation assay - 06/13/16 06:05 Prothrombin time (PT) in platelet poor plasma by coagu lation assay 12.5 s 12.2-14.7 INR in platelet poor plasma or blood by coagulation as say 1.0 0.8-1.4 Activated partial thromboplastin time (a PTT) in platelet poor plasma bycoagulation assay - 06/13/16 06:05 Activated partial thromboplastin time (a PTT) in platelet poor plasma bycoagulation assay 31 s 24-35 Comprehensive metabolic panel - 06/13/16 06:05 Serum or plasma sodium measurement (moles/volume) 140 mmol/L 135-145 Serum or plasma potassium measurement (moles/volume) 4.4 mmol/L 3.6-5.0 Serum or plasma chloride measurement (moles/volume) 107 mmol/L 98-107 Carbon dioxide 23 mmol/L 21-32 Serum or plasma anion gap determination (moles/volume) 10 mmol/L 5-14 Serum or plasma urea nitrogen measurement (mass/volume ) 26 mg/dL 7-18 Serum or plasma creatinine measurement (mass/volume) 1.61 mg/dL 0.60-1.30 Serum or plasma urea nitrogen/creatinine mass ratio 16 NRG Serum or plasma creatinine measurement w ith calculation of estimated glomerular filtration rate 42 NRG Serum or plasma glucose measurement (mass/volume) 118 mg/dL 70-105 Serum or plasma calcium measurement (mass/volume) 9.9 mg/dL 8.5-10.1 Serum or plasma total bilirubin measurement (mass/volu me) 0.6 mg/dL 0.1-1.0 Serum or plasma alkaline phosphatase zahida surement (enzymatic activity/volume) 76 U/L 40-136 Serum or plasma aspartate aminotransfera se measurement (enzymatic activity/volume) 38 U/L 5-34 Serum or plasma alanine aminotransferase measurement (enzymatic activity/volume) 25 U/L 0-55 Serum or plasma protein measurement (mass/volume) 7.1 g/dL 6.4-8.2 Serum or plasma albumin measurement (mass/volume) 4.4 g/dL 3.2-4.5 Magnesium - 06/13/16 06:05 Magnesium 2.0 mg/dL 1.8-2.4 Serum or plasma troponin i.cardiac measu rement (mass/volume) - 06/13/16 06:05 Serum or plasma troponin i.cardiac measurement (mass/v olume) 0.30 ng/mL <0.30 Myoglobin, serum - 06/13/16 06:05 Myoglobin, serum 236.0 ng/mL 10.0-92.0 Automated blood complete blood count (he mogram) panel - 06/14/16 04:15 Blood leukocytes automated count (number/volume) 10.8 10*3/uL 4.3-11.0 Blood erythrocytes automated count (number/volume) 4.04 10*6/uL 4.35-5.85 Venous blood hemoglobin measurement (mass/volume) 12.6 g/dL 13.3-17.7 Blood hematocrit (volume fraction) 37 % 40-54 Automated erythrocyte mean corpuscular volume 91 [ foz_us] 80-99 Automated erythrocyte mean corpuscular h emoglobin (mass per erythrocyte) 31 pg 25-34 Automated erythrocyte mean corpuscular h emoglobin concentration measurement (mass/volume) 34 g/dL 32-36 Automated erythrocyte distribution width ratio 13. 9 % 10.0- 14.5 Automated blood platelet count (count/volume) 204 10*3/uL 130-400 Automated blood platelet mean volume measurement 10.4 [foz_us] 7.4-10.4 Whole blood basic metabolic panel - 02/24 04:15 Serum or plasma sodium measurement (moles/volume) 139 mmol/L 135-145 Serum or plasma potassium measurement (moles/volume) 4.2 mmol/L 3.6-5.0 Serum or plasma chloride measurement (moles/volume) 107 mmol/L 98-107 Carbon dioxide 24 mmol/L 21-32 Serum or plasma anion gap determination (moles/volume) 8 mmol/L 5-14 Serum or plasma urea nitrogen measurement (mass/volume ) 19 mg/dL 7-18 Serum or plasma creatinine measurement (mass/volume) 1.29 mg/dL 0.60-1.30 Serum or plasma urea nitrogen/creatinine mass ratio 15 NRG Serum or plasma creatinine measurement w ith calculation of estimated glomerular filtration rate 54 NRG Serum or plasma glucose measurement (mass/volume) 119 mg/dL 70-105 Serum or plasma calcium measurement (mass/volume) 8.5 mg/dL 8.5-10.1 Serum or plasma troponin i.cardiac measu rement (mass/volume) - 06/14/16 04:15 Serum or plasma troponin i.cardiac measurement (mass/v olume) 10.01 ng/mL <0.30 Lipid 1996 panel - 06/14/16 04:15 Serum or plasma triglyceride measurement (mass/volume) 113 mg/dL <150 Serum or plasma cholesterol measurement (mass/volume) 134 mg/dL < 200 Serum or plasma cholesterol in HDL measurement (mass/v olume) 39 mg/dL 40-60 Cholesterol in LDL [mass/volume] in serum or plasma by direct assay 78 mg/dL 1-129 Serum or plasma cholesterol in VLDL measurement (mass/ volume) 23 mg/dL 5-40 Automated blood complete blood count (he mogram) panel - 06/15/16 04:25 Blood leukocytes automated count (number/volume) 8.9 10*3/uL 4.3-11.0 Blood erythrocytes automated count (number/volume) 4.03 10*6/uL 4.35-5.85 Venous blood hemoglobin measurement (mass/volume) 12.5 g/dL 13.3-17.7 Blood hematocrit (volume fraction) 36 % 40-54 Automated erythrocyte mean corpuscular volume 90 [ foz_us] 80-99 Automated erythrocyte mean corpuscular h emoglobin (mass per erythrocyte) 31 pg 25-34 Automated erythrocyte mean corpuscular h emoglobin concentration measurement (mass/volume) 35 g/dL 32-36 Automated erythrocyte distribution width ratio 13. 8 % 10.0- 14.5 Automated blood platelet count (count/volume) 181 10*3/uL 130-400 Automated blood platelet mean volume measurement 10.6 [foz_us] 7.4-10.4 Whole blood basic metabolic panel - 03/26 04:25 Serum or plasma sodium measurement (moles/volume) 140 mmol/L 135-145 Serum or plasma potassium measurement (moles/volume) 3.7 mmol/L 3.6-5.0 Serum or plasma chloride measurement (moles/volume) 108 mmol/L 98-107 Carbon dioxide 22 mmol/L 21-32 Serum or plasma anion gap determination (moles/volume) 10 mmol/L 5-14 Serum or plasma urea nitrogen measurement (mass/volume ) 18 mg/dL 7-18 Serum or plasma creatinine measurement (mass/volume) 1.07 mg/dL 0.60-1.30 Serum or plasma urea nitrogen/creatinine mass ratio 17 NRG Serum or plasma creatinine measurement w ith calculation of estimated glomerular filtration rate > NRG Serum or plasma glucose measurement (mass/volume) 115 mg/dL 70-105 Serum or plasma calcium measurement (mass/volume) 8.8 mg/dL 8.5-10.1 Complete urinalysis with reflex to cultu re - 08/15/16 13:13 Urine color determination YELLOW NRG Urine clarity determination CLEAR NR G Urine pH measurement by test strip 5 5-9 Specific gravity of urine by test strip 1.015 1.016-1.022 Urine protein assay by test strip, semi-quantitative NEGATIVE NEGATIVE Urine glucose detection by automated test strip NE GATIVE NEGATIVE Erythrocytes detection in urine sediment by light micr oscopy NEGATIVE NEGATIVE Urine ketones detection by automated test strip NE GATIVE NEGATIVE Urine nitrite detection by test strip NEGATIVE NEGATIVE Urine total bilirubin detection by test strip NEGA TIVE NEGATIVE Urine urobilinogen measurement by automated test strip (mass/volume) NORMAL NORMAL Urine leukocyte esterase detection by dipstick 1+ NEGATIVE Automated urine sediment erythrocyte cou nt by microscopy (number/high power field) NONE NRG Automated urine sediment leukocyte count by microscopy (number/high power field) [HPF] NRG Bacteria detection in urine sediment by light microsco py NEGATIVE NRG Squamous epithelial cells detection in u rine sediment by light microscopy RARE NRG Crystals detection in urine sediment by light microsco py NONE NRG Casts detection in urine sediment by light microscopy NONE NRG Mucus detection in urine sediment by light microscopy NEGATIVE NRG Complete urinalysis with reflex to culture NO NRG Automated blood complete blood count (he mogram) panel - 08/15/16 13:24 Blood leukocytes automated count (number/volume) 7.3 10*3/uL 4.3-11.0 Blood erythrocytes automated count (number/volume) 4.28 10*6/uL 4.35-5.85 Venous blood hemoglobin measurement (mass/volume) 13.1 g/dL 13.3-17.7 Blood hematocrit (volume fraction) 39 % 40-54 Automated erythrocyte mean corpuscular volume 90 [ foz_us] 80-99 Automated erythrocyte mean corpuscular h emoglobin (mass per erythrocyte) 31 pg 25-34 Automated erythrocyte mean corpuscular h emoglobin concentration measurement (mass/volume) 34 g/dL 32-36 Automated erythrocyte distribution width ratio 14. 4 % 10.0- 14.5 Automated blood platelet count (count/volume) 263 10*3/uL 130-400 Automated blood platelet mean volume measurement 10.3 [foz_us] 7.4-10.4 PT panel in platelet poor plasma by coag ulation assay - 08/15/16 13:24 Prothrombin time (PT) in platelet poor plasma by coagu lation assay 12.9 s 12.2-14.7 INR in platelet poor plasma or blood by coagulation as say 1.0 0.8-1.4 Activated partial thromboplastin time (a PTT) in platelet poor plasma bycoagulation assay - 08/15/16 13:24 Activated partial thromboplastin time (a PTT) in platelet poor plasma bycoagulation assay 30 s 24-35 Comprehensive metabolic panel - 08/15/16 13:24 Serum or plasma sodium measurement (moles/volume) 140 mmol/L 135-145 Serum or plasma potassium measurement (moles/volume) 4.1 mmol/L 3.6-5.0 Serum or plasma chloride measurement (moles/volume) 106 mmol/L 98-107 Carbon dioxide 21 mmol/L 21-32 Serum or plasma anion gap determination (moles/volume) 13 mmol/L 5-14 Serum or plasma urea nitrogen measurement (mass/volume ) 13 mg/dL 7-18 Serum or plasma creatinine measurement (mass/volume) 1.28 mg/dL 0.60-1.30 Serum or plasma urea nitrogen/creatinine mass ratio 10 NRG Serum or plasma creatinine measurement w ith calculation of estimated glomerular filtration rate 54 NRG Serum or plasma glucose measurement (mass/volume) 105 mg/dL 70-105 Serum or plasma calcium measurement (mass/volume) 9.7 mg/dL 8.5-10.1 Serum or plasma total bilirubin measurement (mass/volu me) 0.8 mg/dL 0.1-1.0 Serum or plasma alkaline phosphatase zahida surement (enzymatic activity/volume) 89 U/L 40-136 Serum or plasma aspartate aminotransfera se measurement (enzymatic activity/volume) 28 U/L 5-34 Serum or plasma alanine aminotransferase measurement (enzymatic activity/volume) 18 U/L 0-55 Serum or plasma protein measurement (mass/volume) 7.1 g/dL 6.4-8.2 Serum or plasma albumin measurement (mass/volume) 4.5 g/dL 3.2-4.5 Lipid 1996 panel - 08/15/16 13:24 Serum or plasma triglyceride measurement (mass/volume) 90 mg/dL <150 Serum or plasma cholesterol measurement (mass/volume) 131 mg/dL < 200 Serum or plasma cholesterol in HDL measurement (mass/v olume) 42 mg/dL 40-60 Cholesterol in LDL [mass/volume] in serum or plasma by direct assay 69 mg/dL 1-129 Serum or plasma cholesterol in VLDL measurement (mass/ volume) 18 mg/dL 5-40 Methicillin resistant Staphylococcus aur eus (MRSA) screening culture - 08/15/16 13:24 Methicillin resistant Staphylococcus aureus (MRSA) scr eening culture NEG [facility] Comprehensive metabolic panel - 12/10/16 15:12 Serum or plasma sodium measurement (moles/volume) 139 mmol/L 135-145 Serum or plasma potassium measurement (moles/volume) 4.5 mmol/L 3.6-5.0 Serum or plasma chloride measurement (moles/volume) 107 mmol/L 98-107 Carbon dioxide 23 mmol/L 21-32 Serum or plasma anion gap determination (moles/volume) 9 mmol/L 5-14 Serum or plasma urea nitrogen measurement (mass/volume ) 15 mg/dL 7-18 Serum or plasma creatinine measurement (mass/volume) 1.29 mg/dL 0.60-1.30 Serum or plasma urea nitrogen/creatinine mass ratio 12 NRG Serum or plasma creatinine measurement w ith calculation of estimated glomerular filtration rate 54 NRG Serum or plasma glucose measurement (mass/volume) 99 mg/dL 70-105 Serum or plasma calcium measurement (mass/volume) 9.7 mg/dL 8.5-10.1 Serum or plasma total bilirubin measurement (mass/volu me) 0.7 mg/dL 0.1-1.0 Serum or plasma alkaline phosphatase zahida surement (enzymatic activity/volume) 83 U/L 40-136 Serum or plasma aspartate aminotransfera se measurement (enzymatic activity/volume) 24 U/L 5-34 Serum or plasma alanine aminotransferase measurement (enzymatic activity/volume) 15 U/L 0-55 Serum or plasma protein measurement (mass/volume) 6.9 g/dL 6.4-8.2 Serum or plasma albumin measurement (mass/volume) 4.5 g/dL 3.2-4.5 Liver function panel (serum or plasma al k phos, alb, total and direct bili, total protein, ALT, AST) - 12/10/16 15:12 Bilirubin direct 0.3 mg/dL 0.0-0.3 Serum or plasma indirect bilirubin measurement (mass/v olume) 0.4 mg/dL [facility] Lipid 1996 panel - 12/10/16 15:12 Serum or plasma triglyceride measurement (mass/volume) 99 mg/dL <150 Serum or plasma cholesterol measurement (mass/volume) 146 mg/dL < 200 Serum or plasma cholesterol in HDL measurement (mass/v olume) 46 mg/dL 40-60 Cholesterol in LDL [mass/volume] in serum or plasma by direct assay 84 mg/dL 1-129 Serum or plasma cholesterol in VLDL measurement (mass/ volume) 20 mg/dL 5-40 Complete blood count (CBC) with automate d white blood cell (WBC) differential - 02/13/17 12:49 Blood leukocytes automated count (number/volume) 6.4 10*3/uL 4.3-11.0 Blood erythrocytes automated count (number/volume) 4.26 10*6/uL 4.35-5.85 Venous blood hemoglobin measurement (mass/volume) 13.2 g/dL 13.3-17.7 Blood hematocrit (volume fraction) 39 % 40-54 Automated erythrocyte mean corpuscular volume 91 [ foz_us] 80-99 Automated erythrocyte mean corpuscular h emoglobin (mass per erythrocyte) 31 pg 25-34 Automated erythrocyte mean corpuscular h emoglobin concentration measurement (mass/volume) 34 g/dL 32-36 Automated erythrocyte distribution width ratio 14. 2 % 10.0- 14.5 Automated blood platelet count (count/volume) 244 10*3/uL 130-400 Automated blood platelet mean volume measurement 9.5 [foz_us] 7.4-10.4 Automated blood neutrophils/100 leukocytes 59 % 42-75 Automated blood lymphocytes/100 leukocytes 26 % 12-44 Blood monocytes/100 leukocytes 8 % 0-12 Automated blood eosinophils/100 leukocytes 6 % 0-10 Automated blood basophils/100 leukocytes 1 % 0-10 Blood neutrophils automated count (number/volume) 3.8 10*3 1.8-7.8 Blood lymphocytes automated count (number/volume) 1.7 10*3 1.0-4.0 Blood monocytes automated count (number/volume) 0. 5 10*3 0.0-1.0 Automated eosinophil count 0.4 10*3/uL 0 .0-0.3 Automated blood basophil count (count/volume) 0.1 10*3/uL 0.0-0.1 Comprehensive metabolic panel - 02/13/17 12:49 Serum or plasma sodium measurement (moles/volume) 144 mmol/L 135-145 Serum or plasma potassium measurement (moles/volume) 4.5 mmol/L 3.6-5.0 Serum or plasma chloride measurement (moles/volume) 109 mmol/L 98-107 Carbon dioxide 25 mmol/L 21-32 Serum or plasma anion gap determination (moles/volume) 10 mmol/L 5-14 Serum or plasma urea nitrogen measurement (mass/volume ) 14 mg/dL 7-18 Serum or plasma creatinine measurement (mass/volume) 1.21 mg/dL 0.60-1.30 Serum or plasma urea nitrogen/creatinine mass ratio 12 NRG Serum or plasma creatinine measurement w ith calculation of estimated glomerular filtration rate 58 NRG Serum or plasma glucose measurement (mass/volume) 94 mg/dL 70-105 Serum or plasma calcium measurement (mass/volume) 9.2 mg/dL 8.5-10.1 Serum or plasma total bilirubin measurement (mass/volu me) 0.7 mg/dL 0.1-1.0 Serum or plasma alkaline phosphatase zahida surement (enzymatic activity/volume) 78 U/L 40-136 Serum or plasma aspartate aminotransfera se measurement (enzymatic activity/volume) 24 U/L 5-34 Serum or plasma alanine aminotransferase measurement (enzymatic activity/volume) 13 U/L 0-55 Serum or plasma protein measurement (mass/volume) 6.5 g/dL 6.4-8.2 Serum or plasma albumin measurement (mass/volume) 4.1 g/dL 3.2-4.5 Serum or plasma uric acid measurement (m ass/volume) - 02/13/17 12:49 Serum or plasma uric acid measurement (mass/volume) 5.5 mg/dL 2.6-7.2 THYROID STIMULATING HORMONE - 02/13/17 1 2:49 THYROID STIMULATING HORMONE 1.31 u[iU]/mL 0.35-4.94 Comprehensive metabolic panel - 08/20/17 09:52 Serum or plasma sodium measurement (moles/volume) 141 mmol/L 135-145 Serum or plasma potassium measurement (moles/volume) 4.3 mmol/L 3.6-5.0 Serum or plasma chloride measurement (moles/volume) 107 mmol/L 98-107 Carbon dioxide 27 mmol/L -32 Serum or plasma anion gap determination (moles/volume) 7 mmol/L 5-14 Serum or plasma urea nitrogen measurement (mass/volume ) 23 mg/dL 7-18 Serum or plasma creatinine measurement (mass/volume) 1.24 mg/dL 0.60-1.30 Serum or plasma urea nitrogen/creatinine mass ratio 19 NRG Serum or plasma creatinine measurement w ith calculation of estimated glomerular filtration rate 56 NRG Serum or plasma glucose measurement (mass/volume) 105 mg/dL 70-105 Serum or plasma calcium measurement (mass/volume) 9.5 mg/dL 8.5-10.1 Serum or plasma total bilirubin measurement (mass/volu me) 0.8 mg/dL 0.1-1.0 Serum or plasma alkaline phosphatase zahida surement (enzymatic activity/volume) 78 U/L 40-136 Serum or plasma aspartate aminotransfera se measurement (enzymatic activity/volume) 22 U/L 5-34 Serum or plasma alanine aminotransferase measurement (enzymatic activity/volume) 18 U/L 0-55 Serum or plasma protein measurement (mass/volume) 7.2 g/dL 6.4-8.2 Serum or plasma albumin measurement (mass/volume) 4.2 g/dL 3.2-4.5 Lipid 1996 panel - 08/20/17 09:52 Serum or plasma triglyceride measurement (mass/volume) 83 mg/dL <150 Serum or plasma cholesterol measurement (mass/volume) 147 mg/dL < 200 Serum or plasma cholesterol in HDL measurement (mass/v olume) 47 mg/dL 40-60 Cholesterol in LDL [mass/volume] in serum or plasma by direct assay 81 mg/dL 1-129 Serum or plasma cholesterol in VLDL measurement (mass/ volume) 17 mg/dL 5-40 Complete blood count (CBC) with automate d white blood cell (WBC) differential - 08/27/19 10:30 Blood leukocytes automated count (number/volume) 5.9 10*3/uL 4.3-11.0 Blood erythrocytes automated count (number/volume) 4.60 10*6/uL 4.35-5.85 Venous blood hemoglobin measurement (mass/volume) 14.4 g/dL 13.3-17.7 Blood hematocrit (volume fraction) 42 % 40-54 Automated erythrocyte mean corpuscular volume 92 [ foz_us] 80-99 Automated erythrocyte mean corpuscular h emoglobin (mass per erythrocyte) 31 pg 25-34 Automated erythrocyte mean corpuscular h emoglobin concentration measurement (mass/volume) 34 g/dL 32-36 Automated erythrocyte distribution width ratio 14. 1 % 10.0- 14.5 Automated blood platelet count (count/volume) 231 10*3/uL 130-400 Automated blood platelet mean volume measurement 10.4 [foz_us] 7.4-10.4 Automated blood neutrophils/100 leukocytes 53 % 42-75 Automated blood lymphocytes/100 leukocytes 29 % 12-44 Blood monocytes/100 leukocytes 12 % 0-12 Automated blood eosinophils/100 leukocytes 6 % 0-10 Automated blood basophils/100 leukocytes 1 % 0-10 Blood neutrophils automated count (number/volume) 3.1 10*3 1.8-7.8 Blood lymphocytes automated count (number/volume) 1.7 10*3 1.0-4.0 Blood monocytes automated count (number/volume) 0. 7 10*3 0.0-1.0 Automated eosinophil count 0.4 10*3/uL 0 .0-0.3 Automated blood basophil count (count/volume) 0.1 10*3/uL 0.0-0.1 Comprehensive metabolic panel - 08/27/19 10:30 Serum or plasma sodium measurement (moles/volume) 139 mmol/L 135-145 Serum or plasma potassium measurement (moles/volume) 4.7 mmol/L 3.6-5.0 Serum or plasma chloride measurement (moles/volume) 106 mmol/L 98-107 Carbon dioxide 24 mmol/L 21-32 Serum or plasma anion gap determination (moles/volume) 9 mmol/L 5-14 Serum or plasma urea nitrogen measurement (mass/volume ) 20 mg/dL 7-18 Serum or plasma creatinine measurement (mass/volume) 1.16 mg/dL 0.60-1.30 Serum or plasma urea nitrogen/creatinine mass ratio 17 NRG Serum or plasma creatinine measurement w ith calculation of estimated glomerular filtration rate 60 NRG Serum or plasma glucose measurement (mass/volume) 102 mg/dL 70-105 Serum or plasma calcium measurement (mass/volume) 9.3 mg/dL 8.5-10.1 Serum or plasma total bilirubin measurement (mass/volu me) 0.9 mg/dL 0.1-1.0 Serum or plasma alkaline phosphatase zahida surement (enzymatic activity/volume) 85 U/L 40-136 Serum or plasma aspartate aminotransfera se measurement (enzymatic activity/volume) 25 U/L 5-34 Serum or plasma alanine aminotransferase measurement (enzymatic activity/volume) 14 U/L 0-55 Serum or plasma protein measurement (mass/volume) 7.0 g/dL 6.4-8.2 Serum or plasma albumin measurement (mass/volume) 4.4 g/dL 3.2-4.5 CALCIUM CORRECTED 9.0 mg/dL 8.5-10.1 Lipid 1996 panel - 08/27/19 10:30 Serum or plasma triglyceride measurement (mass/volume) 99 mg/dL <150 Serum or plasma cholesterol measurement (mass/volume) 150 mg/dL < 200 Serum or plasma cholesterol in HDL measurement (mass/v olume) 48 mg/dL 40-60 Cholesterol in LDL [mass/volume] in serum or plasma by direct assay 85 mg/dL 1-129 Serum or plasma cholesterol in VLDL measurement (mass/ volume) 20 mg/dL 5-40 THYROID STIMULATING HORMONE - 08/27/19 1 0:30 THYROID STIMULATING HORMONE 1.50 u[iU]/mL 0.35-4.94 Prostate specific ag [mass/volume] in se rum or plasma - 08/27/19 10:30 PSA EQUIMOLAR (WILDER) 1.18 % 0.00-4.0 0 Complete urinalysis with reflex to cultu re - 12/02/19 07:00 Urine color determination YELLOW NRG Urine clarity determination CLEAR NR G Urine pH measurement by test strip 5.5 5-9 Specific gravity of urine by test strip >= 1.016-1.022 Urine protein assay by test strip, semi-quantitative NEGATIVE NEGATIVE Urine glucose detection by automated test strip NE GATIVE NEGATIVE Erythrocytes detection in urine sediment by light micr oscopy NEGATIVE NEGATIVE Urine ketones detection by automated test strip NE GATIVE NEGATIVE Urine nitrite detection by test strip NEGATIVE NEGATIVE Urine total bilirubin detection by test strip NEGA TIVE NEGATIVE Urine urobilinogen measurement by automated test strip (mass/volume) 0.2 mg/dL < = 1.0 Urine leukocyte esterase detection by dipstick NEG ATIVE NEGATIVE Automated urine sediment erythrocyte cou nt by microscopy (number/high power field) NONE NRG Automated urine sediment leukocyte count by microscopy (number/high power field) NONE NRG Bacteria detection in urine sediment by light microsco py NEGATIVE NRG Squamous epithelial cells detection in u rine sediment by light microscopy RARE NRG Crystals detection in urine sediment by light microsco py NONE NRG Casts detection in urine sediment by light microscopy NONE NRG Mucus detection in urine sediment by light microscopy NEGATIVE NRG Complete urinalysis with reflex to culture NO NRG Automated blood complete blood count (he mogram) panel - 12/02/19 07:12 Blood leukocytes automated count (number/volume) 7.3 10*3/uL 4.3-11.0 Blood erythrocytes automated count (number/volume) 4.63 10*6/uL 4.35-5.85 Venous blood hemoglobin measurement (mass/volume) 14.4 g/dL 13.3-17.7 Blood hematocrit (volume fraction) 42 % 40-54 Automated erythrocyte mean corpuscular volume 91 [ foz_us] 80-99 Automated erythrocyte mean corpuscular h emoglobin (mass per erythrocyte) 31 pg 25-34 Automated erythrocyte mean corpuscular h emoglobin concentration measurement (mass/volume) 34 g/dL 32-36 Automated erythrocyte distribution width ratio 14. 1 % 10.0- 14.5 Automated blood platelet count (count/volume) 240 10*3/uL 130-400 Automated blood platelet mean volume measurement 10.2 [foz_us] 7.4-10.4 PT panel in platelet poor plasma by coag ulation assay - 12/02/19 07:12 Prothrombin time (PT) in platelet poor plasma by coagu lation assay 13.5 s 12.2-14.7 INR in platelet poor plasma or blood by coagulation as say 1.0 0.8-1.4 Activated partial thromboplastin time (a PTT) in platelet poor plasma bycoagulation assay - 12/02/19 07:12 Activated partial thromboplastin time (a PTT) in platelet poor plasma bycoagulation assay 35 s 24-35 Comprehensive metabolic panel - 12/02/19 07:12 Serum or plasma sodium measurement (moles/volume) 141 mmol/L 135-145 Serum or plasma potassium measurement (moles/volume) 4.0 mmol/L 3.6-5.0 Serum or plasma chloride measurement (moles/volume) 107 mmol/L 98-107 Carbon dioxide 22 mmol/L 21-32 Serum or plasma anion gap determination (moles/volume) 12 mmol/L 5-14 Serum or plasma urea nitrogen measurement (mass/volume ) 17 mg/dL 7-18 Serum or plasma creatinine measurement (mass/volume) 1.25 mg/dL 0.60-1.30 Serum or plasma urea nitrogen/creatinine mass ratio 14 NRG Serum or plasma creatinine measurement w ith calculation of estimated glomerular filtration rate 55 NRG Serum or plasma glucose measurement (mass/volume) 98 mg/dL 70-105 Serum or plasma calcium measurement (mass/volume) 9.7 mg/dL 8.5-10.1 Serum or plasma total bilirubin measurement (mass/volu me) 0.9 mg/dL 0.1-1.0 Serum or plasma alkaline phosphatase zahida surement (enzymatic activity/volume) 79 U/L 40-136 Serum or plasma aspartate aminotransfera se measurement (enzymatic activity/volume) 26 U/L 5-34 Serum or plasma alanine aminotransferase measurement (enzymatic activity/volume) 14 U/L 0-55 Serum or plasma protein measurement (mass/volume) 7.0 g/dL 6.4-8.2 Serum or plasma albumin measurement (mass/volume) 4.4 g/dL 3.2-4.5 CALCIUM CORRECTED 9.4 mg/dL 8.5-10.1 Methicillin resistant Staphylococcus aur eus (MRSA) screening culture - 12/02/19 07:12 Methicillin resistant Staphylococcus aureus (MRSA) scr eening culture NEG NRG Encounters ACCT No. Visit Date/Time Discharge Status Pt. Type Provider Facility Loc./Unit Complaint 04/[id number]/10/2017 15:25:12 07/10/2017 23:59 :59 CLS Outpatient Whitney Khan [id number] 12/02/2019 06:34:00 14:35:00 DIS Outpatient GLADYS KNOWLES MD [facility] CATH CP,CAD [id number] 08/27/2019 10:01:00 23:59:59 CLS Outpatient STEPHANIE RUCKER MD [facility] LAB HTN,HYPERLIPIDEMIA [id number] 12/29/2018 07:41:00 23:59:59 CLS Outpatient CRYSTAL RAZA [facility] CARD CAD [id number] 12/24/2018 10:36:00 23:59:59 CLS Outpatient CRYSTAL RAZA [facility] CARD CAD [id number] 10/31/2018 09:20:00 12:37:00 DIS Outpatient PURNIMA GE MD [facility] ENDO HX COLON POLYPS [id number] 10/27/2018 06:24:00 23:59:59 CLS Outpatient PURNIMA GE MD [facility] PREOP COLONOSCOPY [id number] 08/21/2018 08:03:00 23:59:59 CLS Outpatient CRYSTAL RAZA [facility] LAB I25.10,E78. 2 [id number] 08/20/2017 09:41:00 23:59:59 CLS Outpatient CRYSTAL RAZA [facility] LAB I25.10 I10 E78.2 [id number] 02/13/2017 11:56:00 017 23:59:59 CLS Outpatient CRYSTAL RAZA [facility] CARD CAD,HLP,KARL DE [id number] 02/13/2017 11:53:00 017 23:59:59 CLS Outpatient WHITNEY KHAN DO S [facility] LAB GOUT,FATIGUE [id number] 12/10/2016 14:47:00 017 23:59:59 CLS Outpatient CRYSTAL RAZA [facility] LAB CAD,HTN,HYP ERLIPIDEMIA [id number] 10/22/2016 10:00:00 23:59:59 CLS Preadmit GLADYS KNOWLES MD [facility] CR AMI [id number] 09/19/2016 11:59:00 00:01:00 DIS Outpatient GLADYS KNOWLES MD [facility] CR AMI [id number] 08/15/2016 12:50:00 20:47:00 DIS Outpatient GLADYS KNOWLES MD [facility] CATH CP,CAD,HTN,HLP [id number] 07/06/2016 23:40:00 016 00:57:00 DIS Emergency SAMMI TOBIN, KEITH Chopra [facility] ER STENT SITE GABRIELLA JOHNSON [id number] 06/13/2016 09:07:00 016 10:33:00 DIS Inpatient BENSON TOBIN, GLADYS Ventura [facility] ICU CHEST PAIN
[2020-03-26 20:24] LABS: INR 0.9 (0.8-1.4)
[2020-03-26 20:32] LABS: ALBUMIN 4.4 GM/DL (3.2-4.5); BILIRUBIN,TOTAL 0.4 MG/DL (0.1-1.0); CALCIUM 9.1 MG/DL (8.5-10.1); CREATININE SERUM 1.39 MG/DL (0.60-1.30); POTASSIUM 4.1 MMOL/L (3.6-5.0); TOTAL PROTEIN 7.1 GM/DL (6.4-8.2)
--- NOTE | 2020-03-26 20:39 | Diagnostic Imaging Report ---
PROCEDURE: CT head without contrast. TECHNIQUE: Multiple contiguous axial images were obtained through the brain without the use of intravenous contrast. Auto Exposure Controls were utilized during the CT exam to meet ALARA standards for radiation dose reduction. INDICATION: Right-sided head and facial numbness. COMPARISON: No comparison available. FINDINGS: Age-related global volume loss is present. There are no findings of intracranial hemorrhage. There is no mass effect or shift. There is no hydrocephalus. There are scattered regions of hypoattenuation demonstrated within the white matter compatible with microvascular disease. There is no territorial loss of gan-white differentiation evident. There is no abnormal low density evident within the basal ganglia within the moar. Posterior fossa demonstrates no acute process. Mastoid air cells appear clear. Visualized paranasal sinuses are clear. Orbital contents are unremarkable. No acute calvarial abnormality demonstrated. IMPRESSION: Age-related global volume loss with mild chronic microvascular changes within the white matter. There are no CT findings of an acute intracranial abnormality. Dictated by: Dictated on workstation # [id number]
[2020-03-26 21:30] VITALS: BP 136/83
== END 2020-03-26 21:31 | disposition home or self-care (01) ==
LOC: EDUNIT# 20:00 → ER 20:01
DX: G51.9 Disorder of facial nerve, unspecified (principal); I10 Essential (primary) hypertension; E78.00 Pure hypercholesterolemia, unspecified; I25.2 Old myocardial infarction; I25.10 Atherosclerotic heart disease of native coronary artery without angina pectoris; K21.9 Gastro-esophageal reflux disease without esophagitis; M10.9 Gout, unspecified; Z95.5 Presence of coronary angioplasty implant and graft; Z88.8 Allergy status to other drugs, medicaments and biological substances; Z79.82 Long term (current) use of aspirin; Z87.891 Personal history of nicotine dependence
CPT/HCPCS: 36415; 70450; 80053; 82962; 85025; 85610

== ENCOUNTER → 2020-06-30 | Outpatient (CLI) | payer MEDICARE ==
[2020-06-30 12:16] LABS: ALBUMIN 4.3 GM/DL (3.2-4.5); BILIRUBIN,TOTAL 0.8 MG/DL (0.1-1.0); CALCIUM 9.2 MG/DL (8.5-10.1); CREATININE SERUM 1.24 MG/DL (0.60-1.30); POTASSIUM 4.2 MMOL/L (3.6-5.0)
== END ==
LOC: LAB 11:35
PROVIDERS: ATTEND Internal Medicine Cardiovascular Disease
DX: I25.10 Atherosclerotic heart disease of native coronary artery without angina pectoris (principal); E78.5 Hyperlipidemia, unspecified; I08.0 Rheumatic disorders of both mitral and aortic valves
CPT/HCPCS: 36415; 80053; 80061

== ENCOUNTER → 2021-04-14 | Outpatient (CLI) | payer MEDICARE ==
[~2021-04-14] MED LIST changes: +ASPI-1238 PO; -ASPI-983 PO; -ISOS30TA3 PO; +ISOS30TA82 PO; -LISI-556 PO; +LISI-729 PO; -LISI10TA2 PO; +LISI10TA25 PO; -PANT40TA3 PO; +PANT40TA52 PO
[2021-04-14 09:20] LABS: ALBUMIN 4.1 GM/DL (3.2-4.5); BILIRUBIN,TOTAL 0.8 MG/DL (0.1-1.0); CALCIUM 9.3 MG/DL (8.5-10.1); CREATININE SERUM 1.22 MG/DL (0.60-1.30); POTASSIUM 4.2 MMOL/L (3.6-5.0); TOTAL PROTEIN 6.7 GM/DL (6.4-8.2)
== END ==
LOC: LAB 08:27
PROVIDERS: ATTEND Physician Assistant
DX: I25.10 Atherosclerotic heart disease of native coronary artery without angina pectoris (principal); E78.2 Mixed hyperlipidemia
CPT/HCPCS: 36415; 80053; 80061

== ENCOUNTER → 2021-04-14 | Outpatient (CLI) | payer MEDICARE ==
[2021-04-14 08:57] LABS: BASOPHILS # (AUTO) 0.1 10^3/uL (0.0-0.1); BASOPHILS % (AUTO) 1 % (0-10); EOSINOPHILS # (AUTO) 0.5 10^3/uL (0.0-0.3); EOSINOPHILS % (AUTO) 8 % (0-10); HEMATOCRIT 43 % (40-54); HEMOGLOBIN 14.6 g/dL (13.3-17.7); LYMPHOCYTES # (AUTO) 1.8 10^3/uL (1.0-4.0); LYMPHOCYTES % (AUTO) 27 % (12-44); MEAN CORPUSCULAR HEMOGLOBIN 31 pg (25-34); MEAN CORPUSCULAR HGB CONC 34 g/dL (32-36); MEAN CORPUSCULAR VOLUME 92 fL (80-99); MEAN PLATELET VOLUME 9.8 fL (9.0-12.2); MONOCYTES # (AUTO) 0.6 10^3/uL (0.0-1.0); MONOCYTES % (AUTO) 9 % (0-12); NEUTROPHILS # (AUTO) 3.7 10^3/uL (1.8-7.8); NEUTROPHILS % (AUTO) 55 % (42-75); PLATELET COUNT 236 10^3/uL (130-400); WHITE BLOOD COUNT 6.6 10^3/uL (4.3-11.0)
[2021-04-14 09:22] LABS: ALBUMIN 4.1 GM/DL (3.2-4.5); BILIRUBIN,TOTAL 0.8 MG/DL (0.1-1.0); CALCIUM 9.3 MG/DL (8.5-10.1); CREATININE SERUM 1.19 MG/DL (0.60-1.30); POTASSIUM 4.2 MMOL/L (3.6-5.0); TOTAL PROTEIN 6.7 GM/DL (6.4-8.2)
== END ==
LOC: LAB 08:23
PROVIDERS: ATTEND Nurse Practitioner Family
DX: Z00.00 Encounter for general adult medical examination without abnormal findings (principal)
CPT/HCPCS: 36415; 80053; 84443; 85025

== ENCOUNTER → 2021-05-16 | Outpatient (CLI) | payer MEDICARE ==
[~2021-05-16] VITALS: Ht 177 cm; Wt 82.0 kg
[~2021-05-16] MED LIST changes: +CATHETER FLUSH 10 ML SYR IV PRN; +REGADENOSON 0.4 MG/5 ML SYR (LEXISCAN) IV ONE
[2021-05-16 11:47] VITALS: BP 206/91
--- NOTE | 2021-05-17 11:28 | Cardiology Stress Test Report ---
Stress Test Report Date of Procedure/Referring: Date of Procedure: May 17, 2021 PCP Gladys Dominique MD Admitting Physician Kristin Ramsey MD Indications: CP Baseline Heart Rate: 48 Baseline Blood Pressure: Blood Pressure Systolic: 206 Blood Pressure Diastolic: 91 Baseline Vitals Vital Signs Date Time Temp Pulse Resp B/P (MAP) Pulse Ox O2 Delivery O2 Flow Rate FiO2 05/16/21 11:47 48 206/91 (129) 98 Baseline EKG: Baseline EKG: NSR Summary After explaining the procedure to the patient, he signed a consent and then brought to the stress nuclear laboratory. Patient received 0.4 mg Lexiscan for stress test, ECG, heart rate and blood pressure were monitored continuously. Resting and stress dose of radio tracer were injected, imaging was acquired and reviewed in short axis, horizontal long axis and vertical long axis views. TID: 1.11 SSS: 8 SDS: 7 EF: 55 1. Patient tolerated Lexiscan well 2. Reversible ischemia involving the mid to apical anterior wall, true apex and inferoapical segment 3. Normal left ventricular size, EF 55% GLADYS DOMINIQUE MD May 17, 2021 11:28
== END ==
LOC: CARD 10:30
PROVIDERS: ATTEND Internal Medicine Cardiovascular Disease
DX: I10 Essential (primary) hypertension (principal); I34.0 Nonrheumatic mitral (valve) insufficiency; I25.10 Atherosclerotic heart disease of native coronary artery without angina pectoris
CPT/HCPCS: 78452; 93017; 93306; A9502

== ENCOUNTER → 2021-05-29 | Outpatient (CLI) | payer MEDICARE ==
[~2021-05-29] MED LIST changes: -CATHETER FLUSH 10 ML SYR IV PRN; +CHOL100048 PO; +CLOP75TA28 PO; +HEParin 1000 UNIT/ML (10ML VIAL) FOR BOLUS ONE; +MIDAZOLAM 5 MG/5 ML (VERSED) VIAL ONE; +NITR0.4T39 SL; +NITRO DRIP 25000 MCG/D5W 250 ML IV ONE; -REGADENOSON 0.4 MG/5 ML SYR (LEXISCAN) IV ONE; +VERAPAMIL 5 MG/2 ML (CALAN) VIAL IV ONE; +fentaNYL INJ 100 MCG/2 ML AMP ONE
[2021-05-29 09:51] LABS: BASOPHILS # (AUTO) 0.1 10^3/uL (0.0-0.1); BASOPHILS % (AUTO) 1 % (0-10); EOSINOPHILS # (AUTO) 0.4 10^3/uL (0.0-0.3); EOSINOPHILS % (AUTO) 6 % (0-10); HEMATOCRIT 41 % (40-54); HEMOGLOBIN 14.1 g/dL (13.3-17.7); LYMPHOCYTES # (AUTO) 1.5 10^3/uL (1.0-4.0); LYMPHOCYTES % (AUTO) 25 % (12-44); MEAN CORPUSCULAR HEMOGLOBIN 32 pg (25-34); MEAN CORPUSCULAR HGB CONC 34 g/dL (32-36); MEAN CORPUSCULAR VOLUME 92 fL (80-99); MEAN PLATELET VOLUME 9.6 fL (9.0-12.2); MONOCYTES # (AUTO) 0.5 10^3/uL (0.0-1.0); MONOCYTES % (AUTO) 8 % (0-12); NEUTROPHILS # (AUTO) 3.7 10^3/uL (1.8-7.8); NEUTROPHILS % (AUTO) 60 % (42-75); PLATELET COUNT 215 10^3/uL (130-400); WHITE BLOOD COUNT 6.1 10^3/uL (4.3-11.0)
[2021-05-29 10:12] LABS: PROTHROMBIN TIME PATIENT 13.6 SEC (12.2-14.7)
[2021-05-29 10:16] LABS: BILIRUBIN,TOTAL 0.7 MG/DL (0.1-1.0); CALCIUM 9.1 MG/DL (8.5-10.1); CREATININE SERUM 1.24 MG/DL (0.60-1.30); POTASSIUM 4.3 MMOL/L (3.6-5.0); TOTAL PROTEIN 6.6 GM/DL (6.4-8.2)
--- NOTE | 2021-05-29 10:19 | Diagnostic Imaging Report ---
Indication: Preop. Compared to 12/02/2019. Findings: The lungs are clear. No failure, effusion or pneumothorax. There is tortuosity of the thoracic aortic shadow, chronic. No acute finding. Impression: Stable chest Dictated by: Dictated on workstation # [id number]
[2021-05-29 10:20] LABS: BILIRUBIN,URINE NEGATIVE (NEGATIVE); CLARITY,URINE CLEAR; COLOR,URINE YELLOW; GLUCOSE, URINE (UA) NEGATIVE (NEGATIVE); KETONES,URINE NEGATIVE (NEGATIVE); LEUKOCYTE ESTERASE ,URINE 1+ (NEGATIVE); NITRITE,URINE NEGATIVE (NEGATIVE); PH,URINE 6.5 (5-9); PROTEIN,URINE NEGATIVE (NEGATIVE)
[2021-05-29 10:33] LABS: BACTERIA,URINE TRACE /HPF; SQUAMOUS EPITHELIAL CELL,UR RARE /HPF
== END ==
LOC: CARD 09:17
PROVIDERS: ATTEND Internal Medicine Cardiovascular Disease
DX: Z01.810 Encounter for preprocedural cardiovascular examination (principal); Z01.812 Encounter for preprocedural laboratory examination; I50.9 Heart failure, unspecified; I25.10 Atherosclerotic heart disease of native coronary artery without angina pectoris; N18.9 Chronic kidney disease, unspecified
CPT/HCPCS: 36415; 71045; 80053; 80061; 81000; 85025; 85610; 85730; 87088; 93005

== ENCOUNTER 2021-06-01 08:00 | Day surgery (SDC) | payer MEDICARE ==
[~2021-06-01] VITALS: Ht 175 cm; Wt 84.0 kg
[2021-06-01 07:20] VITALS: BP 206/88
[~2021-06-01 08:00] MED LIST changes: -CHOL100048 PO; -CLOP75TA28 PO; +HEParin (CATH LAB) 2,000 ML IV ONE; -HEParin 1000 UNIT/ML (10ML VIAL) FOR BOLUS ONE; +LIDOCAINE 1% INJ 20 ML 20 ML VIAL ONE; -MIDAZOLAM 5 MG/5 ML (VERSED) VIAL ONE; -NITR0.4T39 SL; -NITRO DRIP 25000 MCG/D5W 250 ML IV ONE; +NS IV 1000 ML 1,000 ML IV SCH; +NS IV 1000 ML 1,000 ML ONE; -VERAPAMIL 5 MG/2 ML (CALAN) VIAL IV ONE; -fentaNYL INJ 100 MCG/2 ML AMP ONE
[2021-06-01] MEDS ORDERED: NITR0.4T39 SL (08:06)
[2021-06-01] MEDS ORDERED: CHOL100048 PO (08:06)
--- NOTE | 2021-06-01 08:06 | Pre-Op Note & Conscious Sedat ---
Pre-Operative Progress Note H&P Reviewed The H&P was reviewed, patient examined and no changes noted. Date H&P Reviewed: Jun 01, 2021 Time H&P Reviewed: 08:05 Pre-Op Diagnosis: Coronary artery disease with angina pectoris. Conscious Sedation Pre-Proced ASA Score 2 For ASA 3 and 4: Consider anesthesia and medical clearance. Also, for patients with a history of failed moderate sedation consider anesthesia. Airway Lungs Heart ASA score ASA 1: a normal healthy patient ASA 2: a patient with a mild systemic disease (mid diabetes, controlled hypertension, obesity ASA 3: a patient with a severe systemic disease that limits activity (angina, COPD, prior Myocardial infarction) ASA 4: a patient with an incapacitating disease that is a constant threat to life (CHF, renal failure) ASA 5: a moribund patient not expected to survive 24 hrs. (ruptured aneurysm) ASA 6: a declared brain- patient whose organs are being harvested. For emergent operations, add the letter E after the classification Mallampati Classification Grade 1 Sedation Plan Analgesia, Amnesia, Plan communicated to team members, Discussed options with patient/fam, Discussed risks with patient/fam The patient is an appropriate candidate to undergo the planned procedure, sedation, and anesthesia. The patient immediately re-assessed prior to indication. TERESITA MONTANO JR, MD Jun 01, 2021 08:06
[2021-06-01] MEDS ORDERED: ASPIRIN 81 MG CHEW (CHILDREN'S ASA) ONE (08:40)
[2021-06-01] MEDS ORDERED: CLOPIDOGREL 300 MG (PLAVIX) TABLET PO ONE (09:00)
[2021-06-01] MEDS ORDERED: CLOP75TA28 PO (09:26)
[2021-06-01] MEDS ORDERED: NS IV 1000 ML 1,000 ML IV SCH (09:30)
[2021-06-01] MEDS ORDERED: PATIENT MAY USE OWN MEDS, ALL PO SCH (09:30)
--- NOTE | 2021-06-01 09:43 | Cardiac Cath Report ---
CARDIAC CATHETERIZATION DATE OF PROCEDURE: 06/01/2021. INDICATION: Coronary artery disease with angina pectoris and abnormal stress test. HISTORY: The patient is a 80 year old male with a known history of coronary artery disease with previous stents in the proximal left anterior descending coronary arteries as well as a proximal and distal right coronary artery. He had recently been having some symptoms concerning for possible angina despite being on 2 antianginal medications. As such, he underwent a nuclear stress test that showed anterior and apical ischemia. Therefore, he is now referred for further evaluation with a cardiac catheterization. PROCEDURES PERFORMED: 1. Left heart catheterization with hemodynamic measurements. 2. Diagnostic [place] coronary angiography. 3. Drug-eluting stent placement to mid left anterior descending coronary artery. PROCEDURE DESCRIPTION: Left heart catheterization was performed through the right radial artery utilizing a 6 Tanzanian system by percutaneous approach. Standard 5 [place]anian Calvin catheters were utilized for the diagnostic portion of the procedure. The right coronary artery had an anterior and superior takeoff and multiple catheters were used to interrogate the right coronary artery. A JR4, 3 DRC, and multipurpose catheter would not reach the ostium. I was finally able to engage the right coronary artery with a 6 [place]anian AL 2 catheter. All catheters were exchanged over a guidewire. RESULTS: HEMODYNAMICS: The aortic pressure was 101/53 mmHg. The left ventricular pressure was 108 over 0 mmHg with a left ventricular end-diastolic pressure of 8 mmHg. There was no significant pressure gradient upon pullback across the aortic valve.. CORONARY ANGIOGRAPHY: Left main coronary artery: There was a 40% stenosis distally. Left anterior descending coronary artery: There was a stent in the proximal segment which was widely patent. There was a 90% stenosis just distal to the stent with JACKSON 2 flow. There was a small diagonal branch arising within the lesion in the left anterior descending coronary artery with a 50% stenosis proximally. This was a bifurcation lesion with a Plasencia classification of 1, 1, 1. There was a 50% stenosis in the distal left anterior descending coronary artery. Left circumflex coronary artery: This was essentially a large first obtuse marginal branch which contained a 30% stenosis proximally. Right coronary artery: Dominant and there was a stent in the proximal segment which was widely patent. There was a 50% stenosis just proximal to the stent. There was a stent in the distal segment just proximal to the bifurcation which was widely patent. The posterior descending and posterolateral branches had mild plaque. PERCUTANEOUS CORONARY INTERVENTION: Percutaneous coronary intervention was carried out on the mid left anterior descending coronary artery through a 6 [place]anian CLS 3.5 guide catheter. The lesion was successfully crossed with a Whisper medium support guidewire. I subsequently performed coronary angioplasty with a 2.5 x 12 mm Trek balloon at a pressure of 8 pito for 2 inflations. Flow was improved. I subsequently deployed a 2.75 x 15 mm drug-eluting Xience stent in the midsegment and overlapping the distal edge of the previously placed stent at a pressure of 16 pito. The overlapped segment was postdilated with the stent balloon at a pressure of 16 pito. This stent jailed the first diagonal branch. F ollowing stent placement, there was 0% residual stenosis with JACKSON-3 flow. The diagonal branch appeared unchanged. IMPRESSION: 1. Normal left heart pressures. 2. Patent stents in the proximal and distal right coronary artery. 3. Patent stent in the proximal left anterior descending coronary artery with a 90% stenosis just distal to the stent. 4. Status post drug-eluting stent placement to the mid left anterior descending coronary artery with a 2.75 x 15 mm Xience stent with 0% residual stenosis and JACKSON-3 flow. The small first diagonal branch is jailed by the stent but had an unchanged appearance following the stent. TERESITA MONTANO JR, MD Jun 01, 2021 09:43
[2021-06-01 11:44] VITALS: BP 145/71
[2021-06-02] MEDS ORDERED: ASPIRIN E.C. 81 MG (ECOTRIN) TAB PO SCH (09:00)
[2021-06-02] MEDS ORDERED: CLOPIDOGREL 75 MG (PLAVIX) TABLET PO SCH (09:00)
== END 2021-06-01 16:33 ==
LOC: CATH 08:00 → CSD 09:43 → CATH 16:33
PROVIDERS: ATTEND Internal Medicine Cardiovascular Disease
DX: I25.111 Atherosclerotic heart disease of native coronary artery with angina pectoris with documented spasm (principal); I50.20 Unspecified systolic (congestive) heart failure; I10 Essential (primary) hypertension; I49.5 Sick sinus syndrome; I65.23 Occlusion and stenosis of bilateral carotid arteries; I08.0 Rheumatic disorders of both mitral and aortic valves; E78.5 Hyperlipidemia, unspecified; E78.2 Mixed hyperlipidemia; N18.9 Chronic kidney disease, unspecified; Z79.82 Long term (current) use of aspirin; Z79.899 Other long term (current) drug therapy; Z82.49 Family history of ischemic heart disease and other diseases of the circulatory system; Z80.9 Family history of malignant neoplasm, unspecified
CPT/HCPCS: 93005; 93458; C1725; C1769; C1874; C1887 ×2; C1894; C9600

== ENCOUNTER 2021-06-28 15:23 | Emergency (ER) | payer MEDICARE ==
[~2021-06-28] VITALS: Ht 177.8 cm; Wt 81.8 kg
[~2021-06-28 15:23] MED LIST changes: +CHOL100048 PO; +CLOP75TA28 PO; -HEParin (CATH LAB) 2,000 ML IV ONE; -LIDOCAINE 1% INJ 20 ML 20 ML VIAL ONE; +NITR0.4T39 SL; -NS IV 1000 ML 1,000 ML IV SCH; -NS IV 1000 ML 1,000 ML ONE
--- NOTE | 2021-06-28 15:46 | ED Lower Extremity ---
General Chief Complaint: Laceration Stated Complaint: LEG LACERATION BY MACHETE / ON BLOOD THINNERS Source: patient Exam Limitations: no limitations (J CARLOS JIN APRN) History of Present Illness Date Seen by Provider: Jun 28, 2021 Time Seen by Provider: 15:43 Initial Comments To ER with laceration to the left lower leg. He was cutting some weeds with a machete when the swing missed and caused the machete to bounce up and strike his left mir. Tetanus is up-to-date within the past 5 years. He is on aspirin and Plavix. He states that the blood squirted out of his leg across his shoe with an impressive stream. He does have varicose veins to the lacerated location. He applied direct pressure and was able to stop the bleeding in route to the hospital. Onset: just prior to arrival Severity: moderate Pain/Injury Location: left leg Method of Injury: direct blow Modifying Factors: Worse With Movement (J CARLOS JIN APRN) Allergies and Home Medications Allergies Coded Allergies: rosuvastatin (Verified Adverse Reaction, Mild, HOME MED = LIPITOR, 06/13/16) Myalgia Home Medications Allopurinol 300 Mg Tablet, 300 MG PO DAILY, (Reported) Aspirin 81 Mg Tablet.dr, 81 MG PO DAILY, (Reported) Atorvastatin Calcium 20 Mg Tablet, 20 MG PO HS, (Reported) Cholecalciferol (Vitamin D3) 25 Mcg Capsule, 25 MCG PO DAILY, (Reported) Clopidogrel Bisulfate 75 Mg Tablet, 75 MG PO DAILY Prescribed by: TERESITA MONTANO JR, MD on 06/01/21 0926 Isosorbide Mononitrate 30 Mg Tab.er.24h, 30 MG PO DAILY, (Reported) Lisinopril 10 Mg Tablet, 10 MG PO DAILY, (Reported) Nitroglycerin 0.4 Mg Tab.subl, 0.4 MG SL UD PRN for CHEST PAIN, (Reported) [place]-3/Dha/Epa/Fish Oil 1 Each Capsule, 1,000 MG PO DAILY, (Reported) Pantoprazole Sodium 40 Mg Tablet.dr, 40 MG PO DAILY, (Reported) Ubidecarenone 100 Mg Capsule, 100 MG PO DAILY, (Reported) Patient Home Medication List Home Medication List Reviewed: Yes (J CARLOS JIN APRN) Review of Systems Constitutional: see HPI EENTM: see HPI Respiratory: no symptoms reported Cardiovascular: no symptoms reported Genitourinary: no symptoms reported Musculoskeletal: no symptoms reported Skin: see HPI Psychiatric/Neurological: No Symptoms Reported (J CARLOS JIN APRN) Past Sxkgdci-Khrndx-Fhvuxz Hx Immunizations Up To Date Tetanus Booster (TDap): Unknown (J CARLOS JIN APRN) Seasonal Allergies Seasonal Allergies: Yes (J CARLOS JIN APRN) Past Medical History Surgeries: Yes (CATARACT, R ROTATOR CUFF,L HAND CYST) Coronary Stent, Ear Surgery, Eye Surgery Respiratory: No Currently Using CPAP: No Currently Using BIPAP: No Cardiac: Yes (stents x4) Coronary Artery Disease, Heart Attack, High Cholesterol, Hypertension Neurological: No Reproductive Disorders: No Genitourinary: No Gastrointestinal: Yes Gastroesophageal Reflux, Polyps Musculoskeletal: Yes Arthritis, Gout Endocrine: No Cancer: No Psychosocial: No Integumentary: No Blood Disorders: No (J CARLOS JIN APRN) Family Medical History Cancer, Stroke (J CARLOS JIN APRN) Physical Exam Vital Signs Vital Signs - First Documented 06/28/21 15:27 Temp 36.2 Pulse 55 Resp 18 B/P (MAP) 156/80 (105) Pulse Ox 97 O2 Delivery Room Air (BAILEY ABREU MD) Vital Signs Capillary Refill : (J CARLOS JIN APRN) Height, Weight, BMI Height: 5'9.00" Weight: 189lbs. 0.0oz. 85.259386wb; 27.42 BMI Method:Stated General Appearance: WD/WN, no apparent distress HEENT: PERRL/EOMI, normal ENT inspection Respiratory: no respiratory distress, no accessory muscle use Hips: bilateral hip non-tender, bilateral hip normal inspection, bilateral hip normal range of motion Legs: left leg other (To the anterior left leg there is a 1 cm laceration with depth to the subcutaneous tissue without active bleeding. Multitude of varicose veins which was likely the cause of this squirting blood.) Knees: bilateral knee non-tender, bilateral knee normal inspection, bilateral knee normal range of motion Ankles: bilateral ankle non-tender, bilateral ankle normal inspection, bilateral ankle normal range of motion Neurologic/Psychiatric: alert, normal mood/affect, oriented x 3 Skin: normal color, warm/dry (J CARLOS JIN APRN) Progress/Results/Core Measures Results/Orders Vital Signs/I&O 06/28/21 06/28/21 15:27 16:00 Temp 36.2 36.2 Pulse 55 55 Resp 18 18 B/P (MAP) 156/80 (105) 156/80 (105) Pulse Ox 97 97 O2 Delivery Room Air (BAILEY ABREU MD) Departure Communication (Admissions) anesthetized with 1 mL of 1% lidocaine with epinephrine. Scrubbed with chlorhexidine/saline solution and closed with 2 simple interrupted sutures size 4-0 Prolene. (J CARLOS JIN APRN) Impression Primary Impression: Leg laceration Disposition: HOME, SELF-CARE Condition: Stable Departure-Patient Inst. Decision time for Depature: 15:46 (J CARLOS JIN APRN) Referrals: STEPHANIE RUCKER MD (PCP/Family) Primary Care Physician Patient Instructions: Laceration Repair With Stitches (DC) Add. Discharge Instructions: 1. You can shower letting water run over this starting this evening. Return to ER to have the stitches removed in about 7 days. Return before then for any sign of infection such as redness or swelling. All discharge instructions reviewed with patient and/or family. Voiced u nderstanding. ATTENDING PHYSICIAN NOTE: I was physically present as attending physician in the emergency department during the care of this patient, but I was not directly involved in the decision making or delivery of care for this patient. (BAILEY ABREU MD) J CARLOS JIN APRN Jun 28, 2021 15:46 BAILEY ABREU MD Jun 28, 2021 22:04
[2021-06-28 16:00] VITALS: BP 156/80
== END 2021-06-28 16:14 | disposition home or self-care (01) ==
LOC: EDUNIT# 15:23 → ER 15:25
DX: S81.812A Laceration without foreign body, left lower leg, initial encounter (principal); I25.2 Old myocardial infarction; I10 Essential (primary) hypertension; M10.9 Gout, unspecified; K21.9 Gastro-esophageal reflux disease without esophagitis; I25.10 Atherosclerotic heart disease of native coronary artery without angina pectoris; E78.00 Pure hypercholesterolemia, unspecified; Z79.82 Long term (current) use of aspirin; Z79.899 Other long term (current) drug therapy; Z79.01 Long term (current) use of anticoagulants; W22.8XXA Striking against or struck by other objects, initial encounter
CPT/HCPCS: 12001

== ENCOUNTER 2021-07-07 10:21 | Emergency (ER) | payer MEDICARE ==
[2021-07-07 10:22] VITALS: BP 153/75
== END 2021-07-07 10:29 | disposition home or self-care (01) ==
LOC: EDUNIT# 10:21 → ER 10:23
DX: Z48.02 Encounter for removal of sutures (principal)

== ENCOUNTER 2022-01-09 13:12 | Observation (INO) | payer MEDICARE ==
[~2022-01-09 13:12] MED LIST changes: -LISI-729 PO; +LISI5TAB20 PO
[2022-01-09 15:08] VITALS: BP 120/61
[2022-01-09 16:00] VITALS: BP 102/63
[2022-01-09 16:20] LABS: HEMATOCRIT 36 % (40-54); HEMOGLOBIN 12.3 g/dL (13.3-17.7); MEAN CORPUSCULAR HEMOGLOBIN 31 pg (25-34); MEAN CORPUSCULAR HGB CONC 34 g/dL (32-36); MEAN CORPUSCULAR VOLUME 91 fL (80-99); MEAN PLATELET VOLUME 9.6 fL (9.0-12.2); PLATELET COUNT 200 10^3/uL (130-400); WHITE BLOOD COUNT 6.8 10^3/uL (4.3-11.0)
[2022-01-09 16:32] LABS: PROTHROMBIN TIME PATIENT 13.9 SEC (12.2-14.7)
[2022-01-09] MEDS: ASPIRIN E.C. 81 MG (ECOTRIN) TAB PO SCH (16:34)
[2022-01-09] MEDS: ISOSORBIDE MONONITRATE 30 MG (IMDUR) TAB PO SCH (16:35)
[2022-01-09] MEDS: CLOPIDOGREL 75 MG (PLAVIX) TABLET PO SCH (16:36)
[2022-01-09] MEDS: lisINopril 20 MG (PRINIVIL) TABLET PO SCH (16:37)
[2022-01-09 16:41] LABS: ALANINE AMINOTRANSFERASE 11 U/L (0-55); ALBUMIN 3.7 GM/DL (3.2-4.5); ALKALINE PHOSPHATASE 60 U/L (40-136); BILIRUBIN,TOTAL 0.8 MG/DL (0.1-1.0); BUN/CREATININE RATIO 14; CALCIUM 8.8 MG/DL (8.5-10.1); CARBON DIOXIDE 23 MMOL/L (21-32); CHLORIDE 108 MMOL/L (98-107); CREATININE SERUM 1.11 MG/DL (0.60-1.30); GFR ESTIMATED 66; GLUCOSE 89 MG/DL (70-105); POTASSIUM 3.9 MMOL/L (3.6-5.0); SODIUM 139 MMOL/L (135-145); TOTAL PROTEIN 5.8 GM/DL (6.4-8.2)
[2022-01-09] MEDS: ENOXAPARIN 40 MG/0.4 ML (LOVENOX) SYR SQ SCH (18:27)
[2022-01-09 20:00] VITALS: BP 108/64
[2022-01-10] VITALS (10 sets, daily range): BP systolic 91–152; BP diastolic 52–79
[2022-01-10] MEDS: CLOPIDOGREL 75 MG (PLAVIX) TABLET PO SCH (08:04)
[2022-01-10] MEDS: ASPIRIN E.C. 81 MG (ECOTRIN) TAB PO SCH (08:07)
[2022-01-10] MEDS: PANTOPRAZOLE 40 MG (PROTONIX) TAB PO SCH (08:07)
[2022-01-10] MEDS: ISOSORBIDE MONONITRATE 30 MG (IMDUR) TAB PO SCH (08:07)
[2022-01-10] MEDS: lisINopril 20 MG (PRINIVIL) TABLET PO SCH (08:07)
[2022-01-10] MEDS ORDERED: LIDOCAINE 1% INJ 50 ML (XYLOCAINE) VIAL ONE (08:35)
[2022-01-10] MEDS ORDERED: NS IV 1000 ML 1,000 ML ONE (08:35)
[2022-01-10] MEDS ORDERED: HEParin (CATH LAB) 2,000 ML IV ONE (08:35)
--- NOTE | 2022-01-10 08:46 | Cardiology History & Physical ---
HPI-Cardiology Cardiology Consultation Date of Consultation 01/10/22 Date of Admission Time Seen by Provider: 08:41 Indication: Chest pain HPI 81 years old gentleman with history of coronary artery disease, extensive disease, loss procedure was done in May 2021, he was seen in my office having recurrent episodes of chest pain, more frequent, had more significant episode about 2 days ago. I decided to admit the patient and monitor him overnight and planning for cardiac catheterization. This morning patient reported that he had another episode of chest pain in the morning dull in nature on the left side lasted for about an hour. No shortness of breath. No palpitation. No syncope. PMH-Cardiology Immunizations Up To Date Tetanus Booster (DTap): Unknown Date of Pneumonia Vaccine: Aug 13, 2015 Date of Influenza Vaccine: Jul 21, 2019 Seasonal Allergies Seasonal Allergies: Yes Surgeries Yes (CATARACT, R ROTATOR CUFF,L HAND CYST) Respiratory No Cardiovascular Yes (stents x4) Coronary Artery Disease Neurological No Reproductive System Hx Reproductive Disorders: No Genitourinary No Gastrointestinal Yes Gastroesophageal Reflux, Polyps Musculoskeletal Yes Arthritis, Gout Endocrine No Cancer No Psychosocial No Integumentary No Blood Transfusions No Other PMHx Past medical history as described below Social History Patient Social History Marrital Status: Employed/Student: retired Smoking: Never smoker Family Hx Significant Family History: Cancer, Stroke Other Noncontributory to his current condition ROS-Cardiology Review of Systems General: No Chills, No Night Sweats; Fatigue; No Malaise, No Appetite HEENT: No Head Aches, No Visual Changes, No Eye Pain, No Ear Pain, No Dysphasia, No Sinus Congestion, No Post Nasal Drip, No Sore Throat Pulmonary: No Dyspnea, No Cough, No Pleuritic Chest Pain Cardiovascular: Chest Pain; No: Palpitations, Orthopnea, Paroxysmal Noc. Dyspnea, Edema, Lt Headedness Gastrointestinal: No: Nausea, Vomiting, Abdominal Pain, Diarrhea, Constipation, Melena, Hematochezia Genitourinary: No Dysuria, No Frequency, No Incontinence, No Hematuria, No Retention Musculoskeletal: No: neck pain, shoulder pain, arm pain, back pain, hand pain, leg pain, foot pain Neurological: No: Weakness, Numbness, Incoordination, Change in speech, Confusion, Seizures Home Medications & Allergies Allergies: Coded Allergies: rosuvastatin (Verified Adverse Reaction, Mild, HOME MED = LIPITOR, 06/13/16) Myalgia Home Medication List Reviewed: Yes Exam-Cardiology Vital Signs Vital Signs Date Time Temp Pulse Resp B/P (MAP) Pulse Ox O2 Delivery O2 Flow Rate FiO2 01/10/22 08:28 Room Air 01/10/22 07:37 36.4 45 20 134/79 (97) 95 Exam General Appearance: Alert, Oriented X3, Cooperative, No Acute Distress HEENT: Atraumatic, PERRLA Respiratory: Clear to Auscultation, Normal Air Movement Cardiovascular: Normal S1, Normal S2, No Murmurs, Other (Bradycardia, systolic murmur at the left sternal border) Abdominal: Normal Bowel Sounds, Soft, No Tenderness, No Hepatosplenomegaly, No Masses Extremities: No Clubbing, No Cyanosis, No Edema, Normal Pulses, No Tenderness/Swelling Skin: No Rashes, No Breakdown, No Significant Lesion Neuro: Normal Gait, Normal Speech, Strength at 5/5 X4 Ext, Normal Tone, Sensation Intact Psych/Mental Status: Mental Status NL, Mood NL Results Labs Labs Laboratory Tests 01/09/22 16:12: White Blood Count 6.8, Red Blood Count 4.00L, Hemoglobin 12.3L, Hematocrit 36L, Mean Corpuscular Volume 91, Mean Corpuscular Hemoglobin 31, Mean Corpuscular Hemoglobin Concent 34, Red Cell Distribution Width 13.6, Platelet Count 200, Mean Platelet Volume 9.6, Prothrombin Time 13.9, INR Comment 1.0, Activated Partial Thromboplast Time 34, Sodium Level 139, Potassium Level 3.9, Chloride Level 108H, Carbon Dioxide Level 23, Anion Gap 8, Blood Urea Nitrogen 16, Creatinine 1.11, Estimat Glomerular Filtration Rate 66, BUN/Creatinine Ratio 14, Glucose Level 89, Calcium Level 8.8, Corrected Calcium 9.0, Total Bilirubin 0.8, Aspartate Amino Transf (AST/SGOT) 22, Alanine Aminotransferase (ALT/SGPT) 11, Alkaline Phosphatase 60, Troponin I < 0.028, Total Protein 5.8L, Albumin 3.7 A/P-Cardiology Admission Diagnosis Unstable angina Coronary artery disease Hypertension Hyperlipidemia Admission Status: Observation Assessment/Plan Chest pain, unstable angina, extensive cardiac history, planning for cardiac catheterization possible PTCA today. EKG and cardiac enzymes did not show any acute abnormality. Coronary artery disease, -Cardiac catheterization on June 13, 2016, acute ST elevation myocardial infarction wall being occlusion of a severely diseased right coronary artery, complex intervention with multiple stent deployment in anomalous right coronary artery using Promus Premier stents at a 2.520 mm distally, 3.020 mm at the midportion and then 2 stents 3.5 x 8 mm at the ostium after the use of cutting balloon and multiple dilated palpitation. Excellent results. -August 15, 2016, repeat cardiac catheterization due to recurrent chest pain showed patent multiple stents in the right coronary artery with calcified LAD with 40-50 percent stenosis at the midportion, first diagonal artery has [id number] disease nonobstructive disease, -cardiac catheterization was repeated on December 02, 2019 showing patent stents in the right coronary artery with collaterals to the right from the left system and slow flow in the distal right due to small vessel disease, diffuse ectasia in the LAD and circumflex artery with 50 percent stenosis in the mid LAD, normal left ventricular end-diastolic pressure. -Cardiac catheterization done 06/01/21 showing patent stents in the proximal and distal RCA. Patent stent in the prox LAD with 90% stenosis just distal to the stent, s/p drug-eluting stent placement to the mid LAD with [id number] Xience stent with excellent results. Maintained on Plavix and ASA. Congestive heart failure, left ventricular systolic dysfunction, ischemic in nature. Maintained on lisinopril, unable to tolerate beta shen d/t underlying bradycardia. Last echocardiogram was done on May 16, 2021 showing ejection fraction 55 to 65%, mild MR, PA 15 to 20 mmHg. Continue to monitor Hyperlipidemia, plan to evaluate lipid profile and metabolic profile Chronic renal insufficiency. Continue to monitor Hypertension, continue to monitor blood pressure, isosorbide was increased to 60 mg daily Sinus bradycardia, sinus node dysfunction, multiple episodes of bradycardia, last night has a heart rate in the 40s. Mild bilateral carotid stenosis, ultrasound was done in March 2021, continue to monitor GLADYS KNOWLES MD Jan 10, 2022 08:46
[2022-01-10] MEDS ORDERED: CHOL500050 PO (09:04)
[2022-01-10] MEDS ORDERED: CLOP75TA28 PO (09:04)
[2022-01-10] MEDS ORDERED: LISI20TA26 PO (09:04)
[2022-01-10] MEDS ORDERED: fentaNYL INJ 100 MCG/2 ML AMP ONE (14:13)
[2022-01-10] MEDS ORDERED: MIDAZOLAM 5 MG/5 ML (VERSED) VIAL ONE (14:13)
[2022-01-10] MEDS ORDERED: HEParin 1000 UNIT/ML (10ML VIAL) FOR BOLUS ONE (14:53)
[2022-01-10] MEDS ORDERED: NITRO DRIP 25000 MCG/D5W 250 ML IV ONE (14:55)
[2022-01-10] MEDS ORDERED: PATIENT MAY USE OWN MEDS, ALL PO SCH (15:15)
--- NOTE | 2022-01-10 15:17 | Cardiac Cath Report ---
Cardiac Cath Report Physician (s)/Falsework Builder (s) Physician GLADYS KNOWLES MD Pre-Procedure Diagnosis Pre-Procedure Diagnosis: Coronary artery disease with angina pectoris. Post-Procedure Note Procedure Start Date: Jan 10, 2022 Name of Procedure: Left heart catheterization Balloon angioplasty to the LAD Findings/Procedure Note PROCEDURE NOTE: 81-year-old gentleman with history of coronary artery disease multiple intervention, admitted with unstable angina, planning to proceed with cardiac catheterization. After explaining the procedure to the patient, all pros and cons were explained, all questions were answered. The patient signed the consent and then he was placed on the cardiac catheterization laboratory. Groin was prepped SL fashion local anesthesia was used. Sheath placed in the right femoral artery. Calvin right and left catheter were used to access the coronary system. Pigtail was used to access the left ventricular cavity. Left ventriculogram was not done, pressure was measured Patient has severe stenosis in the stent in the mid LAD, EBU 4.0 guide was used, BMW wire was advanced and parked distally, balloon dilatation using 3 x 20 trek balloon, multiple inflations were done with excellent results. At the end of the procedure the sheath was removed. Closure device was deployed FINDINGS: Hemodynamics LV 148/14, end-diastolic pressure 14 Aorta 132/56 mean of 83 ANATOMY: Left Main is free of obstructive disease Left Anterior Descending is moderate in size, severe in-stent restenosis in the mid LAD, successful balloon angioplasty using 3 x 20 trek balloon. Excellent result, moderate disease distally, diagonal artery has severe ostial stenosis, small artery. Left Circumflex is moderate in size with mild disease nonobstructive disease Right Coronary Artery is dominant artery, has patent stent in the proximal, mid and distal right coronary artery, collateral to the distal right coronary artery was noted LV Gram was not done, pressure was measured CONCLUSION: 1. Severe in-stent restenosis in the mid LAD with successful balloon angioplasty using 3 x 20 trek balloon, excellent results. 2. Moderate to severe distal LAD stenosis, fairly small artery, severe ostial diagonal artery stenosis, small artery, treated medically 3. Patent stents in the proximal, mid and distal right coronary artery with mild disease distally, collaterals to the distal right coronary artery from the left system 4. Mild to moderate disease in the circumflex artery nonobstructive disease 5. Normal left ventricular end-diastolic pressure DISCUSSION AND RECOMMENDATION: Medical therapy is recommended with aspirin and Plavix in addition to the balloon angioplasty, continue to monitor Anesthesia Type: Conscious Sedation Estimated blood loss (mL): 25 ml Contrast Amount: 60 ml Total Radiation Dose: 453 mGy Post-Procedure Diagnosis Post-operative diagnosis: Chest pain Coronary artery disease Hypertension Hyperlipidemia GLADYS KNOWLES MD Jan 10, 2022 15:17
[2022-01-10] MEDS ORDERED: CLOPIDOGREL 300 MG (PLAVIX) TABLET PO ONE (15:18)
[2022-01-10] MEDS ORDERED: ASPIRIN 325 MG (5 GR) TABLET ONE (15:18)
[2022-01-10] MEDS: NS IV 1000 ML 1,000 ML IV SCH (16:44)
[2022-01-10] MEDS: ENOXAPARIN 40 MG/0.4 ML (LOVENOX) SYR SQ SCH (18:30)
[2022-01-11] MEDS: NS IV 1000 ML 1,000 ML IV SCH (01:15)
--- NOTE | 2022-01-11 06:17 | Discharge Inst-Post CATH ---
Discharge Inst-CATH/EP Problems Reviewed?: Yes Post Cardiac Cath/EP D/C Inst Follow Up/Plan Appointment with Dr Dominique in 2-4 weeks <b>CARDIAC CATH/EP PROCEDURE DISCHARGE INSTRUCTIONS</b> ACTIVITY * Go Home directly and rest. * Limit activity of the leg (or wrist if it was used) for 7 days including aerobics, swimming, jogging, bicycling, etc. * Restrict stair-climbing for 7 days if possible, if not, climb up with your non-cath leg, then bring together on the same step. * Avoid lifting, pushing, pulling or excessive movement of the affected extremity for 7 days. * Customary sexual activity may be resumed after 2 days-use caution not to use a position that strains or causes pain to the affected extremity. * No driving for 24 hours. * NO SMOKING. * Avoid straining for bowel movements for 7 days. * Gentle walking on level ground is allowed. * Returning to work will depend on the type of procedure and the results. Your doctor will discuss this with you. CALL YOUR DOCTOR FOR ANY OF THE FOLLOWING: *If bleeding from the puncture site occurs- Apply gentle pressure to site with clean cloth and call your doctor or EMS. * If a knot or lump forms under the skin, increases in size, or causes pain. * If bruising appears to be worsening or moving further down your leg instead of disappearing. * Temperature above 101 F. CARE OF YOUR GROIN INCISION; * Bruising or purple discoloration of the skin near the puncture site is common. * You may shower only, no bathtub bathing for 5 days. Be careful to avoid slipping as your leg may feel stiff. * If a closure device was used on your femoral artery, please see the attached guide regarding care of the device and your leg. * Leave dressing on FOR 24 hours. CARE OF YOUR WRIST INCISION; * Bruising or purple discoloration of the skin near the puncture site is common. * You may shower. * DO NOT submerge wrist. * Leave dressing on FOR 24 hours. GLADYS DOMINIQUE MD Jan 11, 2022 06:17
[2022-01-11 07:38] VITALS: BP 155/82
[2022-01-11] MEDS: CLOPIDOGREL 75 MG (PLAVIX) TABLET PO SCH (08:41)
[2022-01-11] MEDS: lisINopril 20 MG (PRINIVIL) TABLET PO SCH (08:41)
[2022-01-11] MEDS: PANTOPRAZOLE 40 MG (PROTONIX) TAB PO SCH (08:41)
[2022-01-11] MEDS: ISOSORBIDE MONONITRATE 30 MG (IMDUR) TAB PO SCH (08:41)
[2022-01-11] MEDS: ASPIRIN E.C. 81 MG (ECOTRIN) TAB PO SCH (08:41)
--- NOTE | 2022-01-11 08:51 | Cardiology Progress Note ---
Subjective Date Seen by Provider: Jan 11, 2022 Time Seen by Provider: 08:50 Subjective/Events-last exam Patient is laying down in bed, feeling well. No new complaint Review of Systems General: No Chills, No Night Sweats, No Fatigue, No Malaise, No Appetite, No Other HEENT: No Head Aches, No Visual Changes, No Eye Pain, No Ear Pain, No Dysphasia, No Sinus Congestion, No Post Nasal Drip, No Sore Throat, No Other Pulmonary: No Dyspnea, No Cough, No Pleuritic Chest Pain, No Other Cardiovascular: No: Chest Pain, Palpitations, Orthopnea, Paroxysmal Noc. Dyspnea, Edema, Lt Headedness, Other Objective-Cardiology Exam Last Set of Vital Signs Vital Signs 01/11/22 07:38 Temp 36.0 Pulse 46 Resp 21 B/P (MAP) 155/82 (106) Pulse Ox 96 O2 Delivery Room Air I&O Intake and Output 01/11/22 00:00 Intake Total 1570 ml Output Total 400 ml Balance 1170 ml Intake Oral 1570 ml Output Urine Total 400 ml # Voids 6 # Bowel Movements 1 General: Alert, Oriented X3, Cooperative, No Acute Distress HEENT: Atraumatic, PERRLA Lungs: Clear to Auscultation, Normal Air Movement Heart: Normal S1, Normal S2, No Murmurs, Other (Bradycardia, systolic murmur at the left sternal border) Abdomen: Normal Bowel Sounds, Soft, No Tenderness, No Hepatosplenomegaly, No Masses Extremities: No Clubbing, No Cyanosis, No Edema, Normal Pulses, No Tenderness/Swelling Skin: No Rashes, No Breakdown, No Significant Lesion Neuro: Normal Gait, Normal Speech, Strength at 5/5 X4 Ext, Normal Tone, Sensation Intact Psych/Mental Status: Mental Status NL, Mood NL A/P-Cardiology Admission Diagnosis Unstable angina Coronary artery disease Hypertension Hyperlipidemia Assessment/Plan Chest pain, unstable angina, reporting improvement after angioplasty. Continue to monitor Sinus node dysfunction, sinus bradycardia, episode of bradycardia heart rate in the 40s well sleeping. Probably underlying sleep apnea, recommend sleep study as an outpatient. Coronary artery disease, -Cardiac catheterization on June 13, 2016, acute ST elevation myocardial infarction wall being occlusion of a severely diseased right coronary artery, complex intervention with multiple stent deployment in anomalous right coronary artery using Promus Premier stents at a 2.520 mm distally, 3.020 mm at the midportion and then 2 stents 3.5 x 8 mm at the ostium after the use of cutting balloon and multiple dilated palpitation. Excellent results. -August 15, 2016, repeat cardiac catheterization due to recurrent chest pain showed patent multiple stents in the right coronary artery with calcified LAD with 40-50 percent stenosis at the midportion, first diagonal artery has [id number] disease nonobstructive disease, -cardiac catheterization was repeated on December 02, 2019 showing patent stents in the right coronary artery with collaterals to the right from the left system and slow flow in the distal right due to small vessel disease, diffuse ectasia in the LAD and circumflex artery with 50 percent stenosis in the mid LAD, normal left ventricular end-diastolic pressure. -Cardiac catheterization done 06/01/21 showing patent stents in the proximal and distal RCA. Patent stent in the prox LAD with 90% stenosis just distal to the stent, s/p drug-eluting stent placement to the mid LAD with [id number] Xience stent with excellent results. Cardiac catheterization done on December 14, 2021 with successful balloon angioplasty to the LAD with excellent results. Maintained on Plavix and ASA. Congestive heart failure, left ventricular systolic dysfunction, ischemic in nature. Maintained on lisinopril, unable to tolerate beta shen d/t underlying bradycardia. Last echocardiogram was done on May 16, 2021 showing ejection fraction 55 to 65%, mild MR, PA 15 to 20 mmHg. Continue to monitor Hyperlipidemia, plan to evaluate lipid profile and metabolic profile Chronic renal insufficiency. Continue to monitor Hypertension, continue to monitor blood pressure, isosorbide was increased to 60 mg daily Sinus bradycardia, sinus node dysfunction, multiple episodes of bradycardia, last night has a heart rate in the 40s. Mild bilateral carotid stenosis, ultrasound was done in March 2021, continue to monitor GLADYS KNOWLES MD Jan 11, 2022 08:51
== END 2022-01-11 10:17 | disposition home or self-care (01) ==
LOC: CSD 14:40
PROVIDERS: ADMIT Internal Medicine Cardiovascular Disease; ATTEND Internal Medicine Cardiovascular Disease
DX: I25.110 Atherosclerotic heart disease of native coronary artery with unstable angina pectoris (principal); I65.23 Occlusion and stenosis of bilateral carotid arteries; I50.9 Heart failure, unspecified; I12.9 Hypertensive chronic kidney disease with stage 1 through stage 4 chronic kidney disease, or unspecified chronic kidney disease; N18.9 Chronic kidney disease, unspecified; E78.5 Hyperlipidemia, unspecified; Z79.899 Other long term (current) drug therapy
CPT/HCPCS: 80053; 84484; 85027; 85610; 85730; 92920; 93458; C1725; C1760; C1769; C1887; C1894; G0378; G0379; 36415

== ENCOUNTER 2022-01-24 09:00 | Outpatient (CLI) | payer MEDICARE ==
[~2022-01-24 09:00] MED LIST changes: +CHOL500050 PO; +LISI20TA26 PO
== END 2022-01-24 09:20 ==
LOC: SLEEP 09:00
PROVIDERS: ATTEND Internal Medicine Cardiovascular Disease
DX: G47.33 Obstructive sleep apnea (adult) (pediatric) (principal); I10 Essential (primary) hypertension
CPT/HCPCS: G0399

== ENCOUNTER → 2022-04-24 | Outpatient (CLI) | payer MEDICARE ==
[2022-04-24 13:24] LABS: ALBUMIN 4.2 GM/DL (3.2-4.5); POTASSIUM 4.2 MMOL/L (3.6-5.0)
[2022-04-24 13:26] LABS: CALCIUM 9.2 MG/DL (8.5-10.1)
[2022-04-24 13:27] LABS: TOTAL PROTEIN 6.8 GM/DL (6.4-8.2)
[2022-04-24 13:29] LABS: BILIRUBIN,TOTAL 0.5 MG/DL (0.1-1.0)
[2022-04-24 13:30] LABS: CREATININE SERUM 1.21 MG/DL (0.60-1.30)
[2022-04-26 14:11] LABS: CHOLESTEROL 147 MG/DL (< 200); HDL CHOLESTEROL 46 MG/DL (40-60); TRIGLYCERIDES 104 MG/DL (<150); VLDL CHOLESTEROL 21 MG/DL (5-40)
== END ==
LOC: LAB 12:50
PROVIDERS: ATTEND Physician Assistant
DX: E78.2 Mixed hyperlipidemia (principal)
CPT/HCPCS: 36415; 80053; 80061

== ENCOUNTER → 2022-11-13 | Outpatient (CLI) | payer MEDICARE ==
[2022-11-13 10:48] LABS: ALBUMIN 4.3 GM/DL (3.2-4.5); BILIRUBIN,TOTAL 0.8 MG/DL (0.1-1.0); CALCIUM 9.5 MG/DL (8.5-10.1); CREATININE SERUM 1.31 MG/DL (0.60-1.30); POTASSIUM 4.1 MMOL/L (3.6-5.0)
== END ==
LOC: LAB 10:01
PROVIDERS: ATTEND Physician Assistant
DX: I08.0 Rheumatic disorders of both mitral and aortic valves (principal); I25.10 Atherosclerotic heart disease of native coronary artery without angina pectoris; E78.2 Mixed hyperlipidemia; I10 Essential (primary) hypertension; I65.23 Occlusion and stenosis of bilateral carotid arteries
CPT/HCPCS: 36415; 80053; 80061

== ENCOUNTER → 2023-04-16 | Outpatient (CLI) | payer MEDICARE ==
[2023-04-16 07:41] LABS: ALBUMIN 4.2 GM/DL (3.2-4.5); BILIRUBIN,TOTAL 0.9 MG/DL (0.1-1.0); CALCIUM 9.2 MG/DL (8.5-10.1); CREATININE SERUM 1.2 MG/DL (0.60-1.30); POTASSIUM 4.3 MMOL/L (3.6-5.0); TOTAL PROTEIN 6.8 GM/DL (6.4-8.2)
== END ==
LOC: LAB 07:07
PROVIDERS: ATTEND Physician Assistant
DX: E78.2 Mixed hyperlipidemia (principal)
CPT/HCPCS: 36415; 80053; 80061